=== PATIENT | female | born 1950 | race Caucasian/White ===

== ENCOUNTER → 2017-08-30 12:35 | Outpatient (CLI) | payer BC, SELFPAY ==
[2017-08-30 13:46] LABS: Absolute Lymphocyte Count 1.68 X10^3/ul (0.83-4.51); Absolute Neutrophil Count 5.3 X10^3/uL (2.0-7.7); Basophil# 0.03 X10^3/uL; Basophil% 0.4 % (0-1); Eosinophil# 0.29 X10^3/uL; Eosinophils% 3.8 % (0-5); Hematocrit 39.9 % (37-47); Hemoglobin 12.6 g/dl (12.0-15.0); Lymphocyte # 1.68 X10^3/ul (4.0); Mean Corp Hgb Conc 31.6 g/gl (32-36); Mean Corpuscular Hgb 29.9 pg (27.0-32.0); Mean Corpuscular Volume 94.5 fL (81-99); Mean Platelet Vol. 10.8 fl (6.2-12.0); Monocyte# 0.33 X10^3/uL; Monocyte% 4.3 % (0-10); Neutrophil % 69.5 % (47-70); Platelet Count 250 K/mm3 (150-450); RBC Distribution Width CV 13.7 % (11.6-14.6); RBC Distribution Width SD 46.9 fl (35.1-43.9); Red Blood Count 4.22 M/mm3 (4.2-5.4); White Blood Count 7.6 K/mm3 (4.4-11.0)
[2017-08-30 13:49] LABS: POSITIVE COUNT NO; POSITIVE DIFFERENTIAL NO; POSITIVE MORPHOLOGY NO
[2017-08-30 14:13] LABS: AST(SGOT) 16 U/L (15-37); Alanine Aminotransfer ALT/SGPT 27 U/L (13-56); Albumin, Serum 3.7 g/dL (3.2-5.0); Alkaline Phosphatase 70 U/L (45-117); Anion Gap 6 (5-15); BUN 19 mg/dL (7-18); BUN/Creat Ratio 18.4 RATIO (10-20); Calcium,Total 8.7 mg/dL (8.5-10.1); Chloride 105 mmol/L (98-107); Creatinine, Serum 1.03 mg/dL (0.55-1.02); EST Glomerular Filtration Rate 57 mL/min (>60); Est Glom Filt Rate - Afr Amer 69 mL/min (>60); Globulin 3.8 g/dL (2.2-4.2); Glucose 96 mg/dL (74-106); Potassium 4.1 mmol/L (3.5-5.1); Protein, Total 7.5 g/dL (6.4-8.2); Sodium Level 140 mmol/L (136-145)
== END ==
PROVIDERS: Family Provider Internal Medicine; PCP Internal Medicine; Visit Provider Internal Medicine Rheumatology
DX: L40.59 Other psoriatic arthropathy (principal); N39.46 Mixed incontinence; K21.9 Gastro-esophageal reflux disease without esophagitis; Z79.899 Other long term (current) drug therapy
CPT/HCPCS: 36415; 80053; 85025

== ENCOUNTER → 2017-11-15 07:17 | Outpatient (CLI) | payer BC, SELFPAY ==
[2017-11-15 10:04] LABS: Absolute Lymphocyte Count 1.84 X10^3/ul (0.83-4.51); Absolute Neutrophil Count 4.6 X10^3/uL (2.0-7.7); Basophil# 0.04 X10^3/uL; Basophil% 0.6 % (0-1); Eosinophil# 0.33 X10^3/uL; Eosinophils% 4.6 % (0-5); Hematocrit 35.9 % (37-47); Hemoglobin 11.8 g/dl (12.0-15.0); Lymphocyte # 1.84 X10^3/ul (4.0); Lymphocyte % 25.5 % (19-41); Mean Corp Hgb Conc 32.9 g/gl (32-36); Mean Corpuscular Hgb 30.7 pg (27.0-32.0); Mean Corpuscular Volume 93.5 fL (81-99); Monocyte# 0.35 X10^3/uL; Monocyte% 4.9 % (0-10); Neutrophil # 4.64 X10^3/uL (2.7-7.7); Neutrophil % 64.3 % (47-70); Platelet Count 238 K/mm3 (150-450); RBC Distribution Width CV 13.3 % (11.6-14.6); RBC Distribution Width SD 44.2 fl (35.1-43.9); Red Blood Count 3.84 M/mm3 (4.2-5.4); White Blood Count 7.2 K/mm3 (4.4-11.0)
[2017-11-15 10:06] LABS: POSITIVE COUNT NO; POSITIVE DIFFERENTIAL NO; POSITIVE MORPHOLOGY NO
[2017-11-15 10:19] LABS: AST(SGOT) 19 U/L (15-37); Alanine Aminotransfer ALT/SGPT 27 U/L (13-56); Albumin, Serum 3.8 g/dL (3.2-5.0); Alkaline Phosphatase 69 U/L (45-117); Anion Gap 7 (5-15); BUN 12 mg/dL (7-18); BUN/Creat Ratio 13.4 RATIO (10-20); Calcium,Total 8.8 mg/dL (8.5-10.1); Chloride 104 mmol/L (98-107); EST Glomerular Filtration Rate 67 mL/min (>60); Est Glom Filt Rate - Afr Amer 81 mL/min (>60); Globulin 3.9 g/dL (2.2-4.2); Glucose 116 mg/dL (74-106); Potassium 3.6 mmol/L (3.5-5.1); Protein, Total 7.7 g/dL (6.4-8.2); Sodium Level 138 mmol/L (136-145)
== END ==
PROVIDERS: Family Provider Internal Medicine; PCP Internal Medicine; Visit Provider Internal Medicine
DX: L40.59 Other psoriatic arthropathy (principal); K21.9 Gastro-esophageal reflux disease without esophagitis; N39.46 Mixed incontinence; Z79.899 Other long term (current) drug therapy
CPT/HCPCS: 36415; 80053; 85025

== ENCOUNTER → 2018-02-15 11:02 | Outpatient (CLI) | payer BC, SELFPAY ==
[2018-02-15 12:39] LABS: Absolute Lymphocyte Count 1.93 X10^3/ul (0.83-4.51); Absolute Neutrophil Count 6.2 X10^3/uL (2.0-7.7); Basophil# 0.06 X10^3/uL; Basophil% 0.7 % (0-1); Eosinophil# 0.21 X10^3/uL; Eosinophils% 2.3 % (0-5); Hemoglobin 12.1 g/dl (12.0-15.0); Lymphocyte # 1.93 X10^3/ul (4.0); Lymphocyte % 21.3 % (19-41); Mean Corp Hgb Conc 32.7 g/gl (32-36); Mean Corpuscular Hgb 30.7 pg (27.0-32.0); Mean Corpuscular Volume 93.9 fL (81-99); Mean Platelet Vol. 10.8 fl (6.2-12.0); Monocyte# 0.67 X10^3/uL; Monocyte% 7.4 % (0-10); Neutrophil # 6.16 X10^3/uL (2.7-7.7); Neutrophil % 68.2 % (47-70); Platelet Count 229 K/mm3 (150-450); RBC Distribution Width CV 13.4 % (11.6-14.6); RBC Distribution Width SD 44.4 fl (35.1-43.9); Red Blood Count 3.94 M/mm3 (4.2-5.4)
[2018-02-15 12:46] LABS: POSITIVE COUNT NO; POSITIVE DIFFERENTIAL NO; POSITIVE MORPHOLOGY NO
[2018-02-15 12:52] LABS: AST(SGOT) 18 U/L (15-37); Alanine Aminotransfer ALT/SGPT 27 U/L (13-56); Albumin, Serum 3.8 g/dL (3.2-5.0); Alkaline Phosphatase 65 U/L (45-117); Anion Gap 5 (5-15); BUN 13 mg/dL (7-18); BUN/Creat Ratio 13.4 RATIO (10-20); Chloride 105 mmol/L (98-107); Creatinine, Serum 0.97 mg/dL (0.55-1.02); EST Glomerular Filtration Rate 61 mL/min (>60); Est Glom Filt Rate - Afr Amer 74 mL/min (>60); Globulin 3.9 g/dL (2.2-4.2); Glucose 91 mg/dL (74-106); Potassium 3.7 mmol/L (3.5-5.1); Protein, Total 7.7 g/dL (6.4-8.2); Sodium Level 139 mmol/L (136-145)
== END ==
PROVIDERS: Family Provider Internal Medicine; PCP Internal Medicine; Visit Provider Internal Medicine Rheumatology
DX: L40.59 Other psoriatic arthropathy (principal); N39.46 Mixed incontinence; K21.9 Gastro-esophageal reflux disease without esophagitis; Z79.899 Other long term (current) drug therapy
CPT/HCPCS: 36415; 80053; 85025

== ENCOUNTER → 2018-05-16 11:52 | Outpatient (CLI) | payer BC, SELFPAY ==
[2018-05-16 13:49] LABS: Absolute Lymphocyte Count 1.76 X10^3/ul (0.83-4.51); Absolute Neutrophil Count 6.1 X10^3/uL (2.0-7.7); Basophil# 0.07 X10^3/uL; Basophil% 0.8 % (0-1); Eosinophil# 0.32 X10^3/uL; Eosinophils% 3.6 % (0-5); Hematocrit 38.4 % (37-47); Hemoglobin 12.6 g/dl (12.0-15.0); Lymphocyte # 1.76 X10^3/ul (4.0); Lymphocyte % 20.1 % (19-41); Mean Corp Hgb Conc 32.8 g/gl (32-36); Mean Corpuscular Hgb 31.3 pg (27.0-32.0); Mean Corpuscular Volume 95.3 fL (81-99); Mean Platelet Vol. 10.3 fl (6.2-12.0); Monocyte# 0.53 X10^3/uL; Neutrophil # 6.07 X10^3/uL (2.7-7.7); Neutrophil % 69.3 % (47-70); Platelet Count 208 K/mm3 (150-450); RBC Distribution Width CV 13.1 % (11.6-14.6); RBC Distribution Width SD 43.6 fl (35.1-43.9); Red Blood Count 4.03 M/mm3 (4.2-5.4); White Blood Count 8.8 K/mm3 (4.4-11.0)
[2018-05-16 13:54] LABS: POSITIVE COUNT NO; POSITIVE DIFFERENTIAL NO; POSITIVE MORPHOLOGY NO
[2018-05-16 14:11] LABS: ALB/GLOB Ratio 0.9 RATIO (0.9-2.4); AST(SGOT) 17 U/L (15-37); Alanine Aminotransfer ALT/SGPT 29 U/L (13-56); Albumin, Serum 3.7 g/dL (3.2-5.0); Alkaline Phosphatase 68 U/L (45-117); Anion Gap 10 (5-15); BUN 16 mg/dL (7-18); Chloride 104 mmol/L (98-107); Creatinine, Serum 0.94 mg/dL (0.55-1.02); EST Glomerular Filtration Rate 63 mL/min (>60); Est Glom Filt Rate - Afr Amer 76 mL/min (>60); Glucose 83 mg/dL (74-106); Potassium 4.2 mmol/L (3.5-5.1); Protein, Total 7.7 g/dL (6.4-8.2); Sodium Level 140 mmol/L (136-145)
== END ==
PROVIDERS: Family Provider Internal Medicine; PCP Internal Medicine; Referring Provider Internal Medicine Rheumatology; Visit Provider Internal Medicine Rheumatology
DX: L40.59 Other psoriatic arthropathy (principal); K21.9 Gastro-esophageal reflux disease without esophagitis; N39.46 Mixed incontinence; Z79.899 Other long term (current) drug therapy
CPT/HCPCS: 36415; 80053; 85025

== ENCOUNTER → 2018-08-29 10:39 | Outpatient (CLI) | payer MEDICARE, SELFPAY ==
[2018-08-29 12:37] LABS: Absolute Neutrophil Count 6.3 X10^3/uL (2.0-7.7); Basophil# 0.04 X10^3/uL; Basophil% 0.4 % (0-1); Eosinophil# 0.32 X10^3/uL; Eosinophils% 3.3 % (0-5); Lymphocyte % 27.6 % (19-41); Mean Corp Hgb Conc 31.7 g/gl (32-36); Mean Corpuscular Hgb 30.4 pg (27.0-32.0); Mean Platelet Vol. 10.7 fl (6.2-12.0); Monocyte% 4.1 % (0-10); Neutrophil # 6.26 X10^3/uL (2.7-7.7); Neutrophil % 64.1 % (47-70); Platelet Count 269 K/mm3 (150-450); RBC Distribution Width SD 48.1 fl (35.1-43.9); Red Blood Count 4.27 M/mm3 (4.2-5.4); White Blood Count 9.8 K/mm3 (4.4-11.0)
[2018-08-29 12:42] LABS: POSITIVE COUNT NO; POSITIVE DIFFERENTIAL NO; POSITIVE MORPHOLOGY NO
[2018-08-29 13:00] LABS: AST(SGOT) 17 U/L (15-37); Alanine Aminotransfer ALT/SGPT 42 U/L (13-56); Albumin, Serum 3.8 g/dL (3.2-5.0); Alkaline Phosphatase 69 U/L (45-117); Anion Gap 12 (5-15); BUN 26 mg/dL (7-18); BUN/Creat Ratio 23.9 RATIO (10-20); Calcium,Total 9.3 mg/dL (8.5-10.1); Chloride 103 mmol/L (98-107); Creatinine, Serum 1.09 mg/dL (0.55-1.02); EST Glomerular Filtration Rate 53 mL/min (>60); Est Glom Filt Rate - Afr Amer 64 mL/min (>60); Globulin 3.8 g/dL (2.2-4.2); Glucose 91 mg/dL (74-106); Potassium 4.3 mmol/L (3.5-5.1); Protein, Total 7.6 g/dL (6.4-8.2); Sodium Level 142 mmol/L (136-145)
== END ==
PROVIDERS: Family Provider Internal Medicine; PCP Internal Medicine; Referring Provider Internal Medicine Rheumatology; Visit Provider Internal Medicine Rheumatology
DX: L40.59 Other psoriatic arthropathy (principal); N39.46 Mixed incontinence; K21.9 Gastro-esophageal reflux disease without esophagitis; Z79.899 Other long term (current) drug therapy
CPT/HCPCS: 36415; 80053; 85025

== ENCOUNTER → 2018-12-19 12:24 | Outpatient (CLI) | payer MEDICARE, SELFPAY ==
[2018-12-19 13:51] LABS: Absolute Lymphocyte Count 0.85 X10^3/ul (0.83-4.51); Absolute Neutrophil Count 9.9 X10^3/uL (2.0-7.7); Basophil# 0.02 X10^3/uL; Basophil% 0.2 % (0-1); Eosinophil# 0.04 X10^3/uL; Eosinophils% 0.4 % (0-5); Hemoglobin 13.2 g/dl (12.0-15.0); Lymphocyte # 0.85 X10^3/ul (4.0); Lymphocyte % 7.7 % (19-41); Mean Corpuscular Hgb 30.6 pg (27.0-32.0); Mean Corpuscular Volume 92.6 fL (81-99); Mean Platelet Vol. 10.6 fl (6.2-12.0); Monocyte# 0.19 X10^3/uL; Monocyte% 1.7 % (0-10); Neutrophil # 9.92 X10^3/uL (2.7-7.7); Neutrophil % 89.8 % (47-70); Platelet Count 275 K/mm3 (150-450); RBC Distribution Width CV 13.5 % (11.6-14.6); RBC Distribution Width SD 45.7 fl (35.1-43.9); Red Blood Count 4.32 M/mm3 (4.2-5.4)
[2018-12-19 13:57] LABS: POSITIVE COUNT NO; POSITIVE DIFFERENTIAL NO; POSITIVE MORPHOLOGY NO
[2018-12-19 14:06] LABS: AST(SGOT) 15 U/L (15-37); Alanine Aminotransfer ALT/SGPT 26 U/L (13-56); Albumin, Serum 4.1 g/dL (3.2-5.0); Alkaline Phosphatase 84 U/L (45-117); Anion Gap 9 (5-15); BUN 10 mg/dL (7-18); Calcium,Total 9.5 mg/dL (8.5-10.1); Chloride 100 mmol/L (98-107); Creatinine, Serum 0.91 mg/dL (0.55-1.02); EST Glomerular Filtration Rate 66 mL/min (>60); Est Glom Filt Rate - Afr Amer 80 mL/min (>60); Globulin 4.3 g/dL (2.2-4.2); Glucose 142 mg/dL (74-106); Protein, Total 8.4 g/dL (6.4-8.2); Sodium Level 138 mmol/L (136-145)
== END ==
PROVIDERS: Family Provider Internal Medicine; PCP Internal Medicine; Referring Provider Internal Medicine Rheumatology; Visit Provider Internal Medicine Rheumatology
DX: L40.59 Other psoriatic arthropathy (principal); K21.9 Gastro-esophageal reflux disease without esophagitis; N39.46 Mixed incontinence; Z79.899 Other long term (current) drug therapy
CPT/HCPCS: 36415; 80053; 85025

== ENCOUNTER → 2019-06-01 10:56 | Outpatient (CLI) | payer MEDICARE, SELFPAY ==
[2019-06-01 12:33] LABS: Absolute Lymphocyte Count 2.16 X10^3/uL (0.83-4.51); Absolute Neutrophil Count 6.2 X10^3/uL (2.0-7.7); Basophil# 0.07 X10^3/uL; Basophil% 0.7 % (0-1); Eosinophil# 0.27 X10^3/uL; Eosinophils% 2.9 % (0-5); Hematocrit 38.9 % (37-47); Hemoglobin 12.5 g/dL (12.0-15.0); Lymphocyte # 2.16 X10^3/ul (4.0); Lymphocyte % 23.1 % (19-41); Mean Corp Hgb Conc 32.1 g/dL (32-36); Mean Corpuscular Hgb 30.6 pg (27.0-32.0); Mean Corpuscular Volume 95.1 fL (81-99); Mean Platelet Vol. 10.9 fl (6.2-12.0); Monocyte# 0.57 X10^3/uL; Monocyte% 6.1 % (0-10); NRBC Flagged by Analyzer 0 % (0-5); Neutrophil # 6.24 X10^3/uL (2.7-7.7); Neutrophil % 66.8 % (47-70); Platelet Count 250 K/mm3 (150-450); RBC Distribution Width CV 12.9 % (11.6-14.6); RBC Distribution Width SD 44.2 fl (35.1-43.9); Red Blood Count 4.09 M/mm3 (4.2-5.4); White Blood Count 9.4 K/mm3 (4.4-11.0)
[2019-06-01 12:36] LABS: ALB/GLOB Ratio 0.9 RATIO (0.9-2.4); AST(SGOT) 13 U/L (15-37); Alanine Aminotransfer ALT/SGPT 23 U/L (13-56); Albumin, Serum 3.6 g/dL (3.2-5.0); Alkaline Phosphatase 57 U/L (45-117); Anion Gap 9 (5-15); BUN 14 mg/dL (7-18); BUN/Creat Ratio 15.5 RATIO (10-20); Calcium,Total 9.2 mg/dL (8.5-10.1); Chloride 103 mmol/L (98-107); EST Glomerular Filtration Rate 66 mL/min (>60); Est Glom Filt Rate - Afr Amer 80 mL/min (>60); Globulin 3.9 g/dL (2.2-4.2); Glucose 102 mg/dL (74-106); Potassium 3.8 mmol/L (3.5-5.1); Protein, Total 7.5 g/dL (6.4-8.2); Sodium Level 139 mmol/L (136-145)
== END ==
PROVIDERS: Family Provider Internal Medicine; PCP Internal Medicine; Referring Provider Internal Medicine Rheumatology; Visit Provider Internal Medicine Rheumatology
DX: L40.59 Other psoriatic arthropathy (principal); K21.9 Gastro-esophageal reflux disease without esophagitis; N39.46 Mixed incontinence; Z79.899 Other long term (current) drug therapy
CPT/HCPCS: 36415; 80053; 85025

== ENCOUNTER → 2019-08-28 09:20 | Outpatient (CLI) | payer MEDICARE, SELFPAY ==
[2019-08-28 10:19] LABS: Absolute Neutrophil Count 4.8 X10^3/uL (2.0-7.7); Basophil# 0.05 X10^3/uL; Basophil% 0.7 % (0-1); Eosinophil# 0.38 X10^3/uL; Eosinophils% 5.3 % (0-5); Hematocrit 38.4 % (37-47); Hemoglobin 12.6 g/dL (12.0-15.0); Lymphocyte % 22.3 % (19-41); Mean Corp Hgb Conc 32.8 g/dL (32-36); Mean Corpuscular Hgb 30.6 pg (27.0-32.0); Mean Corpuscular Volume 93.2 fL (81-99); Mean Platelet Vol. 10.8 fl (6.2-12.0); Monocyte# 0.35 X10^3/uL; Monocyte% 4.9 % (0-10); NRBC Flagged by Analyzer 0 % (0-5); Neutrophil # 4.79 X10^3/uL (2.7-7.7); Neutrophil % 66.5 % (47-70); Platelet Count 241 K/mm3 (150-450); RBC Distribution Width SD 44.3 fl (35.1-43.9); Red Blood Count 4.12 M/mm3 (4.2-5.4); White Blood Count 7.2 K/mm3 (4.4-11.0)
[2019-08-28 10:50] LABS: ALB/GLOB Ratio 0.9 RATIO (0.9-2.4); AST(SGOT) 17 U/L (15-37); Alanine Aminotransfer ALT/SGPT 24 U/L (13-56); Albumin, Serum 3.8 g/dL (3.2-5.0); Alkaline Phosphatase 61 U/L (45-117); Anion Gap 2 (5-15); BUN 16 mg/dL (7-18); BUN/Creat Ratio 17.4 RATIO (10-20); Calcium,Total 9.7 mg/dL (8.5-10.1); Chloride 105 mmol/L (98-107); Creatinine, Serum 0.92 mg/dL (0.55-1.02); EST Glomerular Filtration Rate 65 mL/min (>60); Est Glom Filt Rate - Afr Amer 78 mL/min (>60); Globulin 4.2 g/dL (2.2-4.2); Glucose 99 mg/dL (74-106); Potassium 4.3 mmol/L (3.5-5.1); Sodium Level 137 mmol/L (136-145)
== END ==
PROVIDERS: PCP Internal Medicine; Referring Provider Internal Medicine Rheumatology; Visit Provider Internal Medicine Rheumatology
DX: L40.59 Other psoriatic arthropathy (principal); K21.9 Gastro-esophageal reflux disease without esophagitis; N39.46 Mixed incontinence; Z79.899 Other long term (current) drug therapy
CPT/HCPCS: 36415; 80053; 85025

== ENCOUNTER → 2019-11-17 11:13 | Outpatient (CLI) | payer MEDICARE, SELFPAY ==
[2019-11-17 12:55] LABS: Absolute Lymphocyte Count 0.73 X10^3/uL (0.83-4.51); Absolute Neutrophil Count 10.4 X10^3/uL (2.0-7.7); Basophil# 0.03 X10^3/uL; Basophil% 0.3 % (0-1); Hematocrit 37.3 % (37-47); Hemoglobin 11.9 g/dL (12.0-15.0); Lymphocyte # 0.73 X10^3/ul (4.0); Lymphocyte % 6.4 % (19-41); Mean Corp Hgb Conc 31.9 g/dL (32-36); Mean Corpuscular Hgb 29.5 pg (27.0-32.0); Mean Corpuscular Volume 92.3 fL (81-99); Monocyte# 0.28 X10^3/uL; Monocyte% 2.4 % (0-10); NRBC Flagged by Analyzer 0 % (0-5); Neutrophil % 90.6 % (47-70); Platelet Count 233 K/mm3 (150-450); RBC Distribution Width CV 13.2 % (11.6-14.6); RBC Distribution Width SD 44.4 fl (35.1-43.9); Red Blood Count 4.04 M/mm3 (4.2-5.4); White Blood Count 11.5 K/mm3 (4.4-11.0)
[2019-11-17 13:36] LABS: ALB/GLOB Ratio 0.9 RATIO (0.9-2.4); AST(SGOT) 10 U/L (15-37); Alanine Aminotransfer ALT/SGPT 21 U/L (13-56); Albumin, Serum 3.8 g/dL (3.2-5.0); Alkaline Phosphatase 52 U/L (45-117); Anion Gap 6 (5-15); BUN 15 mg/dL (7-18); BUN/Creat Ratio 16.3 RATIO (10-20); Calcium,Total 9.1 mg/dL (8.5-10.1); Chloride 103 mmol/L (98-107); Creatinine, Serum 0.92 mg/dL (0.55-1.02); EST Glomerular Filtration Rate 65 mL/min (>60); Est Glom Filt Rate - Afr Amer 78 mL/min (>60); Globulin 4.1 g/dL (2.2-4.2); Glucose 137 mg/dL (74-106); Protein, Total 7.9 g/dL (6.4-8.2); Sodium Level 135 mmol/L (136-145)
== END ==
PROVIDERS: PCP Internal Medicine; Referring Provider Internal Medicine Rheumatology; Visit Provider Internal Medicine Rheumatology
DX: L40.59 Other psoriatic arthropathy (principal); N39.46 Mixed incontinence; K21.9 Gastro-esophageal reflux disease without esophagitis; Z79.899 Other long term (current) drug therapy
CPT/HCPCS: 36415; 80053; 85025

== ENCOUNTER → 2020-02-13 11:02 | Outpatient (CLI) | payer BC, SELFPAY ==
[2020-02-13 15:45] LABS: Absolute Lymphocyte Count 2.12 X10^3/uL (0.83-4.51); Absolute Neutrophil Count 7.3 X10^3/uL (2.0-7.7); Basophil# 0.05 X10^3/uL; Basophil% 0.5 % (0-1); Eosinophil# 0.26 X10^3/uL; Eosinophils% 2.5 % (0-5); Hematocrit 37.7 % (37-47); Lymphocyte # 2.12 X10^3/ul (4.0); Lymphocyte % 20.1 % (19-41); Mean Corp Hgb Conc 31.8 g/dL (32-36); Mean Corpuscular Hgb 30.5 pg (27.0-32.0); Mean Corpuscular Volume 95.9 fL (81-99); Mean Platelet Vol. 12.1 fl (6.2-12.0); Monocyte# 0.82 X10^3/uL; Monocyte% 7.8 % (0-10); NRBC Flagged by Analyzer 0 % (0-5); Neutrophil # 7.28 X10^3/uL (2.7-7.7); Neutrophil % 68.8 % (47-70); Platelet Count 222 K/mm3 (150-450); RBC Distribution Width CV 13.3 % (11.6-14.6); RBC Distribution Width SD 46.7 fl (35.1-43.9); Red Blood Count 3.93 M/mm3 (4.2-5.4); White Blood Count 10.6 K/mm3 (4.4-11.0)
[2020-02-13 16:24] LABS: AST(SGOT) 12 U/L (15-37); Alanine Aminotransfer ALT/SGPT 18 U/L (13-56); Albumin, Serum 3.8 g/dL (3.2-5.0); Alkaline Phosphatase 52 U/L (45-117); Anion Gap 2 (5-15); BUN 12 mg/dL (7-18); BUN/Creat Ratio 12.7 RATIO (10-20); Chloride 104 mmol/L (98-107); Creatinine, Serum 0.94 mg/dL (0.55-1.02); EST Glomerular Filtration Rate 63 mL/min (>60); Est Glom Filt Rate - Afr Amer 76 mL/min (>60); Globulin 3.9 g/dL (2.2-4.2); Glucose 75 mg/dL (74-106); Potassium 3.9 mmol/L (3.5-5.1); Protein, Total 7.7 g/dL (6.4-8.2); Sodium Level 136 mmol/L (136-145)
== END ==
PROVIDERS: PCP Internal Medicine; Referring Provider Internal Medicine Rheumatology; Visit Provider Internal Medicine Rheumatology
DX: L40.59 Other psoriatic arthropathy (principal); M77.11 Lateral epicondylitis, right elbow; K21.9 Gastro-esophageal reflux disease without esophagitis; N39.46 Mixed incontinence; Z79.899 Other long term (current) drug therapy
CPT/HCPCS: 36415; 80053; 85025

== ENCOUNTER → 2020-05-16 09:35 | Outpatient (CLI) | payer MEDICARE, SELFPAY ==
[2020-05-16 12:37] LABS: Absolute Lymphocyte Count 1.67 X10^3/uL (0.83-4.51); Absolute Neutrophil Count 8.1 X10^3/uL (2.0-7.7); Basophil# 0.08 X10^3/uL; Basophil% 0.7 % (0-1); Eosinophil# 0.25 X10^3/uL; Eosinophils% 2.3 % (0-5); Hematocrit 38.5 % (37-47); Hemoglobin 12.1 g/dL (12.0-15.0); Lymphocyte # 1.67 X10^3/ul (4.0); Lymphocyte % 15.4 % (19-41); Mean Corp Hgb Conc 31.4 g/dL (32-36); Mean Corpuscular Hgb 29.8 pg (27.0-32.0); Mean Corpuscular Volume 94.8 fL (81-99); Mean Platelet Vol. 12.5 fl (6.2-12.0); Monocyte% 6.4 % (0-10); NRBC Flagged by Analyzer 0 % (0-5); Neutrophil # 8.11 X10^3/uL (2.7-7.7); Neutrophil % 74.7 % (47-70); Platelet Count 210 K/mm3 (150-450); RBC Distribution Width CV 13.1 % (11.6-14.6); RBC Distribution Width SD 45.5 fl (35.1-43.9); Red Blood Count 4.06 M/mm3 (4.2-5.4); White Blood Count 10.9 K/mm3 (4.4-11.0)
[2020-05-16 13:04] LABS: ALB/GLOB Ratio 0.9 RATIO (0.9-2.4); AST(SGOT) 18 U/L (15-37); Alanine Aminotransfer ALT/SGPT 20 U/L (13-56); Albumin, Serum 3.7 g/dL (3.2-5.0); Alkaline Phosphatase 49 U/L (45-117); Anion Gap 6 (5-15); BUN 12 mg/dL (7-18); BUN/Creat Ratio 12.8 RATIO (10-20); Chloride 106 mmol/L (98-107); Creatinine, Serum 0.94 mg/dL (0.55-1.02); EST Glomerular Filtration Rate 63 mL/min (>60); Est Glom Filt Rate - Afr Amer 77 mL/min (>60); Globulin 4.2 g/dL (2.2-4.2); Glucose 95 mg/dL (74-106); Potassium 3.7 mmol/L (3.5-5.1); Protein, Total 7.9 g/dL (6.4-8.2); Sodium Level 141 mmol/L (136-145)
== END ==
PROVIDERS: PCP Internal Medicine; Referring Provider Internal Medicine Rheumatology; Visit Provider Internal Medicine Rheumatology
DX: L40.59 Other psoriatic arthropathy (principal); M77.11 Lateral epicondylitis, right elbow; N39.46 Mixed incontinence; K21.9 Gastro-esophageal reflux disease without esophagitis; Z79.899 Other long term (current) drug therapy
CPT/HCPCS: 36415; 80053; 85025

== ENCOUNTER → 2020-08-06 11:34 | Outpatient (CLI) | payer MEDICARE, SELFPAY ==
[2020-08-06 15:35] LABS: ALB/GLOB Ratio 0.9 RATIO (0.9-2.4); AST(SGOT) 25 U/L (15-37); Alanine Aminotransfer ALT/SGPT 33 U/L (13-56); Albumin, Serum 3.8 g/dL (3.2-5.0); Alkaline Phosphatase 46 U/L (45-117); Anion Gap 5 (5-15); BUN 16 mg/dL (7-18); BUN/Creat Ratio 14.3 RATIO (10-20); Calcium,Total 10.1 mg/dL (8.5-10.1); Chloride 103 mmol/L (98-107); Creatinine, Serum 1.12 mg/dL (0.55-1.02); EST Glomerular Filtration Rate 51 mL/min (>60); Est Glom Filt Rate - Afr Amer 62 mL/min (>60); Globulin 4.1 g/dL (2.2-4.2); Glucose 105 mg/dL (74-106); Potassium 3.9 mmol/L (3.5-5.1); Protein, Total 7.9 g/dL (6.4-8.2); Sodium Level 136 mmol/L (136-145)
[2020-08-06 15:44] LABS: Absolute Lymphocyte Count 1.64 X10^3/uL (0.83-4.51); Absolute Neutrophil Count 6.4 X10^3/uL (2.0-7.7); Basophil# 0.06 X10^3/uL; Basophil% 0.7 % (0-1); Eosinophil# 0.31 X10^3/uL; Eosinophils% 3.5 % (0-5); Hematocrit 39.5 % (37-47); Hemoglobin 12.7 g/dL (12.0-15.0); Lymphocyte # 1.64 X10^3/ul (4.0); Lymphocyte % 18.5 % (19-41); Mean Corp Hgb Conc 32.2 g/dL (32-36); Mean Corpuscular Hgb 30.1 pg (27.0-32.0); Mean Corpuscular Volume 93.6 fL (81-99); Mean Platelet Vol. 11.4 fl (6.2-12.0); Monocyte# 0.46 X10^3/uL; Monocyte% 5.2 % (0-10); NRBC Flagged by Analyzer 0 % (0-5); Neutrophil # 6.37 X10^3/uL (2.7-7.7); Neutrophil % 71.9 % (47-70); Platelet Count 246 K/mm3 (150-450); RBC Distribution Width CV 13.3 % (11.6-14.6); RBC Distribution Width SD 45.4 fl (35.1-43.9); Red Blood Count 4.22 M/mm3 (4.2-5.4); White Blood Count 8.9 K/mm3 (4.4-11.0)
== END ==
PROVIDERS: PCP Internal Medicine; Referring Provider Internal Medicine Rheumatology; Visit Provider Internal Medicine Rheumatology
DX: L40.59 Other psoriatic arthropathy (principal); M77.11 Lateral epicondylitis, right elbow; K21.9 Gastro-esophageal reflux disease without esophagitis; N39.46 Mixed incontinence; Z79.899 Other long term (current) drug therapy
CPT/HCPCS: 36415; 80053; 85025

== ENCOUNTER → 2020-10-22 09:44 | Outpatient (CLI) | payer MEDICARE, SELFPAY ==
[2020-10-22 12:12] LABS: Absolute Lymphocyte Count 1.93 X10^3/uL (0.83-4.51); Absolute Neutrophil Count 5.1 X10^3/uL (2.0-7.7); Basophil# 0.08 X10^3/uL; Eosinophil# 0.22 X10^3/uL; Eosinophils% 2.8 % (0-5); Hematocrit 35.4 % (37-47); Hemoglobin 11.4 g/dL (12.0-15.0); Lymphocyte # 1.93 X10^3/ul (4.0); Lymphocyte % 24.6 % (19-41); Mean Corp Hgb Conc 32.2 g/dL (32-36); Mean Corpuscular Hgb 30.7 pg (27.0-32.0); Mean Corpuscular Volume 95.4 fL (81-99); Mean Platelet Vol. 11.5 fl (6.2-12.0); Monocyte# 0.48 X10^3/uL; Monocyte% 6.1 % (0-10); NRBC Flagged by Analyzer 0 % (0-5); Neutrophil % 65.1 % (47-70); Platelet Count 254 K/mm3 (150-450); RBC Distribution Width SD 45.1 fl (35.1-43.9); Red Blood Count 3.71 M/mm3 (4.2-5.4); White Blood Count 7.8 K/mm3 (4.4-11.0)
[2020-10-22 12:43] LABS: ALB/GLOB Ratio 0.9 RATIO (0.9-2.4); AST(SGOT) 12 U/L (15-37); Alanine Aminotransfer ALT/SGPT 23 U/L (13-56); Albumin, Serum 3.7 g/dL (3.2-5.0); Alkaline Phosphatase 44 U/L (45-117); Anion Gap 2 (5-15); BUN 20 mg/dL (7-18); BUN/Creat Ratio 20.9 RATIO (10-20); Calcium,Total 9.2 mg/dL (8.5-10.1); Chloride 103 mmol/L (98-107); Creatinine, Serum 0.96 mg/dL (0.55-1.02); EST Glomerular Filtration Rate 62 mL/min (>60); Est Glom Filt Rate - Afr Amer 74 mL/min (>60); Globulin 3.9 g/dL (2.2-4.2); Glucose 79 mg/dL (74-106); Potassium 3.7 mmol/L (3.5-5.1); Protein, Total 7.6 g/dL (6.4-8.2); Sodium Level 136 mmol/L (136-145)
== END ==
PROVIDERS: PCP Internal Medicine; Referring Provider Internal Medicine Rheumatology; Visit Provider Internal Medicine Rheumatology
DX: L40.59 Other psoriatic arthropathy (principal); M77.11 Lateral epicondylitis, right elbow; N39.46 Mixed incontinence; K21.9 Gastro-esophageal reflux disease without esophagitis; Z79.899 Other long term (current) drug therapy
CPT/HCPCS: 36415; 80053; 85025

== ENCOUNTER → 2021-01-21 10:30 | Outpatient (CLI) | payer MEDICARE, SELFPAY ==
[2021-01-21 12:05] LABS: Absolute Lymphocyte Count 2.12 X10^3/uL (0.83-4.51); Basophil# 0.06 X10^3/uL; Basophil% 0.6 % (0-1); Eosinophil# 0.06 X10^3/uL; Eosinophils% 0.6 % (0-5); Hematocrit 34.1 % (37-47); Lymphocyte # 2.12 X10^3/ul (0.83-4.51); Lymphocyte % 21.7 % (19-41); Mean Corp Hgb Conc 32.3 g/dL (32-36); Mean Corpuscular Hgb 30.1 pg (27.0-32.0); Mean Corpuscular Volume 93.2 fL (81-99); Mean Platelet Vol. 11.2 fl (6.2-12.0); Monocyte# 0.55 X10^3/uL; Monocyte% 5.6 % (0-10); NRBC Flagged by Analyzer 0 % (0-5); Neutrophil # 6.96 X10^3/uL (2.7-7.7); Neutrophil % 71.2 % (47-70); Platelet Count 253 K/mm3 (150-450); RBC Distribution Width CV 13.2 % (11.6-14.6); RBC Distribution Width SD 45.5 fl (35.1-43.9); Red Blood Count 3.66 M/mm3 (4.2-5.4); White Blood Count 9.8 K/mm3 (4.4-11.0)
[2021-01-21 12:18] LABS: AST(SGOT) 23 U/L (15-37); Alanine Aminotransfer ALT/SGPT 28 U/L (13-56); Albumin, Serum 3.7 g/dL (3.2-5.0); Alkaline Phosphatase 46 U/L (45-117); Anion Gap 7 (5-15); BUN 15 mg/dL (7-18); BUN/Creat Ratio 16.5 RATIO (10-20); Chloride 106 mmol/L (98-107); Creatinine, Serum 0.91 mg/dL (0.55-1.02); EST Glomerular Filtration Rate 65 mL/min (>60); Est Glom Filt Rate - Afr Amer 79 mL/min (>60); Globulin 3.7 g/dL (2.2-4.2); Glucose 108 mg/dL (74-106); Potassium 3.3 mmol/L (3.5-5.1); Protein, Total 7.4 g/dL (6.4-8.2); Sodium Level 139 mmol/L (136-145)
== END ==
PROVIDERS: PCP Internal Medicine; Referring Provider Internal Medicine Rheumatology; Visit Provider Internal Medicine Rheumatology
DX: L40.59 Other psoriatic arthropathy (principal); M77.11 Lateral epicondylitis, right elbow; K21.9 Gastro-esophageal reflux disease without esophagitis; N39.46 Mixed incontinence; Z79.899 Other long term (current) drug therapy
CPT/HCPCS: 36415; 80053; 85025

== ENCOUNTER → 2021-04-03 11:36 | Outpatient (CLI) | payer MEDICARE, SELFPAY ==
[2021-04-03 15:11] LABS: Absolute Lymphocyte Count 1.75 X10^3/uL (0.83-4.51); Absolute Neutrophil Count 4.9 X10^3/uL (2.0-7.7); Basophil# 0.07 X10^3/uL; Basophil% 0.9 % (0-1); Eosinophil# 0.44 X10^3/uL; Eosinophils% 5.8 % (0-5); Hematocrit 33.9 % (37-47); Lymphocyte # 1.75 X10^3/ul (0.83-4.51); Lymphocyte % 23.2 % (19-41); Mean Corp Hgb Conc 32.4 g/dL (32-36); Mean Corpuscular Volume 95.5 fL (81-99); Mean Platelet Vol. 12.4 fl (6.2-12.0); Monocyte# 0.35 X10^3/uL; Monocyte% 4.6 % (0-10); NRBC Flagged by Analyzer 0 % (0-5); Neutrophil # 4.92 X10^3/uL (2.7-7.7); Neutrophil % 65.2 % (47-70); Platelet Count 211 K/mm3 (150-450); RBC Distribution Width CV 12.9 % (11.6-14.6); RBC Distribution Width SD 44.8 fl (35.1-43.9); Red Blood Count 3.55 M/mm3 (4.2-5.4); White Blood Count 7.6 K/mm3 (4.4-11.0)
[2021-04-03 15:37] LABS: ALB/GLOB Ratio 0.9 RATIO (0.9-2.4); AST(SGOT) 15 U/L (15-37); Alanine Aminotransfer ALT/SGPT 22 U/L (13-56); Albumin, Serum 3.4 g/dL (3.2-5.0); Alkaline Phosphatase 47 U/L (45-117); Anion Gap 4 (5-15); BUN 12 mg/dL (7-18); BUN/Creat Ratio 14.1 RATIO (10-20); Calcium,Total 8.9 mg/dL (8.5-10.1); Chloride 105 mmol/L (98-107); Creatinine, Serum 0.85 mg/dL (0.55-1.02); EST Glomerular Filtration Rate 70 mL/min (>60); Est Glom Filt Rate - Afr Amer 85 mL/min (>60); Globulin 3.9 g/dL (2.2-4.2); Glucose 113 mg/dL (74-106); Potassium 3.6 mmol/L (3.5-5.1); Protein, Total 7.3 g/dL (6.4-8.2); Sodium Level 137 mmol/L (136-145)
== END ==
PROVIDERS: PCP Nurse Practitioner; Referring Provider Internal Medicine Rheumatology; Visit Provider Internal Medicine Rheumatology
DX: L40.59 Other psoriatic arthropathy (principal); L40.8 Other psoriasis; M77.11 Lateral epicondylitis, right elbow; K21.9 Gastro-esophageal reflux disease without esophagitis; N39.46 Mixed incontinence; Z79.899 Other long term (current) drug therapy
CPT/HCPCS: 36415; 80053; 85025

== ENCOUNTER → 2021-06-26 09:48 | Outpatient (CLI) | payer MEDICARE, SELFPAY ==
[2021-06-26 12:29] LABS: Absolute Lymphocyte Count 0.97 X10^3/uL (0.83-4.51); Absolute Neutrophil Count 9.5 X10^3/uL (2.0-7.7); Basophil# 0.07 X10^3/uL; Basophil% 0.6 % (0-1); Eosinophil# 0.27 X10^3/uL; Eosinophils% 2.4 % (0-5); Hematocrit 36.4 % (37-47); Lymphocyte # 0.97 X10^3/ul (0.83-4.51); Lymphocyte % 8.7 % (19-41); Mean Corpuscular Hgb 30.6 pg (27.0-32.0); Mean Corpuscular Volume 92.9 fL (81-99); Mean Platelet Vol. 11.2 fl (6.2-12.0); Monocyte% 2.7 % (0-10); NRBC Flagged by Analyzer 0 % (0-5); Neutrophil # 9.47 X10^3/uL (2.7-7.7); Neutrophil % 85.2 % (47-70); Platelet Count 253 K/mm3 (150-450); RBC Distribution Width CV 13.6 % (11.6-14.6); RBC Distribution Width SD 45.6 fl (35.1-43.9); Red Blood Count 3.92 M/mm3 (4.2-5.4); White Blood Count 11.1 K/mm3 (4.4-11.0)
[2021-06-26 12:40] LABS: ALB/GLOB Ratio 0.9 RATIO (0.9-2.4); AST(SGOT) 13 U/L (15-37); Alanine Aminotransfer ALT/SGPT 21 U/L (13-56); Albumin, Serum 3.7 g/dL (3.2-5.0); Alkaline Phosphatase 48 U/L (45-117); Anion Gap 7 (5-15); BUN 13 mg/dL (7-18); BUN/Creat Ratio 13.4 RATIO (10-20); Calcium,Total 9.4 mg/dL (8.5-10.1); Chloride 101 mmol/L (98-107); Creatinine, Serum 0.97 mg/dL (0.55-1.02); EST Glomerular Filtration Rate 60 mL/min (>60); Est Glom Filt Rate - Afr Amer 73 mL/min (>60); Globulin 4.2 g/dL (2.2-4.2); Glucose 109 mg/dL (74-106); Potassium 4.4 mmol/L (3.5-5.1); Protein, Total 7.9 g/dL (6.4-8.2); Sodium Level 135 mmol/L (136-145)
== END ==
PROVIDERS: PCP Nurse Practitioner; Referring Provider Internal Medicine Rheumatology; Visit Provider Internal Medicine Rheumatology
DX: L40.59 Other psoriatic arthropathy (principal); M77.11 Lateral epicondylitis, right elbow; N39.46 Mixed incontinence; K21.9 Gastro-esophageal reflux disease without esophagitis; Z79.899 Other long term (current) drug therapy
CPT/HCPCS: 36415; 80053; 85025

== ENCOUNTER → 2022-01-08 | Outpatient (CLI) | payer MEDICARE, SELFPAY ==
[2022-01-08 10:13] LABS: Absolute Neutrophil Count 4.6 X10^3/uL (2.0-7.7); Basophil# 0.05 X10^3/uL; Basophil% 0.6 % (0-1); Eosinophil# 0.22 X10^3/uL; Eosinophils% 2.8 % (0-5); Hemoglobin 10.6 g/dL (12.0-15.0); Lymphocyte % 29.8 % (19-41); Mean Corp Hgb Conc 32.1 g/dL (32-36); Mean Corpuscular Volume 93.5 fL (81-99); Mean Platelet Vol. 11.2 fl (6.2-12.0); Monocyte% 6.5 % (0-10); NRBC Flagged by Analyzer 0 % (0-5); Neutrophil # 4.62 X10^3/uL (2.7-7.7); Neutrophil % 59.9 % (47-70); Platelet Count 219 K/mm3 (150-450); RBC Distribution Width CV 12.7 % (11.6-14.6); RBC Distribution Width SD 43.2 fl (35.1-43.9); Red Blood Count 3.53 M/mm3 (4.2-5.4); White Blood Count 7.7 K/mm3 (4.4-11.0)
[2022-01-08 10:29] LABS: ALB/GLOB Ratio 0.9 RATIO (0.9-2.4); AST(SGOT) 12 U/L (15-37); Alanine Aminotransfer ALT/SGPT 15 U/L (13-56); Albumin, Serum 3.5 g/dL (3.2-5.0); Alkaline Phosphatase 48 U/L (45-117); Anion Gap 5 (5-15); BUN 19 mg/dL (7-18); BUN/Creat Ratio 20.5 RATIO (10-20); Calcium,Total 9.3 mg/dL (8.5-10.1); Chloride 108 mmol/L (98-107); Creatinine, Serum 0.93 mg/dL (0.55-1.02); EST Glomerular Filtration Rate 64 mL/min (>60); Est Glom Filt Rate - Afr Amer 77 mL/min (>60); Globulin 3.9 g/dL (2.2-4.2); Glucose 87 mg/dL (74-106); Potassium 3.6 mmol/L (3.5-5.1); Protein, Total 7.4 g/dL (6.4-8.2); Sodium Level 139 mmol/L (136-145)
== END | disposition home or self-care (01) ==
PROVIDERS: PCP Nurse Practitioner; Referring Provider Internal Medicine Rheumatology; Visit Provider Internal Medicine Rheumatology
DX: L40.59 Other psoriatic arthropathy (principal); L40.8 Other psoriasis; M77.11 Lateral epicondylitis, right elbow; K21.9 Gastro-esophageal reflux disease without esophagitis; N39.46 Mixed incontinence; Z79.899 Other long term (current) drug therapy
CPT/HCPCS: 36415; 80053; 85025

== ENCOUNTER 2022-03-28 17:07 | Emergency (ER) | payer MEDICARE, SELFPAY ==
[2022-03-28 17:09] VITALS: BP 147/93; PULSE 80; RESP 18; TEMP 36.2; O2SAT 95; BMI 24.5
--- NOTE | 2022-03-28 17:19 | RAD_ITS ---
STUDY: X-RAY CHEST REASON FOR EXAM: Female, 71 years old. chest pain TECHNIQUE: Single AP portable view of the chest. COMPARISON: 11/01/2016 FINDINGS: The lungs are clear and expanded. There is no demonstrated pleural abnormality. Normal size heart. Normal mediastinum and cassie. Normal visualized pulmonary arteries. Normal visualized aortic arch and descending thoracic aorta. Normal visualized thoracic spine. Normal visualized ribs, clavicles, and shoulders. There is no demonstrated abnormality of the visualized soft tissue structures of the upper abdomen. RAD/Chest 1 View (Portable) IMPRESSION: Normal x-ray examination of the chest. Electronically Signed: Robert Jara MD at 17:41 EDT ,
--- NOTE | 2022-03-28 17:19 | EKG12_ITS ---
Test Reason : CP Blood Pressure : / mmHG Vent. Rate : 077 BPM Atrial Rate : 077 BPM P-R Int : 170 ms QRS Dur : 080 ms QT Int : 374 ms P-R-T Axes : 067 050 070 degrees QTc Int : 423 ms Normal sinus rhythm Nonspecific ST abnormality Abnormal ECG Confirmed by YEHUDA ARREDONDO, BK ([id number]), order editor ALLAN COCHRAN ([id number]) on 03/30/2022 11:29:14 AM Referred By: BERNARDA Confirmed By:BK BLACKMAN MD
[2022-03-28] MEDS: Aspirin 81 MG TAB.CHEW 324 MG PO (17:26)
[2022-03-28 17:35] LABS: Absolute Lymphocyte Count 0.65 X10^3/uL (0.83-4.51); Absolute Neutrophil Count 2.1 X10^3/uL (2.0-7.7); Basophil# 0.04 X10^3/uL; Basophil% 1.1 % (0-1); Eosinophil# 0.11 X10^3/uL; Eosinophils% 3.1 % (0-5); Hematocrit 33.4 % (37-47); Hemoglobin 11.1 g/dL (12.0-15.0); Lymphocyte # 0.65 X10^3/ul (0.83-4.51); Lymphocyte % 18.2 % (19-41); Mean Corp Hgb Conc 33.2 g/dL (32-36); Mean Corpuscular Hgb 30.8 pg (27.0-32.0); Mean Corpuscular Volume 92.8 fL (81-99); Monocyte# 0.71 X10^3/uL; Monocyte% 19.9 % (0-10); NRBC Flagged by Analyzer 0 % (0-5); Neutrophil # 2.05 X10^3/uL (2.7-7.7); Neutrophil % 57.4 % (47-70); Platelet Count 165 K/mm3 (150-450); RBC Distribution Width CV 14.1 % (11.6-14.6); RBC Distribution Width SD 47.1 fl (35.1-43.9); White Blood Count 3.6 K/mm3 (4.4-11.0)
--- NOTE | 2022-03-28 17:35 | EDS_ITS ---
HPI History of Present Illness Chief Complaint: Chest Pain Informant: patient Narrative Narrative: Presents with transient substernal chest pain rating to her back an hour prior to arrival. EMS was contacted. No medicines given symptoms resolved upon arrival. Yesterday mild cough that is productive. Headache today. Nonvaccinated for COVID. Denies sick contacts. Tobacco history. History of rheumatoid arthritis on medications. No cardiac history. EMS EKG reviewed shows sinus rhythm no acute changes. Prior Similar Symptoms: No CVD Risk Factors: Positive for Smoking; Negative for Hypertension, Diabetes, Hypercholesterolemia or Family History 1' </=55 PE Risk Factors: Negative for Recent Travel/Surgery, Recent Immobilization, Prior DVT or PE, Cancer or OCP + Smoking + >/=35 PFSH PFSH Home Medications oxybutynin chloride 5 mg tablet 5 mg PO DAILY 10/02/14 [History Last Taken Unknown] methotrexate sodium 2.5 mg tablet 12.5 mg PO Q7D 11/01/16 [History Last Taken Unknown] prednisone 5 mg tablet 5 mg PO DAILY 11/01/16 [History Last Taken Unknown] folic acid 1 mg tablet 1 mg PO BIDCM 11/02/16 [History Last Taken 11/01/16] nirmatrelvir 300 mg (150 mg x2)-ritonavir 100 mg tablet,dose pack(EUA) (Paxlovid) See Rx Instructions PO .COMPLEX #30 tabs 03/28/22 [Rx Last Taken Unknown] Allergy/AdvReac Type Severity Reaction Status Date / Time No Known Allergies Allergy Verified 03/28/22 17:15 Social History Smoking Status: Current some day smoker tobacco type: cigarettes ROS ROS ED Constitutional Constitutional ED: Denies chills, fever(s) or sweats Eyes Eyes: Denies change in vision ENT ENT ED: Denies dysphagia or sore throat Cardiovascular Cardiovascular: Reports chest pain; Denies leg edema, palpitations or racing heartbeat Respiratory/Chest Respiratory/Chest: Reports cough; Denies dyspnea or dyspnea on exertion Gastrointestinal Gastrointestinal: Denies abdominal pain, diarrhea, nausea or vomiting Genitourinary Genitourinary ED: Denies dysuria, hematuria or urinary frequency Musculoskeletal Musculoskeletal: Denies back pain, extremity pain or neck pain Integumentary Denies rash or wounds Neurologic Neurologic: Reports headache(s); Denies paresthesias or weakness EXAM Physical Exam Const Vital Signs: 03/28/22 17:09 03/28/22 17:15 03/28/22 17:27 Temperature 97.2 F L Temperature Source Temporal Pulse Rate 80 Respiratory Rate 18 Respiratory Effort Normal Non-Labored Blood Pressure 147/93 H Blood Pressure Mean 111 Pulse Ox 95 Oxygen Delivery Method Room Air Room Air 03/28/22 19:03 03/28/22 19:44 03/28/22 20:14 Temperature Temperature Source Pulse Rate 81 88 79 Respiratory Rate 16 18 Respiratory Effort Blood Pressure 137/71 H 144/86 H 154/82 H Blood Pressure Mean 93 105 Pulse Ox 92 96 97 Oxygen Delivery Method Room Air Room Air Positive well nourished and well developed General Appearance ED: well developed and NAD HEENT Reports moist mucous membranes normocephalic and atraumatic Eyes PERRL, EOMs intact bilaterally and conjunctivae normal General Eye ED: Yes normal appearance of both eyes Neck no lymphadenopathy and supple General: Negative for tenderness Chest Wall Chest: Negative for tenderness Resp normal respiratory effort and normal air movement Effort and Inspection: symmetric chest movement; Negative for respiratory distress Cardio regular rate, regular rhythm and no murmurs Peripheral Pulses: pulses 2+ throughout GI normal to inspection, nondistended, normoactive bowel sounds and non-tender Palpation: Negative for guarding or rebound tenderness present Back/Spine no CVA tenderness and no thoracic nor lumbar tenderness Extremity normal to inspection General Extremety ED: Negative for edema or tenderness General Extremity: Negative for edema Neuro oriented x3 and no sensory deficits noted Sensorium / Orientation: awake and alert Skin no rashes or lesions noted and no wounds Heart Score History: Slightly/Non-Suspicious ECG: Normal Age: >/= 65 years Risk Factors: 1 or 2 Risk Factors Troponin: </= Normal Limit Score: 3 MDM MDM MDM Narrative Medical decision making narrative: Patient presented with chest pains 1 hour prior to arrival EKG nonspecific findings. Cardiac work-up troponin x2 negative. Chest x-ray reviewed by myself and read by radiology shows no acute process. She reported cough yesterday headache today. COVID testing obtained returned positive. She does have arthritis. Discussed treatment with Paxlovid for which she did like treatment. Pulse ox 97% room air. Return precaution discussed. All questions were answered. Lab Data Attestation: I reviewed the patient's lab results. Labs: Laboratory Results - last 24 hr 03/28/22 03/28/22 03/28/22 17:15 17:15 19:40 WBC 3.6 L RBC 3.60 L Hgb 11.1 L Hct 33.4 L MCV 92.8 MCH 30.8 MCHC 33.2 RDW Std Deviation 47.1 H RDW Coeff of Nikki 14.1 Plt Count 165 MPV 10.0 Immature Gran % (Auto) 0.300 Neut % (Auto) 57.4 Lymph % (Auto) 18.2 L [place] % (Auto) 19.9 H Eos % (Auto) 3.1 Baso % (Auto) 1.1 H Absolute Neuts (auto) 2.1 Absolute Lymphs (auto) 0.65 L Nucleated RBC % 0 Sodium 135 L Potassium 3.8 Chloride 101 Carbon Dioxide 27.0 Anion Gap 7 BUN 15 Creatinine 1.07 H Estim Creat Clear Calc 40.47 Est GFR (MDRD) Af Amer 65 Est GFR (MDRD) Non-Af 54 L BUN/Creatinine Ratio 14.0 Glucose 111 H Calcium 9.1 Troponin I High Sens 10 11 Radiography Diagnostic Testing: Clinical Impression(s) from Imaging Studies Chest X-Ray 03/28/22 17:19 IMPRESSION: Normal x-ray examination of the chest. Electronically Signed: Robert Jara MD at 17:41 EDT , EKG Initial EKG: Attestation: I personally reviewed and interpreted this EKG as follows: Comments: EKG #1 at 1710: Sinus rate of [address] changes a T wave version in aVL. EKG #2 at 1808: Unchanged. Discharge Plan Triage Chief Complaint: Chest Pain ED Provider: Stanford Guzman Dx/Rx/DC Orders Clinical Impression: COVID-19 virus infection, Chest pain, History of rheumatoid arthritis Instructions: Coronavirus Disease 2019 (COVID-19): Caring for Yourself or Others, ED Chest Pain, Uncertain Cause Prescriptions: New Paxlovid (EUA) 300 mg (150 mg x 2)-100 mg tablets,dose pack See Rx Instructions .ROUTE .COMPLEX Qty: 30 0RF Rx Instructions: take TWO 150 mg tablets of nirmatrelvir with ONE 100 mg tablet of ritonavir twice daily for 5 days No Action oxybutynin chloride 5 MG tablet 5 mg PO DAILY prednisone 5 MG tablet 5 mg PO DAILY methotrexate sodium 2.5 MG tablet 12.5 mg PO Q7D folic acid 1 MG tablet 1 mg PO BIDCM Primary Care Provider: Libra Purdy Referrals: Tabitha Weiner OFFICE MOVER, OFFICE MOVER-C [Non-Staff] - 3-5 Days Activity Restrictions/Additional Instructions: Cardiac work-up negative. COVID-positive. Take medications as prescribed. Follow-up with your doctor for further testing. Monitor for any worsening respiratory symptoms. May want to knot picker cloth a pulse oximeter. If drops below 88% with worsening dyspnea, return to the ED. Disposition Disposition: Home, Self Care Discharge Date/Time: 03/28/22 20:56
[2022-03-28 17:58] LABS: Anion Gap 7 (5-15); BUN 15 mg/dL (7-18); Calcium,Total 9.1 mg/dL (8.5-10.1); Chloride 101 mmol/L (98-107); Creatinine, Serum 1.07 mg/dL (0.55-1.02); EST Glomerular Filtration Rate 54 mL/min (>60); Est Glom Filt Rate - Afr Amer 65 mL/min (>60); Estimated Creatinine Clearance 40.47 ml/min; Glucose 111 mg/dL (74-106); Potassium 3.8 mmol/L (3.5-5.1); Sodium Level 135 mmol/L (136-145); Troponin-I HS (w/2H Reflex) 10 pg/mL (3.0-54.0)
--- NOTE | 2022-03-28 18:08 | EKG12_ITS ---
Test Reason : CP Blood Pressure : / mmHG Vent. Rate : 083 BPM Atrial Rate : 083 BPM P-R Int : 172 ms QRS Dur : 084 ms QT Int : 358 ms P-R-T Axes : 067 046 075 degrees QTc Int : 420 ms Normal sinus rhythm Nonspecific ST and T wave abnormality Abnormal ECG Confirmed by YEHUDA ARREDONDO, BK ([id number]), electronic news gathering editor ALLAN OCCHRAN ([id number]) on 03/30/2022 11:30:51 AM Referred By: JEY Confirmed By:BK BLACKMAN MD
[2022-03-28 19:03] VITALS: BP 137/71; PULSE 81; RESP 16; O2SAT 92
[2022-03-28 19:30] LABS: Reflex Troponin-HS? (from REC) Y
[2022-03-28 19:44] VITALS: BP 144/86; PULSE 88; RESP 18; O2SAT 96
[2022-03-28 20:07] LABS: Troponin-I HS 11 pg/mL (3.0-54.0)
[2022-03-28 20:14] VITALS: BP 154/82; PULSE 79; O2SAT 97
== END 2022-03-28 20:56 | disposition home or self-care (01) ==
PROVIDERS: Emergency Provider Emergency Medicine; PCP Internal Medicine; Visit Provider Emergency Medicine
DX: U07.1 COVID-19 (principal); M06.9 Rheumatoid arthritis, unspecified; F17.210 Nicotine dependence, cigarettes, uncomplicated; Z28.310 Unvaccinated for COVID-19; Z79.899 Other long term (current) drug therapy
CPT/HCPCS: 71045; 80048; 84484; 85025; 87811; 93005; 99285

== ENCOUNTER → 2022-06-02 | Outpatient (CLI) | payer MEDICARE, SELFPAY ==
[2022-06-02 12:16] LABS: Absolute Lymphocyte Count 2.59 X10^3/uL (0.83-4.51); Absolute Neutrophil Count 4.9 X10^3/uL (2.0-7.7); Basophil# 0.07 X10^3/uL; Basophil% 0.8 % (0-1); Eosinophil# 0.29 X10^3/uL; Eosinophils% 3.5 % (0-5); Hematocrit 36.1 % (37-47); Hemoglobin 11.5 g/dL (12.0-15.0); Lymphocyte # 2.59 X10^3/ul (0.83-4.51); Lymphocyte % 30.9 % (19-41); Mean Corp Hgb Conc 31.9 g/dL (32-36); Mean Corpuscular Hgb 30.6 pg (27.0-32.0); Mean Platelet Vol. 11.6 fl (6.2-12.0); Monocyte# 0.46 X10^3/uL; Monocyte% 5.5 % (0-10); NRBC Flagged by Analyzer 0 % (0-5); Neutrophil # 4.93 X10^3/uL (2.7-7.7); Neutrophil % 58.9 % (47-70); Platelet Count 261 K/mm3 (150-450); RBC Distribution Width CV 14.2 % (11.6-14.6); RBC Distribution Width SD 49.1 fl (35.1-43.9); Red Blood Count 3.76 M/mm3 (4.2-5.4); White Blood Count 8.4 K/mm3 (4.4-11.0)
[2022-06-02 12:27] LABS: ALB/GLOB Ratio 0.9 RATIO (0.9-2.4); AST(SGOT) 16 U/L (15-37); Alanine Aminotransfer ALT/SGPT 24 U/L (13-56); Albumin, Serum 3.8 g/dL (3.2-5.0); Alkaline Phosphatase 50 U/L (45-117); Anion Gap 5 (5-15); BUN 26 mg/dL (7-18); BUN/Creat Ratio 24.8 RATIO (10-20); Calcium,Total 9.9 mg/dL (8.5-10.1); Chloride 103 mmol/L (98-107); Creatinine, Serum 1.05 mg/dL (0.55-1.02); EST Glomerular Filtration Rate 55 mL/min (>60); Est Glom Filt Rate - Afr Amer 67 mL/min (>60); Globulin 4.2 g/dL (2.2-4.2); Glucose 89 mg/dL (74-106); Potassium 4.2 mmol/L (3.5-5.1); Sodium Level 138 mmol/L (136-145)
== END | disposition home or self-care (01) ==
LOC: MTLAB 10:08
PROVIDERS: PCP Internal Medicine; Referring Provider Internal Medicine Rheumatology; Visit Provider Internal Medicine Rheumatology
DX: L40.59 Other psoriatic arthropathy (principal); L40.8 Other psoriasis; M77.11 Lateral epicondylitis, right elbow; K21.9 Gastro-esophageal reflux disease without esophagitis; N39.46 Mixed incontinence; Z79.899 Other long term (current) drug therapy
CPT/HCPCS: 36415; 80053; 85025

== ENCOUNTER → 2022-08-26 | Outpatient (CLI) | payer MEDICARE, SELFPAY ==
[2022-08-26 12:18] LABS: Absolute Lymphocyte Count 1.07 X10^3/uL (0.83-4.51); Absolute Neutrophil Count 12.5 X10^3/uL (2.0-7.7); Basophil# 0.06 X10^3/uL; Basophil% 0.4 % (0-1); Eosinophil# 0.16 X10^3/uL; Eosinophils% 1.1 % (0-5); Hemoglobin 12.1 g/dL (12.0-15.0); Lymphocyte # 1.07 X10^3/ul (0.83-4.51); Lymphocyte % 7.5 % (19-41); Mean Corp Hgb Conc 31.8 g/dL (32-36); Mean Corpuscular Hgb 30.4 pg (27.0-32.0); Mean Corpuscular Volume 95.5 fL (81-99); Monocyte# 0.43 X10^3/uL; NRBC Flagged by Analyzer 0 % (0-5); Neutrophil % 87.4 % (47-70); Platelet Count 229 K/mm3 (150-450); RBC Distribution Width CV 12.9 % (11.6-14.6); RBC Distribution Width SD 44.6 fl (35.1-43.9); Red Blood Count 3.98 M/mm3 (4.2-5.4); White Blood Count 14.3 K/mm3 (4.4-11.0)
[2022-08-26 12:49] LABS: ALB/GLOB Ratio 0.9 RATIO (0.9-2.4); AST(SGOT) 17 U/L (15-37); Alanine Aminotransfer ALT/SGPT 24 U/L (13-56); Albumin, Serum 3.8 g/dL (3.2-5.0); Alkaline Phosphatase 54 U/L (45-117); Anion Gap 7 (5-15); BUN 27 mg/dL (7-18); Calcium,Total 9.7 mg/dL (8.5-10.1); Chloride 104 mmol/L (98-107); Creatinine, Serum 1.08 mg/dL (0.55-1.02); EST Glomerular Filtration Rate 53 mL/min (>60); Est Glom Filt Rate - Afr Amer 64 mL/min (>60); Globulin 4.4 g/dL (2.2-4.2); Glucose 106 mg/dL (74-106); Potassium 3.8 mmol/L (3.5-5.1); Protein, Total 8.2 g/dL (6.4-8.2); Sodium Level 138 mmol/L (136-145)
== END | disposition home or self-care (01) ==
PROVIDERS: PCP Family Medicine; Referring Provider Internal Medicine Rheumatology; Visit Provider Internal Medicine Rheumatology
DX: L40.59 Other psoriatic arthropathy (principal); L40.8 Other psoriasis; Z79.899 Other long term (current) drug therapy
CPT/HCPCS: 36415; 80053; 85025

== ENCOUNTER → 2022-10-14 | Outpatient (CLI) | payer MEDICARE, SELFPAY ==
--- NOTE | 2022-10-14 10:09 | RAD_ITS ---
STUDY: X-RAY - LEFT FOOT CLINICAL: Female, 71 years old. Evaluate for stress fracture of fifth metatarsal. TECHNIQUE: 3 view(s) of the foot. COMPARISON: None. FINDINGS: Generalized osteopenia. Mild diffuse osteoarthritic changes, most marked at the MTP and IP joints. Hammertoe deformities. Normal soft tissues. RAD/Foot min 3 Views IMPRESSION: Osteopenia with osteoarthritic changes. No radiographic evidence of stress injury. Electronically Signed: Bladimir Brewster, at 11:58 EDT ,
== END | disposition home or self-care (01) ==
LOC: MTRAD 10:08
PROVIDERS: PCP Family Medicine; Referring Provider Family Medicine; Visit Provider Family Medicine
DX: M79.672 Pain in left foot (principal)
CPT/HCPCS: 73630

== ENCOUNTER → 2022-11-17 | Outpatient (CLI) | payer MEDICARE, SELFPAY ==
[2022-11-17 12:19] LABS: Absolute Lymphocyte Count 1.67 X10^3/uL (0.83-4.51); Absolute Neutrophil Count 5.1 X10^3/uL (2.0-7.7); Basophil# 0.05 X10^3/uL; Basophil% 0.6 % (0-1); Eosinophil# 0.38 X10^3/uL; Eosinophils% 4.8 % (0-5); Lymphocyte # 1.67 X10^3/ul (0.83-4.51); Lymphocyte % 21.3 % (19-41); Mean Corp Hgb Conc 33.3 g/dL (32-36); Mean Corpuscular Hgb 31.4 pg (27.0-32.0); Mean Corpuscular Volume 94.2 fL (81-99); Mean Platelet Vol. 11.1 fl (6.2-12.0); Monocyte# 0.64 X10^3/uL; Monocyte% 8.2 % (0-10); NRBC Flagged by Analyzer 0 % (0-5); Neutrophil # 5.07 X10^3/uL (2.7-7.7); Neutrophil % 64.7 % (47-70); Platelet Count 237 K/mm3 (150-450); RBC Distribution Width SD 44.3 fl (35.1-43.9); Red Blood Count 3.82 M/mm3 (4.2-5.4); White Blood Count 7.8 K/mm3 (4.4-11.0)
[2022-11-17 12:40] LABS: ALB/GLOB Ratio 0.7 RATIO (0.9-2.4); AST(SGOT) 19 U/L (15-37); Alanine Aminotransfer ALT/SGPT 23 U/L (13-56); Albumin, Serum 3.6 g/dL (3.2-5.0); Alkaline Phosphatase 50 U/L (45-117); Anion Gap 3 (5-15); BUN 18 mg/dL (7-18); BUN/Creat Ratio 20.6 RATIO (10-20); Calcium,Total 9.8 mg/dL (8.5-10.1); Chloride 104 mmol/L (98-107); Creatinine, Serum 0.87 mg/dL (0.55-1.02); EST Glomerular Filtration Rate 68 mL/min (>60); Est Glom Filt Rate - Afr Amer 82 mL/min (>60); Globulin 4.9 g/dL (2.2-4.2); Glucose 92 mg/dL (74-106); Potassium 4.4 mmol/L (3.5-5.1); Protein, Total 8.5 g/dL (6.4-8.2); Sodium Level 135 mmol/L (136-145)
== END | disposition home or self-care (01) ==
LOC: MTLAB 09:50
PROVIDERS: PCP Family Medicine; Referring Provider Internal Medicine Rheumatology; Visit Provider Internal Medicine Rheumatology
DX: L40.59 Other psoriatic arthropathy (principal); Z79.899 Other long term (current) drug therapy
CPT/HCPCS: 36415; 80053; 85025

== ENCOUNTER 2023-03-29 13:31 | Emergency (ER) | payer MEDICARE, SELFPAY ==
[2023-03-29 13:32] VITALS: BP 125/61; PULSE 83; RESP 16; TEMP 36.3; O2SAT 100
--- NOTE | 2023-03-29 14:16 | CT_ITS ---
STUDY: CT BRAIN WITHOUT CONTRAST REASON FOR EXAM: Female, 72 years old. Syncope, shaking RADIATION DOSAGE (If Supplied By Facility): CTDIvol = ( 44.99 ) mGy, DLP = ( 745.49 ) mGycm TECHNIQUE: Transaxial CT imaging of the brain was performed without administration of intravenous contrast material. Individualized dose optimization techniques were used for this CT. COMPARISON: No relevant priors. FINDINGS: Normal soft tissue structures. Normal calvarium. There is mild cerebral atrophy with widening of the extra-axial spaces and ventricular dilatation. There are areas of decreased attenuation within the white matter tracts of the supratentorial brain, consistent with microvascular disease changes. Tiny lacuna in the left basal ganglion. Normal brainstem. Normal cerebellum. There is no intracranial hemorrhage. There are no findings of an acute ischemic infarction. Normal visualized paranasal sinuses. CT/Brain/Head without Contrast IMPRESSION: Chronic involutional changes of the brain. Tiny lacuna in the left basal ganglion. The age of which cannot be determined due to no prior studies. Electronically Signed: Milad Da Silva MD at 15:12 EDT ,
--- NOTE | 2023-03-29 14:17 | EKG12_ITS ---
Test Reason : GENERAL Blood Pressure : / mmHG Vent. Rate : 078 BPM Atrial Rate : 078 BPM P-R Int : 168 ms QRS Dur : 082 ms QT Int : 378 ms P-R-T Axes : 065 036 071 degrees QTc Int : 430 ms Normal sinus rhythm Possible Left atrial enlargement Nonspecific ST abnormality Abnormal ECG Confirmed by YEHUDA ARREDONDO, BK ([id number]), editor & co founder JENNIFER GREWAL ([id number]) on 04/01/2023 1:57:52 PM Referred By: Confirmed By:BK BLACKMAN MD
--- NOTE | 2023-03-29 14:21 | EDS_ITS ---
HPI History of Present Illness Chief Complaint: Syncope Informant: patient and family Onset/Context/Timing Onset: Today Narrative Narrative: Patient presents after syncopal episode at home. She reportedly was carrying some things up and down the basement steps. She started to not feel well. Daughter states when she came back in the home she was sitting at the kitchen table. She states she did felt dizzy and as if she might pass out. Family states she became unresponsive and her arms started shaking for maybe a minute or so. She then started answering questions, but then had another brief syncopal episode. Patient denies having chest pain or palpitations. She denies headache. At this time she feels back to her baseline. Patient has had now a total of 4 of these episodes. Her first episode was in June 2021 in [place]. She was evaluated with what sounds like EEG and multiple tests and no significant cause was found. She then went a year before having another episode but this is now her third episode since June 2022. [facility] Medical History (Updated 03/29/23 @ 16:[address] Danay Contreras MD) COPD (chronic obstructive pulmonary disease) Osteoarthritis Home Medications oxybutynin chloride 5 mg tablet 5 mg PO DAILY 10/02/14 [History Last Taken Unkn own] methotrexate sodium 2.5 mg tablet 12.5 mg PO Q7D 11/01/16 [History Last Taken Unknown] prednisone 5 mg tablet 5 mg PO DAILY 11/01/16 [History Last Taken Unknown] folic acid 1 mg tablet 1 mg PO BIDCM 11/02/16 [History Last Taken 11/01/16] nirmatrelvir 300 mg (150 mg x2)-ritonavir 100 mg tablet,dose pack (Paxlovid) See Rx Instructions PO .COMPLEX #30 tabs 03/28/22 [Rx Last Taken Unknown] Allergy/AdvReac Type Severity Reaction Status Date / Time No Known Allergies Allergy Verified 03/29/23 13:34 Social History Smoking Status: Current some day smoker tobacco type: cigarettes ROS ROS ED Constitutional Constitutional ED: Denies chills or fever(s) Eyes Eyes: Denies discharge from eye(s) ENT ENT ED: Denies discharge from eye(s), rhinorrhea or sore throat Cardiovascular Cardiovascular: Denies chest pain or palpitations Respiratory/Chest Respiratory/Chest: Denies cough or dyspnea Gastrointestinal Gastrointestinal: Denies abdominal pain, nausea or vomiting Genitourinary Genitourinary ED: Denies dysuria Musculoskeletal Musculoskeletal: Denies back pain or extremity pain Integumentary Denies Abrasions or rash Neurologic Neurologic: Denies headache(s) or weakness Allergic/Immunologic Allergic/Immunologic ED: Denies lip swelling or urticaria EXAM Physical Exam Const Vital Signs: 03/29/23 13:32 03/29/23 14:30 Temperature 97.4 F L Temperature Source Temporal Pulse Rate 83 Respiratory Rate 16 Respiratory Effort Normal Non-Labored Blood Pressure 125/61 H Blood Pressure Mean 82 Pulse Ox 100 Oxygen Delivery Method Room Air Positive well nourished and well developed General Appearance ED: well developed HEENT Reports normocephalic and head/scalp atraumatic Eyes PERRL and EOMs intact bilaterally Neck supple Chest Wall inspection of chest normal and palpation of chest normal Resp normal respiratory effort and clear to auscultation bilaterally Cardio regular rate and regular rhythm GI non-tender Palpation: soft Extremity normal to inspection Neuro oriented x3 and no sensory deficits noted Sensorium / Orientation: alert Motor Exam: strength 5/5 throughout Psych mental status grossly normal Skin no rashes or lesions noted MDM MDM MDM Narrative Medical decision making narrative: Patient placed on quality assurance monitor final. EKG obtained to evaluate for cardiac arrhythmia/ischemia. Chest x-ray obtained to evaluate for acute lung pathology, cardiac size, or mediastinal abnormality. Labwork obtained to evaluate for leukocytosis, anemia, and electrolyte derangement. CT scan of the head obtained given the shaking episode to evaluate for any significant cause for possible seizure, although I suspect from description of that this was syncope and not true seizure activity. Patient given IV fluids. History & Record Review Discussion w/independent historian: EMS personnel, Patient and Family Additional record(s) reviewed:: Prior outpatient record and Prior labs Lab Data Attestation: I reviewed the patient's lab results. Labs: Laboratory Results - last 24 hr 03/29/23 03/29/23 14:00 15:26 WBC 12.4 H RBC 3.79 L Hgb 11.5 L Hct 35.6 L MCV 93.9 MCH 30.3 MCHC 32.3 RDW Std Deviation 48.7 H RDW Coeff of Nikki 14.3 Plt Count 393 MPV 11.2 Immature Gran % (Auto) 0.500 Neut % (Auto) 63.5 Lymph % (Auto) 24.7 [place] % (Auto) 6.2 Eos % (Auto) 4.4 Baso % (Auto) 0.7 Absolute Neuts (auto) 7.9 H Absolute Lymphs (auto) 3.07 Nucleated RBC % 0 Sodium 137 Potassium 3.8 Chloride 104 Carbon Dioxide 27.0 Anion Gap 6 BUN 30 H Creatinine 1.37 H Estim Creat Clear Calc 31.16 Est GFR (MDRD) Af Amer 49 L Est GFR (MDRD) Non-Af 40 L BUN/Creatinine Ratio 21.9 H Glucose 106 Calcium 9.4 Troponin I High Sens 8 Urine Color Yellow Urine Clarity Clear Urine pH 7.0 Ur Specific [place] 1.010 Urine Protein Negative Urine Glucose (UA) Normal Urine Ketones Negative Urine Occult Blood 10 H Urine Nitrite Negative Urine Bilirubin Negative Urine Urobilinogen Normal Ur Leukocyte Esterase Negative Urine RBC 0 SEEN Urine WBC 0 SEEN Ur Squamous Epith Cells 0 SEEN Urine Bacteria 0 SEEN Urine Mucus 0 SEEN Radiography Chest X-Ray - ED: 1 View, Read by ED Physician, Normal, Heart, Lungs and Mediastinum Diagnostic Testing: Clinical Impression(s) from Imaging Studies Brain CT 03/29/23 14:16 IMPRESSION: Chronic involutional changes of the brain. Tiny lacuna in the left basal ganglion. The age of which cannot be determined due to no prior studies. Electronically Signed: Milad Da Silva MD at 15:12 EDT , Chest X-Ray 03/29/23 14:40 IMPRESSION: No acute abnormality is seen. Electronically Signed: Milad Da Silva MD at 15:13 EDT , EKG Initial EKG: Attestation: I personally reviewed and interpreted this EKG as follows: Interpretation: Sinus Rhythm (Sinus at 78 with no acute ischemia.) Treatment and Re-Evaluation :: CBC was white count 12.4 with normal differential. Hemoglobin slightly low at 11.5. Chemistry studies reveal a BUN of 30 and creatinine of 1.37. This is slightly increased over her labs in November. Troponin is normal at 8. Urinalysis is unremarkable. Portable chest x-ray per my interpretation reveals chronic changes with no acute findings. Radiology interpretation reviewed and agrees. Head CT reveals evidence of a tiny lacunar in the basal ganglia. Age- indeterminate as no prior studies were available. Patient states she does remember the doctors in [place] mentioning this when she was admitted there previously. Patient is been up ambulating to the restroom without difficulty. She feels back to baseline. I did speak with her primary care physician who she is scheduled to see later this month. She asked the patient to call the office tomorrow to see if we can bump her up into a post ER visit to be seen sooner. They will discuss possibly a Holter monitor and echocardiogram. Return instructions were given. Discharge Plan Triage Chief Complaint: Syncope ED Provider: Danay Contreras Dx/Rx/DC Orders Clinical Impression: Syncope Instructions: ED Fainting, Uncertain Cause Prescriptions: No Action oxybutynin chloride 5 MG tablet 5 mg PO DAILY prednisone 5 MG tablet 5 mg PO DAILY methotrexate sodium 2.5 MG tablet 12.5 mg PO Q7D folic acid 1 MG tablet 1 mg PO BIDCM Paxlovid 300 mg (150 mg x 2)-100 mg tablets,dose pack See Rx Instructions .ROUTE .COMPLEX Qty: 30 0RF Rx Instructions: take TWO 150 mg tablets of nirmatrelvir with ONE 100 mg tablet of ritonavir twice daily for 5 days Primary Care Provider: Aminata Hanson Referrals: Aminata Hanson, DO [Primary Care Provider] - As soon as possible Disposition Disposition: Home, Self Care
[2023-03-29] MEDS: 0.9% Normal Saline (1000mL) 1,000 ML 1000 ML IV (14:25)
[2023-03-29 14:29] VITALS: BMI 23.6
--- NOTE | 2023-03-29 14:40 | RAD_ITS ---
STUDY: X-RAY CHEST REASON FOR EXAM: Female, 72 years old. sob TECHNIQUE: Single AP portable view of the chest. COMPARISON: Comparison is made with prior study dated March 28, 2022. FINDINGS: EKG electrodes are seen. The lungs are clear and expanded. There is no demonstrated pleural abnormality. Normal size heart. Normal mediastinum and cassie. Normal visualized pulmonary arteries. There is atherosclerotic calcification of the aortic arch with tortuosity. Normal visualized thoracic spine. Normal visualized ribs, clavicles, and shoulders. There is no demonstrated abnormality of the visualized soft tissue structures of the upper abdomen. RAD/Chest 1 View (Portable) IMPRESSION: No acute abnormality is seen. Electronically Signed: Milad Da Silva MD at 15:13 EDT ,
[2023-03-29 14:59] LABS: Absolute Lymphocyte Count 3.07 X10^3/uL (0.83-4.51); Absolute Neutrophil Count 7.9 X10^3/uL (2.0-7.7); Basophil# 0.09 X10^3/uL; Basophil% 0.7 % (0-1); Eosinophil# 0.55 X10^3/uL; Eosinophils% 4.4 % (0-5); Hematocrit 35.6 % (37-47); Hemoglobin 11.5 g/dL (12.0-15.0); Lymphocyte # 3.07 X10^3/ul (0.83-4.51); Lymphocyte % 24.7 % (19-41); Mean Corp Hgb Conc 32.3 g/dL (32-36); Mean Corpuscular Hgb 30.3 pg (27.0-32.0); Mean Corpuscular Volume 93.9 fL (81-99); Mean Platelet Vol. 11.2 fl (6.2-12.0); Monocyte# 0.77 X10^3/uL; Monocyte% 6.2 % (0-10); NRBC Flagged by Analyzer 0 % (0-5); Neutrophil # 7.87 X10^3/uL (2.7-7.7); Neutrophil % 63.5 % (47-70); Platelet Count 393 K/mm3 (150-450); RBC Distribution Width CV 14.3 % (11.6-14.6); RBC Distribution Width SD 48.7 fl (35.1-43.9); Red Blood Count 3.79 M/mm3 (4.2-5.4); White Blood Count 12.4 K/mm3 (4.4-11.0)
[2023-03-29 15:05] LABS: Anion Gap 6 (5-15); BUN 30 mg/dL (7-18); BUN/Creat Ratio 21.9 RATIO (10-20); Calcium,Total 9.4 mg/dL (8.5-10.1); Chloride 104 mmol/L (98-107); Creatinine, Serum 1.37 mg/dL (0.55-1.02); EST Glomerular Filtration Rate 40 mL/min (>60); Est Glom Filt Rate - Afr Amer 49 mL/min (>60); Estimated Creatinine Clearance 31.16 ml/min; Glucose 106 mg/dL (74-106); Potassium 3.8 mmol/L (3.5-5.1); Sodium Level 137 mmol/L (136-145); Troponin-I HS (w/2H Reflex) 8 pg/mL (3.0-54.0)
[2023-03-29 15:33] LABS: Bacteria 0 SEEN /hpf (None Seen); Mucous, Urine 0 SEEN /hpf (<or=2+); Red Blood Cells-Urine 0 SEEN /hpf (0-5); Squamous Epithelial Cells - UA 0 SEEN /hpf (5-10); White Blood Cells 0 SEEN /hpf (0-5)
[2023-03-29 15:43] LABS: Color, Urine Yellow (Yellow); Glucose, Dipstick Normal (Normal); Ketone-Dipstick Negative (Negative); Leukocyte Esterase-Dipstick Negative /ul (Negative); Nitrite-Dipstick Negative (Negative); Occult Blood-Urine 10 /ul (Negative); Protein-Dipstick Negative (Negative); Urine Bilirubin Dipstick Negative (Negative); Urine Clarity Clear (Clear); Urine Urobilinogen Normal (Normal)
[2023-03-29 16:36] LABS: Reflex Troponin-HS? (from REC) Y
[2023-03-29 16:41] VITALS: BP 127/70; PULSE 75; RESP 16; O2SAT 98
== END 2023-03-29 16:46 | disposition home or self-care (01) ==
PROVIDERS: Emergency Provider Emergency Medicine; PCP Family Medicine; Visit Provider Emergency Medicine
DX: R55 Syncope and collapse (principal); F17.210 Nicotine dependence, cigarettes, uncomplicated
CPT/HCPCS: 70450; 71045; 80048; 81001; 84484; 85025; 93005; 96360; 96361; 99285; J7030

== ENCOUNTER 2023-04-06 11:15 | Outpatient (CLI) | payer MEDICARE, SELFPAY ==
[2023-04-06 12:19] LABS: Absolute Lymphocyte Count 0.64 X10^3/uL (0.83-4.51); Absolute Neutrophil Count 8.3 X10^3/uL (2.0-7.7); Basophil# 0.03 X10^3/uL; Basophil% 0.3 % (0-1); Eosinophil# 0.02 X10^3/uL; Eosinophils% 0.2 % (0-5); Hematocrit 35.1 % (37-47); Hemoglobin 11.4 g/dL (12.0-15.0); Lymphocyte # 0.64 X10^3/ul (0.83-4.51); Lymphocyte % 6.8 % (19-41); Mean Corp Hgb Conc 32.5 g/dL (32-36); Mean Corpuscular Hgb 30.2 pg (27.0-32.0); Mean Corpuscular Volume 93.1 fL (81-99); Mean Platelet Vol. 10.6 fl (6.2-12.0); Monocyte# 0.36 X10^3/uL; Monocyte% 3.8 % (0-10); NRBC Flagged by Analyzer 0 % (0-5); Neutrophil % 88.5 % (47-70); Platelet Count 280 K/mm3 (150-450); RBC Distribution Width CV 14.1 % (11.6-14.6); RBC Distribution Width SD 47.5 fl (35.1-43.9); Red Blood Count 3.77 M/mm3 (4.2-5.4); White Blood Count 9.4 K/mm3 (4.4-11.0)
[2023-04-06 12:40] LABS: Vitamin B12 521 pg/mL (211-911)
[2023-04-06 12:54] LABS: ALB/GLOB Ratio 0.8 RATIO (0.9-2.4); AST(SGOT) 10 U/L (15-37); Alanine Aminotransfer ALT/SGPT 20 U/L (13-56); Albumin, Serum 3.6 g/dL (3.2-5.0); Alkaline Phosphatase 50 U/L (45-117); Anion Gap 5 (5-15); BUN 19 mg/dL (7-18); BUN/Creat Ratio 18.4 RATIO (10-20); Calcium,Total 9.3 mg/dL (8.5-10.1); Chloride 104 mmol/L (98-107); Creatinine, Serum 1.03 mg/dL (0.55-1.02); EST Glomerular Filtration Rate 56 mL/min (>60); Est Glom Filt Rate - Afr Amer 68 mL/min (>60); Globulin 4.4 g/dL (2.2-4.2); Glucose 160 mg/dL (74-106); Magnesium 2.4 mg/dL (1.6-2.6); Potassium 4.3 mmol/L (3.5-5.1); Sodium Level 137 mmol/L (136-145)
[2023-04-06 13:04] LABS: Hemoglobin A1c 5.6 % (3.8-5.6)
[2023-04-07 14:09] LABS: PROEL- Albumin 3.6 g/dL (2.9-4.4); PROEL- Alpha-1 Globulin 0.4 g/dL (0.0-0.4); PROEL- Beta Globulin 1.2 g/dL (0.7-1.3); PROEL- Globulin, Total 3.6 g/dL (2.2-3.9); PROEL- TOTAL PROTEIN 7.2 g/dL (6.0-8.5)
== END 2023-04-06 23:59 | disposition home or self-care (01) ==
LOC: MTLAB 11:16
PROVIDERS: PCP Family Medicine; Referring Provider Family Medicine; Visit Provider Family Medicine
DX: R55 Syncope and collapse (principal)
CPT/HCPCS: 36415; 80053; 82607; 83036; 83735; 84165; 84443; 85025

== ENCOUNTER → 2023-05-03 | Outpatient (CLI) | payer MEDICARE, SELFPAY ==
--- NOTE | 2023-05-03 12:31 | ECHOCS_ITS ---
Reason For Study: Syncope Procedure This was a 2D Doppler, Color Flow transthoracic echocardiogram. The study was technically difficult. Contrast injection was performed. Exam performed in department. Left Ventricle Normal LV size. The estimated ejection fraction is 65 %. No evidence for diastolic dysfunction. No regional wall motion abnormalities noted. Right Ventricle Normal RV size. Normal systolic function. Atria The left atrium is mildly enlarged. Normal right atrium. No doppler evidence for ASD. Bubble contrast study negative for right to left interatrial shunt. Mitral Valve There is mild to moderate mitral annular calcification. There is no mitral valve stenosis. Trivial mitral valve insufficiency. Tricuspid Valve There is no tricuspid stenosis. Trivial tricuspid valve insufficiency. Pulmonary artery systolic pressure is 35 mmHg. Aortic Valve Trisinus/trileaflet aortic valve. There is no aortic stenosis. No aortic valve insufficiency. Pulmonic Valve There is no pulmonic valvular stenosis. No pulmonic valve insufficiency. Great Vessels Normal aortic root. Pericardium/Pleural No pericardial effusion. Medication 22 gauge I.V. with prn adaptor inserted into right arm. Diluted definity 1.5ml given slow IV push to enhance endocardial definition. Performed a rapid injection of agitated mix of 9 cc saline and 1cc air to assess for atrial septal defect. MMode/2D Measurements & Calculations LVIDd: 4.3 cm IVSd: 0.93 cm Ao root diam: 2.6 cm LVIDs: 2.8 cm LVPWd: 0.88 cm LA dimension: 3.4 cm RVDd: 3.2 cm FS: 34.9 % LAV(MOD-bp): 35.2 ml LVAd ap4: 25.8 cm2 SV(MOD-sp4): 45.4 ml LAV(MOD-bp) Indexed: 22.3 ml/m2 LVLd ap4: 6.8 cm LAV(MOD-sp2): 25.0 ml EDV(MOD-sp4): 78.6 ml LAV(MOD-sp4): 45.1 ml EDV(sp4-el): 82.6 ml LVAs ap4: 15.0 cm2 LVLs ap4: 5.6 cm ESV(MOD-sp4): 33.2 ml ESV(sp4-el): 33.9 ml EF(MOD-sp4): 57.8 % EF(sp4-el): 58.9 % SV(sp4-el): 48.7 ml LA A4 area: 17.4 cm2 RA A4 area: 9.5 cm2 TAPSE: 2.4 cm Time Measurements MV dec time: 0.20 sec Doppler Measurements & Calculations MV E max amrik: 71.6 cm/sec Lat Peak E' Amrik: 9.8 cm/sec Med Peak E' Amrik: 8.0 cm/sec MV A max amrik: 95.4 cm/sec E/E' lat: 7.3 E/E' med: 8.9 MV E/A: 0.75 MV V2 max: 112.5 cm/sec MV P1/2t max amrik: 81.9 cm/sec Ao V2 max: 149.7 cm/sec MV max P.1 mmHg MV P1/2t: 74.1 msec Ao max P.0 mmHg MV V2 mean: 62.7 cm/sec Ao V2 mean: 102.6 cm/sec MV mean P.8 mmHg MV dec slope: 323.5 cm/sec2 Ao mean P.7 mmHg MV V2 VTI: 20.5 cm MVA(P1/2t): 3.0 cm2 Ao V2 VTI: 33.7 cm AV (velocity ratio): 0.80 LV V1 max: 114.8 cm/sec MR max amrik: 475.2 cm/sec PA V2 max: 87.9 cm/sec LV V1 max P.3 mmHg MR max P.3 mmHg PA V2 mean: 62.8 cm/sec LV V1 mean P.1 mmHg LV V1 mean: 84.3 cm/sec LV V1 VTI: 27.0 cm TR max amrik: 276.4 cm/sec TR max P.5 mmHg ECHO/Echo Complete W/ Contrast Interpretation Summary The estimated ejection fraction is 65 %. No evidence for diastolic dysfunction. The left atrium is mildly enlarged. Trivial mitral valve insufficiency. Ordering Physician: Aminata Hanson Referring Physician: Aminata Hanson Performed By: Julián Granger RCS
== END | disposition home or self-care (01) ==
PROVIDERS: PCP Family Medicine; Referring Provider Family Medicine; Visit Provider Family Medicine
DX: R55 Syncope and collapse (principal)
CPT/HCPCS: 93306; Q9957; A4216; C8929

== ENCOUNTER → 2023-05-05 | Outpatient (CLI) | payer MEDICARE, SELFPAY ==
[2023-05-05 15:18] LABS: Absolute Lymphocyte Count 1.86 X10^3/uL (0.83-4.51); Absolute Neutrophil Count 8.9 X10^3/uL (2.0-7.7); Basophil# 0.08 X10^3/uL; Basophil% 0.7 % (0-1); Eosinophil# 0.39 X10^3/uL; Eosinophils% 3.2 % (0-5); Hematocrit 32.1 % (37-47); Hemoglobin 10.4 g/dL (12.0-15.0); Lymphocyte # 1.86 X10^3/ul (0.83-4.51); Lymphocyte % 15.4 % (19-41); Mean Corp Hgb Conc 32.4 g/dL (32-36); Mean Corpuscular Hgb 29.4 pg (27.0-32.0); Mean Corpuscular Volume 90.7 fL (81-99); Mean Platelet Vol. 10.8 fl (6.2-12.0); Monocyte# 0.82 X10^3/uL; Monocyte% 6.8 % (0-10); NRBC Flagged by Analyzer 0 % (0-5); Neutrophil # 8.88 X10^3/uL (2.7-7.7); Neutrophil % 73.6 % (47-70); Platelet Count 309 K/mm3 (150-450); RBC Distribution Width CV 13.6 % (11.6-14.6); RBC Distribution Width SD 45.1 fl (35.1-43.9); Red Blood Count 3.54 M/mm3 (4.2-5.4); White Blood Count 12.1 K/mm3 (4.4-11.0)
[2023-05-05 16:06] LABS: ALB/GLOB Ratio 0.7 RATIO (0.9-2.4); AST(SGOT) 14 U/L (15-37); Alanine Aminotransfer ALT/SGPT 23 U/L (13-56); Albumin, Serum 3.1 g/dL (3.2-5.0); Alkaline Phosphatase 51 U/L (45-117); Anion Gap 5 (5-15); BUN 21 mg/dL (7-18); BUN/Creat Ratio 23.3 RATIO (10-20); Calcium,Total 9.2 mg/dL (8.5-10.1); Chloride 100 mmol/L (98-107); EST Glomerular Filtration Rate 66 mL/min (>60); Est Glom Filt Rate - Afr Amer 79 mL/min (>60); Globulin 4.3 g/dL (2.2-4.2); Glucose 106 mg/dL (74-106); Potassium 4.3 mmol/L (3.5-5.1); Protein, Total 7.4 g/dL (6.4-8.2); Sodium Level 131 mmol/L (136-145)
== END | disposition home or self-care (01) ==
LOC: MTLAB 13:17
PROVIDERS: PCP Family Medicine; Referring Provider Internal Medicine Rheumatology; Visit Provider Internal Medicine Rheumatology
DX: L40.59 Other psoriatic arthropathy (principal); Z79.899 Other long term (current) drug therapy
CPT/HCPCS: 36415; 80053; 85025

== ENCOUNTER → 2023-07-30 | Outpatient (CLI) | payer MEDICARE, SELFPAY ==
--- NOTE | 2023-07-30 13:20 | RAD_ITS ---
STUDY: X-RAY - RIGHT KNEE REASON FOR EXAM: Female, 72 years old. One month history of increasing knee pain. No history of trauma. TECHNIQUE: 4 view(s) of the knee. COMPARISON: None. FINDINGS: Normal visualized distal femur. Normal visualized proximal tibia and fibula. Normal proximal tibiofibular articulation. There is mild degenerative arthrosis of the medial femorotibial compartment. Normal lateral femorotibial compartment. Normal patellofemoral articulation. Joint effusion. Possible 5.1 cm x 3.8 cm popliteal cyst. RAD/Knee 4 or More Views IMPRESSION: Degenerative arthrosis. Joint effusion. Questionable 5.1 cm x 3.8 cm popliteal cyst. Electronically Signed: Milad Da Silva MD at 13:36 EST ,
== END | disposition home or self-care (01) ==
LOC: MTRAD 13:18
PROVIDERS: PCP Family Medicine; Referring Provider Physician Assistant Surgical; Visit Provider Physician Assistant Surgical
DX: S86.911A Strain of unspecified muscle(s) and tendon(s) at lower leg level, right leg, initial encounter (principal); X58.XXXA Exposure to other specified factors, initial encounter
CPT/HCPCS: 73564

== ENCOUNTER → 2023-09-02 | Outpatient (CLI) | payer MEDICARE, MEDICAID, SELFPAY ==
--- NOTE | 2023-09-02 12:28 | MRI_ITS ---
STUDY: MRI RIGHT KNEE REASON FOR EXAM: Female, 72 years old. Pain. Rule out Patel''s cyst. Fell over dog 3 months ago, swelling, trouble walking. TECHNIQUE: Standardized fat and water weighted pulse sequences were obtained in all 3 orthogonal planes. COMPARISON: Right knee radiographs dated 07/30/2023. FINDINGS: There is a suspected tiny free edge tear of the posterior horn of the medial meniscus (sagittal PD series 3 image 28; coronal PD series 5 image 14; axial T2 series 2 image 22). Normal hyaline cartilage of the medial femorotibial compartment. Normal medial femoral condyle and tibial plateau. There is a mild sprain of the MCL with interstitial and periligamentous edema (coronal T2 series 6 image 16). Normal distal semimembranosus, gracilis and semitendinosus tendons. Normal lateral meniscus. Normal hyaline cartilage of the lateral femorotibial compartment. Normal lateral femoral condyle and tibial plateau. Normal proximal tibiofibular articulation. Normal lateral collateral ( fibular ) ligament. Normal popliteus tendon. Normal biceps femoris tendon. Normal anterior cruciate ligament (ACL). Normal posterior cruciate ligament (PCL). There is moderate grade chondromalacia along the patellar apex. Congruent patellofemoral articulation. Normal medial and lateral patellar retinaculum. Normal quadriceps tendon. Normal patellar tendon. Normal Hoffa''s fat pad. There is a moderate joint effusion. There is a large multiseptated popliteal cyst with internal synovitis, overall spanning a craniocaudal distance of approximately 10.8 cm. There is mild subcutaneous soft tissue edema along the anterior aspect of the knee. The otherwise visualized osseous structures are unremarkable. MRI/Lower Ext Joint Only (Routine) IMPRESSION: Suspected tiny free edge tear of the posterior horn of the medial meniscus. Mild MCL sprain. 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 Moderate joint effusion. 10.8 cm multiseptated popliteal cyst with internal synovitis. Mild subcutaneous soft tissue edema along the anterior aspect of the knee. Electronically Signed: Kun Coe MD at 13:43 EST ,
--- OUTSIDE RECORDS SUMMARY | 2023-09-02 18:37 | XMS RPT_ITS | CCD ---
Author Name Unknown Address [facility]ly [facility], [facility] [place] [address] Organization [facility] Care Team Providers Care Field Adjuster Name Role Phone Melissa Mckee Primary Care Provider Unavailable Primary Care Provider UnavailMelissa Lester Primary Care Provide r Martha Purdy MD Primary Care Provider DEBBI SOLIS Referring Unavailable MARTHA PURDY Attending Unavailable MARTHA PURDY Primary Care Unavailable Martha Purdy MD Primary Care Provider Medications Current Medications Medication Drug Class(es) Dates Sig (Normalized) Sig (Original) albuterol 108 (90 Base) MCG/ACT Aero Soln inhaler (2 sources) Start: 07-28-2019 take 2 puff(s) by inhalation every six hours as needed albuterol 108 (90 Base) MCG/ACT Aero Soln inhaler Inhale 2 puffs Every 6 hours as needed. 0 07/28/2019 Active Calcium Carb-Cholecalcifero l (CALCIUM CARBONATE-VITAMIN D3 PO) (3 sources) Calcium Carb-Cholecalcifer ol (CALCIUM CARBONATE-VITAMIN D3 PO) Take by mouth. 0 Active Completed/Discontinued Medications Medication Drug Class(es) Dates Sig (Normalized) Sig (Original) [id number] 200 actuat albuterol 0.09 mg/actuat metered dose inhaler (8 sources) beta2-Adrenergic Agonist Start: 08-07-2022 take 2 puff(s) by inhalation every six hours as needed for wheezing albuterol HFA (PROVENTIL HFA, VENTOLIN HFA) 90 mcg/actuation inhaler Indications: Moderate persistent asthma without complication Inhale 2 Puffs as instructed every 6 hours as needed for wheezing/shortness of breath. 3 Each 3 08/07/2022 Active Problems Active Problems Problem Classification Problem Date Documented Date Episodic/Chronic Asthma (2 sources) Uncomplicated moderate persistent asthma; Translations: [Moderate persistent asthma, uncomplicated] Onset: 09-06-2022 Chronic Chronic obstructive pulmonary disease and bronchiectasis (1 source) Chronic bronchitis; Translations: [Unspecified chronic bronchitis] Onset: 09-06-2022 09-06-2022 Chronic Chronic obstructive pulmonary disease and bronchiectasis (2 sources) Bronchitis; Translations: [Bronchitis, not specified as acute or chronic] 12-26-2019 Episodic Disorders of lipid metabolism (2 sources) Mixed hyperlipidemia; Translations: [Raised low density lipoprotein cholesterol] Onset: 09-06-2022 09-06-2022 Chronic Esophageal disorders (8 sources) Gastroesophageal reflux disease without esophagitis; Translations: [Gastro-esophageal reflux disease without esophagitis] Onset: 08-01-2015 12-26-2019 Chronic Essential hypertension (3 sources) Benign hypertension; Translations: [Essential (primary) hypertension] 12-26-2019 Chronic Immunizations and screening for infectious disease (7 sources) Patient encounter status; Translations: [Encounter for immunization] Episodic Osteoarthritis (13 sources) Arthritis; Translations: [Unspecified osteoarthritis, unspecified site] Onset: 08-07-2015 12-26-2019 Chronic Osteoporosis (4 sources) Senile osteoporosis; Translations: [Age-related osteoporosis without current pathological fracture] Onset: 09-06-2022 Chronic Other non-traumatic joint disorders (1 source) Arthritis of left hip; Translations: [Arthritis of left hip] Onset: 08-07-2015 12-26-2019 Other upper respiratory disease (1 source) Chronic rhinitis; Translations: [Chronic rhinitis] Onset: 09-06-2022 09-06-2022 Chronic Residual codes; unclassified (2 sources) Postmenopausal state; Translations: [Asymptomatic menopausal state] Episodic Substance-related disorders (4 sources) Smoker; Translations: [Nicotine dependence, unspecified, uncomplicated] Onset: 09-13-2014 12-26-2019 Chronic Unclassified (1 source) Patient encounter status; Translations: [Encounter to establish care] Unclassified (6 sources) Elevated blood pressure; Translations: [Elevated BP] Onset: 11-20-2014 12-26-2019 Past or Other Problems Problem Classification Problem Date Documented Da te Episodic/Chronic Biliary tract disease (7 sources) Disorder of gallbladder; Translations: [Other specified diseases of gallbladder] Onset: 11-20-2014 12-26-2019 Episodic Cancer of cervix (7 sources) Carcinoma in situ of uterine cervix; Translations: [Carcinoma in situ of cervix, unspecified] Onset: 03-18-2012 12-26-2019 Episodic Deficiency and other anemia (7 sources) Anemia; Translations: [Anemia, unspecified] Onset: 12-13-2014 12-26-2019 Episodic Genitourinary symptoms and ill-defined conditions (20 sources) Urgent desire to urinate; Translations: [Blood in urine] Onset: 08-07-2015 12-26-2019 Episodic Other bone disease and musculoskeletal deformities (8 sources) Osteopenia; Translations: [Other specified disorders of bone density and structure, unspecified site] Onset: 01-21-2012 12-26-2019 Episodic Other circulatory disease (1 source) Elevated blood pressure; Translations: [Elevated BP] Onset: 11-20-2014 12-26-2019 Episodic Other connective tissue disease (6 sources) Soft tissue lesion of shoulder region; Translations: [Bursopathy, unspecified] Onset: 10-08-2014 12-26-2019 Episodic Other non-traumatic joint disorders (1 source) Disorder of shoulder; Translations: [Disorder of bursae and tendons in shoulder region] Onset: 10-08-2014 12-26-2019 Episodic Other non-traumatic joint disorders (7 sources) Shoulder joint pain; Translations: [Pain in unspecified shoulder] Onset: 10-08-2014 12-26-2019 Episodic Residual codes; unclassified (5 sources) Tobacco user; Translations: [Tobacco use] Onset: 09-13-2014 12-23-2021 Episodic Results Test Name Value Interpretation Reference Range Facil ity Vital Signs Date Time Vital Sign Value Performing Clinician Facility 12-23-2021 14:16-0400 Body weight 58.06 kg Debbi Solis APRN.GOVERNMENT OPERATIONS CONSULTANT Work Phone: [facility] 12-23-2021 14:16-0400 Diastolic blood pressure 62 mm[Hg] Debbi Solis APRN.GOVERNMENT OPERATIONS CONSULTANT Work Phone: [facility] 12-23-2021 14:16-0400 Heart rate 84 /min Debbi Solis SAUSAGE TIER.GOVERNMENT OPERATIONS CONSULTANT Work Phone: [facility] 12-23-2021 14:16-0400 Respiratory rate 16 /min Debbi Solis APRN.GOVERNMENT OPERATIONS CONSULTANT Work Phone: [facility] 12-23-2021 14:16-0400 Systolic blood pressure 122 mm[Hg] Debbi Solis APRN.GOVERNMENT OPERATIONS CONSULTANT Work Phone: [facility] 12-18-2020 10:12-0400 Body mass index (BMI) [Ratio] 23.69 kg/m2 Melissa Mckee SAUSAGE TIER-FACTORY HELPER Work Phone: [facility] 12-18-2020 10:120400 Body temperature 97.81 [degF] Melissa Mckee SAUSAGE TIER-FACTORY HELPER Work Phone: [facility] 12-18-2020 10:12-0400 Body weight 62.6 kg Melissa Mckee APRN-FACTORY HELPER Work Phone: [facility] 12-18-2020 10:12-0400 Diastolic blood pressure 87 mm[Hg] Melissa Mckee APRN-FACTORY HELPER Work Phone: [facility] 12-18-2020 10:12-0400 Heart rate 93 /min Melissa Mckee APRN-FACTORY HELPER Work Phone: [facility] 12-18-2020 10:12-0400 SaO2% (BldA) [Mass fraction] 96 % Mleissa Mckee APRN-FACTORY HELPER Work Phone: [facility] 12-18-2020 10:12-0400 Systolic blood pressure 156 mm[Hg] Melissapetra Mckee SAUSAGE TIER-FACTORY HELPER Work Phone: [facility] 12-22-2019 10:29-0400 BMI (Body Mass Index) 23.34 kg/m2 [facility] 12-22-2019 10:290400 Body Temperature 98.1 [degF] [facility] 12-22-2019 10:290400 Body weight 61.69 kg [facility] 12-22-2019 10:29-0400 BP Diastolic 82 mm[Hg] [facility] 12-22-2019 10:29-0400 BP Systolic 152 mm[Hg] [facility] 12-22-2019 10:29-0400 Height 162.6 cm [facility] 12-22-2019 10:29-0400 Pulse (Heart Rate) 82 /min Melissa [facility] 12-22-2019 10:29-0400 Pulse Oximetry 97 % Melissa [facility] 12-22-2019 10:29-0400 Respiratory Rate 16 /min [facility] Encounters Encounter Date Encounter Type Care Provider Facility Start: 02-10-2023 ambulatory Martha zavaleta MD Work Phone: [facility] [place] Start: 08-07-2022 End: 08-07-2022 ambulatory [facility] Facility:[facility] Start: 12-29-2021 Documentation procedure Mammog marina Coordinator [facility] Start: 12-29-2021 Letter encounter Mammography Coordinator [facility] Department Start: 12-29-2021 End: 12-29-2021 Subsequent hospital visit by physician Screen Mammo [facility] Mammogram Procedures Date Procedure Procedure Detail Performing Clinician Start: 12-29-2021 Dxa bone density tree dy 1/> sites axial skel Debbi Solis SAUSAGE TIER.GOVERNMENT OPERATIONS CONSULTANT Work Phone: Start: 12-29-2021 End: 12-29-2021 Screening mammography bi 2-view breast inc cad Debbi Will SAUSAGE TIER.GOVERNMENT OPERATIONS CONSULTANT Work Phone: Start: 12-23-2021 Adult depression scr eening assessment Debbifang Solis SAUSAGE TIER.GOVERNMENT OPERATIONS CONSULTANT Work Phone: Start: 01-15-2020 Colonoscopy Debbi V I Omickey gilbert SAUSAGE TIER.GOVERNMENT OPERATIONS CONSULTANT Work Phone: Start: 12-25-2019 Lipid 1996 panel - S tere or Plasma Melissa [place] Start: 08-07-2019 Mammography Debbi V I Oo ks SAUSAGE TIER.GOVERNMENT OPERATIONS CONSULTANT Work Phone: Plan of Treatment Date Care Activity Detail Author Start: 12-25-2026 LIPID SCREEN LIPID SCREEN [facility] Start: 01-14-2025 Colonoscopy COLONOSCOPY [facility] Start: 01-14-2025 COLORECTAL CANCER SCREENING COLORECTAL CANCER SCREENING [facility] Start: 12-25-2024 DIABETES SCREEN DIABETES SCREEN [facility] Start: 12-24-2024 Fasting lipid profile LIPID SCREENIN [facility] Start: 08-07-2023 ANNUAL PCP TEAM JAMMER OPERATOR VILLA DISEASE VISIT ANNUAL PCP TEAM CHRONIC DISEASE VISIT [facility] Start: 03-19-2023 Influenza vaccination INFLUENZA (#1) [facility] Start: 12-29-2022 Mammography MAMMOGRAM [facility] Start: 12-24-2022 DIABETES SCREEN DIABETES SCREEN [facility] Start: 12-23-2022 Adult depression scr eening assessment DEPRESSION SCREENING [facility] Start: 08-02-2022 Tetanus vaccination [facility] Start: 08-02-2022 Urine microalbumin profile DTA P,TDAP,TD (2 - Td or Tdap) [facility] Start: 07-20-2022 SHINGRIX VACCINE (1 of 2) BRAVO GRIX VACCINE (1 of 2) [facility] Immunizations Immunization Date Immunization Notes Care Provider Giselle beyer 04-17-2020 Influenza, High-dose Seasonal, Quadrivalent, Preservative Free [facility] SAUSAGE TIER-FACTORY HELPER Work Phone: [facility] 07-28-2019 influenza, high dose seasonal, preservative-free Matthew Pedrito [facility] 12-14-2017 pneumococcal polysaccharide vaccine, 23 valent Matthew Pedrito [facility] 11-25-2016 pneumococcal conjuga te vaccine, 13 valent Matthew Pedrito [facility] 08-02-2012 influenza virus vacc ine, unspecified formulation [facility] SAUSAGE TIER-FACTORY HELPER Work Phone: [facility] 08-02-2012 tetanus toxoid, redu tha diphtheria toxoid, and acellular pertussis vaccine, adsorbed Matthew Pedrito [facility] 08-02-2012 zoster vaccine, live Matthew Pedrito [facility] 08-02-2012 zoster vaccine, unspecified formulation Matthew Pedrito [facility] 12-31-2011 pneumococcal polysaccharide vaccine, 23 valent Matthew Pedrito [facility] Work Phone: Payers Date Payer Category Payer Unknown [id number] 2019 Unknown ANTHEM BLUE CROS S AND BLUE SHIELD ANTHEM MEDIBLUE HMO [id number] 2019-Present [phone] [address] [place] [address] HMO [id number] 2019 Medicare [id number] Social History Date Type Detail Facility Start: 12-22-2019 End: 12-23-2021 Tobacco smoking status NHIS Current every day smoker [facility] Work Phone: Start: 12-22-2019 End: 12-23-2021 Tobacco use and exposure Never used [employer] Start: 12-22-2019 End: 12-26-2019 Alcohol intake Ex-drinker (finding) [employer] Start: 1950 Sex Assigned At Not on file [facility] Start: 12-13-2021 End: 12-29-2021 Exposure to SARS-CoV-2 (event) Not sure [employer] Start: 07-24-2014 End: 08-07-2022 Cigarettes smoked current (pack per day) - Reported 1 [facility] Work Phone: Start: 12-23-2021 End: 09-06-2022 Alcohol intake Current non-drinker of alcohol (finding) [facility] Start: 09-28-2019 Tobacco Comment Planning to tr y patches again [facility] History of tobacco use Cigarette Smoker [facility] Work Phone: Start: 08-07-2022 End: 09-06-2022 Tobacco use panel [facility] Work Phone: Adult Depression Screening Assessment 0 [facility] Work Phone: Clinical Notes 08-01-2015 to 02-10-2023 Letter - Mammography Coordinator - 12/29/2021 2:20 PM Sonya Jo, RT(R) - 12/29/2021 1:30 PM Selina Jaing, RT(R) - 12/29/2021 12:50 PM EDTPatient Instructions Note Date & Type Note Facility 02-10-2023 Note Patient Outreach (IN [facility]) SUELLEN GUSTAFSON ([id number]) 1950 F Date Time Provider Department 02/10/23 MARTHA PURDY During your visit today, we recorded the following information about you: Allergies As of Date: 02/10/2023 (No Known Allergies) Date Reviewed: 08/07/2022 Reviewed by: Alcira Andrade LPN - Fully Assessed Visit Diagnosis:Encounter for screening mammogram for breast cancer [Z12.31] Order(s):[facility] SCREENING [[id number]] Order #: [id number] FUTURE Prescriptions as of 02/15/2023 - albuterol HFA (PROVENTIL HFA, VENTOLIN HFA) 90 mcg/actuation inhaler Inhale 2 Puffs as instructed every 6 hours as needed for wheezing/shortness of breath. - budesonide (RHINOCORT AQ) 32 mcg/actuation nasal spray Use 2 Sprays in each nostril once daily. Rinse mouth after use. - guaiFENesin (MUCINEX) 600 mg 12 hr tablet Take 2 tablets by mouth twice daily as needed for cold/allergy symptoms (thick mucus). - fluticasone-salmeterol (ADVAIR, WIXELA) 250-50 mcg/dose inhaler Inhale 1 Puff as instructed twice daily. - Ibandronate (BONIVA) 150 mg tablet Take 1 tablet by mouth once every month. Take in the am with full glass of water on an empty stomach; do NOT eat or lie down for next 30 minutes. - oxybutynin ER (DITROPAN XL) 15 mg 24 hr Extended Rel Tab Take 1 tablet by mouth once daily. - omeprazole (PRILOSEC) 20 mg capsule Take 1 capsule by mouth once daily. - predniSONE (DELTASONE) 5 mg tablet Takes as needed as directed by Dr. Gresham - FOLIC ACID ORAL Take by mouth. - methotrexate 2.5 mg tablet Take 6 tablets by mouth every Wednesday. (Dr. Gresham) - CALCIUM CARBONATE/VITAMIN D3 (CALCIUM 600 + D ORAL) Take by mouth. Problem List As Of Date 02/10/2023 Noted Resolved Osteopenia [M85.80] 01/21/2012 Active smoker [F17.200] 01/21/2012 05/28/2014 YANI I (cervical intraepithelial neoplasia I) [N*02/22/2012 03/18/2012 YANI 3 - cervical intraepithelial neoplasia grad*03/18/2012 Tobacco use disorder [F17.200] 05/28/2014 05/28/2014 Tobacco abuse [Z72.0] 09/13/2014 Pain in joint, shoulder region [M25.519] 10/08/2014 Disorder of bursae and tendons in shoulder beth*10/08/2014 Elevated BP [ACS3631] 11/20/2014 Adenomyosis of gallbladder [K82.8] 11/20/2014 Anemia [D64.9] 12/13/2014 Gastroesophageal reflux disease without esophag*08/01/2015 Screening for diabetes mellitus (DM) [Z13.1] 08/01/2015 11/25/2016 Need for lipid screening [Z13.220] 08/01/2015 11/25/2016 Arthritis of left hip [M16.12] 08/07/2015 Hematuria [R31.9] 08/07/2015 Arthritis [M19.90] 07/01/2016 Frequency of micturition [R35.0] 09/22/2016 Urgency of urination [R39.15] 09/22/2016 Chronic bronchitis (HCC) [J42] 09/06/2022 Moderate persistent asthma without complication*09/06/2022 Age-related osteoporosis without current pathol*09/06/2022 Chronic rhinitis [J31.0] 09/06/2022 Elevated LDL cholesterol level [E78.00] 09/06/2022 Encounter Status:Closed by EPIC, PRODUSER on 02/15/23 [facility] 08-07-2022 Note HNO ID: [id number] Author: Martha Purdy MD Service: ? Author Type: Physician Type: Progress Notes Filed: 09/06/2022 5:18 PM Note Text: This note was created using Doctolibriter. Subjective Suellen Gustafson is a 71 year old female. Patient presents with: F/U 6 months SUBJECTIVE: Suellen Gustafson is a 71 year old year old lady here today for 6 month follow up appointment for review of medical conditions. Coughing up a lot of stuff when first gets up in AM. Thick mucus. Mucinex did not help much. Cuts back smoking in the winter. PAST MEDICAL HISTORY Diagnosis Date Adenomyosis, gallbladder 12/18/14 Anemia YANI 3 - cervical intraepithelial neoplasia grade 3 2011 Elevated BP 11/20/2014 GERD (gastroesophageal reflux disease) Mental disorder Osteopenia Psoriasis Psoriatic arthritis (HCC) Rheumatoid arthritis(714.0) RUQ pain 12/18/14 Tobacco abuse Current Outpatient Medications Medication Sig Ibandronate (BONIVA) 150 mg tablet Take 1 tablet by mouth once every month. Take in the am with full glass of water on an empty stomach; do NOT eat or lie down for next 30 minutes. oxybutynin ER (DITROPAN XL) 15 mg 24 hr Extended Rel Tab Take 1 tablet by mouth once daily. albuterol HFA (PROVENTIL HFA, VENTOLIN HFA) 90 mcg/actuation inhaler Inhale 2 Puffs as instructed every 6 hours as needed for wheezing/shortness of breath. predniSONE (DELTASONE) 5 mg tablet Takes as needed as directed by Dr. Gresham FOLIC ACID ORAL Take by mouth. methotrexate 2.5 mg tablet Take 6 tablets by mouth every Wednesday. (Dr. Gresham) CALCIUM CARBONATE/VITAMIN D3 (CALCIUM 600 + D ORAL) Take by mouth. budesonide (RHINOCORT AQ) 32 mcg/actuation nasal spray Use 2 Sprays in each nostril once daily. Rinse mouth after use. (Patient not taking: Reported on 08/07/2022) omeprazole (PRILOSEC) 20 mg capsule Take 1 capsule by mouth once daily. (Patient not taking: Reported on 12/23/2021 ) No current facility-administered medications for this visit. Review of Systems Objective BP 128/82 Pulse (!) 48 Temp 36.8 ?C (98.3 ?F) Resp 18 Wt 59.4 kg (131 lb) SpO2 100% BMI 22.84 kg/m? Last 5 Encounter Wt Readings: Date: Wt: 08/07/2022 59.4 kg (131 lb) 12/23/2021 58.1 kg (128 lb) 09/28/2019 60.8 kg (134 lb) 07/28/2019 60.8 kg (134 lb) 12/29/2018 64.4 kg (142 lb) No waist measurement recorded Estimated body mass index is 22.84 kg/m? as calculated from the following: Height as of 09/22/16: 161.3 cm (5' 3.5 ). Weight as of this encounter: 59.4 kg (131 lb). Last 5 Encounter BP Readings: Date: BP: 08/07/2022 128/82 12/23/2021 122/62 11/14/2019 147/69 09/28/2019 128/72 07/28/2019 132/78 Physical Exam Constitutional: Appearance: Normal appearance. HENT: Head: Normocephalic. Eyes: Conjunctiva/sclera: Conjunctivae normal. Cardiovascular: Rate and Rhythm: Normal rate and regular rhythm. Heart sounds: Normal heart sounds. Pulmonary: Effort: Pulmonary effort is normal. Breath sounds: Normal breath sounds. Skin: General: Skin is warm and dry. Neurological: General: No focal deficit present. Mental Status: She is alert and oriented to person, place, and time. Psychiatric: Mood and Affect: Mood normal. Behavior: Behavior normal. Thought Content: Thought content normal. Judgment: Judgment normal. The 10-year ASCVD risk score (Karen DK, et al., 2019) is: 14.5% Values used to calculate the score: Age: 71 years Sex: Female Is Non- : No Diabetic: No Tobacco smoker: Yes Systolic Blood Pressure: 128 mmHg Is BP treated: No HDL Cholesterol: 72 mg/dL Total Cholesterol: 203 mg/dL Assessment and Plan Encounter Diagnosis ICD-10-CM 1. Chronic bronchitis, unspecified chronic bronchitis type (HCC) J42 Productive cough every day 2. Moderate persistent asthma without complication J45.40 albuterol HFA (PROVENTIL HFA, VENTOLIN HFA) 90 mcg/actuation inhaler presumed given persistent wheezing and cough every day; using albuterol morning and night 3. Chronic rhinitis J31.0 budesonide (RHINOCORT AQ) 32 mcg/actuation nasal spray 4. Age-related osteoporosis without current pathological fracture M81.0 COMP METABOLIC PANEL CBC VITAMIN D 25 HYDROXY PTH INTACT BLD 5. Elevated LDL cholesterol level E78.00 LIPID PANEL BASIC Above issues addressed with patient. Patient involved in shared decision making for management of medical issues. History and medications reviewed. Epic updated as needed Refills and/or prescriptions taken care of and meds adjusted as indicated after reviewed history, exam and labs. Health Maintenance reviewed. Updated record and/or ordered tests as recorded. Encouraged on efforts at healthy diet and regular exercise and adequate sleep. Martha Purdy MD [facility] 12-29-2021 Miscellaneous Notes December 29, 2021 PID: [id number] Suellen Gustafson [address] [place] [address] Dear Ms. Gustafson, We are pleased to inform you that the results of your recent breast imaging exam on 12/29/2021 are normal. Your mammogram demonstrates that you have dense breast tissue, which could hide abnormalities. Dense breast tissue, in and of itself, is a relatively common condition. Therefore, this information is not provided to cause undue concern; rather, it is to raise your awareness and promote discussion with your health care provider regarding the presence of dense breast tissue in addition to other risk factors. Early detection of cancer is very important. We also understand recommendations regarding breast cancer screening are controversial. Please discuss with your primary care provider which strategy is best for you and whether a mammogram is right for you. Your imaging studies and report will be kept on file at [facility] as part of your permanent medical record and are available for your continuing care. Thank you for allowing us to help in meeting your health care needs. Sincerely, Dr. Flores Interpreting Radiologist [facility] (Normal over 40) documented in this encounter [facility] 12-29-2021 History of Presen t illness Narrative Radiology Service Progress Note PATIENT NAME: Suellen Gustafson DATE OF SERVICE: December 29, 2021 TIME: 1:32 PM PATIENT IDENTITY VERIFICATION COMPLETED USING TWO (2) IDENTIFIERS: Name and Date of confirmed by patient verbally. FALL SCREENING: Has the patient had 2 falls in the last year or 1 fall with injury or currently using an Ambulatory Assistive Device (Walker, Cane, Wheelchair, Crutches, etc.)? No PATIENT GENDER DATA: Female. status: : No status: NO. PATIENT RELEVANT IMPLANT DATA REVIEWED: Not Applicable RADIOLOGY DEPARTMENT: Bone Density PERIPHERAL IV DATA: Not applicable SIGNED BY: RT To(R) December 29, 2021 1:32 PM documented in this encounter [facility] 12-29-2021 History of Presen t illness Narrative Radiology Service Progress Note PATIENT NAME: Suellen Gustafson DATE OF SERVICE: December 29, 2021 TIME: 12:44 PM PATIENT IDENTITY VERIFICATION COMPLETED USING TWO (2) IDENTIFIERS: Name and Date of confirmed by patient verbally. FALL SCREENING: Has the patient had 2 falls in the last year or 1 fall with injury or currently using an Ambulatory Assistive Device (Walker, Cane, Wheelchair, Crutches, etc.)? No PATIENT GENDER DATA: Female. status: : No status: NO. PATIENT RELEVANT IMPLANT DATA REVIEWED: Not Applicable RADIOLOGY DEPARTMENT: Mammography PERIPHERAL IV DATA: Not applicable SIGNED BY: RT Bhumi(R) December 29, 2021 12:44 PM documented in this encounter [facility] 12-23-2021 Betty Solis APRN.CNS - 12/23/2021 2:38 PM EDT Check to see if your insurance covers shingles vaccine and what location to get the vaccine -usually best covered at your local pharmacy where you get prescriptions filled BONE MINERAL DENSITY PATIENT INSTRUCTIONS Bone mineral density testing measures the amount of calcium in certain parts of your bones. This information determines how strong your bones are. The test is used to detect osteoporosis, a disease in which the bone's mineral content and density are low, increasing a person's risk of fractures. The lumbar spine (lower back) and the hip are the skeletal sites usually examined. For the test, remember that: 1. You cannot take this test if you are . 2. Eat a normal diet on the day of the test. 3. Take your medications as you normally would. 4. DO NOT take calcium supplements (such as Tums) for 24 hours before the test. 5. On the day of the test, leave valuables (jewelry or credit cards) at home. 6. The test should be performed prior to oral, rectal or IV contrast studies, or at least 7 days after any of these studies. For the test, you may be asked to wear a hospital gown. You will lie on your back, on a padded table, in a comfortable position. Generally, you can resume your usual activities immediately. documented in this encounter [facility] 12-23-2021 History of Presen t illness Narrative SUBJECTIVE: COVID-19 VACCINE(1) Never done LUNG CANCER SCREENING Never done LIPID SCREEN due on 08/06/2020 MAMMOGRAM due on 08/07/2020 HPI Suellen Gustafson is a 71 year old female. PMH significant for ACTIVE PROBLEM LIST Osteopenia Yani 3 - Cervical Intraepithelial Neoplasia Grade 3 Tobacco Abuse Pain in Joint, Shoulder Region Disorder of Bursae and Tendons in Shoulder Region Elevated Bp Adenomyosis of Gallbladder Anemia Gastroesophageal Reflux Disease Without Esophagitis Arthritis of Left Hip Hematuria Arthritis Frequency of Micturition Urgency of Urination Presents today to establish care with Dr Purdy. Previous PCP: Jayy Grossman MD, MD [address] [address] Last seen:12/2019 Labwork: no recent ER/Hospitalization: Outside records: care everywhere Colonoscopy [facility] 2019 Dr Gonzalez. Couldn't get in to see a doctor in [place], did not take insurance. Previously on methotrexate, folic acid for rheumatoid arthritis, has continued on with Dr Gresham: GERD: Without current complaints. HTN: Without report of headache, chest pain, palpitations, dyspnea, peripheral edema, orthopnea, fatigue and PND. Last 14 Encounter BP Readings: Date: BP: 12/23/2021 122/62 11/14/2019 147/69 09/28/2019 128/72 07/28/2019 132/78 12/29/2018 136/70 07/22/2018 160/110 07/16/2018 146/68 06/21/2018 138/82[multiple checks[ 12/14/2017 126/70 06/11/2017 138/84 11/25/2016 150/80 10/12/2016 152/86 09/22/2016 164/84 09/07/2016 156/88 Notes OAB helped with current medications. Review of Systems Constitutional: Negative. Objective BP 122/62 Pulse 84 Resp 16 Wt 58.1 kg (128 lb) BMI 22.32 kg/m Physical Exam Vitals and nursing note reviewed. Constitutional: Appearance: Normal appearance. HENT: Head: Normocephalic and atraumatic. Eyes: Conjunctiva/sclera: Conjunctivae normal. Cardiovascular: Rate and Rhythm: Normal rate and regular rhythm. Heart sounds: Normal heart sounds. Pulmonary: Effort: Pulmonary effort is normal. Breath sounds: Normal breath sounds. Abdominal: General: Bowel sounds are normal. Palpations: Abdomen is soft. Musculoskeletal: Right lower leg: No edema. Left lower leg: No edema. Skin: General: Skin is warm and dry. Neurological: General: No focal deficit present. Mental Status: She is alert and oriented to person, place, and time. ALLERGIES No Known Allergies MEDICATIONS Ibandronate (BONIVA) 150 mg tablet, Take 1 tablet by mouth once every month. Take in the am with full glass of water on an empty stomach; do NOT eat or lie down for next 30 minutes. oxybutynin ER (DITROPAN XL) 15 mg 24 hr Extended Rel Tab, Take 1 tablet by mouth once daily. albuterol HFA (PROVENTIL HFA, VENTOLIN HFA) 90 mcg/actuation inhaler, Inhale 2 Puffs as instructed every 6 hours as needed for wheezing/shortness of breath. budesonide (RHINOCORT AQ) 32 mcg/actuation nasal spray, Use 2 Sprays in each nostril once daily. Rinse mouth after use. predniSONE (DELTASONE) 5 mg tablet, Takes as needed as directed by Dr. Gresham FOLIC ACID ORAL, Take by mouth. methotrexate 2.5 mg tablet, Take 6 tablets by mouth every Wednesday. (Dr. Gresham) CALCIUM CARBONATE/VITAMIN D3 (CALCIUM 600 + D ORAL), Take by mouth. omeprazole (PRILOSEC) 20 mg capsule, Take 1 capsule by mouth once daily. PAST MEDICAL HISTORY Diagnosis Date Adenomyosis, gallbladder 12/18/14 Anemia YANI 3 - cervical intraepithelial neoplasia grade 3 2011 Elevated BP 11/20/2014 GERD (gastroesophageal reflux disease) Mental disorder Osteopenia Psoriasis Psoriatic arthritis (HCC) Rheumatoid arthritis(714.0) RUQ pain 12/18/14 Tobacco abuse Social History Tobacco Use Smoking status: Current Every Day Smoker Packs/day: 1.00 Years: 50.00 Pack years: 50.00 Smokeless tobacco: Never Used Tobacco comment: Planning to try patches again Substance Use Topics Alcohol use: No Drug use: No ASSESSMENT/PLAN: 1. Smoker - ICD9: 305.1, ICD10: F17.200 (primary diagnosis) - CONSULT LUNG CANCER SCREENING CLINIC 2. Encounter for immunization - ICD9: V03.89, ICD10: Z23 - [employer] COVID-19 VACCINE, AGE 12+ YR (SURESH TOP) 3. Need for shingles vaccine - ICD9: V04.89, ICD10: Z23 4. Screening for lipid disorders - ICD9: V77.91, ICD10: Z13.220 - LIPID PANEL BASIC 5. Encounter for screening mammogram for breast cancer - ICD9: V76.12, ICD10: Z12.31 routine self exam - DAVID SCREENING 6. Age-related osteoporosis without current pathological fracture - ICD9: 733.01, ICD10: M81.0 - IBANDRONATE 150 MG TABLET 7. Urgency of urination - ICD9: 788.63, ICD10: R39.15 - OXYBUTYNIN CHLORIDE ER 15 MG TABLET,EXTENDED RELEASE 24 HR 8. Frequency of micturition - ICD9: 788.41, ICD10: R35.0 - OXYBUTYNIN CHLORIDE ER 15 MG TABLET,EXTENDED RELEASE 24 HR 9. Moderate persistent asthma without complication - ICD9: 493.90, ICD10: J45.40 - COMP METABOLIC PANEL - CBC + DIFF - ALBUTEROL SULFATE HFA 90 MCG/ACTUATION AEROSOL INHALER 10. Screening for hyperlipidemia - ICD9: V77.91, ICD10: Z13.220 11. Asymptomatic postmenopausal status - ICD9: V49.81, ICD10: Z78.0 12. Localized osteoporosis without current pathological fracture - ICD9: 733.09, ICD10: M81.6 - DXA-AXIAL SKELETON 6-[address] Purdy to re-establish care Labs today or at her earliest convenience. Debbi Solis APRN.CNS Medical Decision Making: Problems: Moderate: 2+ stable chronic illnesses Data: Unique test(s) ordered: 3+ Risk: Moderate: Drug management Medical Decision Making Level: 4 - Moderate documented in this encounter [facility] 12-18-2020 History of Presen t illness Narrative Patient: Suellen Gustafson Patient : 1950 Patient Age: 70 y.o. Today's Date: 12/18/2020 Provider: Melissa Mckee APRN-[facility] History of Present Illness: Patient here today for evaluation of Chief Complaint Patient presents with Medication Refill Patient is here for for medication refills. She is other huertas doing OK - She states that she has routine labwork done in [place]. She has had a colonscopy done. Last bone density was two years ago. He is a smoker. No interest in quitting. She has no acute compalints today. History: No Known Allergies Past Medical History: Diagnosis Date Acid reflux Arthritis Bronchitis Past Surgical History: Procedure Laterality Date CHOLECYSTECTOMY 2017 Social History Tobacco Use Smoking status: Current Every Day Smoker Smokeless tobacco: Never Used Vaping Use Vaping Use: Never used Substance Use Topics Alcohol use: Not Currently Drug use: Not Currently Family History Problem Relation Age of Onset Arthritis - Rheumatoid Mother Heart Failure Father Review of Systems: Review of Systems Constitutional: Negative for chills, diaphoresis, fatigue and fever. Respiratory: Negative for cough, shortness of breath, wheezing and stridor. Musculoskeletal: Negative for arthralgias, back pain, gait problem, joint swelling, myalgias, neck pain and neck stiffness. Skin: Negative for color change, pallor, rash and wound. Physical Exam: Vitals: 12/18/20 1012 BP: 156/87 Pulse: 93 Temp: 97.8 degrees F (36.6 degrees C) SpO2: 96% Weight: 62.6 kg (138 lb) Physical Exam Vitals and nursing note reviewed. HENT: Head: Normocephalic. Pulmonary: Effort: Pulmonary effort is normal. Skin: General: Skin is warm and dry. Capillary Refill: Capillary refill takes less than 2 seconds. Neurological: General: No focal deficit present. Mental Status: She is alert. Mental status is at baseline. Psychiatric: Thought Content: Thought content normal. Current Medications: Current Outpatient Medications: Calcium Carb-Cholecalciferol (CALCIUM CARBONATE-VITAMIN D3 PO), Take by mouth., Disp: , Rfl: folic acid 1 MG tablet, Take 1 mg by mouth., Disp: , Rfl: albuterol 108 (90 Base) MCG/ACT Aero Soln inhaler, Inhale 2 puffs every 6 hours as needed for Wheezing., Disp: 1 g, Rfl: 1 ibandronate 150 MG tablet, Take 1 tablet by mouth every 30 days., Disp: 3 tablet, Rfl: 1 oxybutynin 15 MG Tab SR 24 HR, Take 1 tablet by mouth daily., Disp: 90 tablet, Rfl: 1 Health Maintenance List: Health Maintenance Topic Date Due DEXA SCAN DISCUSSION Never done CERVICAL CANCER SCREENING DISCUSSION Never done ZOSTER (SHINGLES) VACCINE (2 of 3) 09/27/2012 COLORECTAL CANCER SCREENING DISCUSSION 07/19/2020 MAMMOGRAM SCREENING DISCUSSION 07/19/2021 TETANUS 08/02/2022 LIPID SCREENING 12/24/2024 INFLUENZA VACCINE Completed PNEUMOCOCCAL VACCINE SERIES Completed TDAP (ADULT) Completed COVID-19 VACCINE Addressed HEPATITIS C VIRUS SCREENING Addressed Assessment & Plan: ICD-10-CM 1. Osteopenia, unspecified location M85.80 2. Smoker F17.200 Refills given on exam. She is to follow up in 6 months. No acute complaints. Smoking cessation. No follow-ups on file. Patient was advised to call with any questions or concerns. If symptoms worsen patient was advised to follow up in our office or the Emergency Dept. Benefits, risks, contraindications, and complications of recommended treatments were explained the patient understands and agrees to proceed with plan. Patient here for refill of medications. documented in this encounter [facility] documented as of this encounter (statuses as of 12/23/2021) [facility] History of Past illness Narrative* Problem Noted Date Resolved Date Screening for diabetes mellitus (DM) 08/01/2015 11/25/2016 Need for lipid screening 08/01/2015 017 Tobacco use disorder 05/28/2014 05/28/2014 YANI I (cervical intraepithelial neoplasia I) 12/201103/18/2012 Active smoker 01/21/2012 05/28/2014 documented as of this encounter (statuses as of 12/30/2021) [facility] History of Past illness Narrative* Problem Noted Date Resolved Date Screening for diabetes mellitus (DM) 08/01/2015 11/25/2016 Need for lipid screening 08/01/2015 017 Tobacco use disorder 05/28/2014 05/28/2014 YANI I (cervical intraepithelial neoplasia I) 12/201103/18/2012 Active smoker 01/21/2012 05/28/2014 documented as of this encounter (statuses as of 12/30/2021) [facility] History of Past illness Narrative* Problem Noted Date Resolved Date Screening for diabetes mellitus (DM) 08/01/2015 11/25/2016 Need for lipid screening 08/01/2015 017 Tobacco use disorder 05/28/2014 05/28/2014 YANI I (cervical intraepithelial neoplasia I) 12/201103/18/2012 Active smoker 01/21/2012 05/28/2014 documented as of this encounter (statuses as of 12/31/2021) [facility] History of Past illness Narrative* Problem Noted Date Diagnosed Date Resolved Date Screening for diabetes mellitus (DM) 08/01/2015 11/25/2016 Need for lipid screening 08/01/201504/2017 Tobacco use disorder 05/28/2014 014 YANI I (cervical intraepithelial neoplasia I) 2 03/18/2012 Active smoker 01/21/2012 05/28/2014 documented as of this encounter (statuses as of 02/15/2023) [facility] note* Diagnosis Osteopenia, unspecified location- Primary Smoker Tobacco use disorder [facility] Diagnosis Smoker- Primary Tobacco use disorder Encounter for immunization Need for other specified prophylactic vaccination against single bacterial disease Need for shingles vaccine Need for prophylactic vaccination and inoculation against other viral diseases Screening for lipid disorders Encounter for screening mammogram for breast cancer Age-related osteoporosis without current pathological fracture Senile osteoporosis Urgency of urination Frequency of micturition Urinary frequency Moderate persistent asthma without complication Unspecified asthma Screening for hyperlipidemia Screening for lipoid disorders Asymptomatic postmenopausal status Localized osteoporosis without current pathological fracture documented in this encounter [facility]* Diagnosis Encounter for screening mammogram for breast cancer documented in this encounter [facility]* Diagnosis Asymptomatic postmenopausal status Localized osteoporosis without current pathological fracture documented in this encounter [facility]* Diagnosis Encounter for screening mammogram for breast cancer documented in this encounter [facility] for referral (narrative)* Diagnostic Procedure Only (Routine) - Authorized Specialty Diagnoses / Procedures Referred By Joshua rowland Referred To Contact [facility] Diagnoses Encounter for screening mammogram for breast cancer Procedures DAVID SCREENING SCREENING MAMMOGRAPHY BI 2-VIEW BREAST INC Debbi Louis APRN.[employer] [address] [place] [address] [facility] [address] [address] Referral ID Status Reason Start Date Expiration Date Visits Requested Visits Authorized [id number] Authorized Auto-Generat ed Referral 12/23/2021 01/22/2023 1 1 [facility] for referral (narrative)* Diagnostic Procedure Only (Routine) - Closed Specialty Diagnoses / Procedures Referred By Joshua rowland Referred To Contact [facility] Diagnoses Encounter for screening mammogram for breast cancer Procedures DAVID SCREENING SCREENING MAMMOGRAPHY BI 2-VIEW BREAST INC Debbi Louis APRN.CNS [address] [place] [address] [facility] [address] [place] [address] Referral ID Status Reason Start Date Expiration Date V isits Requested Visits Authorized [id number] Closed Auto-Generate d Referral 12/23/2021 01/22/2023 1 1 [facility] for referral (narrative)* Diagnostic Procedure Only (Routine) - Pending Review Specialty Diagnoses / Procedures Referred By Joshua rowland Referred To Contact [facility] Diagnoses Encounter for screening mammogram for breast cancer Procedures DAVID SCREENING SCREENING MAMMOGRAPHY BI 2-VIEW BREAST INC Martha Worley MD [address] [place] [address] [facility] [address] [place] [address] Referral ID Status Reason Start Date Expiration Date Visits Requested Visits Authorized [id number] Pending Review Auto-Generat ed Referral 02/10/2023 03/11/2024 1 1 [facility] for visit Narrative* Diagnostic Procedure Only (Routine) - Closed Specialty Diagnoses / Procedures Referred By Joshua rowland Referred To Contact [facility] Diagnoses Encounter for screening mammogram for breast cancer Procedures DAVID SCREENING SCREENING MAMMOGRAPHY BI 2-VIEW BREAST INC Debbi Louis APRN.CNS [address] [place] [address] [facility] [address] [place] [address] Referral ID Status Reason Start Date Expiration Date V isits Requested Visits Authorized [id number] Closed Auto-Generate d Referral 12/23/2021 01/22/2023 1 1 [facility] History of Present Illness * Dinorah Saleem - 12/25/2019 8:15 AM EDT Pt had blood drawn today documented in this encounter* Melissa Mckee APRN-CNP - 12/22/2019 10:30 AM EDT Patient: Suellen Gustafson Patient : 1950 Patient Age: 69 y.o. Today's Date: 12/26/2019 Provider: SAMANTHA Chappell History of Present Illness: Patient here today for evaluation of Chief Complaint Patient presents with Establish Care Patient is here to establish care. She was going to [place]. Martha Reyes with [facility]. Mammogram is UTD and Bone Density was showing signs of osteoporosis. She does go to Dr. Cervantes and is prescribed methotrexate and prednisone - takes methotrexate once a week with folic acid everyday. Prednisone is as needed . Has not had her thyroid checked. Patient is a smoker about a pack day since younger age. Has tried to quit. Has not had to see pulmonology. Has no CP or SOB. No cardiac disease. States that she has white coat syndrome. History: No Known Allergies Past Medical History: Diagnosis Date Acid reflux Arthritis Bronchitis Past Surgical History: Procedure Laterality Date CHOLECYSTECTOMY 2017 Social History Tobacco Use Smoking status: Current Every Day Smoker Smokeless tobacco: Never Used Substance Use Topics Alcohol use: Not Currently Drug use: Not Currently Family History Problem Relation Age of Onset Arthritis - Rheumatoid Mother Heart Failure Father Review of Systems: Review of Systems Constitutional: Negative for chills, diaphoresis, fatigue and fever. Respiratory: Negative for cough, choking, shortness of breath, wheezing and stridor. Cardiovascular: Negative for chest pain, palpitations and leg swelling. Musculoskeletal: Positive for arthralgias and myalgias. Skin: Negative for color change, pallor, rash and wound. Hematological: Negative for adenopathy. Does not bruise/bleed easily. Physical Exam: Vitals: 12/22/19 1029 BP: 152/82 Pulse: 82 Resp: 16 Temp: 98.1 degrees F (36.7 degrees C) SpO2: 97% Weight: 61.7 kg (136 lb) Height: 1.626 m (5' 4 ) Physical Exam Vitals signs and nursing note reviewed. HENT: Head: Normocephalic. Nose: Nose normal. Mouth/Throat: Mouth: Mucous membranes are moist. Neck: Musculoskeletal: Full passive range of motion without pain and normal range of motion. Thyroid: No thyroid mass or thyroid tenderness. Vascular: No carotid bruit or hepatojugular reflux. Cardiovascular: Rate and Rhythm: Normal rate and regular rhythm. Pulses: Carotid pulses are 3+ on the right side and 3+ on the left side. Radial pulses are 3+ on the right side and 3+ on the left side. Heart sounds: Normal heart sounds, S1 normal and S2 normal. Pulmonary: Effort: Pulmonary effort is normal. Breath sounds: Normal breath sounds. Abdominal: General: Bowel sounds are normal. Musculoskeletal: Normal range of motion. Right lower leg: No edema. Left lower leg: No edema. Lymphadenopathy: Cervical: No cervical adenopathy. Skin: General: Skin is warm and dry. Capillary Refill: Capillary refill takes less than 2 seconds. Neurological: General: No focal deficit present. Mental Status: She is alert. Mental status is at baseline. Psychiatric: Mood and Affect: Mood normal. Thought Content: Thought content normal. Current Medications: Current Outpatient Medications: albuterol 108 (90 Base) MCG/ACT Aero Soln inhaler, Inhale 2 puffs Every 6 hours as needed., Disp: ,Rfl: Calcium Carb-Cholecalciferol (CALCIUM CARBONATE-VITAMIN D3 PO), Take by mouth., Disp: , Rfl: folic acid 1 MG tablet, Take 1 mg by mouth., Disp: , Rfl: ibandronate 150 MG tablet, Take 150 mg by mouth every 30 days., Disp: , Rfl: omeprazole [address] capsule, Take 20 mg by mouth daily., Disp: , Rfl: oxybutynin 15 MG Tab SR 24 HR, Take 15 mg by mouth daily., Disp: , Rfl: Health Maintenance List: Health Maintenance Topic Date Due DEXA SCAN DISCUSSION 1950 HEPATITIS C VIRUS SCREENING 1950 CERVICAL CANCER SCREENING DISCUSSION 11/23/1972 MAMMOGRAM SCREENING DISCUSSION 1991 COLORECTAL CANCER SCREENING DISCUSSION 11/23/2001 ZOSTER (SHINGLES) VACCINE (2 of 3) 09/27/2012 TETANUS 08/02/2022 LIPID SCREENING 12/24/2024 INFLUENZA VACCINE Completed PNEUMOCOCCAL VACCINE SERIES Completed TDAP (ADULT) Completed Assessment & Plan: ICD-10-CM 1. Encounter to establish care Z76.89 2. Urgency of urination R39.15 3. Gastroesophageal reflux disease without esophagitis K21.9 4. Benign hypertension I10 Reviewed her lab orders with her. Smoking cessation was discussed. She did not need refills on any meds today. She has a hx of anemia. Will follow up in 3-6 months. No follow-ups on file. Patient was advised to call with any questions or concerns. If symptoms worsen patient was advised to follow up in our office or the Emergency Dept. Benefits, risks, contraindications, and complications of recommended treatments were explained the patient understands and agrees to proceed with plan. * Reinaldo Rose LPN - 12/22/2019 10:30 AM EDT Pt is here to establish with provider documented in this encounter Assessments Diagnosis Mixed hyperlipidemia Diagnosis Encounter to establish care Reserved for inherently not codable concepts WITHOUT codable children Urgency of urination Gastroesophageal reflux disease without esophagitis Esophageal reflux Benign hypertension Essential hypertension, benign Summary Purpose Family History No Family History Records FoundNo Family History Records Found Advance Directives Documents on File Type Date Recorded Patient Temporary Administrative Assistant Expl anation Advance Directive(s) 01/15/2020 10:12 AM Advance Directive(s) 01/02/2020 3:52 PM Advance Directive(s) 09/19/2019 8:50 AM Documents on File Type Date Recorded Patient Temporary Administrative Assistant Expl anation Advance Directive(s) 01/15/2020 10:12 AM Advance Directive(s) 01/02/2020 3:52 PM Advance Directive(s) 09/19/2019 8:50 AM Additional Source Comments Reason for Visit (unrecogniz ed section and content) Reason Comments Establish Care Reason Comments Medication Refill Reason Comments Establish Care INFORMATION SOURCE (unrecogn ized section and content) DATE CREATED AUTHOR AUTHOR'S ORGANIZ ATION 02/15/2023 [facility] Source Comments (unrecognize d section and content) In the event this informatio n is protected by the Federal Confidentiality of Alcohol and Drug Abuse Patient Records regulations: The Federal rules restrict any use of the information to criminally investigate or prosecute any alcohol or drug abuse patient.[facility] the event this information is protected by the Federal Confidentiality of Alcohol and Drug Abuse Patient Records regulations: The Federal rules restrict any use of the information to criminally investigate or prosecute any alcohol or drug abuse patient.[facility] the event this information is protected by the Federal Confidentiality of Alcohol and Drug Abuse Patient Records regulations: The Federal rules restrict any use of the information to criminally investigate or prosecute any alcohol or drug abuse patient.[facility] the event this information is protected by the Federal Confidentiality of Alcohol and Drug Abuse Patient Records regulations: The Federal rules restrict any use of the information to criminally investigate or prosecute any alcohol or drug abuse patient.[facility] the event this information is protected by the Federal Confidentiality of Alcohol and Drug Abuse Patient Records regulations: The Federal rules restrict any use of the information to criminally investigate or prosecute any alcohol or drug abuse patient.[facility] Care Teams (unrecognized sec tion and content) Field Adjuster Relationship Specialty Start Date End Date Martha Purdy MD [address] [place], [place] [id number] PCP - General Internal Medicine 12/23/21 Field Adjuster Relationship Specialty Start Date End Date Martha Purdy MD [address] [place], [place] [address] PCP - General Internal Medicine 12/23/21 Field Adjuster Relationship Specialty Start Date End Date Martha Purdy MD [address] [place], [place] [id number] PCP - General Internal Medicine 12/23/21 Field Adjuster Relationship Specialty Start Date End Date Martha Purdy MD [address] [place], [place] [id number] PCP - General Internal Medicine 12/23/21 FOR RECORDS PERTAINING TO PATIENTS WHO ARE OR HAVE BEEN ENROLLED IN A CHEMICAL DEPENDENCY/SUBSTANCEABUSE PROGRAM, SOME INFORMATION MAY BE OMITTED. This clinical summary was aggregated from multiple sources. Caution should be exercised in using it in the provision of clinical care. This summary normalizes information from multiple sources, and as a consequence, information in this document may materially change the coding, format and clinical context of patient data. In addition, data may be omitted in some cases. CLINICAL DECISIONS SHOULD BE BASED ON THE PRIMARY CLINICAL RECORDS. [facility]. provides no warranty or guarantee of the accuracy or completeness of information in this document.
== END | disposition home or self-care (01) ==
LOC: MRI 12:26
PROVIDERS: PCP Family Medicine; Referring Provider Orthopaedic Surgery; Visit Provider Orthopaedic Surgery
DX: M71.21 Synovial cyst of popliteal space [Baker], right knee (principal)
CPT/HCPCS: 73721

== ENCOUNTER → 2023-09-07 | Outpatient (CLI) | payer MEDICARE, MEDICAID, SELFPAY ==
[2023-09-07 17:36] LABS: Absolute Lymphocyte Count 2.79 X10^3/uL (0.83-4.51); Absolute Neutrophil Count 11.9 X10^3/uL (2.0-7.7); Basophil# 0.05 X10^3/uL; Basophil% 0.3 % (0-1); Eosinophil# 0.05 X10^3/uL; Eosinophils% 0.3 % (0-5); Hematocrit 35.5 % (37-47); Hemoglobin 11.2 g/dL (12.0-15.0); Lymphocyte # 2.79 X10^3/ul (0.83-4.51); Lymphocyte % 17.5 % (19-41); Mean Corp Hgb Conc 31.5 g/dL (32-36); Mean Corpuscular Hgb 26.9 pg (27.0-32.0); Mean Corpuscular Volume 85.1 fL (81-99); Mean Platelet Vol. 10.5 fl (6.2-12.0); Monocyte# 0.91 X10^3/uL; Monocyte% 5.7 % (0-10); NRBC Flagged by Analyzer 0 % (0-5); Neutrophil # 11.91 X10^3/uL (2.7-7.7); Platelet Count 378 K/mm3 (150-450); RBC Distribution Width CV 13.9 % (11.6-14.6); RBC Distribution Width SD 43.3 fl (35.1-43.9); Red Blood Count 4.17 M/mm3 (4.2-5.4); White Blood Count 15.9 K/mm3 (4.4-11.0)
[2023-09-07 17:51] LABS: ALB/GLOB Ratio 0.6 RATIO (0.9-2.4); AST(SGOT) 20 U/L (15-37); Alanine Aminotransfer ALT/SGPT 34 U/L (13-56); Albumin, Serum 3.3 g/dL (3.2-5.0); Alkaline Phosphatase 57 U/L (45-117); Anion Gap 6 (5-15); BUN 25 mg/dL (7-18); BUN/Creat Ratio 22.5 RATIO (10-20); Calcium,Total 10.6 mg/dL (8.5-10.1); Chloride 98 mmol/L (98-107); Creatinine, Serum 1.11 mg/dL (0.55-1.02); EST Glomerular Filtration Rate 51 mL/min (>60); Est Glom Filt Rate - Afr Amer 62 mL/min (>60); Globulin 5.2 g/dL (2.2-4.2); Glucose 118 mg/dL (74-106); Potassium 4.1 mmol/L (3.5-5.1); Protein, Total 8.5 g/dL (6.4-8.2); Sodium Level 133 mmol/L (136-145)
--- OUTSIDE RECORDS SUMMARY | 2023-09-07 19:31 | XMS RPT_ITS | CCD ---
Author Name Unknown Address Formerly [facility] [place] [address] Organization [facility] Care Team Providers Care Sales Effectiveness Manager Name Role Phone Melissa Mckee Primary Care [...] Drug Class(es) Dates Sig (Normalized) Sig (Original) [id number] 200 actuat albuterol 0.09 mg/actuat metered dose [...] 14:16-0400 Body weight 58.06 kg Debbi Solis APRN.HYDROMETER TESTER Work Phone: [facility] 12-23-2021 14:16-0400 Diastolic blood pressure 62 mm[Hg] Debbi Solis APRN.HYDROMETER TESTER Work Phone: [facility] 12-23-2021 14:16-0400 Heart rate 84 /min Debbi Solis MAGNETIC TAPE TYPEWRITER OPERATOR.HYDROMETER TESTER Work Phone: [facility] 12-23-2021 14:16-0400 Respiratory rate 16 /min Debbi Solis APRN.HYDROMETER TESTER Work Phone: [facility] 12-23-2021 14:16-0400 Systolic blood pressure 122 mm[Hg] Debbi Solis APRN.HYDROMETER TESTER Work Phone: [facility] 12-18-2020 10:12-0400 Body mass index (BMI) [Ratio] 23.69 kg/m2 Melissa Mckee MAGNETIC TAPE TYPEWRITER OPERATOR-HEATING AND VENTILATION ENGINEER Work Phone: [facility] 12-18-2020 10:120400 Body temperature 97.81 [degF] Melissa Mckee MAGNETIC TAPE TYPEWRITER OPERATOR-HEATING AND VENTILATION ENGINEER Work Phone: [facility] 12-18-2020 10:12-0400 Body weight 62.6 kg Melissa Mckee APRN-HEATING AND VENTILATION ENGINEER Work Phone: [facility] 12-18-2020 10:12-0400 Diastolic blood pressure 87 mm[Hg] Melissa Mckee APRN-HEATING AND VENTILATION ENGINEER Work Phone: [facility] 12-18-2020 10:12-0400 Heart rate 93 /min Melissa Mckee APRN-HEATING AND VENTILATION ENGINEER Work Phone: [facility] 12-18-2020 10:12-0400 SaO2% (BldA) [Mass fraction] 96 % Melissa Mckee APRN-HEATING AND VENTILATION ENGINEER Work Phone: [facility] 12-18-2020 10:12-0400 Systolic blood pressure 156 mm[Hg] Melissapetra Mckee MAGNETIC TAPE TYPEWRITER OPERATOR-HEATING AND VENTILATION ENGINEER Work Phone: [facility] 12-22-2019 10:29-0400 BMI (Body Mass Index) 23.34 kg/m2 [facility] 12-22-2019 10:290400 Body Temperature 98.1 [degF] [facility] 12-22-2019 10:290400 Body weight 61.69 kg [facility] 12-22-2019 10:29-0400 BP Diastolic 82 mm[Hg] [facility] 12-22-2019 10:29-0400 BP Systolic 152 mm[Hg] [facility] 12-22-2019 10:29-0400 Height 162.6 cm [facility] 12-22-2019 10:29-0400 Pulse (Heart Rate) 82 /min Melissa [facility] 12-22-2019 10:29-0400 Pulse Oximetry 97 % Melissa [facility] 12-22-2019 10:29-0400 Respiratory Rate 16 /min [facility] Encounters Encounter Date Encounter Type Care Provider Facility Start: 02-10-2023 ambulatory Martha zavaleta MD Work Phone: [facility] [place] Start: 08-07-2022 End: 08-07-2022 ambulatory [facility] Facility:[facility] Start: 12-29-2021 Documentation procedure Mammog marina Coordinator [facility] Start: 12-29-2021 Letter encounter Mammography Coordinator [facility] Department Start: 12-29-2021 End: 12-29-2021 Subsequent hospital visit by physician Screen Mammo [facility] Mammogram Procedures Date Procedure Procedure Detail Performing Clinician Start: 12-29-2021 Dxa bone density tree dy 1/> sites axial skel Debbi Solis MAGNETIC TAPE TYPEWRITER OPERATOR.HYDROMETER TESTER Work Phone: Start: 12-29-2021 End: 12-29-2021 Screening mammography bi 2-view breast inc cad Debbi Will MAGNETIC TAPE TYPEWRITER OPERATOR.HYDROMETER TESTER Work Phone: Start: 12-23-2021 Adult depression scr eening assessment Debbifang Solis MAGNETIC TAPE TYPEWRITER OPERATOR.HYDROMETER TESTER Work Phone: Start: 01-15-2020 Colonoscopy [facility] MAGNETIC TAPE TYPEWRITER OPERATOR.HYDROMETER TESTER Work Phone: Start: 12-25-2019 Lipid 1996 panel - S tere or Plasma Melissa Cibolo Start: 08-07-2019 Mammography [facility] k[facility] MAGNETIC TAPE TYPEWRITER OPERATOR.HYDROMETER TESTER Work Phone: Plan of Treatment Date Care Activity Detail Author Start: 12-25-2026 LIPID SCREEN LIPID SCREEN [facility] Start: 01-14-2025 Colonoscopy COLONOSCOPY [facility] Start: 01-14-2025 COLORECTAL CANCER SCREENING COLORECTAL CANCER SCREENING [facility] Start: 12-25-2024 DIABETES SCREEN DIABETES SCREEN [facility] Start: 12-24-2024 Fasting lipid profile LIPID SCREENIN [facility] Start: 08-07-2023 ANNUAL PCP TEAM BIOCHEMISTRY SPECIALIST VILLA DISEASE VISIT ANNUAL PCP TEAM CHRONIC DISEASE VISIT [facility] Start: 03-19-2023 Influenza vaccination INFLUENZA (#1) [facility] Start: 12-29-2022 Mammography MAMMOGRAM [facility] Start: 12-24-2022 DIABETES SCREEN DIABETES SCREEN [facility] Start: 12-23-2022 Adult depression scr eening assessment DEPRESSION SCREENING [facility] Start: 08-02-2022 Tetanus vaccination [facility] Start: 08-02-2022 Urine microalbumin profile DTA P,TDAP,TD (2 - Td or Tdap) [facility] Start: 07-20-2022 SHINGRIX VACCINE (1 of 2) BRAVO GRIX VACCINE (1 of 2) [facility] Immunizations Immunization Date Immunization Notes Care Provider Giselle beyer 04-17-2020 Influenza, High-dose Seasonal, Quadrivalent, Preservative Free [facility] MAGNETIC TAPE TYPEWRITER OPERATOR-HEATING AND VENTILATION ENGINEER Work Phone: [facility] 07-28-2019 influenza, high dose seasonal, preservative-free Matthew Pedrito [facility] 12-14-2017 pneumococcal polysaccharide vaccine, 23 valent Matthew Pedrito [facility] 11-25-2016 pneumococcal conjuga te vaccine, 13 valent Matthew Pedrito [facility] 08-02-2012 influenza virus vacc ine, unspecified formulation [facility] MAGNETIC TAPE TYPEWRITER OPERATOR-HEATING AND VENTILATION ENGINEER Work Phone: [facility] 08-02-2012 tetanus toxoid, redu tha diphtheria toxoid, and acellular pertussis vaccine, adsorbed Matthew Pedrito [facility] 08-02-2012 zoster vaccine, live Matthew Pedrito [facility] 08-02-2012 zoster vaccine, unspecified formulation Matthew Pedrito [facility] 12-31-2011 pneumococcal polysaccharide vaccine, 23 valent Matthew Pedrito [facility] Work Phone: Payers Date Payer Category Payer Unknown [id number] 2019 Unknown ANTHEM BLUE CROS S AND BLUE SHIELD ANTHEM MEDIBLUE HMO [id number] 2019-Present [phone] [address] [place] [address] HMO [id number] 2019 Medicare [id number] Social History Date Type Detail Facility Start: 12-22-2019 End: 12-23-2021 Tobacco smoking status NHIS Current every day smoker [facility] Work Phone: Start: 12-22-2019 End: 12-23-2021 Tobacco use and exposure Never used [employer] Start: 12-22-2019 End: 12-26-2019 Alcohol intake Ex-drinker (finding) [employer] Start: 1950 Sex Assigned At Not on file [facility] Start: 12-13-2021 End: 12-29-2021 Exposure to SARS-CoV-2 (event) Not sure [employer] Start: 07-24-2014 End: 08-07-2022 Cigarettes smoked current (pack per day) - Reported 1 [facility] Work Phone: Start: 12-23-2021 End: 09-06-2022 Alcohol intake Current non-drinker of alcohol (finding) [facility] Start: 09-28-2019 Tobacco Comment Planning to tr y patches again [facility] History of tobacco use Cigarette Smoker C [facility] Work Phone: Start: 08-07-2022 End: 09-06-2022 Tobacco use panel [facility] Work Phone: Adult Depression Screening Assessment 0 [facility] Work Phone: Clinical Notes 08-01-2015 to 02-10-2023 Letter - Mammography Coordinator - 12/29/2021 2:20 PM Sonya Jo, RT(R) - 12/29/2021 1:30 PM Selina Jiang, RT(R) - 12/29/2021 12:50 PM EDTPatient Instructions Note Date & Type Note Facility 02-10-2023 Note Patient Outreach (IN [facility]) SUELLEN GUSTAFSON ([id number]) 1950 F Date Time Provider Department 02/10/23 MARTHA PURDY During your visit today, we recorded the following information about you: Allergies As of Date: 02/10/2023 (No Known Allergies) Date Reviewed: 08/07/2022 Reviewed by: Alcira Andrade LPN - Fully Assessed Visit Diagnosis:Encounter for screening mammogram for breast cancer [Z12.31] Order(s):[facility] SCREENING [[id number]] Order #: [id number] FUTURE Prescriptions as of 02/15/2023 - albuterol [...] and tendons in shoulder beth*10/08/2014 Elevated BP [DHO3868] 11/20/2014 Adenomyosis of gallbladder [K82.8] 11/20/2014 Anemia [...] Encounter Status:Closed by EPIC, PRODUSER on 02/15/[address] [facility] 08-07-2022 Note HNO ID: [id number] Author: Martha Purdy MD Service: ? Author Type: Physician Type: Progress Notes Filed: 09/06/2022 5:18 PM Note Text: This note was created using MedCPU[employer]. Subjective Suellen Gustafson is a 71 year [...] exercise and adequate sleep. Martha Purdy MD [facility] 12-29-2021 Miscellaneous Notes December 29, 2021 PID: [id number] Suellen Gustafson [address] [place] [address] Dear Ms. Gustafson, We are pleased to [...] report will be kept on file at [facility] as part of your permanent medical record and are available for your continuing care. Thank you for allowing us to help in meeting your health care needs. Sincerely, Dr. Flores Interpreting Radiologist [facility] (Normal over 40) documented in this encounter [facility] 12-29-2021 History of Presen t illness Narrative [...] 2021 1:32 PM documented in this encounter [facility] 12-29-2021 History of Presen t illness Narrative [...] 2021 12:44 PM documented in this encounter [facility] 12-23-2021 Betty Solis APRN.CNS - 12/23/2021 2:38 [...] usual activities immediately. documented in this encounter [facility] 12-23-2021 History of Presen t illness Narrative [...] Previous PCP: Jayy Grossman MD, MD [address] [address] Last seen:12/2019 Labwork: no recent ER/Hospitalization: Outside records: care everywhere Colonoscopy [facility] 2019 Dr Gonzalez. Couldn't get in to see a doctor in [place], did not take insurance. Previously on methotrexate, [...] immunization - ICD9: V03.89, ICD10: Z23 - [employer] COVID-19 VACCINE, AGE 12+ YR (SURESH TOP) [...] 4 - Moderate documented in this encounter [facility] 12-18-2020 History of Presen t illness Narrative Patient: Suellen Gustafson Patient : 1950 Patient Age: 70 y.o. Today's Date: 12/18/2020 Provider: Melissa Mckee APRN-[facility] History of Present Illness: Patient here today for evaluation of Chief Complaint Patient presents with Medication Refill Patient is here for for medication refills. She is other huertas doing OK - She states that she has routine labwork done in [place]. She has had a colonscopy done. Last [...] refill of medications. documented in this encounter [facility] documented as of this encounter (statuses as of 12/23/2021) [facility]01-14-2016 History of Past illness Narrative* Problem Noted Date Resolved Date Screening for diabetes mellitus (DM) 08/01/2015 11/25/2016 Need for lipid screening 08/01/2015 017 Tobacco use disorder 05/28/2014 05/28/2014 YANI I (cervical intraepithelial neoplasia I) 12/201103/18/2012 Active smoker 01/21/2012 05/28/2014 documented as of this encounter (statuses as of 12/30/2021) [facility] History of Past illness Narrative* Problem Noted Date Resolved Date Screening for diabetes mellitus (DM) 08/01/2015 11/25/2016 Need for lipid screening 08/01/2015 017 Tobacco use disorder 05/28/2014 05/28/2014 YANI I (cervical intraepithelial neoplasia I) 12/201103/18/2012 Active smoker 01/21/2012 05/28/2014 documented as of this encounter (statuses as of 12/30/2021) [facility] History of Past illness Narrative* Problem Noted Date Resolved Date Screening for diabetes mellitus (DM) 08/01/2015 11/25/2016 Need for lipid screening 08/01/2015 017 Tobacco use disorder 05/28/2014 05/28/2014 YANI I (cervical intraepithelial neoplasia I) 12/201103/18/2012 Active smoker 01/21/2012 05/28/2014 documented as of this encounter (statuses as of 12/31/2021) [facility] History of Past illness Narrative* Problem Noted Date Diagnosed Date Resolved Date Screening for diabetes mellitus (DM) 08/01/2015 11/25/2016 Need for lipid screening 08/01/201504/2017 Tobacco use disorder 05/28/2014 014 YANI I (cervical intraepithelial neoplasia I) 2 03/18/2012 Active smoker 01/21/2012 05/28/2014 documented as of this encounter (statuses as of 02/15/2023) [facility] Diagnosis Osteopenia, unspecified location- Primary Smoker Tobacco use disorder [facility] Smoker- Primary Tobacco use [...] current pathological fracture [facility] Diagnosis Encounter for screening mammogram for breast cancer [facility]* Diagnosis Asymptomatic postmenopausal status Localized osteoporosis without current pathological fracture [facility]* Diagnosis Encounter for screening mammogram for breast cancer documented in this encounter [facility] for referral (narrative)* Diagnostic Procedure Only (Routine) - Authorized Specialty Diagnoses / Procedures Referred By Joshua rowland Referred To Contact [facility] Diagnoses Encounter for screening mammogram for breast cancer Procedures DAVID SCREENING SCREENING MAMMOGRAPHY BI 2-VIEW BREAST INC Debbi Louis APRN.HYDROMETER TESTER [address] [place] [address] [facility] [address] [address] Referral ID Status Reason Start Date Expiration Date Visits Requested Visits Authorized [id number] Authorized Auto-Generat ed Referral 12/23/2021 01/22/[address] [facility] for referral (narrative)* Diagnostic Procedure Only (Routine) - Closed Specialty Diagnoses / Procedures Referred By Joshua rowland Referred To Contact [facility] Diagnoses Encounter for screening mammogram for breast cancer Procedures DAVID SCREENING SCREENING MAMMOGRAPHY BI 2-VIEW BREAST INC Debbi Louis APRN.CNS [address] [place] [address] [facility] [address] [place] [address] Referral ID Status Reason Start Date Expiration Date V isits Requested Visits Authorized [id number] Closed Auto-Generate d Referral 12/23/2021 01/22/[address] [facility] for referral (narrative)* Diagnostic Procedure Only (Routine) - Pending Review Specialty Diagnoses / Procedures Referred By Joshua rowland Referred To Contact [facility] Diagnoses Encounter for screening mammogram for breast cancer Procedures DAVID SCREENING SCREENING MAMMOGRAPHY BI 2-VIEW BREAST INC Martha Worley MD [address] [place] [address] [facility] [address] [place] [address] Referral ID Status Reason Start Date Expiration Date Visits Requested Visits Authorized [id number] Pending Review Auto-Generat ed Referral 02/10/2023 03/11/[address] [facility] for visit Narrative* Diagnostic Procedure Only (Routine) - Closed Specialty Diagnoses / Procedures Referred By Joshua rowland Referred To Contact [facility] Diagnoses Encounter for screening mammogram for breast cancer Procedures DAVID SCREENING SCREENING MAMMOGRAPHY BI 2-VIEW BREAST INC Debbi Louis APRN.CNS [address] [place] [address] [facility] [address] [place] [address] Referral ID Status Reason Start Date Expiration Date V isits Requested Visits Authorized [id number] Closed Auto-Generate d Referral 12/23/2021 01/22/2023 1 1 [facility] History of Present Illness * Dinorah Saleem [...] to establish care. She was going to [place]. Martha Reyes with [facility]. Mammogram is UTD and Bone Density was [...] Documents on File Type Date Recorded Patient Customer Support Assistant Expl anation Advance Directive(s) 01/15/2020 10:12 AM Advance Directive(s) 01/02/2020 3:52 PM Advance Directive(s) 09/19/2019 8:50 AM Documents on File Type Date Recorded Patient Customer Support Assistant Expl anation Advance Directive(s) 01/15/2020 10:12 AM Advance Directive(s) 01/02/2020 3:52 PM Advance Directive(s) 09/19/2019 8:50 AM Additional Source Comments Reason for Visit (unrecogniz ed section and content) Reason Comments Establish Care Reason Comments Medication Refill Reason Comments Establish Care INFORMATION SOURCE (unrecogn ized section and content) DATE CREATED AUTHOR AUTHOR'S ORGANIZ ATION 02/15/[address] [facility] Source Comments (unrecognize d section and content) In the event this informatio n is protected by the Federal Confidentiality of Alcohol and Drug Abuse Patient Records regulations: The Federal rules restrict any use of the information to criminally investigate or prosecute any alcohol or drug abuse patient.[facility] the event this information is protected by the Federal Confidentiality of Alcohol and Drug Abuse Patient Records regulations: The Federal rules restrict any use of the information to criminally investigate or prosecute any alcohol or drug abuse patient.[facility] the event this information is protected by the Federal Confidentiality of Alcohol and Drug Abuse Patient Records regulations: The Federal rules restrict any use of the information to criminally investigate or prosecute any alcohol or drug abuse patient.[facility] the event this information is protected by the Federal Confidentiality of Alcohol and Drug Abuse Patient Records regulations: The Federal rules restrict any use of the information to criminally investigate or prosecute any alcohol or drug abuse patient.[facility] the event this information is protected by the Federal Confidentiality of Alcohol and Drug Abuse Patient Records regulations: The Federal rules restrict any use of the information to criminally investigate or prosecute any alcohol or drug abuse patient.[facility] Care Teams (unrecognized sec tion and content) Sales Effectiveness Manager Relationship Specialty Start Date End Date Martha Purdy MD [address] [place], [place] [address] PCP - General Internal Medicine 12/23/21 Sales Effectiveness Manager Relationship Specialty Start Date End Date Martha Purdy MD [address] [place], [place] [id number] PCP - General Internal Medicine 12/23/21 Sales Effectiveness Manager Relationship Specialty Start Date End Date Martha Purdy MD [address] [place], [place] [id number] PCP - General Internal Medicine 12/23/21 Sales Effectiveness Manager Relationship Specialty Start Date End Date Martha Purdy MD [address] [place], [place] [id number] PCP - General Internal Medicine 12/23/21 FOR [...] BE BASED ON THE PRIMARY CLINICAL RECORDS. [facility] [employer] [facility]. provides no warranty or guarantee of the accuracy or completeness of information in this document.
== END | disposition home or self-care (01) ==
LOC: MTLAB 14:21
PROVIDERS: PCP Family Medicine; Referring Provider Internal Medicine Rheumatology; Visit Provider Internal Medicine Rheumatology
DX: L40.59 Other psoriatic arthropathy (principal); Z79.899 Other long term (current) drug therapy
CPT/HCPCS: 36415; 80053; 85025

== ENCOUNTER 2023-09-20 14:02 | Emergency (ER) | payer MEDICARE, MEDICAID, SELFPAY ==
[2023-09-20 14:03] VITALS: BP 136/63; PULSE 105; RESP 20; TEMP 36.2; O2SAT 98; BMI 21.1
--- NOTE | 2023-09-20 15:04 | VDLE_ITS ---
Reason For Study: Left leg pain Procedure LEFT This is a venous duplex using B-mode, color GSV is normal. flow and spectral Doppler. CFV is compressible, spontaneous, phasic, Exam performed portable in ED. competent, and demonstrates normal A preliminary report was called and/or faxed augmentation. to ED triage. FV is compressible, spontaneous, phasic, competent and demonstrates normal augmentation. POP V is compressible, spontaneous, phasic, competent and demonstrates normal augmentation. T/P Trunk is compressible. PTV is compressible. LT PerV is compressible. Nonvascularized structure is noted in the left popliteal fossa to mid calf. VL/Venous Duplex US, Unilateral Interpretation Summary There is no evidence of left lower extremity deep vein thrombosis. Left great s aphenous vein appears patent and compressible segmentally. Large nonvascular structure left popliteal fossa extending to the mid calf. This measures at least 9.6 cm in length. Clinical correlation wou ld be appropriate. It is significantly larger than a typical Patel's cyst. Ordering Physician: Stanford Guzman Referring Physician: Aminata Hanson Performed By: Shasta Solis RVT
--- NOTE | 2023-09-20 15:49 | EDS_ITS ---
HPI History of Present Illness Chief Complaint: Lower Extremity Injury Informant: patient Narrative Narrative: Patient seen in the waiting room due to busy department. 4-day history nontraumatic pain behind left calf. Yesterday worse with ambulation. Denies any new activities. No history of PE or DVT, no recent travel or surgeries. Has right knee arthritis followed by Dr. Garland, is currently on prednisone. Stage III kidney disease. No chest pain or shortness of breath. Prior similar symptoms: No PFSH PFSH Medical History COPD (chronic obstructive pulmonary disease) Osteoarthritis Home Medications prednisone 5 mg tablet 5 mg PO DAILY 11/01/16 [History Last Taken Unknown] apremilast 30 mg tablet (Otezla) 30 mg PO QAM AND QPM 08/13/23 [History Last Taken Unknown] oxybutynin chloride 15 mg tablet,extended release 24 hr 15 mg PO DAILY 08/13/23 [History Last Taken Unknown] Allergy/AdvReac Type Severity Reaction Status Date / Time No Known Allergies Allergy Verified 09/06/23 13:02 Social History Smoking Status: Current some day smoker tobacco type: cigarettes ROS ROS ED Constitutional Constitutional ED: Denies chills, fever(s) or sweats Eyes Eyes: Denies change in vision ENT ENT ED: Denies dysphagia or sore throat Cardiovascular Cardiovascular: Denies chest pain, leg edema, palpitations or racing heartbeat Respiratory/Chest Respiratory/Chest: Denies cough, dyspnea or dyspnea on exertion Gastrointestinal Gastrointestinal: Denies abdominal pain, diarrhea, nausea or vomiting Genitourinary Genitourinary ED: Denies dysuria, hematuria or urinary frequency Musculoskeletal Musculoskeletal: Reports extremity pain; Denies back pain or neck pain Integumentary Denies rash or wounds Neurologic Neurologic: Denies headache(s), paresthesias or weakness EXAM Physical Exam Const Vital Signs: 09/20/23 14:03 09/20/23 15:58 Temperature 97.2 F L 98.2 F Temperature Source Temporal Pulse Rate 105 H 99 Respiratory Rate 20 H 16 Blood Pressure 136/63 H 130/81 H Blood Pressure Mean 87 97 Pulse Ox 98 98 Oxygen Delivery Method Room Air Positive well nourished and well developed General Appearance ED: well developed and NAD HEENT Reports moist mucous membranes normocephalic and atraumatic Eyes PERRL, EOMs intact bilaterally and conjunctivae normal General Eye ED: Yes normal appearance of both eyes Neck no lymphadenopathy and supple General: Negative for tenderness Chest Wall Chest: Negative for tenderness Resp normal respiratory effort and normal air movement Effort and Inspection: symmetric chest movement; Negative for respiratory distress Cardio regular rate, regular rhythm and no murmurs Peripheral Pulses: pulses 2+ throughout GI normal to inspection, nondistended, normoactive bowel sounds and non-tender Palpation: Negative for guarding or rebound tenderness present Back/Spine no CVA tenderness and no thoracic nor lumbar tenderness Extremity Extremity Narrative: Left lower extremity: No posterior knee tenderness or swelling. Tender mid calf there is no erythema no fluctuance. No swelling. Soft compartments. Neuro vas intact distally. General Extremety ED: Yes tenderness Neuro oriented x3 and no sensory deficits noted Sensorium / Orientation: awake and alert Skin no rashes or lesions noted and no wounds MDM MDM MDM Narrative Medical decision making narrative: Interventions / MDM: Differential diagnosis: Strain Diagnosis considered but do not suspect: DVT however ultrasound negative. No clinical arterial thrombus. Soft compartments therefore no signs of compartment syndrome. No clinical cellulitis or abscess. My EKG interpretation: N/A Imaging independently reviewed and interpreted by myself: Left lower extremity ultrasound: Per radiology no DVT no Patel's cyst however notes report of nonvascular structure in the left popliteal fossa to the mid calf. External documents reviewed: N/A Test considered but not ordered:N/A ED course: Patient ultrasound performed through triage negative for DVT no clinical arterial thrombus. Per radiology there is a nonvascular structure popliteal fossa mid calf. Clinically no signs of infection for cellulitis or abscess. There is no clinical varices. Discussed findings with patient, she is followed by orthopedics. Discussed Tylenol added to her regimen Armand wrap will be placed. She will follow-up with orthopedics for further imagings as an outpatient. All questions were answered. Re-evaluation: stable Disposition discussed with patient/family/significant other: Patient and family Case discussed with consulting clinician: N/A This note was generated with [employer] dictation software. It may contain incorrect words, spelling, and punctuation that were not noted in checking the note before signing. Radiography Diagnostic Testing: Clinical Impression(s) from Imaging Studies Venous Doppler Study 09/20/23 15:04 Interpretation Summary There is no evidence of left lower extremity deep vein thrombosis. Left great saphenous vein appears patent and compressible segmentally. Large nonvascular structure left popliteal fossa extending to the mid calf. This measures at least 9.6 cm in length. Clinical correlation would be appropriate. It is significantly larger than a typical Patel's cyst. Ordering Physician: Stanford Guzman Referring Physician: Aminata Hanson Performed By: Shasta Solis Chinyere Discharge Plan Triage Chief Complaint: Lower Extremity Injury ED Provider: Stanford Guzman Dx/Rx/DC Orders Clinical Impression: Pain of left calf Instructions: RICE Prescriptions: No Action oxybutynin chloride 15 mg tablet extended release 24hr 15 mg PO DAILY Otezla 30 mg tablet 30 mg PO QAM AND QPM prednisone 5 MG tablet 5 mg PO DAILY Primary Care Provider: Aminata Hanson Referrals: Ruben Garland DO [Med Staff - Active Staff] - 1 Week Aminata Hanson DO [Primary Care Provider] - Activity Restrictions/Additional Instructions: Ultrasound your left leg negative for blood clots. Does report nonvascular structure in the left popliteal fossa to mid calf. Clinically there is no abscess. Armand wrap for comfort, add Tylenol 1 g every 6 hours. Follow-up with Dr. Garland as you are established with him outpatient evaluation further testing. Disposition Disposition: Home, Self Care Discharge Date/Time: 09/20/23 16:01
[2023-09-20 15:58] VITALS: BP 130/81; PULSE 99; RESP 16; TEMP 36.8; O2SAT 98
--- OUTSIDE RECORDS SUMMARY | 2023-09-20 19:43 | XMS RPT_ITS | CCD ---
Author Name Unknown Address [facility] [place] [address] Organization [facility] Care Team Providers Care Halal Butcher Name Role Phone Melissa Mckee Primary Care [...] Drug Class(es) Dates Sig (Normalized) Sig (Original) [id number] 200 actuat albuterol 0.09 mg/actuat metered dose [...] 14:16-0400 Body weight 58.06 kg Debbi Solis APRN.BALANCE BRIDGE INSPECTOR Work Phone: [facility] 12-23-2021 14:16-0400 Diastolic blood pressure 62 mm[Hg] Debbi Solis APRN.BALANCE BRIDGE INSPECTOR Work Phone: [facility] 12-23-2021 14:16-0400 Heart rate 84 /min Debbi Solis CUSHION MAKER HAND.BALANCE BRIDGE INSPECTOR Work Phone: [facility] 12-23-2021 14:16-0400 Respiratory rate 16 /min Debbi Solis APRN.BALANCE BRIDGE INSPECTOR Work Phone: [facility] 12-23-2021 14:16-0400 Systolic blood pressure 122 mm[Hg] Debbi Solis APRN.BALANCE BRIDGE INSPECTOR Work Phone: [facility] 12-18-2020 10:12-0400 Body mass index (BMI) [Ratio] 23.69 kg/m2 Melissa Mckee CUSHION MAKER HAND-BEAM HOUSE INSPECTOR Work Phone: [facility] 12-18-2020 10:120400 Body temperature 97.81 [degF] Melissa Mckee CUSHION MAKER HAND-BEAM HOUSE INSPECTOR Work Phone: [facility] 12-18-2020 10:12-0400 Body weight 62.6 kg Melissa Mckee APRN-BEAM HOUSE INSPECTOR Work Phone: [facility] 12-18-2020 10:12-0400 Diastolic blood pressure 87 mm[Hg] Melissa Mckee APRN-BEAM HOUSE INSPECTOR Work Phone: [facility] 12-18-2020 10:12-0400 Heart rate 93 /min Melissa Mckee APRN-BEAM HOUSE INSPECTOR Work Phone: [facility] 12-18-2020 10:12-0400 SaO2% (BldA) [Mass fraction] 96 % Melissa Mckee APRN-BEAM HOUSE INSPECTOR Work Phone: [facility] 12-18-2020 10:12-0400 Systolic blood pressure 156 mm[Hg] Melissapetra Mckee CUSHION MAKER HAND-BEAM HOUSE INSPECTOR Work Phone: [facility] 12-22-2019 10:29-0400 BMI (Body Mass Index) 23.34 kg/m2 [facility] 12-22-2019 10:290400 Body Temperature 98.1 [degF] [facility] 12-22-2019 10:290400 Body weight 61.69 kg [facility] 12-22-2019 10:29-0400 BP Diastolic 82 mm[Hg] [facility] 12-22-2019 10:29-0400 BP Systolic 152 mm[Hg] [facility] 12-22-2019 10:29-0400 Height 162.6 cm [facility] 12-22-2019 10:29-0400 Pulse (Heart Rate) 82 /min Melissa [facility] 12-22-2019 10:29-0400 Pulse Oximetry 97 % Melissa [facility] 12-22-2019 10:29-0400 Respiratory Rate 16 /min [facility] Encounters Encounter Date Encounter Type Care Provider Facility Start: 02-10-2023 ambulatory Martha zavaleta MD Work Phone: [facility] [place] Start: 08-07-2022 End: 08-07-2022 ambulatory [facility] Facility:[facility] Start: 12-29-2021 Documentation procedure Mammog marina Coordinator [facility] Start: 12-29-2021 Letter encounter Mammography Coordinator [facility] Department Start: 12-29-2021 End: 12-29-2021 Subsequent hospital visit by physician Screen Mammo [facility] Mammogram Procedures Date Procedure Procedure Detail Performing Clinician Start: 12-29-2021 Dxa bone density tree dy 1/> sites axial skel Debib Solis CUSHION MAKER HAND.BALANCE BRIDGE INSPECTOR Work Phone: Start: 12-29-2021 End: 12-29-2021 Screening mammography bi 2-view breast inc cad Debbi Will CUSHION MAKER HAND.BALANCE BRIDGE INSPECTOR Work Phone: Start: 12-23-2021 Adult depression scr eening assessment Debbifang Solis CUSHION MAKER HAND.BALANCE BRIDGE INSPECTOR Work Phone: Start: 01-15-2020 Colonoscopy Debbi Safendmickey gilbert CUSHION MAKER HAND.BALANCE BRIDGE INSPECTOR Work Phone: Start: 12-25-2019 Lipid 1996 panel - S tere or Plasma Melissa [place] Start: 08-07-2019 Mammography Debbi Safendo ks CUSHION MAKER HAND.BALANCE BRIDGE INSPECTOR Work Phone: Plan of Treatment Date Care Activity Detail Author Start: 12-25-2026 LIPID SCREEN LIPID SCREEN [facility] Start: 01-14-2025 Colonoscopy COLONOSCOPY [facility] Start: 01-14-2025 COLORECTAL CANCER SCREENING COLORECTAL CANCER SCREENING [facility] Start: 12-25-2024 DIABETES SCREEN DIABETES SCREEN [facility] Start: 12-24-2024 Fasting lipid profile LIPID SCREENIN [facility] Start: 08-07-2023 ANNUAL PCP TEAM 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 VILLA DISEASE VISIT ANNUAL PCP TEAM CHRONIC DISEASE VISIT [facility] Start: 03-19-2023 Influenza vaccination INFLUENZA (#1) [facility] Start: 12-29-2022 Mammography MAMMOGRAM [facility] Start: 12-24-2022 DIABETES SCREEN DIABETES SCREEN [facility] Start: 12-23-2022 Adult depression scr eening assessment DEPRESSION SCREENING [facility] Start: 08-02-2022 Tetanus vaccination [facility] Start: 08-02-2022 Urine microalbumin profile DTA P,TDAP,TD (2 - Td or Tdap) [facility] Start: 07-20-2022 SHINGRIX VACCINE (1 of 2) BRAVO GRIX VACCINE (1 of 2) [facility] Immunizations Immunization Date Immunization Notes Care Provider Giselle beyer 04-17-2020 Influenza, High-dose Seasonal, Quadrivalent, Preservative Free [facility] CUSHION MAKER HAND-BEAM HOUSE INSPECTOR Work Phone: [facility] 07-28-2019 influenza, high dose seasonal, preservative-free Matthew Pedrito [facility] 12-14-2017 pneumococcal polysaccharide vaccine, 23 valent Matthew Pedrito [facility] 11-25-2016 pneumococcal conjuga te vaccine, 13 valent Matthew Pedrito [facility] 08-02-2012 influenza virus vacc ine, unspecified formulation [facility] CUSHION MAKER HAND-BEAM HOUSE INSPECTOR Work Phone: [facility] 08-02-2012 tetanus toxoid, redu tha diphtheria toxoid, and acellular pertussis vaccine, adsorbed Matthew Pedrito [facility] 08-02-2012 zoster vaccine, live Matthew Pedrito [facility] 08-02-2012 zoster vaccine, unspecified formulation Matthew Pedrito [facility] 12-31-2011 pneumococcal polysaccharide vaccine, 23 valent Matthew Pedrito [facility] Work Phone: Payers Date Payer Category Payer Unknown [id number] 2019 Unknown ANTHEM BLUE CROS S AND BLUE SHIELD ANTHEM MEDIBLUE HMO [id number] 2019-Present [phone] [address] [place] [address] HMO [id number] 2019 Medicare [id number] Social History Date Type Detail Facility Start: 12-22-2019 End: 12-23-2021 Tobacco smoking status NHIS Current every day smoker [facility] Work Phone: Start: 12-22-2019 End: 12-23-2021 Tobacco use and exposure Never used [employer] Start: 12-22-2019 End: 12-26-2019 Alcohol intake Ex-drinker (finding) [employer] Start: 1950 Sex Assigned At Not on file A MD [employer] Start: 12-13-2021 End: 12-29-2021 Exposure to SARS-CoV-2 (event) Not sure [employer] Start: 07-24-2014 End: 08-07-2022 Cigarettes smoked current (pack per day) - Reported 1 [facility] Work Phone: Start: 12-23-2021 End: 09-06-2022 Alcohol intake Current non-drinker of alcohol (finding) [facility] Start: 09-28-2019 Tobacco Comment Planning to tr y patches again [facility] History of tobacco use Cigarette Smoker [facility] Work Phone: Start: 08-07-2022 End: 09-06-2022 Tobacco use panel [facility] Work Phone: Adult Depression Screening Assessment 0 [facility] Work Phone: Clinical Notes 08-01-2015 to 02-10-2023 Letter - Mammography Coordinator - 12/29/2021 2:20 PM Sonya Jo, RT(R) - 12/29/2021 1:30 PM Selina Jiang, RT(R) - 12/29/2021 12:50 PM EDTPatient Instructions Note Date & Type Note Facility 02-10-2023 Note Patient Outreach (IN [facility]) SUELLEN GUSTAFSON ([id number]) 1950 F Date Time Provider Department 02/10/23 MARTHA PURDY During your visit today, we recorded the following information about you: Allergies As of Date: 02/10/2023 (No Known Allergies) Date Reviewed: 08/07/2022 Reviewed by: Alcira Andrade LPN - Fully Assessed Visit Diagnosis:Encounter for screening mammogram for breast cancer [Z12.31] Order(s):[facility] SCREENING [[id number]] Order #: [id number] FUTURE Prescriptions as of 02/15/2023 - albuterol [...] and tendons in shoulder beth*10/08/2014 Elevated BP [PSZ3176] 11/20/2014 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 Author Type: Physician Type: Progress Notes Filed: 09/06/2022 5:18 PM Note Text: This note was created using [employer]. Subjective Suellen Gustafson is a 71 year [...] exercise and adequate sleep. Martha Purdy MD [facility] 12-29-2021 Miscellaneous Notes December 29, 2021 PID: [id number] Suellen Gustafson [address] [place] [address] Dear Ms. Gustafson, We are pleased to [...] report will be kept on file at [facility] as part of your permanent medical record and are available for your continuing care. Thank you for allowing us to help in meeting your health care needs. Sincerely, Dr. Flores Interpreting Radiologist [facility] (Normal over 40) documented in this encounter [facility] 12-29-2021 History of Presen t illness [...] 2021 1:32 PM documented in this encounter [facility] 12-29-2021 History of Presen t illness [...] 2021 12:44 PM documented in this encounter [facility] 12-23-2021 Betty Solis APRN.CNS - 12/23/2021 [...] usual activities immediately. documented in this encounter [facility] 12-23-2021 History of Presen t illness [...] Previous PCP: Jayy Grossman MD, MD [address] [address] Last seen:12/2019 Labwork: no recent ER/Hospitalization: Outside records: care everywhere Colonoscopy [facility] 2019 Dr Gonzalez. Couldn't get in to see a doctor in [place], did not take insurance. Previously on methotrexate, [...] immunization - ICD9: V03.89, ICD10: Z23 - [employer] COVID-19 VACCINE, AGE 12+ YR (SURESH [...] 4 - Moderate documented in this encounter [facility] 12-18-2020 History of Presen t illness Narrative Patient: Suellen Gustafson Patient : 1950 Patient Age: 70 y.o. Today's Date: 12/18/2020 Provider: Melissa Mckee APRN-[facility] History of Present Illness: Patient here today for evaluation of Chief Complaint Patient presents with Medication Refill Patient is here for for medication refills. She is other huertas doing OK - She states that she has routine labwork done in [place]. She has had a colonscopy done. Last [...] refill of medications. documented in this encounter [facility] documented as of this encounter (statuses as of 12/23/2021) [facility] History of Past illness Narrative* Problem Noted Date Resolved Date Screening for diabetes mellitus (DM) 08/01/2015 11/25/2016 Need for lipid screening 08/01/2015 017 Tobacco use disorder 05/28/2014 05/28/2014 YANI I (cervical intraepithelial neoplasia I) 12/201103/18/2012 Active smoker 01/21/2012 05/28/2014 documented as of this encounter (statuses as of 12/30/2021) [facility] History of Past illness Narrative* Problem Noted Date Resolved Date Screening for diabetes mellitus (DM) 08/01/2015 11/25/2016 Need for lipid screening 08/01/2015 017 Tobacco use disorder 05/28/2014 05/28/2014 YANI I (cervical intraepithelial neoplasia I) 12/201103/18/2012 Active smoker 01/21/2012 05/28/2014 documented as of this encounter (statuses as of 12/30/2021) [facility] History of Past illness Narrative* Problem Noted Date Resolved Date Screening for diabetes mellitus (DM) 08/01/2015 11/25/2016 Need for lipid screening 08/01/2015 017 Tobacco use disorder 05/28/2014 05/28/2014 YANI I (cervical intraepithelial neoplasia I) 12/201103/18/2012 Active smoker 01/21/2012 05/28/2014 documented as of this encounter (statuses as of 12/31/2021) [facility] History of Past illness Narrative* Problem Noted Date Diagnosed Date Resolved Date Screening for diabetes mellitus (DM) 08/01/2015 11/25/2016 Need for lipid screening 08/01/201504/2017 Tobacco use disorder 05/28/2014 014 YANI I (cervical intraepithelial neoplasia I) 2 03/18/2012 Active smoker 01/21/2012 05/28/2014 documented as of this encounter (statuses as of 02/15/2023) [facility]* Diagnosis Osteopenia, unspecified location- Primary Smoker Tobacco use disorder [facility] Smoker- Primary Tobacco use disorder [...] current pathological fracture [facility]* Diagnosis Encounter for screening mammogram for breast cancer documented in this [facility]* Diagnosis Asymptomatic postmenopausal status Localized osteoporosis without current pathological fracture documented in this [facility]* Diagnosis Encounter for screening mammogram for breast cancer documented in this encounter [facility] for referral (narrative)* Diagnostic Procedure Only (Routine) - Authorized Specialty Diagnoses / Procedures Referred By Joshua rowland Referred To Contact [facility] Diagnoses Encounter for screening mammogram for breast cancer Procedures DAVID SCREENING SCREENING MAMMOGRAPHY BI 2-VIEW BREAST INC Debbi Louis APRN.BALANCE BRIDGE INSPECTOR [address] [place] [address] [facility] [address] [place] [address] Referral ID Status Reason Start Date Expiration Date Visits Requested Visits Authorized [id number] Authorized Auto-Generat ed Referral 12/23/2021 01/22/2023 1 1 [facility] for referral (narrative)* Diagnostic Procedure Only (Routine) - Closed Specialty Diagnoses / Procedures Referred By Joshua rowland Referred To Contact [facility] Diagnoses Encounter for screening mammogram for breast cancer Procedures DAVID SCREENING SCREENING MAMMOGRAPHY BI 2-VIEW BREAST INC Debbi Louis APRN.CNS [address] [place] [address] [facility] [address] [place] [address] Referral ID Status Reason Start Date Expiration Date V isits Requested Visits Authorized [id number] Closed Auto-Generate d Referral 12/23/2021 01/22/2023 1 1 [facility] for referral (narrative)* Diagnostic Procedure Only (Routine) - Pending Review Specialty Diagnoses / Procedures Referred By Joshua rowland Referred To Contact [facility] Diagnoses Encounter for screening mammogram for breast cancer Procedures DAVID SCREENING SCREENING MAMMOGRAPHY BI 2-VIEW BREAST INC Martha Worley MD [address] [place] [address] [facility] [address] [place] [address] Referral ID Status Reason Start Date Expiration Date Visits Requested Visits Authorized [id number] Pending Review Auto-Generat ed Referral 02/10/2023 03/11/2024 1 1 [facility] for visit Narrative* Diagnostic Procedure Only (Routine) - Closed Specialty Diagnoses / Procedures Referred By Joshua rowland Referred To Contact [facility] Diagnoses Encounter for screening mammogram for breast cancer Procedures DAVID SCREENING SCREENING MAMMOGRAPHY BI 2-VIEW BREAST INC Debbi Louis APRN.CNS [address] [place] [address] [facility] [address] [place] [address] Referral ID Status Reason Start Date Expiration Date V isits Requested Visits Authorized [id number] Closed Auto-Generate d Referral 12/23/2021 01/22/2023 1 1 [facility] History of Present Illness * Dinorah [...] to establish care. She was going to [place]. Martha Reyes with [facility]. 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 Advance Directive(s) 01/15/2020 10:12 AM Advance Directive(s) 01/02/2020 3:52 PM Advance Directive(s) 09/19/2019 8:50 AM Additional Source Comments Reason for Visit (unrecogniz ed section and content) Reason Comments Establish Care Reason Comments Medication Refill Reason Comments Establish Care INFORMATION SOURCE (unrecogn ized section and content) DATE CREATED AUTHOR AUTHOR'S ORGANIZ ATION 02/15/2023 [facility] Source Comments (unrecognize d section and content) In the event this informatio n is protected by the Federal Confidentiality of Alcohol and Drug Abuse Patient Records regulations: The Federal rules restrict any use of the information to criminally investigate or prosecute any alcohol or drug abuse patient.[facility] the event this information is protected by the Federal Confidentiality of Alcohol and Drug Abuse Patient Records regulations: The Federal rules restrict any use of the information to criminally investigate or prosecute any alcohol or drug abuse patient.[facility] the event this information is protected by the Federal Confidentiality of Alcohol and Drug Abuse Patient Records regulations: The Federal rules restrict any use of the information to criminally investigate or prosecute any alcohol or drug abuse patient.[facility] the event this information is protected by the Federal Confidentiality of Alcohol and Drug Abuse Patient Records regulations: The Federal rules restrict any use of the information to criminally investigate or prosecute any alcohol or drug abuse patient.[facility] the event this information is protected by the Federal Confidentiality of Alcohol and Drug Abuse Patient Records regulations: The Federal rules restrict any use of the information to criminally investigate or prosecute any alcohol or drug abuse patient.[facility] Care Teams (unrecognized sec tion and content) Halal Butcher Relationship Specialty Start Date End Date Martha Purdy MD [address], [place] [address] PCP - General Internal Medicine 12/23/21 Halal Butcher Relationship Specialty Start Date End Date Martha Purdy MD [address], [place] [id number] PCP - General Internal Medicine 12/23/21 Halal Butcher Relationship Specialty Start Date End Date Martha Purdy MD [address], [place] [id number] PCP - General Internal Medicine 12/23/21 Halal Butcher Relationship Specialty Start Date End Date Martha Puryd MD [address], [place] [id number] PCP - General Internal Medicine 12/23/21 FOR [...] BE BASED ON THE PRIMARY CLINICAL RECORDS. [facility] [facility]. provides no warranty or guarantee of the accuracy or completeness of information in this document.
== END 2023-09-20 16:01 | disposition home or self-care (01) ==
LOC: ED 15:56
PROVIDERS: Emergency Provider Emergency Medicine; PCP Family Medicine; Visit Provider Emergency Medicine
DX: M79.662 Pain in left lower leg (principal); J44.9 Chronic obstructive pulmonary disease, unspecified; M17.11 Unilateral primary osteoarthritis, right knee; N28.89 Other specified disorders of kidney and ureter; F17.210 Nicotine dependence, cigarettes, uncomplicated; Z79.52 Long term (current) use of systemic steroids
CPT/HCPCS: 93971; 99282

== ENCOUNTER 2023-10-06 10:14 | Emergency (ER) | payer MEDICARE, MEDICAID, SELFPAY ==
[2023-10-06 10:15] VITALS: BP 141/64; PULSE 93; RESP 13; TEMP 36.2; O2SAT 98; BMI 21.3
--- NOTE | 2023-10-06 10:32 | EKG12_ITS ---
Test Reason : WEAKNESS Blood Pressure : / mmHG Vent. Rate : 091 BPM Atrial Rate : 091 BPM P-R Int : 156 ms QRS Dur : 084 ms QT Int : 348 ms P-R-T Axes : 058 040 071 degrees QTc Int : 428 ms Normal sinus rhythm Nonspecific ST abnormality Borderline Confirmed by Kodak Parson ([id number]), commissioning editor ALLAN COCHRAN ([id number]) on 10/07/2023 10:45:25 AM Referred By: Confirmed By:Kodak Parson
--- NOTE | 2023-10-06 10:35 | EX.ED.DYSGE1 ---
HPI History of Present Illness Chief Complaint: Weakness Informant: patient, family and EMS Narrative Narrative: 72-year-old female presenting to the emergency room with syncope weakness and bilateral right greater than left knee pain. Patient has been having pain in her knees for greater than 3 months. She notes most of the pain is in the right knee. She has a history of rheumatoid arthritis and sees rheumatology. Reportedly she is on methotrexate. She saw orthopedics in August. Family states that they have been to 3 different doctors and have been told 3 different things. She had an MRI that she does not know the results. I am able to see an orthopedic note in August. The patient has had prior steroid injection into the knee. She has a large apparent Patel's cyst. She notes anterior and medial knee pain with clicking/popping. There is a very minimal tear of the meniscus. It was reported from what I see she was offered to have the cyst drained but declined at that time. She states she is wearing an Armand wrap on her left leg because she came to emergency room and had calf pain. There is a duplex ultrasound that shows a probable cystic structure from the knee into the calf. This sounds similar to the findings on the right. No DVT was found. Family states that she is supposed to go next week to a orthopedic surgeon for a second opinion. Family states that she was put on Ultram which does not seem to be helping. She has stated that she has not been sleeping due to the pain. She is not able to get around the house very well is using a walker. Family states that she has also been having recurrent syncopal episodes where she apparently gets very sweaty and looks unresponsive. Patient states that she did not think that she was losing consciousness but after speaking with family believes now that she is. She denies any prior or after chest pain or palpitations. No dyspnea. No fevers or cough. Family states that their mom, the patient's daughter, would have more information but she is out of the country. Patient states that despite not being able to move around the house very well, not sleeping, having recurrent episodes of unresponsiveness, she feels good enough that she can be at home still. Her granddaughters who are with her states that they can stay with her if need be until her mom gets back. [facility] Medical History COPD (chronic obstructive pulmonary disease) Osteoarthritis Home Medications prednisone 5 mg tablet 5 mg PO DAILY 11/01/16 [History Last Taken Unknown] apremilast 30 mg tablet (Otezla) 30 mg PO QAM AND QPM 08/13/23 [History Last Taken Unknown] oxybutynin chloride 15 mg tablet,extended release 24 hr 15 mg PO DAILY 08/13/23 [History Last Taken Unknown] Allergy/AdvReac Type Severity Reaction Status Date / Time No Known Allergies Allergy Verified 10/06/23 10:15 Social History Smoking Status: Current some day smoker tobacco type: cigarettes ROS ROS ED Constitutional Constitutional ED: Denies chills, fever(s) or weight loss Eyes Eyes: Denies change in vision or diplopia ENT ENT ED: Denies ear pain, rhinorrhea or sore throat Cardiovascular Cardiovascular: Reports other Details: Recurrent syncope ; Denies chest pain, orthopnea, palpitations or racing heartbeat Respiratory/Chest Respiratory/Chest: Denies cough, dyspnea or orthopnea Gastrointestinal Gastrointestinal: Denies abdominal pain, diarrhea, nausea or vomiting Genitourinary Genitourinary ED: Denies dysuria, hematuria or urinary frequency Musculoskeletal Musculoskeletal: Reports other Details: Bilateral knee pain ; Denies arthralgias, back pain, myalgias or neck pain Integumentary Denies abscess or rash Neurologic Neurologic: Denies headache(s) or weakness Psychiatric Psychiatric: Denies anxiety, depression, suicidal ideation or suicidal thoughts Endocrine Endocrinology: Denies polydipsia, polyphagia or polyuria Allergic/Immunologic Allergic/Immunologic ED: Denies mouth swelling, tongue swelling or urticaria EXAM Physical Exam Const Vital Signs: 10/06/23 10:15 10/06/23 10:22 10/06/23 12:00 Temperature 97.2 F L Temperature Source Temporal Pulse Rate 93 96 Respiratory Rate 13 14 Respiratory Effort Normal Non-Labored Respiratory Pattern Normal Blood Pressure 141/64 H 142/92 H Blood Pressure Mean 89 108 Pulse Ox 98 91 Oxygen Delivery Method Room Air Room Air 10/06/23 14:00 10/06/23 14:50 Temperature 97.5 F L Temperature Source Pulse Rate 95 94 Respiratory Rate 14 19 H Respiratory Effort Respiratory Pattern Blood Pressure 137/70 H 129/70 H Blood Pressure Mean 92 89 Pulse Ox 92 98 Oxygen Delivery Method Room Air Positive well nourished and well developed General Appearance ED: well developed HEENT Reports normocephalic, head/scalp atraumatic and moist mucous membranes Eyes PERRL and EOMs intact bilaterally Neck no lymphadenopathy, supple and no JVD Resp normal respiratory effort and clear to auscultation bilaterally Cardio regular rate, regular rhythm and no murmurs GI normal to inspection, nondistended, normoactive bowel sounds and non-tender Palpation: soft Back/Spine no CVA tenderness and normal ROM Extremity Extremity Narrative: I am not palpating a large joint effusion. She reports tenderness in the popliteal fossa the proximal calf. There is no significant swelling of the lower extremities. General Extremety ED: Yes tenderness; Negative for edema General Extremity: Negative for edema Neuro oriented x3 and CN's II-XII intact bilaterally Sensorium / Orientation: alert Motor Exam: strength 5/5 throughout Psych mental status grossly normal Mood & Affect: Negative for depressed or tearful Skin no rashes or lesions noted and no wounds MDM MDM MDM Narrative Medical decision making narrative: Basic workup showed a hemoglobin 10.3 platelet count 324 white count 10.9. BMP showed glucose of 115 normal liver enzymes. Urinalysis with no overt infection. Microscopic hematuria seen. My independent trepidation of the chest x-ray is no acute process normal mediastinal silhouette. Patient is EKG is a normal sinus rhythm with a ventricular rate of 91 bpm. She has had no events on the monitor. I reviewed her prior MRI. She most likely has bilateral popliteal cyst. The patient states that she has had syncope intermittently for years. Family states it is worried them that she had 2 this week. She does not seem to have a prodrome. She has worn Holter monitor in the past and sounds like she has had a investigation into these events with no firm diagnosis. My biggest concern for her is her safety at home. Her daughter is out of the country on vacation. Her granddaughters are with her. The patient states she does not feel that she needs to be admitted. She states her pain in her knees waxes and wanes and there are some days that are better than others. Family states they can stay with her if need be but they also do not feel she needs to stay. The patient at this point will be discharged home. She has follow-up with orthopedics for a second opinion in the upcoming weeks. I expressed my opinion that the granddaughters are least one of them should probably stay with her until she is able to feel confident in her ability to ambulate. History & Record Review Discussion w/independent historian: EMS personnel, Patient and Family Additional record(s) reviewed:: Prior outpatient record Lab Data Attestation: I reviewed the patient's lab results. Labs: Laboratory Results - last 24 hr 10/06/23 10/06/23 10:05 11:50 WBC 10.9 RBC 3.83 L Hgb 10.3 L Hct 32.2 L MCV 84.1 MCH 26.9 L MCHC 32.0 RDW Std Deviation 45.5 H RDW Coeff of Nikki 15.0 H Plt Count 324 MPV 10.3 Immature Gran % (Auto) 0.700 Neut % (Auto) 75.6 H Lymph % (Auto) 17.1 L Crowley % (Auto) 5.0 Eos % (Auto) 1.3 Baso % (Auto) 0.3 Absolute Neuts (auto) 8.3 H Absolute Lymphs (auto) 1.87 Nucleated RBC % 0 Sodium 131 L Potassium 4.2 Chloride 99 Carbon Dioxide 26.0 Anion Gap 6 BUN 18 Creatinine 0.98 Estim Creat Clear Calc 43.56 Est GFR (MDRD) Af Amer 72 Est GFR (MDRD) Non-Af 59 L BUN/Creatinine Ratio 18.3 Glucose 115 H Calcium 9.4 Total Bilirubin 0.60 AST 19 ALT 29 Alkaline Phosphatase 53 Troponin I High Sens 11 Total Protein 7.6 Albumin 2.8 L Globulin 4.8 H Albumin/Globulin Ratio 0.6 L Urine Color Yellow Urine Clarity Clear Urine pH 7.0 Ur Specific [place] 1.010 Urine Protein Negative Urine Glucose (UA) Normal Urine Ketones Negative Urine Occult Blood 25 H Urine Nitrite Negative Urine Bilirubin Negative Urine Urobilinogen Normal Ur Leukocyte Esterase Negative Urine RBC 10-25 SEEN Urine WBC 0-5 SEEN Ur Squamous Epith Cells 0 SEEN Urine Bacteria 0 SEEN Urine Mucus 0 SEEN Radiography Diagnostic Testing: Clinical Impression(s) from Imaging Studies Chest X-Ray 10/06/23 10:59 IMPRESSION: No acute abnormality is seen. Electronically Signed: Milad Da Silva MD at 12:01 EDT , EKG Initial EKG: Attestation: I personally reviewed and interpreted this EKG as follows: Comments: Normal sinus rhythm with a ventricular rate of 91 bpm Discharge Plan Triage Chief Complaint: Weakness ED Provider: Ignacio Hooks Dx/Rx/DC Orders Clinical Impression: Syncope, Acute bilateral knee pain Instructions: Causes of Syncope, Popliteal Cyst, ED Knee Pain of Uncertain Cause Prescriptions: No Action oxybutynin chloride 15 mg tablet extended release 24hr 15 mg PO DAILY Otezla 30 mg tablet 30 mg PO QAM AND QPM prednisone 5 MG tablet 5 mg PO DAILY Primary Care Provider: Cathy Garnica Referrals: Aminata Hanson DO [Med Staff - Supply Chain Development Manager] - As soon as possible Disposition Disposition: Home, Self Care Discharge Date/Time: 10/06/23 14:50
[2023-10-06] MEDS: 0.9% Normal Saline (1000mL) 1,000 ML 1000 ML IV (10:42)
[2023-10-06 10:47] LABS: Absolute Lymphocyte Count 1.87 X10^3/uL (0.83-4.51); Absolute Neutrophil Count 8.3 X10^3/uL (2.0-7.7); Basophil# 0.03 X10^3/uL; Basophil% 0.3 % (0-1); Eosinophil# 0.14 X10^3/uL; Eosinophils% 1.3 % (0-5); Hematocrit 32.2 % (37-47); Hemoglobin 10.3 g/dL (12.0-15.0); Lymphocyte # 1.87 X10^3/ul (0.83-4.51); Lymphocyte % 17.1 % (19-41); Mean Corpuscular Hgb 26.9 pg (27.0-32.0); Mean Corpuscular Volume 84.1 fL (81-99); Mean Platelet Vol. 10.3 fl (6.2-12.0); Monocyte# 0.55 X10^3/uL; NRBC Flagged by Analyzer 0 % (0-5); Neutrophil # 8.27 X10^3/uL (2.7-7.7); Neutrophil % 75.6 % (47-70); Platelet Count 324 K/mm3 (150-450); RBC Distribution Width SD 45.5 fl (35.1-43.9); Red Blood Count 3.83 M/mm3 (4.2-5.4); White Blood Count 10.9 K/mm3 (4.4-11.0)
--- NOTE | 2023-10-06 10:59 | RAD_ITS ---
STUDY: X-RAY CHEST REASON FOR EXAM: Female, 72 years old. Syncope TECHNIQUE: Single AP portable view of the chest. COMPARISON: Comparison is made with prior study dated March 29, 2023. FINDINGS: EKG electrodes are seen. The lungs are clear and expanded. There is no demonstrated pleural abnormality. Normal size heart. Normal mediastinum and cassie. Normal visualized pulmonary arteries. There is atherosclerotic calcification of the aortic arch with tortuosity. Normal visualized thoracic spine. Normal visualized ribs, clavicles, and shoulders. There is no demonstrated abnormality of the visualized soft tissue structures of the upper abdomen. RAD/Chest 1 View (Portable) IMPRESSION: No acute abnormality is seen. Electronically Signed: Milad Da Silva MD at 12:01 EDT ,
[2023-10-06 11:07] LABS: ALB/GLOB Ratio 0.6 RATIO (0.9-2.4); AST(SGOT) 19 U/L (15-37); Alanine Aminotransfer ALT/SGPT 29 U/L (13-56); Albumin, Serum 2.8 g/dL (3.2-5.0); Alkaline Phosphatase 53 U/L (45-117); Anion Gap 6 (5-15); BUN 18 mg/dL (7-18); BUN/Creat Ratio 18.3 RATIO (10-20); Calcium,Total 9.4 mg/dL (8.5-10.1); Chloride 99 mmol/L (98-107); Creatinine, Serum 0.98 mg/dL (0.55-1.02); EST Glomerular Filtration Rate 59 mL/min (>60); Est Glom Filt Rate - Afr Amer 72 mL/min (>60); Estimated Creatinine Clearance 43.56 ml/min; Globulin 4.8 g/dL (2.2-4.2); Glucose 115 mg/dL (74-106); Potassium 4.2 mmol/L (3.5-5.1); Protein, Total 7.6 g/dL (6.4-8.2); Sodium Level 131 mmol/L (136-145); Troponin-I HS 11 pg/mL (3.0-54.0)
[2023-10-06 11:57] LABS: Bacteria 0 SEEN /hpf (None Seen); Mucous, Urine 0 SEEN /hpf (<or=2+); Squamous Epithelial Cells - UA 0 SEEN /hpf (5-10)
[2023-10-06 12:00] VITALS: BP 142/92; PULSE 96; RESP 14; O2SAT 91
[2023-10-06 12:03] LABS: Color, Urine Yellow (Yellow); Glucose, Dipstick Normal (Normal); Ketone-Dipstick Negative (Negative); Leukocyte Esterase-Dipstick Negative /ul (Negative); Nitrite-Dipstick Negative (Negative); Occult Blood-Urine 25 /ul (Negative); Protein-Dipstick Negative (Negative); Urine Bilirubin Dipstick Negative (Negative); Urine Clarity Clear (Clear); Urine Urobilinogen Normal (Normal)
[2023-10-06 12:11] LABS: Red Blood Cells-Urine 10-25 SEEN /hpf (0-5); White Blood Cells 0-5 SEEN /hpf (0-5)
[2023-10-06 14:00] VITALS: BP 137/70; PULSE 95; RESP 14; O2SAT 92
[2023-10-06 14:50] VITALS: BP 129/70; PULSE 94; RESP 19; TEMP 36.4; O2SAT 98
== END 2023-10-06 14:50 | disposition home or self-care (01) ==
PROVIDERS: Emergency Provider Emergency Medicine; PCP Family Medicine; Visit Provider Emergency Medicine
DX: R55 Syncope and collapse (principal); M06.9 Rheumatoid arthritis, unspecified; J44.9 Chronic obstructive pulmonary disease, unspecified; R31.29 Other microscopic hematuria; M25.561 Pain in right knee; M25.562 Pain in left knee; F17.210 Nicotine dependence, cigarettes, uncomplicated; Z79.899 Other long term (current) drug therapy
CPT/HCPCS: 71045; 80053; 81001; 84484; 85025; 93005; 96360; 96361; 99284; J7030; A4216

== ENCOUNTER → 2023-10-25 | Outpatient (CLI) | payer MEDICARE, MEDICAID, SELFPAY ==
--- NOTE | 2023-10-25 11:29 | US_ITS ---
STUDY: SUPERFICIAL ULTRASOUND - HISTORY OF RIGHT PRADO''S CYST. REASON FOR EXAM: Female, 72 years old. Right knee US guided bakers cyst aspiration TECHNIQUE: A superficial ultrasound was performed with real-time and static le-scale imaging. COMPARISON: None. FINDINGS: There is evidence of a 7.3 cm x 3 cm x 2 cm complex solid and cystic density in the popliteal fossa. This may represent hematoma within the popliteal fossa.. This is not amenable to percutaneous drainage. US/Ext Non Vasc Limited/Soft Tiss IMPRESSION: 7.3 cm x 3 cm x 2 cm complex solid and cystic density in the popliteal fossa. This is not amenable to percutaneous drainage. Electronically Signed: Milad Da Silva MD at 12:45 EDT ,
== END | disposition home or self-care (01) ==
PROVIDERS: PCP Family Medicine; Referring Provider Orthopaedic Surgery Sports Medicine; Visit Provider Orthopaedic Surgery Sports Medicine
DX: M25.561 Pain in right knee (principal)
CPT/HCPCS: 76882

== ENCOUNTER → 2024-02-01 | Outpatient (CLI) | payer MEDICARE, MEDICAID, SELFPAY ==
[2024-02-01 11:34] LABS: Platelet Count 345 K/mm3 (150-450)
[2024-02-01 11:47] LABS: International Normalized Ratio 1.1; Partial Thromboplast Time 29.3 Seconds (24.1-36.2); Prothrombin Time (Protime)PT. 14.3 SECONDS (11.7-14.9)
== END | disposition home or self-care (01) ==
LOC: PAVLAB 11:10
PROVIDERS: PCP Family Medicine; Referring Provider Internal Medicine Critical Care Medicine; Visit Provider Internal Medicine Critical Care Medicine
DX: R91.1 Solitary pulmonary nodule (principal)
CPT/HCPCS: 36415; 85049; 85610; 85730

== ENCOUNTER 2024-02-15 14:25 | Observation (INO) | payer MEDICARE, SELFPAY ==
[2024-02-15] VITALS (8 sets, daily range): BP systolic 135–170; BP diastolic 68–99; PULSE 82–95; RESP 12–22; TEMP 36.2–37.4; O2SAT 94–99; BMI 22.1; BMI 20.9
--- NOTE | 2024-02-15 14:50 | RAD_ITS ---
STUDY: X-RAY CHEST REASON FOR EXAM: Female, 73 years old. Decreased breath sounds right side of lung biopsy, -- Need to review inspiration and expiration TECHNIQUE: AP inspiration and expiration views. COMPARISON: Comparison is made with prior chest radiograph earlier today at 11:55 PM. FINDINGS: There now is evidence of a 5% right apical pneumothorax. RAD/Chest Insp/Exp 2 View IMPRESSION: New 5% right apical pneumothorax. Electronically Signed: Milad Da Silva MD at 15:02 EDT ,
--- NOTE | 2024-02-15 14:56 | ED.VIS.DYS ---
HPI History of Present Illness Chief Complaint: Shortness of Breath Detail of Chief Complaint: Shortness of breath and pain near the right scapula Informant: patient Onset/Context/Timing Onset: Today and Hours Timing: Continuous Quality: Positive for Dyspnea on exertion; Negative for Orthopnea, PND or Wheezing Current Severity: Mild Maximum Severity: Moderate Worsened by: Exertion Relieved by: Nothing Associated Symptoms other Chest Pain: Positive for None Narrative Narrative: Patient is a 73-year-old woman with rheumatoid arthritis, COPD, lung nodule who underwent biopsy today. She presents now because of pain in the right scapular area in the proximity of the biopsy site with shortness of breath and Edison exertion. She denies chest discomfort. She denies orthopnea or PND. She denies fever chills night sweats. She has no other complaints. PE Risk Factors: Positive for - (Concern for pneumothorax) Prior similar symptoms: No Recent Illness/Hospitalization: Yes [facility] Medical History Synovial cyst of popliteal space [Patel], right knee Effusion, right knee Osteoarthritis COPD (chronic obstructive pulmonary disease) Home Medications ?Medication ?Instructions ?Recorded ?Last Taken ?Type oxybutynin chloride 15 mg 15 mg PO DAILY 08/13/23 Unknown History tablet,extended release 24 hr albuterol sulfate 90 mcg/actuation 2 puff inhalation 02/01/24 Unknown History aerosol inhaler prednisone 5 mg tablet 10 mg PO DAILY 02/01/24 Unknown History Allergy/AdvReac Type Severity Reaction Status Date / Time No Known Allergies Allergy Verified 02/15/24 08:15 Social History Smoking Status: Current every day smoker tobacco type: cigarettes ROS ROS ED Constitutional Constitutional ED: Denies chills, fever(s), sweats or weight loss Eyes Eyes: Denies blurry vision or change in vision ENT ENT ED: Denies rhinorrhea or sore throat Cardiovascular Cardiovascular: Denies chest pain, palpitations or racing heartbeat Respiratory/Chest Respiratory/Chest: Reports dyspnea and dyspnea on exertion; Denies cough Psychiatric Psychiatric: Reports anxiety Hematologic/Lymphatic Hematologic/Lymphatic: Denies easy bleeding or easy bruising EXAM Physical Exam Const Vital Signs: 02/15/24 14:25 02/15/24 14:27 Temperature 97.2 F L 98 F Temperature Source Temporal Oral Pulse Rate 95 92 Respiratory Rate 22 H 18 Blood Pressure 145/68 H 140/68 H Blood Pressure Mean 93 92 Pulse Ox 99 96 Oxygen Delivery Method Room Air Room Air Positive well nourished and well developed Constitutional Narrative: Patient is tachypneic. There is no use of accessory muscles. General Appearance ED: well developed; Negative for pallor HEENT Reports moist mucous membranes atraumatic; Negative for tenderness Eyes PERRL and EOMs intact bilaterally General Eye ED: Negative for pale conjunctiva or scleral icterus Neck no lymphadenopathy, supple, no meningeal signs and no JVD Resp No normal respiratory effort and clear to auscultation bilaterally Resp Narrative: Breath sounds are diminished on the right side. There is hyperresonance to percussion at the apex. There is no egophony or increased vocal fremitus. Cardio regular rate, regular rhythm, S1 normal heart sound, S2 normal heart sound and no murmurs Extremity normal to inspection General Extremety ED: Negative for edema or tenderness General Extremity: Negative for edema Neuro oriented x3 and CN's II-XII intact bilaterally Sensorium / Orientation: alert Psych mental status grossly normal Skin no wounds and skin turgor normal General Skin Exam: Negative for jaundice or pallor MDM MDM MDM Narrative Medical decision making narrative: Differential diagnosis is pneumothorax, hemopneumothorax, exacerbation of COPD. Chest x-ray with inspiratory films were obtained. Patient is noted to have a pneumothorax on the right, which is the site of the biopsy. Patient will be consented for Heimlich valve. Radiography Chest X-Ray - ED: 1 View (The thoracostomy tube was noted to be extrapleural. Patient was made aware of this. There is still a 5 to 10% pneumothorax noted. This will need to be removed and second attempt.), 2 View, Read by ED Physician (Inspiratory expiratory films were obtained and patient is noted to have a apical pneumothorax on the right approximately 5 to 10%. This is admittedly reviewed interpreted by me at 1450.) and - (Post thoracostomy tube was obtained at 1646. Tube is in proper position. The pneumothorax may be slightly smaller.) Diagnostic Testing: Clinical Impression(s) from Imaging Studies Chest X-Ray 02/15/24 14:50 IMPRESSION: New 5% right apical pneumothorax. Electronically Signed: Milad Da Silva MD at 15:02 EDT , Procedures Other Procedures Procedure(s): Consent was obtained for thoracostomy/Heimlich tube placement. First attempt was unsuccessful. Second attempt was successful. Patient be admitted Dr. Huma Lake with consult to Gino Liu. Dr. Liu informed that she would have to be admitted since he has no office hours. Discharge Plan Triage Chief Complaint: Shortness of Breath ED Provider: Vidal Torre Dx/Rx/DC Orders Clinical Impression: Pneumothorax, post biopsy, right, History of COPD, Acute dyspnea Prescriptions: No Action oxybutynin chloride 15 mg tablet extended release 24hr 15 mg PO DAILY albuterol sulfate 90 mcg/actuation HFA aerosol inhaler 2 puff inhalation prednisone 5 mg tablet 10 mg PO DAILY Primary Care Provider: Cathy Garnica Referrals: Cathy Garnica MD [Primary Care Provider] - Print Language: Algerian Disposition Disposition: Acute Care Hospital [facility]
[2024-02-15] MEDS: Ondansetron 4 MG/2 ML Vial IV (15:02)
[2024-02-15] MEDS: Morphine 4 MG/ML Syringe 2 MG IV (15:02)
--- NOTE | 2024-02-15 15:29 | RAD_ITS ---
STUDY: X-RAY CHEST REASON FOR EXAM: Female, 73 years old. Post thoracostomy/Heimlich valve TECHNIQUE: Single AP portable view of the chest. COMPARISON: Comparison is made with prior study done earlier today. FINDINGS: A right-sided small caliber chest tube has been placed. The tip is within the subcutaneous tissues overlying the right hemithorax. Stable 5% right apical pneumothorax. RAD/Chest 1 View (Portable) IMPRESSION: The tip of the small caliber right-sided chest tube is within the soft tissues overlying the right lateral chest wall. Stable 5% right apical pneumothorax. Electronically Signed: Milad Da Silva MD at 15:43 EDT ,
[2024-02-15] MEDS: Morphine 4 MG/ML Syringe 3 MG IV ×2 (16:16→17:38)
--- NOTE | 2024-02-15 16:50 | RAD_ITS ---
STUDY: X-RAY CHEST REASON FOR EXAM: Female, 73 years old. adjustment of chest tube placement TECHNIQUE: Single AP portable view of the chest. COMPARISON: 02/15/2024, 3:31 PM. FINDINGS: Since prior study a small bore right-sided chest tube has been advanced and now terminates in the mid to lower right hemithorax. No other changes since earlier today-stable small right apical pneumothorax. Electronically Signed: Rigoberto Lombardi MD at 17:14 EDT , RAD/Chest 1 View (Portable) IMPRESSION: undefined
--- NOTE | 2024-02-15 17:18 | PCM.HP.STD ---
HPI - General General Date of Admission: 02/15/24 Date of Service: 02/15/24 Chief Complaint: Shortness of breath, right sided pneumothorax HPI Narrative SUELLEN PINON, is a 73-year-old female history of COPD, RA, lung nodule who underwent biopsy today. Presented to the ED 02/15/2024 for right scapular pain and area of biopsy site and shortness of breath. Chest x-ray in ED with right apical pneumo of approximately 5 to 10%. Chest tube placed Pulm contacted and requested patient admitted for chest x-ray in a.m. and valve hooked to wall suction and she will be evaluated tomorrow. Did have to have repeat chest tube placed d/t original in soft tissue. Hospitalist contacted for admission. Patient seen at bedside, reports shortness of breath is slightly better and pain is only from chest tube placement and biopsy, no cough, no chest pain otherwise and denies any other focal complaints. [facility] Medical History Synovial cyst of popliteal space [Patel], right knee Effusion, right knee Osteoarthritis COPD (chronic obstructive pulmonary disease) Home Medications ?Medication ?Instructions ?Recorded ?Last Taken ?Type oxybutynin chloride 15 mg 15 mg PO DAILY 08/13/23 Unknown History tablet,extended release 24 hr albuterol sulfate 90 mcg/actuation 2 puff inhalation Q8H PRN sob and 02/01/24 Unknown History aerosol inhaler wheezing prednisone 5 mg tablet 10 mg PO DAILY 02/01/24 Unknown History Allergy/AdvReac Type Severity Reaction Status Date / Time No Known Allergies Allergy Verified 02/15/24 08:15 Social History Smoking Status: Current every day smoker tobacco type: cigarettes ROS ROS Narrative General: Denies fever/chills HENT: Denies headache, denies stuffy nose, denies sore throat EYES: Denies changes in vision Resp: Denies cough, shortness of breath improving Cardiac: Denies chest pain GI: Denies abdominal pain, denies changes in bowel, denies nausea/vomiting : Denies changes in urination Extremity: Denies swelling MSK: Denies weakness Neuro: Denies any numbness/tingling Heme: Denies any bleeding or bruising Skin: Denies rashes Psychiatric: No complaints voiced Vital Signs Vital Signs Vital Signs: 02/15/24 14:25 02/15/24 14:27 02/15/24 15:30 Temperature 97.2 F L 98 F Temperature Source Temporal Oral Pulse Rate 95 92 88 Respiratory Rate 22 H 18 12 Respiratory Effort Respiratory Depth Respiratory Pattern Blood Pressure 145/68 H 140/68 H 136/97 H Blood Pressure Mean 93 92 110 Pulse Ox 99 96 99 Oxygen Delivery Method Room Air Room Air Nasal Cannula Oxygen Flow Rate (L/min) 2 02/15/24 15:37 Temperature Temperature Source Pulse Rate Respiratory Rate Respiratory Effort Normal Non-Labored Respiratory Depth Normal Respiratory Pattern Normal Blood Pressure Blood Pressure Mean Pulse Ox Oxygen Delivery Method Room Air Oxygen Flow Rate (L/min) Weight Weight: 58.4 kg Body Mass Index (BMI) 22.1 Physical Exam Narrative General: Alert, oriented, no apparent distress HEENT: Atraumatic, normocephalic Eyes: Anicteric, normal conjunctiva, extraocular movements grossly intact Neck: Supple Respiratory: Diminished right apical area otherwise normal, normal respiratory effort Cardiovascular: Regular rate and rhythm GI: Soft, nontender, nondistended Extremities: No edema Musculoskeletal: Moving all extremities Neuro: No overt focal neurological deficits Skin: No rashes appreciated Psych: Cooperative Results Imaging Radiology Impression Chest X-Ray 02/15/24 14:50 IMPRESSION: New 5% right apical pneumothorax. Electronically Signed: Milad Da Silva MD at 15:02 EDT , Chest X-Ray 02/15/24 15:29 IMPRESSION: The tip of the small caliber right-sided chest tube is within the soft tissues overlying the right lateral chest wall. Stable 5% right apical pneumothorax. Electronically Signed: Milad Da Silva MD at 15:43 EDT , Chest X-Ray 02/15/24 16:50 IMPRESSION: undefined Assessment & Plan Assessment/Plan (1) Pneumothorax, post biopsy, right: (2) Nicotine dependence, cigarettes, uncomplicated: (3) Rheumatoid arthritis: QUALIFIERS: Rheumatoid arthritis location: knee Rheumatoid factor presence: unspecified presence Laterality: right Qualified Code(s): M06.9 - Rheumatoid arthritis, unspecified (4) History of COPD: PLAN: Plan #R apical pneumothorax after nodule bx -5-10% seen on xray in ED -Chest tube placed in ED -Pulm consult -Hook to Pleur-evac with wall suction at -20 -Chest x-ray in a.m. -Vitally stable -Pain control #Overactive bladder -continue oxybutynin # COPD -As needed nebs #Tobacco use -Advise cessation -Nicotine replacement available if desired #RA -Pt takes 10mg pred daily -Continue at this time #DVT ppx: -SCDs Charges/Coding Visit Charges Inpatient E&M: 55287 Init Hosp L1
--- NOTE | 2024-02-15 17:36 | NURSING ---
RIGHT SIDED PNEUMOTHORAX POST BIOPSY
[2024-02-15 17:47] LABS: Hematocrit 34.7 % (37-47); Hemoglobin 10.9 g/dL (12.0-15.0); Mean Corp Hgb Conc 31.4 g/dL (32-36); Mean Corpuscular Volume 85.9 fL (81-99); Mean Platelet Vol. 10.7 fl (6.2-12.0); Platelet Count 373 K/mm3 (150-450); RBC Distribution Width CV 15.4 % (11.6-14.6); RBC Distribution Width SD 48.2 fl (35.1-43.9); Red Blood Count 4.04 M/mm3 (4.2-5.4); White Blood Count 14.1 K/mm3 (4.4-11.0)
[2024-02-15 18:15] LABS: Anion Gap 6 (5-15); BUN 21 mg/dL (7-18); BUN/Creat Ratio 18.6 RATIO (10-20); Calcium,Total 9.3 mg/dL (8.5-10.1); Chloride 100 mmol/L (98-107); Creatinine, Serum 1.13 mg/dL (0.55-1.02); EST Glomerular Filtration Rate 50 mL/min (>60); Est Glom Filt Rate - Afr Amer 61 mL/min (>60); Estimated Creatinine Clearance 38.86 ml/min; Glucose 164 mg/dL (74-106); Potassium 4.7 mmol/L (3.5-5.1); Sodium Level 134 mmol/L (136-145)
[2024-02-15] MEDS: oxyCODONE 5 MG Tablet PO (19:36)
[2024-02-15] MEDS: Acetaminophen 500 MG Tablet 1000 MG PO (21:30)
[2024-02-16 03:00] VITALS: BP 120/61; PULSE 95; RESP 18; TEMP 36.6; O2SAT 93
[2024-02-16] MEDS: oxyCODONE 5 MG Tablet PO (05:19)
--- NOTE | 2024-02-16 05:55 | RAD_ITS ---
INDICATION: right sided pneumo EXAMINATION/TECHNIQUE: X-RAY - XR Chest 1 View COMPARISON: CR Chest Kvng 2023 [id number] FINDINGS: LINES/DEVICES: Chest tube on the right in good position. LUNGS: No consolidation, edema or effusion. No definite pneumothorax. MEDIASTINUM AND CARDIOVASCULAR STRUCTURES: Cardiac silhouette not enlarged. Central airways and mediastinal contour are unremarkable. BONES AND SOFT TISSUES: Unremarkable. RAD/Chest 1 View (Portable) IMPRESSION: Right chest tube in place. No recurrent pneumothorax. Electronically Signed: Debbie Groves MD at 7:04 EDT ,
[2024-02-16] MEDS: Acetaminophen 500 MG Tablet 1000 MG PO (05:57)
[2024-02-16 06:00] VITALS: BP 121/64; PULSE 98; RESP 18; TEMP 36.6; O2SAT 94
--- NOTE | 2024-02-16 07:04 | CON.PCM.CC_ITS ---
Assessment & Plan Assessment/Plan (1) Iatrogenic pneumothorax: PLAN: Plan RECOMMENDATIONS: 1. Chest tube to waterseal this morning. Will obtain follow-up chest imaging around 9 AM. 2. If follow-up chest imaging shows no recurrent pneumothorax, chest tube will be removed. 3. I would recommend that we obtain one additional x-ray following chest tube removal prior to discharge home. 4. CT-guided lung biopsy results will be discussed with the patient through the office, once available. IMPRESSIONS: 1. Iatrogenic pneumothorax The patient sustained a small iatrogenic pneumothorax following CT-guided lung biopsy yesterday, which ultimately required small bore chest tube placement. The patient was maintained on wall suction overnight with resolution of the apical pneumothorax noted. The patient will be placed on waterseal, with tentative plans to remove the chest tube, and a follow-up chest imaging demonstrates no recurrence of the pneumothorax. Once the chest tube has been removed, one additional chest x-ray will be obtained, after which time, the patient can be discharged home. This note was generated with Tier 3 dictation software. It may contain incorrect words, spelling, and punctuation that were not noted in checking the note before signing. HPI Consult Data Date of Consult: 02/16/24 HPI Narrative Reason for Consultation: Iatrogenic pneumothorax HPI Narrative: The patient is a 73-year-old female, with a history as outlined below, who presented to the emergency department following the development of an iatrogenic pneumothorax. I personally evaluated the patient on January 31 in the pulmonary medicine clinic after she was referred to me for evaluation of a lung nodule measuring 1.6 cm in size in the right upper lobe. The patient has a [id number] smoking history and continues to smoke cigarettes daily. In light of the aforementioned radiographic findings, the patient was referred to undergo a CT-guided lung biopsy, which was ultimately completed on February 14. Unfortunately, the patient developed a small right apical pneumothorax. Small bore chest tube was placed by the ED provider and the patient was admitted to the hospital for further management. Overnight, the patient was maintained on wall suction. Her repeat chest imaging this morning demonstrated resolution of the pneumothorax. The patient reported that the right sided chest discomfort and shortness of breath that she was experiencing yesterday has resolved. In light of the aforementioned radiographic findings, I placed the patient to waterseal this morning. [facility] Medical History (Updated 02/16/24 @ 07:[address] Gino Liu, DO) Kidney disease Smoker Synovial cyst of popliteal space [Patel], right knee Effusion, right knee Osteoarthritis COPD (chronic obstructive pulmonary disease) Home Medications ?Medication ?Instructions ?Recorded ?Last Taken ?Type oxybutynin chloride 15 mg 15 mg PO DAILY 08/13/23 Unknown History tablet,extended release 24 hr albuterol sulfate 90 mcg/actuation 2 puff inhalation Q8H PRN sob and 02/01/24 Unknown History aerosol inhaler wheezing prednisone 5 mg tablet 10 mg PO DAILY 02/01/24 Unknown History Allergy/AdvReac Type Severity Reaction Status Date / Time No Known Allergies Allergy Verified 02/15/24 08:15 Surgical History (Updated 02/15/24 @ 18:37 by Alize Domingo) History of cholecystectomy Social History Smoking Status: Current every day smoker tobacco type: cigarettes ROS ROS Narrative 10 systems were reviewed with pertinent positives as noted in the HPI above. Physical Exam Const alert and no apparent distress General Appearance: cooperative HEENT normocephalic, head/scalp atraumatic and moist oral mucous membranes Eyes PERRL, EOMs intact bilaterally and conjunctivae normal Neck supple General: trachea midline Chest inspection of chest normal Chest Narrative: No airleak noted in the Pleur-evac. Chest: chest tube Resp normal respiratory effort Auscultation: diminished lung sounds Cardio regular rate and regular rhythm GI normal to inspection, nondistended, normoactive bowel sounds Extremity no clubbing, cyanosis or edema Skin no rashes or lesions noted Neuro oriented x3, CN's II-XII intact bilaterally and moves all extremities Psych cooperative and affect normal Lab / Micro Data 02/15/24 05:55 02/15/24 14:47 Labs: Laboratory Results - last 24 hr 02/15/24 05:55: WBC 14.1 H, RBC 4.04 L, Hgb 10.9 L, Hct 34.7 L, MCV 85.9, MCH 27.0, MCHC 31.4 L, RDW Std Deviation 48.2 H, RDW Coeff of Nikki 15.4 H, Plt Count 373, MPV 10.7 02/15/24 14:47: Sodium 134 L, Potassium 4.7, Chloride 100, Carbon Dioxide 28.0, Anion Gap 6, BUN 21 H, Creatinine 1.13 H, Estim Creat Clear Calc 38.86, Est GFR (MDRD) Af Amer 61, Est GFR (MDRD) Non-Af 50 L, BUN/Creatinine Ratio 18.6, G lucose 164 H, Calcium 9.3 Imaging Radiology Impression Chest X-Ray 02/15/24 14:50 IMPRESSION: New 5% right apical pneumothorax. Electronically Signed: Milad Da Silva MD at 15:02 EDT , Chest X-Ray 02/15/24 15:29 IMPRESSION: The tip of the small caliber right-sided chest tube is within the soft tissues overlying the right lateral chest wall. Stable 5% right apical pneumothorax. Electronically Signed: Milad Da Silva MD at 15:43 EDT , Chest X-Ray 02/15/24 16:50 IMPRESSION: undefined Charges/Coding Visit Charges Inpatient E&M: 08561 Init Hosp L3
[2024-02-16] MEDS: 0.9% Saline Lock 10 ML Syringe IV (07:31)
[2024-02-16] MEDS: Morphine 2 MG/ML Syringe IV (07:31)
[2024-02-16] MEDS: predniSONE 10 MG Tablet PO (07:35)
[2024-02-16] MEDS: Tolterodine Tartrate 4 MG CAP.SA PO (07:35)
--- NOTE | 2024-02-16 09:18 | RAD_ITS ---
STUDY: X-RAY CHEST REASON FOR EXAM: Female, 73 years old. Water seal chest tube follow up TECHNIQUE: Single AP portable view of the chest. COMPARISON: 02/16/2024 FINDINGS: Right-sided small bore thoracostomy tube with no pneumothorax. The lungs are clear and expanded. There is no demonstrated pleural abnormality. Normal size heart. Normal mediastinum and cassie. Normal visualized pulmonary arteries. Normal visualized aortic arch and descending thoracic aorta. Normal visualized thoracic spine. Normal visualized ribs, clavicles, and shoulders. There is no demonstrated abnormality of the visualized soft tissue structures of the upper abdomen. RAD/Chest 1 View (Portable) IMPRESSION: No pneumothorax. Electronically Signed: Robert Jara MD at 9:30 EDT ,
[2024-02-16 09:25] VITALS: BP 145/76; PULSE 89; RESP 18; TEMP 36.5; O2SAT 94
--- NOTE | 2024-02-16 11:08 | PN_ITS ---
Subjective Subjective Patient seen and examined. She says she is feeling better today. She came in for a lung biopsy and this was complicated by an iatrogenic pneumothorax. She had a chest tube inserted. She says she feels her breathing is getting better. She denies any cough, chest pain, palpitations, dizziness, nausea, vomiting or any other symptoms. Review of systems is otherwise negative. Objective Data Objective Data Vital Signs: Vital Signs Temp Pulse Resp BP Pulse Ox O2 Del Method O2 Flow Rate 97.7 F L 89 18 145/76 H 94 Nasal Cannula 2 02/16/24 09:25 02/16/24 09:25 02/16/24 09:25 02/16/24 09:25 02/16/24 09:25 02/16/24 09:25 02/16/24 09:25 Oxygen Flow Rate (L/min) 2 Oxygen Delivery Method Nasal Cannula Weight: 122 lb 2.177 oz Body Mass Index (BMI) 20.9 Intake & Output: Intake and Output for Last 24 Hours 02/14/24 02/15/24 02/16/24 23:59 23:59 23:59 Intake Total 960 / 960 Output Total 0 / 0 Balance 960 / 960 Lab / Micro Data 02/15/24 05:55 02/15/24 14:47 Labs: Laboratory Results - last 24 hr 02/15/24 05:55: WBC 14.1 H, RBC 4.04 L, Hgb 10.9 L, Hct 34.7 L, MCV 85.9, MCH 27.0, MCHC 31.4 L, RDW Std Deviation 48.2 H, RDW Coeff of Nikki 15.4 H, Plt Count 373, MPV 10.7 02/15/24 14:47: Sodium 134 L, Potassium 4.7, Chloride 100, Carbon Dioxide 28.0, Anion Gap 6, BUN 21 H, Creatinine 1.13 H, Estim Creat Clear Calc 38.86, Est GFR (MDRD) Af Amer 61, Est GFR (MDRD) Non-Af 50 L, BUN/Creatinine Ratio 18.6, G lucose 164 H, Calcium 9.3 Radiography Diagnostic Testing: Radiology Impression Chest X-Ray 02/15/24 14:50 IMPRESSION: New 5% right apical pneumothorax. Electronically Signed: Milad Da Silva MD at 15:02 EDT , Chest X-Ray 02/15/24 15:29 IMPRESSION: The tip of the small caliber right-sided chest tube is within the soft tissues overlying the right lateral chest wall. Stable 5% right apical pneumothorax. Electronically Signed: Milad Da Silva MD at 15:43 EDT , Chest X-Ray 02/15/24 16:50 IMPRESSION: undefined Chest X-Ray 02/16/24 05:55 IMPRESSION: Right chest tube in place. No recurrent pneumothorax. Electronically Signed: Debbie Groves MD at 7:04 EDT , Chest X-Ray 02/16/24 09:18 IMPRESSION: No pneumothorax. Electronically Signed: Robert Jara MD at 9:30 EDT , Physical Exam Const alert, oriented x3 and no apparent distress General Appearance: cooperative and well developed HEENT normocephalic, head/scalp atraumatic, moist oral mucous membranes and oropharynx normal Eyes PERRL and EOMs intact bilaterally Neck no lymphadenopathy, supple and no JVD Lymph Lymphatic: no lymphadenopathy noted and no lymphedema noted Resp Resp Narrative: mildly diminished breath sounds bibasally, no wheezes or crackles. On 2L of oxygen by nasal canula. Left sided chest tube in situ. Cardio regular rate, regular rhythm, S1 normal heart sound, S2 normal heart sound and no murmurs GI normal to inspection, nondistended, normoactive bowel sounds, soft to palpation, non-tender and non-distended Extremity General Extremity: no tenderness to palpation of joints or extremities Skin General Skin Exam: no breakdown Neuro CN's II-XII intact bilaterally and no focal motor deficits Motor Exam: strength 5/5 throughout and general weakness Psych thought process normal, cooperative and affect normal Appearance: appropriate Assessment & Plan Assessment/Plan (1) Iatrogenic pneumothorax: (2) Acute dyspnea: PLAN: Plan #Right iatrogenic pneumothorax * resulted after she had a lung nodule biopsy on 02/15/2024. * she is currently on 2L of oxygen * chest tube in situ * for repeat CXR today * pulmonology on board * pulm to determine when to pull chest tube * #Overactive bladder: on oxybutynin. #History of lung nodule * Was noted to have 1.6 cm nodule in the right upper lobe * had biopsy yesterday. * to follow up with pulmonology on outpatient basis for biopsy results * #COPD: not in exacerbation. Breathing treatment with bronchodilators #Rheumatoid arthritis: on prednisone 10mg daily #Nicotine dependence: counseled to quit. DVT prophylaxis; SCDs Charges/Coding Visit Charges Inpatient E&M: 49191 Subs Hosp L2
--- NOTE | 2024-02-16 11:35 | RAD_ITS ---
STUDY: X-RAY CHEST REASON FOR EXAM: Female, 73 years old. s/p chest tube removal TECHNIQUE: Single AP portable view of the chest. COMPARISON: 02/16/2020 10/25/2012 FINDINGS: Interval removal of the right-sided small bore thoracostomy tube. No pneumothorax. The lungs are clear and expanded. There is no demonstrated pleural abnormality. Normal size heart. Normal mediastinum and cassie. Normal visualized pulmonary arteries. Normal visualized aortic arch and descending thoracic aorta. Normal visualized thoracic spine. Normal visualized ribs, clavicles, and shoulders. There is no demonstrated abnormality of the visualized soft tissue structures of the upper abdomen. RAD/Chest 1 View (Portable) IMPRESSION: Interval removal of the right-sided small bore thoracostomy tube with no pneumothorax. Electronically Signed: Robert Jara MD at 12:45 EDT ,
--- NOTE | 2024-02-16 13:06 | DS.PCM_ITS ---
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 * she is currently on 2L of oxygen * chest tube in situ * for repeat CXR today * pulmonology on board * pulm to determine when to pull chest tube * #Overactive bladder: on oxybutynin. #History of lung nodule * Was noted to have 1.6 cm nodule in the right upper lobe * had biopsy yesterday. * to follow up with pulmonology on outpatient basis for biopsy results * #COPD: not in exacerbation. Breathing treatment with bronchodilators #Rheumatoid arthritis: on prednisone 10mg daily #Nicotine dependence: counseled to quit. DVT prophylaxis; SCDs Medications at Discharge Home Medications oxybutynin chloride 15 mg tablet,extended release 24 hr 15 mg PO DAILY urine 08/13/23 albuterol sulfate 90 mcg/actuation aerosol inhaler 2 puff inhalation Q8H PRN sob and wheezing 02/01/24 prednisone 5 mg tablet 10 mg PO DAILY inflammation 02/01/24 Hospital Course Operations None Procedures None Summary of Care Provided Minutes Spent on Discharge: 55 Hospital Course: Patient is a 73-year-old female with past medical history as outlined which includes a right lung nodule for which she underwent biopsy on 02/15/2024. She subsequently started having right scapular pain at the area of the biopsy and also has shortness of breath. Chest x-ray done showed a right apical pneumothorax of approximately 5% to 10%. This was thought to be iatrogenic as a result of the biopsy. Chest tube was inserted in the ED and pulmonology was consulted. Patient was admitted and managed for iatrogenic pneumothorax. Repeat CXR showed that the pneumothorax had resolved. Chest tube was therefore pulled on 02/16/2024. She remained stable and was weaned off oxygen. She was discharged home on 02/16/2024. She is to follow up with her PCP and pulmonology to review the biopsy results when it was available. Patient seen and examined prior to discharge. She had no active complaints and had an uneventful night. Review of systems is otherwise negative. Labs and vitals reviewed. Home meds reviewed and reconciled. Physical Exam Const alert, oriented x3 and no apparent distress General Appearance: cooperative, comfortable, well kempt and well developed Orientation / Consciousness: awake HEENT normocephalic, head/scalp atraumatic, hearing grossly normal bilaterally, moist oral mucous membranes and oropharynx normal Mouth: oral and palatal mucosa normal Eyes PERRL, EOMs intact bilaterally and conjunctivae normal Neck no lymphadenopathy, supple and no JVD Lymph Lymphatic: no lymphadenopathy noted and no lymphedema noted Resp Resp Narrative: mildly diminished breath sounds bibasally, no wheezes or crackles. On 2L of oxygen by nasal canula. Left sided chest tube in situ. Cardio regular rate, regular rhythm, S1 normal heart sound, S2 normal heart sound and no murmurs GI normal to inspection, nondistended, normoactive bowel sounds, soft to palpation, non-tender and non-distended Extremity General Extremity: no tenderness to palpation of joints or extremities Skin no rashes or lesions noted General Skin Exam: no breakdown Neuro oriented x3, CN's II-XII intact bilaterally, moves all extremities and no focal motor deficits Sensorium / Orientation: awake and alert Motor Exam: strength 5/5 throughout and general weakness Psych thought process normal, cooperative and affect normal Appearance: appropriate Weight / BMI Weight Weight: 122 lb 2.177 oz Body Mass Index (BMI) 20.9 ABG / Lab / Microbiology Data 02/15/24 05:55 02/15/24 14:47 Laboratory: Laboratory Results - last 24 hr 02/15/24 05:55: WBC 14.1 H, RBC 4.04 L, Hgb 10.9 L, Hct 34.7 L, MCV 85.9, MCH 27.0, MCHC 31.4 L, RDW Std Deviation 48.2 H, RDW Coeff of Nikki 15.4 H, Plt Count 373, MPV 10.7 02/15/24 14:47: Sodium 134 L, Potassium 4.7, Chloride 100, Carbon Dioxide 28.0, Anion Gap 6, BUN 21 H, Creatinine 1.13 H, Estim Creat Clear Calc 38.86, Est GFR (MDRD) Af Amer 61, Est GFR (MDRD) Non-Af 50 L, BUN/Creatinine Ratio 18.6, G lucose 164 H, Calcium 9.3 Radiography Diagnostic Testing: Radiology Impression Chest X-Ray 02/15/24 14:50 IMPRESSION: New 5% right apical pneumothorax. Electronically Signed: Milad Da Silva MD at 15:02 EDT , Chest X-Ray 02/15/24 15:29 IMPRESSION: The tip of the small caliber right-sided chest tube is within the soft tissues overlying the right lateral chest wall. Stable 5% right apical pneumothorax. Electronically Signed: Mliad Da Silva MD at 15:43 EDT , Chest X-Ray 02/15/24 16:50 IMPRESSION: undefined Chest X-Ray 02/16/24 05:55 IMPRESSION: Right chest tube in place. No recurrent pneumothorax. Electronically Signed: Debbie Groves MD at 7:04 EDT , Chest X-Ray 02/16/24 09:18 IMPRESSION: No pneumothorax. Electronically Signed: Robert Jara MD at 9:30 EDT , Chest X-Ray 02/16/24 11:35 IMPRESSION: Interval removal of the right-sided small bore thoracostomy tube with no pneumothorax. Electronically Signed: Robert Jara MD at 12:45 EDT , D/C Instructions Discharge Diet: Low fat / Low cholesterol Discharge Activity: Return to Normal Activity Weight Bearing Status: Weight bearing as tolerated Call your doctor if you observe: Fever of 101 or Higher, Shortness of breath, Dizziness, Swelling in the ankles and Chest pain Meaningful Use Info Meaningful Use Meaningful Use Diagnoses (Choose all that apply): None applicable Ischemic Stroke Statin Dosing Therapy Reference: STATIN DOSE THERAPY REFERENCE: * Patients > 75 years receive moderate or high dose statin therapy. * Patients 75 years or YOUNGER should receive HIGH intensity statin dose unless contraindicated. You will be required to document reason for non-treatment if statin daily dose does not meet guidelines. HIGH DOSE STATIN THERAPY DAILY Atorvastatin > than or = to 40 mg Rosuvastatin > than or = to 20 mg Amlodipine + Atorvastatin > than or = to 2.5/40 mg Ezetimibe + Simvastatin 10/80 mg Simvastatin 80mg Discharge Plan Admission Admit Date/Time: 02/15/24 17:18 Primary Reason for Your Visit: iatrogenic pneumothorax Attending Provider: Twila Rodrigez Primary Care Provider: Cathy Garnica Consulting Providers: Malcolm Inman; Keo Hinojosa; Gino Liu; Alexander Valdez; Prem Mueller; Sonia Marin; Lul Parker; Carlos Eduardo Dickinson; Iwona Herrera; Jessy Salamanca; Enrique Grimm; Walt Currie; Kenroy Duran; Lencho Collins; [place]; [place] Instructions Patient Instructions: Pneumothorax (Collapsed Lung) Discharge Orders/Prescriptions Prescriptions: Continued oxybutynin chloride 15 mg tablet extended release 24hr 15 mg PO DAILY albuterol sulfate 90 mcg/actuation HFA aerosol inhaler 2 puff inhalation Q8H PRN (Reason: sob and wheezing) prednisone 5 mg tablet 10 mg PO DAILY Referrals / Follow Up: Cathy Garnica MD [Primary Care Provider] - Within 1 Week Gino Liu DO [Med Staff - Active Staff] - Within 2 Weeks Disposition Disposition (needs filled in before D/C Order can be placed): Home, Self Care Charges/Coding Visit Charges Inpatient E&M: 46606 Disch Hosp >30min
--- NOTE | 2024-02-16 13:06 | DCINST_ITS ---
Discharge Instructions Diet Discharge Diet: Low fat / Low cholesterol Activity Discharge Activity: Return to Normal Activity Weight Bearing Status: Weight bearing as tolerated Dressing / Incision Call your doctor if you observe: Fever of 101 or Higher, Shortness of breath, Dizziness, Swelling in the ankles and Chest pain Follow Up Care Test Results: Test results from this visit will be discussed in further detail at your follow- up appointment, if applicable. Discharge Plan Admission Admit Date/Time: 02/15/24 17:18 Primary Reason for Your Visit: iatrogenic pneumothorax Attending Provider: Twila Rodrigez Primary Care Provider: Cathy Garnica Consulting Providers: Malcolm Inman; Keo Hinojosa; Gino Liu; Alexander Valdez; Prem Mueller; Sonia Marin; Lul Parker; Carlos Eduardo Dickinson; Iwona Herrera; Jessy Salamanca; Enrique Grimm; Walt Currie; Kenroy Duran; Lencho Collins; [place]; [place] Instructions Patient Instructions: Pneumothorax (Collapsed Lung) Discharge Orders/Prescriptions Prescriptions: Continued oxybutynin chloride 15 mg tablet extended release 24hr 15 mg PO DAILY albuterol sulfate 90 mcg/actuation HFA aerosol inhaler 2 puff inhalation Q8H PRN (Reason: sob and wheezing) prednisone 5 mg tablet 10 mg PO DAILY Referrals / Follow Up: Cathy Garnica MD [Primary Care Provider] - Within 1 Week Gino Liu DO [Med Staff - Active Staff] - Within 2 Weeks Disposition Disposition (needs filled in before D/C Order can be placed): Home, Self Care
[2024-02-16 14:00] VITALS: O2SAT 90; O2SAT 96
--- NOTE | 2024-02-16 14:06 | PHA.DC.MR.R ---
Pharmacy PR Med Reconciliation Pharmacy Service has performed discharge medication reconciliation for this patient. The patient's discharge medication list was reviewed for discrepancies and discrepancies were resolved. Medications at Discharge Home Medications oxybutynin chloride 15 mg tablet,extended release 24 hr 15 mg PO DAILY urine 08/13/23 albuterol sulfate 90 mcg/actuation aerosol inhaler 2 puff inhalation Q8H PRN sob and wheezing 02/01/24 prednisone 5 mg tablet 10 mg PO DAILY inflammation 02/01/24
[2024-02-16 14:15] VITALS: BP 136/66; PULSE 88; RESP 16; TEMP 36.7; O2SAT 93
--- NOTE | 2024-02-16 14:17 | CASEMGMT ---
Patient has order for discharge. Patient does not qualify for home oxygen. RN CM in to discuss needs at discharge, family at bedside. Patient denies needs or help at discharge. Patient had no further questions or concerns.
--- NOTE | 2024-02-16 15:10 | CHAPLAIN ---
Type of Pastoral Visit _x__ Initial Visit ___ Follow-up Visit ___ On-call Visit ___ General Patient Visit ___ Spiritual Assessment ___ Family Conference ___ Bereavement ___ Rapid Response ___ Code Blue ___ Other (describe below) Pastoral Care Referral From _x__ Patient ___ Family ___ Nurse ___ Physician ___ Gardening Manager ___ Volleyball Referee ___ Other (describe below) Sacrament/Intervention _x__ Active listening ___ Anointing ___ Roman Catholic ___ Bereavement ___ Communion _x__ Sujata exploration ___ ___ Life review _x__ Prayer ___ Reconciliation ___ Sacrament of Sick _x__ Supportive presence ___ Wedding ___ Other (describe below) Pastoral Comments patient and granddaughter are in the room; patient states that she is feeling improvement and has seen progress since her admission; pt states encouragement from her granddaughter; pt would welcome a prayer although not connected to a sujata community; patient talks about her name and some of her background; offer of support given; goal is to get home soon
== END 2024-02-16 13:05 | disposition home or self-care (01) ==
LOC: ED 17:37 → PCU 17:52
PROVIDERS: Admitting Provider Internal Medicine; Emergency Provider Emergency Medicine; PCP Family Medicine; Visit Provider Student in an Organized Health Care Education/Training Program
DX: J95.811 Postprocedural pneumothorax (principal); C34.11 Malignant neoplasm of upper lobe, right bronchus or lung; M06.9 Rheumatoid arthritis, unspecified; J44.9 Chronic obstructive pulmonary disease, unspecified; Z79.52 Long term (current) use of systemic steroids; F17.210 Nicotine dependence, cigarettes, uncomplicated; N32.81 Overactive bladder; Z79.899 Other long term (current) drug therapy; Y84.8 Other medical procedures as the cause of abnormal reaction of the patient, or of later complication, without mention of misadventure at the time of the procedure
CPT/HCPCS: 32408; 32551; 71045; 71046; 77012; 80048; 85027; 88172; 88305; 88313; 88341; 88342; 96374; 96375; 96376; 99156; 99157; 99221; 99284; J7030; J7050; A4216; C2613; G0378; J2405

== ENCOUNTER → 2024-02-15 | Outpatient (CLI) | payer MEDICARE, SELFPAY ==
--- NOTE | 2024-02-14 | IMM_PTH ---
PATIENT: SUELLEN PINON LOC: CT U#:[id number] AGE/SX: 73/F ROOM: RE02/15/[address]: Dr. Gino Liu DO : 1950 BED: DIS: 02/15/2024 SPEC #: [id number] RECD: 02/16/24 09:48 STATUS: CED REQ #: [id number] RICARDO: 02/14/24 00:[address]: Gino Liu DEPT: IMMUNOHISTOCHEMISTRY RECD BY: Artur Gardiner Tissues: Lung, NOS Procedures: RCC (add) NAPSIN A (add) CK20 (add) CK5-6 (add) CK7 (add) CK8 (add) HEP PAR (add) IN (add) TTF1 (add) Pankeratin (add) P40 (add) ER (initial) PHYSICIAN & INSTITUTION [facility] [phone] SPECIMEN INFORMATION: Tissue Source: Right lung biopsy Clinical Info: Lung mass Specimen Number: [id number] CPT code: [id number] METHODOLOGY: Deparaffinized sections of prefer/formalin-fixed tissue or PAP/DQ stained slides are incubated with monoclonal/polyclonal antibodies/oligonucleotide probes. Localization is made via biotin free immunoperoxidase method. Appropriate controls are performed and reacted as expected. Results on target cell population are indicated in the following table: RESULTS: ANTIBODY / CLONE RESULT ER (6F11) negative IN (1E2) negative AE1-3 (AE1/AE3/PCK26) positive CK7 (OV-TL12/30) positive CK8 (69adrxH04) positive CK20 (KS20.8) negative TTF-1 (8G7G3/1) positive Napsin A (Rabbit Polyclonal) positive HepPar (OCh1E5) negative RCC (PN-15) negative CK5-6 (D5 & 1684) negative P40 (BC28) negative These tests were developed and their performance characteristics determined by [facility]. They may not have been cleared or approved by the U.S. Food and Drug Administration. The FDA has determined that such clearance or approval is not necessary. The above immunohistochemical/dualISH markers are ordered and reviewed by the Pathologist. INTERPRETATION: Right lung, CT guided core biopsy: Non-small cell carcinoma, favor adenocarcinoma, bronchioloalveolar type. UDAY/ 02/17/2024
--- NOTE | 2024-02-14 09:30 | ASPIGT_PTH ---
PATIENT: SUELLEN PINON LOC: CT U#:[id number] AGE/SX: 73/F ROOM: RE02/15/[address]: Dr. Gino Liu DO : 1950 BED: DIS: 02/15/2024 SPEC #: [id number] RECD: 02/15/24 10:00 STATUS: CED MICHELLE #: [id number] RICARDO: 02/14/24 09:[address]: Gino Liu DEPT: SURGICAL PATHOLOGY RECD BY: Viviana Berry ENTERED: 02/15/24 10:22 SP TYPE: ASP RAD OTHR DR: Cathy Garnica MD Tissues: Lung, NOS Procedures: FNA Specimen Adequacy Special Stain Group II Surgery Specimen Level IV Imprint (control) HEADER OPERATION: CT guided right lung biopsy PRE-OP DIAGNOSIS: Lung mas TISSUE SUBMITTED: 20 gauge x 5 cores MICROSCOPIC DIAGNOSIS Right lung mass, CT guided core biopsy: Non-small cell carcinoma, favored adenocarcinoma, bronchioloalveolar type. See comment. UDAY/ 02/16/2024 COMMENT The specimen is evaluated at the time of biopsy by Dr. Bee. Immediate Evaluation = Mildly atypical cells noted. Immunohistochemistry ([id number]) supports the above diagnosis. Molecular studies of the tumor can be performed, if clinically indicated. Please notify the laboratory if it is needed. Case has been reviewed in consultation with Dr. Cavazos who concurs with the above diagnosis. IDC:AM MICROSCOPIC DESCRIPTION Slides are reviewed. GROSS DESCRIPTION Received in fixative is one container labeled with the patient's name and designated CT guided right lung biopsy. The specimen consists of multiple irregular fragments of light padilla soft tissue that in aggregate measure 0.8 x 0.1 x 0.1 cm. The specimen is totally submitted in one cassette. Two touch imprints are prepared at the time of core biopsy. UDAY/ 02/15/2024 TC:0 CPT:06190,45878
[2024-02-15] VITALS (19 sets, daily range): BP systolic 113–169; BP diastolic 50–93; PULSE 91–98; RESP 13–17; TEMP 36.6; O2SAT 93–100; BMI 21.1
[2024-02-15] MEDS: Midazolam 2 MG/2 ML Syringe IV (09:05)
[2024-02-15] MEDS: 0.9% Normal Saline (250mL Bag) 250 ML 15 ML IV (09:05)
[2024-02-15] MEDS: fentaNYL 100 MCG/2 ML Ampul IV ×2 (09:09→09:44)
[2024-02-15] MEDS: Lidocaine 2% (20 ml mdv) 20 ML Vial INFILT (09:44)
--- NOTE | 2024-02-15 10:00 | RAD_ITS ---
STUDY: X-RAY CHEST REASON FOR EXAM: Female, 73 years old. Post lung biopsy -- Immediately post lung biopsy TECHNIQUE: Single AP portable view of the chest. COMPARISON: None. FINDINGS: EKG electrodes are seen. No evidence of pneumothorax on the immediate post right lung biopsy radiographs. RAD/Chest Insp/Exp 2 View IMPRESSION: No evidence of pneumothorax on the immediate post right lung biopsy radiographs. Electronically Signed: Milad Da Silva MD at 10:35 EDT ,
--- NOTE | 2024-02-15 10:14 | PCM.OP.PRO ---
Procedure Report Date of Procedure: 02/15/24 Assessment & Plan Assessment/Plan (1) Lung nodule: PLAN: PROCEDURE: CT GUIDED CORE NEEDLE LUNG BIOPSY ORDERING PROVIDER: Dr. Gino Liu INDICATION: Female, 73 years old. Right upper lobe lung nodule. PROVIDER: SAMANTHA Gee CONSENT: Written informed consent was obtained having explained the risks, benefits and alternatives in detail with the [ ] who accepted the risks and agreed to proceed. Laboratory review and clinical assessment was performed. PRE-PROCEDURE SEDATION ASSESSMENT: Current history and physical dictated by referring physician and reviewed. No clinical changes since date of exam. Patient has a Mallampati Score of Class 1 and ASA Class of 2. PROCEDURAL SEDATION PROTOCOL: The Drugs used were: 2 mg Versed, IV, and 50 mcg Fentanyl, IV. The sedation time was: 44 minutes, starting at 9:08 AM and terminated at 9:52 AM. The procedural sedation protocol was independently monitored by the department nurse. RADIATION DOSAGE (If Supplied By Facility): CTDIvol = 13.44 mGy, DLP = 758.52 mGycm Individualized dose optimization techniques were used for this CT. TECHNIQUE: The patient was placed in a prone position. A noncontrast CT was performed to localize the lesion in the right upper lobe. The skin surface was prepped and draped in a sterile fashion. 2% lidocaine was used for local anesthesia. Using CT guidance, a 20-gauge coaxial biopsy device was advanced to the periphery of the lesion. A total of 5 core specimens were obtained. Specimens were microscopically reviewed by pathology in the CT suite and placed in formalin solution. BioSentry tract sealant system was deployed at the biopsy site, and the biopsy needle was removed. A sterile occlusive dressing was applied to the biopsy site. The patient tolerated the procedure well. An immediate chest xray was ordered, per protocol. A negative biopsy does not exclude malignancy. Further imaging or clinical followup based on patient condition and degree of clinical suspicion for malignancy. Suggest rebiopsy, if biopsy results do not match with clinical scenario. IMPRESSION: 1. CT directed core needle biopsy of right upper lobe nodule using CT image guidance with image documentation as described. Pathology results are pending. 2. Procedural Sedation protocol utilized with independent monitoring by the department nurse. Procedures Radiology Radiology CT Procedures: 05889 Biopsy Lung
--- NOTE | 2024-02-15 11:15 | RAD_ITS ---
STUDY: X-RAY CHEST REASON FOR EXAM: Female, 73 years old. Post lung biopsy -- 2 hours post lung biopsy TECHNIQUE: AP inspiration and expiration views. COMPARISON: Comparison is made with prior study done earlier in the day. FINDINGS: No evidence of pneumothorax on the two-hour post right lung biopsy radiographs. RAD/Chest Insp/Exp 2 View IMPRESSION: No evidence of pneumothorax on the 2 hour post right lung biopsy radiographs. Electronically Signed: Milad Da Silva MD at 13:40 EDT ,
== END | disposition home or self-care (01) ==
LOC: CT 07:52
PROVIDERS: PCP Family Medicine; Referring Provider Internal Medicine Critical Care Medicine; Visit Provider Internal Medicine Critical Care Medicine
DX: C34.11 Malignant neoplasm of upper lobe, right bronchus or lung (principal)
CPT/HCPCS: 32408; 71046; 77012; 88172; 88305; 88313; 99156; 99157; J7050; A4216; C2613

== ENCOUNTER 2024-02-17 04:44 | Emergency (ER) | payer MEDICARE, SELFPAY ==
[2024-02-17 04:46] VITALS: BP 185/82; PULSE 86; RESP 16; TEMP 36.5; O2SAT 95; BMI 20.9
[2024-02-17 04:51] VITALS: BP 185/82; PULSE 91; RESP 16; TEMP 36.5; O2SAT 94
[2024-02-17 04:54] VITALS: O2SAT 95
--- NOTE | 2024-02-17 04:58 | RAD_ITS ---
INDICATION: dyspnea, hx of pneumothorax EXAMINATION/TECHNIQUE: X-RAY - XR Chest 2 Views: Inspiration and expiration radiograph COMPARISON: 2023, February 15, 2024. FINDINGS: LINES/DEVICES: None. LUNGS: Right upper nodule again seen with decreased surrounding attenuation compared with post biopsy radiograph. Decreased right apical pneumothorax with trace pneumothorax best seen on expiration view. Mild left basilar subsegmental atelectasis. MEDIASTINUM AND CARDIOVASCULAR STRUCTURES: Cardiac silhouette not enlarged. Aortic atherosclerosis. BONES AND SOFT TISSUES: Unremarkable. RAD/Chest Insp/Exp 2 View IMPRESSION: Trace residual right apical pneumothorax, decreased from prior exam. Redemonstration of right apical lung nodule. Electronically Signed: Guy Mohr MD at 5:54 EDT ,
--- NOTE | 2024-02-17 04:58 | EKG12_ITS ---
Test Reason : SOB Blood Pressure : / mmHG Vent. Rate : 088 BPM Atrial Rate : 088 BPM P-R Int : 156 ms QRS Dur : 088 ms QT Int : 352 ms P-R-T Axes : 058 016 071 degrees QTc Int : 425 ms Normal sinus rhythm Possible Left atrial enlargement Minimal voltage criteria for LVH, may be normal variant ( Sokolow-Hurd ) Nonspecific ST abnormality Abnormal ECG Confirmed by YEHUDA ARREDONDO, BK ([id number]), legal editor JENNIFER GREWAL ([id number]) on 02/18/2024 8:54:40 AM Referred By: LISA Confirmed By:BK BLACKMAN MD
--- NOTE | 2024-02-17 04:59 | EDS_ITS ---
HPI History of Present Illness Chief Complaint: Shortness of Breath Detail of Chief Complaint: Shortness of breath and right-sided chest pain Informant: patient Narrative Narrative: Patient presents with shortness of breath and right-sided chest pain that started last evening. Patient gives history of a lung biopsy 2 days ago. After her lung biopsy she developed a small pneumothorax and presented to the emergency department where she had a pigtail catheter placed. Patient had a pigtail catheter removed yesterday and discharged to home. Comes in with some dyspnea and pain with deep breath. She denies recent travel or surgery. No history of PE or DVT. Patient denies fever. She does have a cough. [facility] Medical History (Updated 02/17/24 @ 07:[address] Dwayne Neff, DO) Pneumothorax after biopsy Kidney disease Smoker Synovial cyst of popliteal space [Patel], right knee Effusion, right knee Osteoarthritis COPD (chronic obstructive pulmonary disease) Home Medications ?Medication ?Instructions ?Recorded ?Last Taken ?Type oxybutynin chloride 15 mg 15 mg PO DAILY urine 08/13/23 Unknown History tablet,extended release 24 hr albuterol sulfate 90 mcg/actuation 2 puff inhalation Q8H PRN sob and 02/01/24 Unknown History aerosol inhaler wheezing prednisone 5 mg tablet 10 mg PO DAILY inflammation 02/01/24 Unknown History hydrocodone-acetaminophen 5-325mg 1 tab PO Q4H PRN PRN Pain 2 days 02/17/24 Unknown Rx 5mg-325mg #10 TABLETS Allergy/AdvReac Type Severity Reaction Status Date / Time No Known Allergies Allergy Verified 02/17/24 04:45 Surgical History (Updated 02/15/24 @ 18:37 by Alize Domingo) History of cholecystectomy Social History Smoking Status: Current every day smoker tobacco type: cigarettes ROS ROS ED Review of Systems ROS Unobtainable: other Constitutional Constitutional ED: Reports lethargy; Denies chills, fever(s), sweats or weight loss Eyes Eyes: Denies blurry vision, change in vision or diplopia ENT ENT ED: Denies rhinorrhea or sore throat Cardiovascular Cardiovascular: Reports chest pain; Denies orthopnea or racing heartbeat Respiratory/Chest Respiratory/Chest: Reports cough and dyspnea; Denies dyspnea on exertion, orthopnea or sputum Gastrointestinal Gastrointestinal: Denies abdominal pain, diarrhea, nausea or vomiting Genitourinary Genitourinary ED: Denies dysuria, hematuria or urinary frequency Musculoskeletal Musculoskeletal: Denies arthralgias, back pain, myalgias or neck pain Integumentary Denies abscess, Abrasions or rash Neurologic Neurologic: Denies headache(s) or weakness Psychiatric Psychiatric: Denies anxiety, depression or suicidal thoughts Endocrine Endocrinology: Denies polydipsia, polyphagia or polyuria Hematologic/Lymphatic Hematologic/Lymphatic: Denies easy bleeding, easy bruising or lymphadenopathy Allergic/Immunologic Allergic/Immunologic ED: Denies mouth swelling, tongue swelling or urticaria EXAM Physical Exam Const Vital Signs: 02/17/24 04:46 02/17/24 04:51 02/17/24 04:54 Temperature 97.7 F L 97.7 F L Temperature Source Oral Oral Pulse Rate 86 91 Respiratory Rate 16 16 Respiratory Effort Short of Breath Respiratory Depth Normal Respiratory Pattern Normal Blood Pressure 185/82 H 185/82 H Blood Pressure Mean 116 116 Pulse Ox 95 94 Oxygen Delivery Method Room Air Room Air Room Air Oxygen Flow Rate (L/min) 02/17/24 05:09 Temperature Temperature Source Pulse Rate Respiratory Rate Respiratory Effort Respiratory Depth Respiratory Pattern Blood Pressure Blood Pressure Mean Pulse Ox 94 Oxygen Delivery Method Nasal Cannula Oxygen Flow Rate (L/min) 2 Positive well nourished and well developed General Appearance ED: well developed and NAD HEENT Reports TM's clear and moist mucous membranes normocephalic and atraumatic; Negative for trauma or tenderness Tympanic Membrane ED: Yes TM's clear Eyes PERRL and EOMs intact bilaterally General Eye ED: Negative for pale conjunctiva or scleral icterus Neck no lymphadenopathy, supple and no JVD General: Negative for tenderness Chest Wall inspection of chest normal and palpation of chest normal Chest: Negative for tenderness Resp normal respiratory effort and clear to auscultation bilaterally Effort and Inspection: Negative for respiratory distress or pain with movement Auscultation: Negative for rhonchi, wheezes or diminished lung sounds Cardio regular rate, regular rhythm, S1 normal heart sound, S2 normal heart sound and no murmurs Peripheral Pulses: pulses 2+ throughout GI normal to inspection, nondistended, normoactive bowel sounds, soft to palpation, non-tender, non-distended and no masses Back/Spine no CVA tenderness and no thoracic nor lumbar tenderness Extremity normal to inspection General Extremety ED: Negative for edema General Extremity: Negative for edema Neuro oriented x3, CN's II-XII intact bilaterally, no sensory deficits noted and gait normal Sensorium / Orientation: awake, alert, oriented to person, oriented to place and oriented to time Motor Exam: strength 5/5 throughout and strength abnormal Psych mental status grossly normal Skin no rashes or lesions noted and no wounds MDM MDM MDM Narrative Medical decision making narrative: Patient presents with chest pain shortness of breath right-sided. Patient with recent pneumothorax that had a pleural catheter placed and then removed. Patient has a spiculated mass right lung that was biopsied 2 days ago. IV line established. Initially obtain a chest x-ray inspiratory and expiratory views and my interpretation I did not appreciate a pneumothorax however radiology thought there was a tiny apical remnant pneumothorax but significantly improved from prior studies. Patient had a CBC with differential that showed a white count of 12.1 with hemoglobin 10.6 and platelet count of 333. Chemistries were unremarkable. Did obtain a D-dimer that was elevated at 4.32. Troponin was normal at 9. Initial EKG showed a sinus rhythm with ventricular rate of 88 bpm with no acute ST segment changes. Given the elevated D-dimer obtain a CTA of the chest which did show trace residual right apical pneumothorax decreased from prior exam and spiculated right upper lobe nodule. I discussed case with Dr. Gino Liu who took care of the patient when she was admitted. He did not feel any further intervention was indicated and I am certainly in agreement. Clinically patient looks well and she is not hypoxic. He did recommend an albuterol MDI if she does not already have 1. I will write her a prescription for few [place] for pain and patient will follow-up in Dr. Liu's office within the next week. Patient advised to return if worsening pain, increasing shortness of breath, or condition should worsen in any way. Lab Data Attestation: I reviewed the patient's lab results. Labs: Laboratory Results - last 24 hr 02/17/24 04:59 WBC 12.1 H RBC 3.97 L Hgb 10.6 L Hct 34.1 L MCV 85.9 MCH 26.7 L MCHC 31.1 L RDW Std Deviation 47.2 H RDW Coeff of Nikki 15.1 H Plt Count 333 MPV 9.6 Immature Gran % (Auto) 0.700 Neut % (Auto) 69.9 Lymph % (Auto) 22.2 [place] % (Auto) 5.4 Eos % (Auto) 1.4 Baso % (Auto) 0.4 Absolute Neuts (auto) 8.5 H Absolute Lymphs (auto) 2.69 Nucleated RBC % 0 D-Dimer Quant (PE/DVT) 4.32 H* Sodium 133 L Potassium 3.8 Chloride 100 Carbon Dioxide 26.0 Anion Gap 7 BUN 21 H Creatinine 0.96 Estim Creat Clear Calc 45.74 Est GFR (MDRD) Af Amer 74 Est GFR (MDRD) Non-Af 61 BUN/Creatinine Ratio 22.0 H Glucose 103 Calcium 9.4 Troponin I High Sens 9 Radiography Diagnostic Testing: Clinical Impression(s) from Imaging Studies Chest X-Ray 02/17/24 04:58 IMPRESSION: Trace residual right apical pneumothorax, decreased from prior exam. Redemonstration of right apical lung nodule. Electronically Signed: Guy Mohr MD at 5:54 EDT Reading Location ID and State: [facility] / MD Tel , Service support , Chest CTA 02/17/24 05:46 IMPRESSION: No pulmonary embolism Trace right apical pneumothorax with postbiopsy changes of suspicious right apical nodule. Mild apical emphysematous change. Mild bilateral basilar atelectasis. Electronically Signed: Guy Mohr MD at 7:06 EDT Reading Location ID and State: [facility] / MD Tel , Service support , 2 views inspiratory Views of the chest obtained interpreted by myself as no evidence of infiltrate or pneumothorax or acute disease process. Radiology felt there was a small right apical pneumothorax. EKG Initial EKG: Attestation: I personally reviewed and interpreted this EKG as follows: Comments: Sinus rhythm with ventricular rate of 88 bpm with no acute ST segment changes Discharge Plan Triage Chief Complaint: Shortness of Breath ED Provider: Dwayne Neff Dx/Rx/DC Orders Clinical Impression: Chest pain, Iatrogenic pneumothorax Instructions: Pneumothorax (Collapsed Lung), ED Chest Pain, Uncertain Cause Prescriptions: New hydrocodone-acetaminophen 5-325 mg tablet 1 tab PO Q4H PRN PRN (Reason: Pain) 2 Days Qty: 10 0RF No Action oxybutynin chloride 15 mg tablet extended release 24hr 15 mg PO DAILY albuterol sulfate 90 mcg/actuation HFA aerosol inhaler 2 puff inhalation Q8H PRN (Reason: sob and wheezing) prednisone 5 mg tablet 10 mg PO DAILY Primary Care Provider: Cathy Garnica Referrals: Cathy Garnica MD [Primary Care Provider] - Gino Liu DO [Med Staff - Active Staff] - 3-5 Days Print Language: [place] Disposition Disposition: Home, Self Care
[2024-02-17 05:08] LABS: Absolute Lymphocyte Count 2.69 X10^3/uL (0.83-4.51); Absolute Neutrophil Count 8.5 X10^3/uL (2.0-7.7); Basophil# 0.05 X10^3/uL; Basophil% 0.4 % (0-1); Eosinophil# 0.17 X10^3/uL; Eosinophils% 1.4 % (0-5); Hematocrit 34.1 % (37-47); Hemoglobin 10.6 g/dL (12.0-15.0); Lymphocyte # 2.69 X10^3/ul (0.83-4.51); Lymphocyte % 22.2 % (19-41); Mean Corp Hgb Conc 31.1 g/dL (32-36); Mean Corpuscular Hgb 26.7 pg (27.0-32.0); Mean Corpuscular Volume 85.9 fL (81-99); Mean Platelet Vol. 9.6 fl (6.2-12.0); Monocyte# 0.66 X10^3/uL; Monocyte% 5.4 % (0-10); NRBC Flagged by Analyzer 0 % (0-5); Neutrophil # 8.47 X10^3/uL (2.7-7.7); Neutrophil % 69.9 % (47-70); Platelet Count 333 K/mm3 (150-450); RBC Distribution Width CV 15.1 % (11.6-14.6); RBC Distribution Width SD 47.2 fl (35.1-43.9); Red Blood Count 3.97 M/mm3 (4.2-5.4); White Blood Count 12.1 K/mm3 (4.4-11.0)
[2024-02-17 05:09] VITALS: O2SAT 94
[2024-02-17] MEDS: 0.9% Normal Saline (1000mL) 1,000 ML 150 ML IV (05:16)
[2024-02-17 05:26] LABS: Anion Gap 7 (5-15); BUN 21 mg/dL (7-18); Calcium,Total 9.4 mg/dL (8.5-10.1); Chloride 100 mmol/L (98-107); Creatinine, Serum 0.96 mg/dL (0.55-1.02); EST Glomerular Filtration Rate 61 mL/min (>60); Est Glom Filt Rate - Afr Amer 74 mL/min (>60); Estimated Creatinine Clearance 45.74 ml/min; Glucose 103 mg/dL (74-106); Potassium 3.8 mmol/L (3.5-5.1); Sodium Level 133 mmol/L (136-145); Troponin-I HS 9 pg/mL (3.0-54.0)
--- NOTE | 2024-02-17 05:46 | CT_ITS ---
STUDY: CTA CHEST REASON FOR EXAM: Female, 73 years old. right chest pain, elevated d-dimer RADIATION DOSAGE (If Supplied By Facility): CTDIvol = ( 9.88 ) mGy, DLP = ( 214.08 ) mGycm TECHNIQUE: The examination was performed with the intravenous administration of IV 75mL Isovue-370. Post-processing of the angiographic images was performed, with multiplanar reformation and 3D reconstruction. Individualized dose optimization techniques were used for this CT. COMPARISON: Chest radiograph February 17, 2024. FINDINGS: Unremarkable thyroid. Normal enhancement of the bilateral pulmonary arteries. There is no demonstrated pulmonary embolism. No main pulmonary arterial enlargement. Aortic atherosclerosis without ectasia or dissection. Common confluence right brachycephalic left common carotid artery. No cardiomegaly or pericardial effusion. Mild calcified coronary atherosclerosis. Scattered subcentimeter mediastinal and hilar lymph nodes, nonpathologic by size criteria. Unremarkable esophagus. Trace right apical pneumothorax. Mild upper lung centrilobular and paraseptal emphysematous change. Right apical 1.7 cm spiculated nodule with posterior directed track suggestive of recent biopsy. Mild bilateral peribronchial thickening with mild scattered endobronchial debris the bilateral lung bases. Mild linear atelectasis in the lung bases, left greater than right. No gross consolidation or effusion.. Normal osseous structures. Anterior right chest wall subcutaneous emphysema. CT/CTA Chest W/WO Contrast IMPRESSION: No pulmonary embolism Trace right apical pneumothorax with postbiopsy changes of suspicious right apical nodule. Mild apical emphysematous change. Mild bilateral basilar atelectasis. Electronically Signed: Guy Mohr MD at 7:06 EDT ,
[2024-02-17 05:49] LABS: D-Dimer Quantitative (DVT/PE) 4.32 FEU/ug/m (0.27-0.49)
[2024-02-17 07:33] VITALS: BP 165/79; PULSE 93; RESP 13; TEMP 36.6; O2SAT 96
== END 2024-02-17 07:35 | disposition home or self-care (01) ==
PROVIDERS: Emergency Provider Emergency Medicine; PCP Family Medicine; Visit Provider Emergency Medicine
DX: R07.9 Chest pain, unspecified (principal); J44.9 Chronic obstructive pulmonary disease, unspecified; F17.210 Nicotine dependence, cigarettes, uncomplicated; J95.811 Postprocedural pneumothorax; J98.11 Atelectasis; Z90.49 Acquired absence of other specified parts of digestive tract
CPT/HCPCS: 71046; 71275; 80048; 84484; 85025; 85379; 93005; 96360; 96361; 99284; J7030; Q9967; A4216

== ENCOUNTER → 2024-02-29 | Outpatient (CLI) | payer MEDICARE, SELFPAY ==
--- NOTE | 2024-02-29 08:30 | PET_ITS ---
EXAMINATION: FDG PET-CT INDICATIONS: A 73-year-old female with apparent history of primary lung carcinoma presenting for initial staging examination. COMPARISON EXAMINATION: CT of the chest report dated 02/17/24 INDEX LESION SIZE SUV INTERPRETATION Right upper lung field, right upper lobe 16.8-mm 2.9 Fulfills quantitative criteria for viable neoplasm Left axilla associated with fatty hilus formation 7.6-mm (largest) 3.4 (max) Low likelihood of viable neoplasm secondary to fatty hilus formation, may necessitate histopathologic investigation TECHNIQUE: Following the intravenous administration of 14.901 mCi of F-18 deoxyglucose via the right antecubital fossa, multiplanar image acquisitions of the neck, chest, abdomen and pelvis to level of mid thigh, obtained at one hour post radiopharmaceutical administration contemporaneously interpreted with the current CT of the neck, chest, abdomen and pelvis, to level of mid thigh, dated 02/29/[address] of the chest report dated 02/17/24 reveals: BLOOD GLUCOSE LEVEL:?? 109 mg/dl?HEIGHT:?63 inches?WEIGHT: 122 lbs. FINDINGS: HEAD/NECK: There is no evidence of abnormal increased glucose metabolism in the pharyngeal mucosal space, parapharyngeal space, bilateral-lateral and anterior neck, hypopharynx and distribution of the laryngeal structures. The visualized portion of the cerebral cortical-subcortical structures demonstrate symmetric and preserved glucose metabolism. CHEST: Focal enhanced tracer concentration is defined in the right upper hemithorax pulmonary parenchyma, right upper lobe. The calculated maximal standard uptake value is 2.9. The maximal axial diameter of the corresponding parenchymal density is 16.8-mm. Facilitated FDG concentration is noted in the left axilla generating a calculated maximal standard uptake value of 3.4. The maximal axial diameter of the metabolic, morphologic abnormality is 7.6-mm. There is apparent evidence of fatty hilus formation on review of CT of the chest dated 02/29/24 in the analogous location. Pertinent chest CT findings are as follows. There is atherosclerotic calcification defined in the thoracic aorta without evidence of dilatation-aneurysm formation. Coronary arterial calcification is observed. Mediastinal soft tissue densities are ametabolic. There are no additional parenchymal densities-nodules defined in the right and left hemithorax with quantitatively significant increased FDG uptake. ABDOMEN/PELVIS: Normal physiologic distribution of the radiopharmaceutical is apparent in the hepatic (2.8) and splenic parenchyma, both renal units, bladder and visualized intestinal tract. Pertinent abdomen and pelvis CT findings are as follows. Cyst formation is defined in the right kidney. There is atherosclerotic calcification defined in the abdominal aorta without evidence of dilatation-aneurysm formation. Pelvic arterial calcification is observed. Right and left inguinal soft tissue densities are ametabolic. Calcification manifest in the region of the bilateral adnexa reveals no evidence of increased tracer uptake. SKELETAL: Degenerative changes are noted in the cervical, thoracic and lumbar spine without evidence of increased radiopharmaceutical concentration. Increased uptake noted in the right hip articulation likely represents large articulation synovitis. PET/PET/CT Tumor Base -Thigh Init IMPRESSION: 1. ABNORMAL EXAMINATION INDICATIVE OF MALIGNANT VIABLE NEOPLASM. 2. Increased tracer uptake defined in the right upper lung field, right upper lobe, fulfills quantitative criteria for viable neoplasm. (Rodriguez et al, Annals of Internal Medicine, 138:724, 2003). 3. Enhanced tracer uptake defined in the left axillary region with associated fatty hilus is associated with a lower likelihood of viable neoplasm. Histopathologic investigation may be necessitated secondary to the quantitative degree of uptake. Electronic Signature Robert Montalvo D.O. Accurate Quantification of SUVs for this report are calculated using the exclusive [employer], ([place] Patent No. [id number] [id number] [id number] [phone] [place] patent [phone] ). Standardization and correction of the FDG SUV metric exclusively available with [employer] intellectual property, allow for vendor non-specific objective quantitative sequential FDG PET-CT comparison and otherwise unobtainable optimization of the sensitivity and specificity of the examination. [email or web address] Electronically Signed: Robert Montalvo DO at 13:43 EDT ,
== END | disposition home or self-care (01) ==
LOC: ONC 08:15
PROVIDERS: PCP Family Medicine; Referring Provider Nurse Practitioner Acute Care; Visit Provider Nurse Practitioner Acute Care
DX: C34.11 Malignant neoplasm of upper lobe, right bronchus or lung (principal)
CPT/HCPCS: 78815; A9552

== ENCOUNTER → 2024-03-07 | Outpatient (CLI) | payer MEDICARE, SELFPAY | END | disposition home or self-care (01) | LOC: PSN 07:50 | PROVIDERS: PCP Family Medicine; Referring Provider Internal Medicine Hematology & Oncology; Visit Provider Internal Medicine Hematology & Oncology | DX: C34.11 Malignant neoplasm of upper lobe, right bronchus or lung (principal) | CPT/HCPCS: 94060; 94726; 94729 ==

== ENCOUNTER → 2024-03-10 | Outpatient (CLI) | payer MEDICARE, SELFPAY ==
--- NOTE | 2024-03-10 16:01 | MRI_ITS ---
STUDY: MRI BRAIN WITH AND WITHOUT CONTRAST REASON FOR EXAM: Female, 73 years old. STAGING RIGHT LUNG NSCLC NO CONCERNS, H/O LUNG CA X3-4 MONTHS, 11CC CLARISCAN TECHNIQUE: Standardized multiplanar fat and water weighted pulse sequences were obtained. IV 11cc Clariscan was administered for the contrast portion of the examination. COMPARISON: Head CT dated March 29, 2023. FINDINGS: Normal size of the ventricles and extra-axial spaces for the patient''s age. There are multiple white matter hyperintensities, distributed throughout the deep white matter tracts of the cerebral hemispheres, consistent with moderate chronic white matter ischemic changes. There is no evidence for recent intracranial ischemia or other cause of cytotoxic edema on diffusion weighted imaging (DWI). Normal T2* images of the brain without demonstrated susceptibility artifact. There is no demonstrated hemosiderin stain. There are no enhancing lesions of the brain parenchyma or abnormal thickening or enhancement of the meninges or dura. No skull lesions or abnormal enhancement is demonstrated. Normal bilateral basal ganglia. Normal thalami. There is no extra-axial fluid accumulation. Normal flow voids within the major intracranial circulation suggesting patency by spin echo criteria. Normal venous enhancement. There is no enhancing intra-axial or extra-axial abnormality. Normal sella turcica, pituitary gland, infundibular stalk, optic chiasm and hypothalamus. Normal tectal plate and pineal gland. Normal midbrain, ana and medulla. Normal cerebellum. Normal basal cisterns. Normal bilateral temporal bones. Normal bilateral internal auditory canals. No demonstrated orbital abnormality, within the constraints of a routine brain study. Normal visualized paranasal sinuses. Normal calvarium and skull base. Normal visualized soft tissue structures. Normal visualized upper cervical spine. MRI/Brain W/WO Contrast IMPRESSION: 1. Involutional changes of the brain, as described above. 2. There are no enhancing lesions of the brain parenchyma or abnormal thickening or enhancement of the meninges or dura. No skull lesions or abnormal enhancement is demonstrated. Electronically Signed: Malik Farrell MD at 15:05 EDT ,
== END | disposition home or self-care (01) ==
LOC: MRI 15:58
PROVIDERS: PCP Family Medicine; Referring Provider Internal Medicine Hematology & Oncology; Visit Provider Internal Medicine Hematology & Oncology
DX: C34.11 Malignant neoplasm of upper lobe, right bronchus or lung (principal)
CPT/HCPCS: 70553; A9575

== ENCOUNTER 2024-04-21 12:25 | Inpatient (IN) | payer MEDICARE, SELFPAY ==
[2024-04-21] VITALS (10 sets, daily range): BP systolic 93–164; BP diastolic 61–89; PULSE 80–97; RESP 14–18; TEMP 36.4–36.8; O2SAT 88–97; BMI 22.0
[2024-04-21 12:47] LABS: Bedside Glucose 112 mg/dL (74-106)
--- NOTE | 2024-04-21 12:48 | RAD_ITS ---
STUDY: X-RAY CHEST REASON FOR EXAM: Female, 73 years old. Lung cancer TECHNIQUE: Single AP portable view of the chest. COMPARISON: Comparison is made with prior study February 17, 2024. FINDINGS: EKG electrodes are seen. Stable 7.4 mm nodule in the right lung apex suggestive of possible small granuloma. There is no demonstrated pleural abnormality. Normal size heart. Normal mediastinum and cassie. Normal visualized pulmonary arteries. There is atherosclerotic calcification of the aortic arch with tortuosity. Normal visualized thoracic spine. Normal visualized ribs, clavicles, and shoulders. There is no demonstrated abnormality of the visualized soft tissue structures of the upper abdomen. RAD/Chest 1 View (Portable) IMPRESSION: No acute abnormality is seen. Electronically Signed: Milad Da Silva MD at 13:43 EDT ,
--- NOTE | 2024-04-21 12:48 | RAD_ITS ---
STUDY: X-RAY - PELVIS AND RIGHT HIP REASON FOR EXAM: Female, 73 years old. Right hip pain following a fall TECHNIQUE: 3 views of the pelvis and hip. COMPARISON: None. FINDINGS: There is a non-specific bowel gas pattern. Normal visualized soft tissue structures. Normal bilateral iliac wings, sacroiliac joints and visualized sacrum. Normal bilateral superior and inferior pubic rami. Normal pubic symphysis. Normal bilateral ischial tuberosities. There is a nondisplaced transverse subcapital fracture of the proximal right femur. RAD/HIP, UNI W/ Pelvis 2-3 Views IMPRESSION: Nondisplaced transverse subcapital fracture of the proximal right femur. Electronically Signed: Milad Da Silva MD at 13:41 EDT ,
[2024-04-21] MEDS: Ondansetron 4 MG/2 ML Vial IV ×2 (13:00→19:21)
[2024-04-21] MEDS: Morphine 4 MG/ML Syringe IV ×2 (13:14→14:42)
[2024-04-21 13:29] LABS: Absolute Lymphocyte Count 1.35 X10^3/uL (0.83-4.51); Absolute Neutrophil Count 8.8 X10^3/uL (2.0-7.7); Basophil# 0.03 X10^3/uL; Basophil% 0.3 % (0-1); Eosinophil# 0.03 X10^3/uL; Eosinophils% 0.3 % (0-5); Hematocrit 31.3 % (37-47); Hemoglobin 9.8 g/dL (12.0-15.0); Lymphocyte # 1.35 X10^3/ul (0.83-4.51); Lymphocyte % 12.3 % (19-41); Mean Corp Hgb Conc 31.3 g/dL (32-36); Mean Corpuscular Hgb 26.1 pg (27.0-32.0); Mean Corpuscular Volume 83.5 fL (81-99); Mean Platelet Vol. 9.3 fl (6.2-12.0); Monocyte# 0.65 X10^3/uL; Monocyte% 5.9 % (0-10); NRBC Flagged by Analyzer 0 % (0-5); Neutrophil # 8.78 X10^3/uL (2.7-7.7); Neutrophil % 79.7 % (47-70); Platelet Count 265 K/mm3 (150-450); RBC Distribution Width CV 14.7 % (11.6-14.6); RBC Distribution Width SD 44.6 fl (35.1-43.9); Red Blood Count 3.75 M/mm3 (4.2-5.4)
[2024-04-21 13:49] LABS: Anion Gap 7 (5-15); BUN 22 mg/dL (7-18); BUN/Creat Ratio 24.7 RATIO (10-20); Calcium,Total 9.5 mg/dL (8.5-10.1); Chloride 103 mmol/L (98-107); Creatinine, Serum 0.89 mg/dL (0.55-1.02); EST Glomerular Filtration Rate 66 mL/min (>60); Est Glom Filt Rate - Afr Amer 80 mL/min (>60); Estimated Creatinine Clearance 49.34 ml/min; Glucose 102 mg/dL (74-106); Potassium 4.2 mmol/L (3.5-5.1); Sodium Level 136 mmol/L (136-145)
--- NOTE | 2024-04-21 14:12 | ED.VIS.FALL ---
HPI HPI - Fall History of Present Illness Chief Complaint: Fall Informant: patient, family and EMS Narrative Narrative: 73-year-old female presenting to the emergency room via EMS with a chief complaint of right hip injury. Patient was blowing her leaves today by the sidewalk when she states that she got dizzy and fell down. She injured her right hip. Later in her ED course she also notes pain near the right patella. Patient denies any loss of consciousness. She denies any head or neck pain. She is scheduled for lung cancer surgery on Wednesday at [facility]. She recently quit smoking. She does not wear home oxygen. EMS notes that she had oxygen levels into the 80s occasionally and nursing notes the same here. She does not feel short of breath or complained of any chest pain. [facility] Medical History History of COPD Nicotine dependence, cigarettes, uncomplicated Rheumatoid arthritis Pneumothorax after biopsy Kidney disease Smoker Synovial cyst of popliteal space [Patel], right knee Effusion, right knee Osteoarthritis COPD (chronic obstructive pulmonary disease) Home Medications ?Medication ?Instructions ?Recorded ?Last Taken ?Type oxybutynin chloride 15 mg 15 mg PO DAILY urine 08/13/23 Unknown History tablet,extended release 24 hr albuterol sulfate 90 mcg/actuation 2 puff inhalation Q8H PRN sob and 02/01/24 Unknown History aerosol inhaler wheezing prednisone 5 mg tablet 10 mg PO DAILY inflammation 02/01/24 Unknown History Allergy/AdvReac Type Severity Reaction Status Date / Time No Known Allergies Allergy Verified 04/21/24 12:31 Family History Father Heart disease Hypertension Brother Cancer Mother Arthritis Surgical History History of breast lift History of cholecystectomy Social History Smoking Status: Former smoker Tobacco: How many years used: 50 alcohol intake: never ROS ROS ED Constitutional Constitutional ED: Denies chills, fever(s) or weight loss Eyes Eyes: Denies change in vision or diplopia ENT ENT ED: Denies ear pain, rhinorrhea or sore throat Cardiovascular Cardiovascular: Denies chest pain, orthopnea, palpitations or racing heartbeat Respiratory/Chest Respiratory/Chest: Denies cough, dyspnea or orthopnea Gastrointestinal Gastrointestinal: Denies abdominal pain, diarrhea, nausea or vomiting Genitourinary Genitourinary ED: Denies dysuria, hematuria or urinary frequency Musculoskeletal Musculoskeletal: Reports other Details: See history of present illness ; Denies arthralgias, back pain, myalgias or neck pain Integumentary Denies abscess or rash Neurologic Neurologic: Denies headache(s) or weakness Psychiatric Psychiatric: Denies anxiety, depression, suicidal ideation or suicidal thoughts Endocrine Endocrinology: Denies polydipsia, polyphagia or polyuria Allergic/Immunologic Allergic/Immunologic ED: Denies mouth swelling, tongue swelling or urticaria EXAM Physical Exam Const Vital Signs: 04/21/24 12:25 04/21/24 12:31 04/21/24 12:32 Temperature 98 F Temperature Source Oral Pulse Rate 94 Respiratory Rate 16 Respiratory Effort Normal Non-Labored Respiratory Depth Normal Respiratory Pattern Normal Blood Pressure 119/69 Blood Pressure Mean 85 Pulse Ox 88 94 96 Oxygen Delivery Method Room Air Nasal Cannula Venturi Mask Oxygen Flow Rate (L/min) 2 2 04/21/24 13:04 Temperature Temperature Source Pulse Rate 80 Respiratory Rate 14 Respiratory Effort Respiratory Depth Respiratory Pattern Blood Pressure 93/61 Blood Pressure Mean 71 Pulse Ox 93 Oxygen Delivery Method Room Air Oxygen Flow Rate (L/min) Positive well nourished and well developed General Appearance ED: well developed and NAD HEENT Reports normocephalic, head/scalp atraumatic and moist mucous membranes Eyes PERRL and EOMs intact bilaterally Neck no lymphadenopathy, supple and no JVD Resp normal respiratory effort and clear to auscultation bilaterally Cardio regular rate, regular rhythm and no murmurs GI normal to inspection, nondistended, normoactive bowel sounds and non-tender Palpation: soft Back/Spine no CVA tenderness and normal ROM Extremity Extremity Narrative: Right hip tender to palpation. Positive logroll. There is slight shortening at the malleoli. Patient is tender around the right patella with a small contusion noted inferior medially. General Extremety ED: Negative for edema General Extremity: Negative for edema Neuro oriented x3 and CN's II-XII intact bilaterally Sensorium / Orientation: alert Motor Exam: strength 5/5 throughout Psych mental status grossly normal Mood & Affect: Negative for depressed or tearful Skin no rashes or lesions noted and no wounds MDM MDM MDM Narrative Medical decision making narrative: Differential diagnosis includes but not limited to hip fracture hip contusion pelvic fracture knee contusion knee fracture pneumothorax hemothorax pleural effusion pneumonia postobstructive pneumonia My independent interpretation of the chest x-ray is no acute process. My independent interpretation of the plain films of the right hip and pelvis is a subcapital hip fracture. My independent interpretation of the plain films of the right knee is no acute fracture. Hemoglobin at 9.8 white count of 11 platelet count of 265 blood glucose 102 BUN of 22 creatinine 0.89. Patient had a couple episodes of hypotension which resolved without any treatment. Oxygen levels have been variable from about 87-94 on room air. She received supplemental oxygen as we were giving her pain medication. Patient states that she has seen numerous orthopedist in town. Dr. Morales saw her in October and he is on-call today. I will speak with the hospitalist regarding admission History & Record Review Discussion w/independent historian: Patient and Family Lab Data Attestation: I reviewed the patient's lab results. Labs: Laboratory Results - last 24 hr 04/21/24 04/21/24 12:28 13:25 WBC 11.0 RBC 3.75 L Hgb 9.8 L Hct 31.3 L MCV 83.5 MCH 26.1 L MCHC 31.3 L RDW Std Deviation 44.6 H RDW Coeff of Nikki 14.7 H Plt Count 265 MPV 9.3 Immature Gran % (Auto) 1.500 H Neut % (Auto) 79.7 H Lymph % (Auto) 12.3 L [place] % (Auto) 5.9 Eos % (Auto) 0.3 Baso % (Auto) 0.3 Absolute Neuts (auto) 8.8 H Absolute Lymphs (auto) 1.35 Nucleated RBC % 0 Sodium 136 Potassium 4.2 Chloride 103 Carbon Dioxide 26.0 Anion Gap 7 BUN 22 H Creatinine 0.89 Estim Creat Clear Calc 49.34 Est GFR (MDRD) Af Amer 80 Est GFR (MDRD) Non-Af 66 BUN/Creatinine Ratio 24.7 H Glucose 102 Calcium 9.5 POC Glucose 112 H Radiography Diagnostic Testing: Clinical Impression(s) from Imaging Studies Chest X-Ray 04/21/24 12:48 IMPRESSION: No acute abnormality is seen. Electronically Signed: Milad Da Silva MD at 13:43 EDT , Hip/Pelvis X-Ray 04/21/24 12:48 IMPRESSION: Nondisplaced transverse subcapital fracture of the proximal right femur. Electronically Signed: Milad Da Silva MD at 13:41 EDT , EKG Initial EKG: Attestation: I personally reviewed and interpreted this EKG as follows: Comments: Normal sinus rhythm ventricular rate of 93 bpm Management Discussion w/another healthcare provider: Hospitalist (Dr. Posey) and [employer] (Dr. Morales) Discharge Plan Dx/Rx/DC Orders Clinical Impression: Subcapital fracture of right hip, Adenocarcinoma of right lung, Fall, Hypoxia, Pain in right knee Disposition Disposition: Acute Care Hospital [facility]
--- NOTE | 2024-04-21 14:43 | HP.PCM.HOS_ITS ---
HPI - General General Date of Admission: 04/21/24 Date of Service: 04/21/24 Chief Complaint: She was cleaning the leaves in the yard felt dizzy and fell down HPI Narrative SUELLEN PINON, is a 73 F with history of COPD and adenocarcinoma of lung came to ED after she fell down sideways on the right side. She stated she was cleaning the lips on the yard, felt dizzy and was trying to sit on the grass but before that she fell down on the right side. She injured her right hip and also pain over the right knee/patella. No loss of consciousness. Denies hitting the head or neck. Complain of moderate pain 5-6/10 over right hip area mainly posterior region on moving right hip. EMS found her pulse ox was 80%. She does not wear home oxygen. She further said that she was supposed to have tumor resection of her lung cancer on coming Wednesday at [facility]. In ED, pulse ox 88% on 2 L of oxygen, increased to 3 L. In ED, imaging showed nondisplaced transverse subcapital fracture of the proximal right femur. Orthopedic surgeon was consulted and the patient further admitted. COUNTS INCLUDE 234 BEDS AT THE [facility] Medical History History of COPD Nicotine dependence, cigarettes, uncomplicated Rheumatoid arthritis Pneumothorax after biopsy Kidney disease Smoker Synovial cyst of popliteal space [Patel], right knee Effusion, right knee Osteoarthritis COPD (chronic obstructive pulmonary disease) Home Medications ?Medication ?Instructions ?Recorded ?Last Taken ?Type oxybutynin chloride 15 mg 15 mg PO DAILY urine 08/13/23 Unknown History tablet,extended release 24 hr albuterol sulfate 90 mcg/actuation 2 puff inhalation Q8H PRN sob and 02/01/24 Unknown History aerosol inhaler wheezing prednisone 5 mg tablet 10 mg PO DAILY inflammation 02/01/24 Unknown History Allergy/AdvReac Type Severity Reaction Status Date / Time No Known Allergies Allergy Verified 04/21/24 12:31 Family History Father Heart disease Hypertension Brother Cancer Mother Arthritis Surgical History History of breast lift History of cholecystectomy Social History Smoking Status: Former smoker Tobacco: How many years used: 50 alcohol intake: never ROS ROS Narrative Constitutional: Reports fatigue and weakness. No fever. HEENT: Reports systems reviewed and no addt'l complaints, except as documented Respiratory/Chest: COPD. Lung cancer. No acute shortness of breath or respiratory distress or wheezing or change in cough or sputum.. CVS: Denies chest pain pressure or tightness. Denies history of CAD or other cardiac disease. Gastrointestinal: Denies coffee ground emesis, hematemesis or vomiting Genitourinary: Denies burning urination or new urinary tract symptoms Musculoskeletal: As described in HPI. Neurologic: Denies seizure-like symptoms. skin: No ulcer. No rash Endocrinology: Reports systems reviewed and no addt'l complaints, except as documented Hematologic/Lymphatic: Reports systems reviewed and no addt'l complaints, except as documented Rest 14 ROS are negative except as mentioned in HPI Vital Signs Vital Signs Vital Signs: 04/21/24 12:25 04/21/24 12:31 04/21/24 12:32 Temperature 98 F Temperature Source Oral Pulse Rate 94 Respiratory Rate 16 Respiratory Effort Normal Non-Labored Respiratory Depth Normal Respiratory Pattern Normal Blood Pressure 119/69 Blood Pressure Mean 85 Pulse Ox 88 94 96 Oxygen Delivery Method Room Air Nasal Cannula Venturi Mask Oxygen Flow Rate (L/min) 2 2 04/21/24 13:04 Temperature Temperature Source Pulse Rate 80 Respiratory Rate 14 Respiratory Effort Respiratory Depth Respiratory Pattern Blood Pressure 93/61 Blood Pressure Mean 71 Pulse Ox 93 Oxygen Delivery Method Room Air Oxygen Flow Rate (L/min) Weight Weight: 128 lb 8.472 oz Body Mass Index (BMI) 22.0 Physical Exam Narrative General: Alert, Oriented x3, Cooperative HEENT: Atraumatic, PERRLA, EOMI, Normocephalic Oral: Oral mucosa dry. No Gingival or Mucosal Lesions/ Ulcerations Neck: Supple, No JVD, Negative Carotid Bruits Chest wall/Lungs: Air entry diminished in bilateral lung bases. No crepitation/rhonchi. Mild hypoxia on oxygen. Cardiovascular: Regular rate, Regular Rhythm, Normal S1, Normal S2, No M/G/R Abdomen: Bowel Sounds Present, Soft, Non Tender, Non-Distended : No dysuria. No renal angle tenderness. No suprapubic tenderness. Extremities: No edema, Capillary Refill Less than 3 Seconds Skin: No rashes, No breakdown Musculoskeletal: Right hip tenderness and groin region. ROM limited. Right hip abducted and externally rotated. Neurological: Cranial nerves II-XII grossly intact, DTR 2+/4. No acute focal neurological deficit. Psych/Mental Status: Normal Affect, Appropriate. Results Lab / Micro Data 04/21/24 13:25 04/21/24 13:25 Labs: Laboratory Results - last 24 hr 04/21/24 12:28: POC Glucose 112 H 04/21/24 13:25: WBC 11.0, RBC 3.75 L, Hgb 9.8 L, Hct 31.3 L, MCV 83.5, MCH 26.1 L, MCHC 31.3 L, RDW Std Deviation 44.6 H, RDW Coeff of Nikki 14.7 H, Plt Count 265, MPV 9.3, Immature Gran % (Auto) 1.500 H, Neut % (Auto) 79.7 H, Lymph % (Auto) 12.3 L, Hanson % (Auto) 5.9, Eos % (Auto) 0.3, Baso % (Auto) 0.3, Absolute Neuts (auto) 8.8 H, Absolute Lymphs (auto) 1.35, Nucleated RBC % 0, Sodium 136, Potassium 4.2, Chloride 103, Carbon Dioxide 26.0, Anion Gap 7, BUN 22 H, Creatinine 0.89, Estim Creat Clear Calc 49.34, Est GFR (MDRD) Af Amer 80, Est GFR (MDRD) Non-Af 66, BUN/Creatinine Ratio 24.7 H, Glucose 102, Calcium 9.5 Imaging Radiology Impression Chest X-Ray 04/21/24 12:48 IMPRESSION: No acute abnormality is seen. Electronically Signed: Milad Da Silva MD at 13:43 EDT , Hip/Pelvis X-Ray 04/21/24 12:48 IMPRESSION: Nondisplaced transverse subcapital fracture of the proximal right femur. Electronically Signed: Milad Da Silva MD at 13:41 EDT , Assessment & Plan Assessment/Plan (1) Subcapital fracture of right hip: PLAN: Plan This is a 71-year-old female being admitted after she fell down on right side. 1. Fall and acute debility due to nondisplaced transverse equitable fracture of proximal right femur: [facility] floor. Twelve-lead EKG ordered. Orthopedic surgeon Dr. Morales already saw the patient and plan for surgery tomorrow AM. PT and OT ordered. Pain control. IV fluid ordered. 2. Dizziness possible due to low glucose/hypoglycemia: Patient attributed to her dizziness to missing of her breakfast and low blood glucose. Glucose was found 88 by EMS. Accu-Cheks Q6 hourly. Patient does not have history of diabetes mellitus. A1c ordered for tomorrow AM 3. COPD with adenocarcinoma of right lung with mild hypoxia: Patient is stated she had biopsy-proven adenocarcinoma and was supposed for elective surgery of tumor resection in [facility] on 04/24/2024. I advised to call to the respective physician and probably need to be rescheduled. She quit smoking after diagnosis of lung cancer. 50 pack years of smoking. Chest x-ray was reviewed does not show acute abnormality. DuoNeb as needed.Incentive spirometry. Patient not on home oxygen. 4. Degenerative arthritis/osteoarthritis, rheumatoid arthritis: Past medical history also shows right knee synovial cyst/Patel's cyst. 5. DVT prophylaxis: Heparin 5000 subcutaneous every 8 hourly. Hold morning dose prior to surgery. Living will/advanced directive/end of life care: Patient does have living will or advanced directive. Her daughter present in the ED is power of assistant district attorney for health. After discussion of benefits/risks procedures involved with full code, DNR CC arrest and DNR CC, the patient and the daughter opted for full code. Patient does want artificial life support including intubation, tube feed, ventilator and/chest compression, central venous catheter, vasopressor and DC shock if needed Total time spent in [id number] encounter in discussion of advanced directive 17 minutes. Laboratory Results 04/21/24 12:28: POC Glucose 112 H 04/21/24 13:25: WBC 11.0, RBC 3.75 L, Hgb 9.8 L, Hct 31.3 L, MCV 83.5, MCH 26.1 L, MCHC 31.3 L, RDW Std Deviation 44.6 H, RDW Coeff of Nikki 14.7 H, Plt Count 265, MPV 9.3, Immature Gran % (Auto) 1.500 H, Neut % (Auto) 79.7 H, Lymph % (Auto) 12.3 L, Hanson % (Auto) 5.9, Eos % (Auto) 0.3, Baso % (Auto) 0.3, Absolute Neuts (auto) 8.8 H, Absolute Lymphs (auto) 1.35, Nucleated RBC % 0, Sodium 136, Potassium 4.2, Chloride 103, Carbon Dioxide 26.0, Anion Gap 7, BUN 22 H, Creatinine 0.89, Estim Creat Clear Calc 49.34, Est GFR (MDRD) Af Amer 80, Est GFR (MDRD) Non-Af 66, BUN/Creatinine Ratio 24.7 H, Glucose 102, Calcium 9.5, Magnesium Pending 04/21/24 14:45: PT 14.2, INR 1.1, APTT 25.8 Clinical Impression(s) from Imaging Studies Chest X-Ray 04/21/24 12:48 IMPRESSION: No acute abnormality is seen. Electronically Signed: Milad Da Silva MD at 13:43 EDT , Hip/Pelvis X-Ray 04/21/24 12:48 IMPRESSION: Nondisplaced transverse subcapital fracture of the proximal right femur. Electronically Signed: Milad Da Silva MD at 13:41 EDT , Knee X-Ray 04/21/24 14:50 IMPRESSION: Joint effusion. Electronically Signed: Milad Da Silva MD at 15:06 EDT , Charges/Coding Visit Charges Inpatient E&M: 82009 Init Hosp L3 Procedures Hospitalists Procedures: 84981 Advncd Care Plan 30 Min
--- NOTE | 2024-04-21 14:50 | RAD_ITS ---
STUDY: X-RAY - RIGHT KNEE REASON FOR EXAM: Female, 73 years old. Injury TECHNIQUE: 2 view(s) of the knee. COMPARISON: None. FINDINGS: Normal visualized distal femur. Normal visualized proximal tibia and fibula. Normal proximal tibiofibular articulation. Normal medial femorotibial compartment. Normal lateral femorotibial compartment. Normal patellofemoral articulation. Small joint effusion. RAD/Knee 1 or 2 Views IMPRESSION: Joint effusion. Electronically Signed: Milad Da Silva MD at 15:06 EDT ,
[2024-04-21 15:04] LABS: International Normalized Ratio 1.1; Prothrombin Time (Protime)PT. 14.2 SECONDS (11.7-14.9)
[2024-04-21 15:05] LABS: Partial Thromboplast Time 25.8 Seconds (24.1-36.2)
--- NOTE | 2024-04-21 15:28 | EKG12_ITS ---
Test Reason : PRE-OP Blood Pressure : / mmHG Vent. Rate : 093 BPM Atrial Rate : 093 BPM P-R Int : 164 ms QRS Dur : 082 ms QT Int : 364 ms P-R-T Axes : 065 058 071 degrees QTc Int : 452 ms Normal sinus rhythm Minimal voltage criteria for LVH, may be normal variant ( Sokolow-Hurd ) Borderline ECG Confirmed by YEHUDA ARREDONDO, BK ([id number]), medical transcription editor ALLAN COCHRAN ([id number]) on 04/25/2024 2:08:33 PM Referred By: Confirmed By:BK BLACKMAN MD
--- NOTE | 2024-04-21 15:29 | CONS.ORTHO ---
HPI Consult Data Date of Consult: 04/21/24 HPI Narrative HPI Narrative: SUELLEN PINON, is a 73 F who presents with a right femoral neck fracture. Fell today cleaning up in the yard. Had a syncopal episode. Has been seen recently by [facility]. Had a bone scan and full workup for a lung lesion that was planned to be removed on Wednesday. that was an isolated lesion. no diffuse mets. daughter cancelled thecase already. having right hip and knee pain, unable to ambulate. [facility] Medical History History of COPD Nicotine dependence, cigarettes, uncomplicated Rheumatoid arthritis Pneumothorax after biopsy Kidney disease Smoker Synovial cyst of popliteal space [Patel], right knee Effusion, right knee Osteoarthritis COPD (chronic obstructive pulmonary disease) Home Medications ?Medication ?Instructions ?Recorded ?Last Taken ?Type oxybutynin chloride 15 mg 15 mg PO DAILY urine 08/13/23 Unknown History tablet,extended release 24 hr albuterol sulfate 90 mcg/actuation 2 puff inhalation Q8H PRN sob and 02/01/24 Unknown History aerosol inhaler wheezing prednisone 5 mg tablet 10 mg PO DAILY inflammation 02/01/24 Unknown History Allergy/AdvReac Type Severity Reaction Status Date / Time No Known Allergies Allergy Verified 04/21/24 12:31 Family History Father Heart disease Hypertension Brother Cancer Mother Arthritis Surgical History History of breast lift History of cholecystectomy Social History Smoking Status: Former smoker Tobacco: How many years used: 50 alcohol intake: never Vital Signs Vital Signs Vital Signs: 04/21/24 12:25 04/21/24 12:31 04/21/24 12:32 Temperature 98 F Temperature Source Oral Pulse Rate 94 Respiratory Rate 16 Respiratory Effort Normal Non-Labored Respiratory Depth Normal Respiratory Pattern Normal Blood Pressure 119/69 Blood Pressure Mean 85 Pulse Ox 88 94 96 Oxygen Delivery Method Room Air Nasal Cannula Venturi Mask Oxygen Flow Rate (L/min) 2 2 04/21/24 13:04 04/21/24 15:00 Temperature Temperature Source Pulse Rate 80 93 Respiratory Rate 14 15 Respiratory Effort Respiratory Depth Respiratory Pattern Blood Pressure 93/61 141/77 H Blood Pressure Mean 71 98 Pulse Ox 93 97 Oxygen Delivery Method Room Air Room Air Oxygen Flow Rate (L/min) Weight Weight: 128 lb 8.472 oz Body Mass Index (BMI) 22.0 Physical Exam Const alert, oriented x3, no apparent distress and well nourished General Appearance: cooperative Extremity normal capillary refill, no clubbing, cyanosis or edema and no calf tenderness Extremity Narrative: right knee closed, no abrasions, no effusion, no knee pain. right hip - mild abrasion right hip lateral side. femur soft, short and ER. NVI. normal sensation sd p, t,s,s. pulses strong DP. df and pf the ankle and toes. Lab / Micro Data 04/21/24 13:25 04/21/24 13:25 Labs: Laboratory Results - last 24 hr 04/21/24 12:28: POC Glucose 112 H 04/21/24 13:25: WBC 11.0, RBC 3.75 L, Hgb 9.8 L, Hct 31.3 L, MCV 83.5, MCH 26.1 L, MCHC 31.3 L, RDW Std Deviation 44.6 H, RDW Coeff of Nikki 14.7 H, Plt Count 265, MPV 9.3, Immature Gran % (Auto) 1.500 H, Neut % (Auto) 79.7 H, Lymph % (Auto) 12.3 L, [place] % (Auto) 5.9, Eos % (Auto) 0.3, Baso % (Auto) 0.3, Absolute Neuts (auto) 8.8 H, Absolute Lymphs (auto) 1.35, Nucleated RBC % 0, Sodium 136, Potassium 4.2, Chloride 103, Carbon Dioxide 26.0, Anion Gap 7, BUN 22 H, Creatinine 0.89, Estim Creat Clear Calc 49.34, Est GFR (MDRD) Af Amer 80, Est GFR (MDRD) Non-Af 66, BUN/Creatinine Ratio 24.7 H, Glucose 102, Calcium 9.5 04/21/24 14:45: PT 14.2, INR 1.1, APTT 25.8 Imaging Radiology Impression Chest X-Ray 04/21/24 12:48 IMPRESSION: No acute abnormality is seen. Electronically Signed: Milad Da Silva MD at 13:43 EDT , Hip/Pelvis X-Ray 04/21/24 12:48 IMPRESSION: Nondisplaced transverse subcapital fracture of the proximal right femur. Electronically Signed: Milad Da Silva MD at 13:41 EDT , Knee X-Ray 04/21/24 14:50 IMPRESSION: Joint effusion. Electronically Signed: Milad Da Sivla MD at 15:06 EDT , displaced subcapital femoral neck fracture. no knee fracture Assessment & Plan Assessment/Plan (1) Subcapital fracture of right hip: PLAN: 73-year-old female with a R hip femoral neck fracture displaced. This is typically indicated for surgery. This to be in the form of hemiarthroplasty although the other option be total hip arthroplasty (very less common would be ORIF given displacement). Hemiarthroplasty would be the best option in this patient. Despite lung CA surgery pending, no evidence of mets to the hip on recent xray, hx of recent trauma, and no diffuse disease with recent workup per patient and family so will treat as traumatic fracture rather than pathologic fracture. I explained the pros and cons risk benefits of nonoperative versus operative intervention. Risks of nonsurgical treatment typically higher given prolonged nature of bedrest. That being said surgery has complications such as infection loosening pain stiffness bleeding damage to other structures instability dislocation fractures and other risks. The patient understands wishes to go ahead with R hip hemiarthroplasty - I typically perform this cemented better results especially early on albeit slightly higher surgical time possibly increased blood loss. I marked the R hip consented the patient for right hip hemiarthroplasty as well as possible need for blood products. Patient to be diet as tolerated n.p.o. at midnight trying to do the case tomorrow morning at some point. I let the greenhouse assistant know, Dr Vázquez aware. Pros and cons risks and benefits were discussed with the patient including but not limited to infection, pain, stiffness, bleeding, damage to surrounding structures, neurovascular injury, recurrence or retear, failure or wear of hardware or fixation, instability, fracture, deep vein thrombosis and pulmonary embolism, anesthetic risks, , patient dissatisfaction, need for further surgery and other risks. Patient understood and wished to proceed with surgery, and signed the informed consent documentation.
[2024-04-21] MEDS: 0.9% Normal Saline (1000mL) 1,000 ML 75 ML IV (16:25)
[2024-04-21 16:28] LABS: Magnesium 1.6 mg/dL (1.6-2.6)
[2024-04-21] MEDS: Morphine 2 MG/ML Syringe IV ×2 (16:47→17:38)
[2024-04-21] MEDS: 0.9% Saline Lock 10 ML Syringe IV ×2 (16:48→19:19)
[2024-04-21] MEDS: Acetaminophen 325 MG Tablet 650 MG PO (17:35)
[2024-04-21] MEDS: HYDROmorphone 0.5 MG/0.5 ML SYRINGE IV (19:19)
[2024-04-21] MEDS: Heparin Injection (Vial) 5,000 UNIT/ML VIAL 5000 UNIT SC (20:16)
[2024-04-21] MEDS: Senna/Docusate Sodium 1 Tablet 2 TABLET PO (20:16)
[2024-04-21] MEDS: HYDROmorphone 1 MG/ML Syringe IV (23:08)
[2024-04-22] VITALS (17 sets, daily range): BP systolic 102–165; BP diastolic 58–82; PULSE 90–109; RESP 16–20; TEMP 36.2–37.2; O2SAT 91–98
--- NOTE | 2024-04-22 | HIP_PTH ---
PATIENT: SUELLEN PINON LOC: [facility]3 U#:[id number] AGE/SX: 73/F [place] [facility] [place] [place]21/[address]: Dr. Nikia Coe DO : 1950 BED: 1 DIS: 04/25/2024 SPEC #: [id number] RECD: 04/24/24 11:07 STATUS: CED MARTINEZ #: [id number] RICARDO: 04/22/24 00:[address]: Jimmy Morales DEPT: SURGICAL PATHOLOGY RECD BY: Krys Briseno ENTERED: 04/24/24 11:42 SP TYPE: TOTAL HIP OTHR DR: MD Dr. Nikia Escobar DO Dr. Prakash Chand, MD Tissues: Hip, NOS Procedures: Decalcification bone/plaque Surgery Specimen Level IV HEADER OPERATION: Hemiarthroplasty, right hip PRE-OP DIAGNOSIS: Subcapital fracture of right hip TISSUE SUBMITTED: Right hip bone and soft tissue MICROSCOPIC DIAGNOSIS Right hip bone and soft tissue, total hip replacement/resection: Femoral head and detached pieces of bone with focal area of hemorrhage, clinically subcapital fracture of right hip. UDAY: 04/27/2024 MICROSCOPIC DESCRIPTION Slides are reviewed. GROSS DESCRIPTION Received is one container labeled with the patient's name and designated femoral head and tissue. The specimen consists of a padilla femoral head measuring 4.0 x 5.0 x 3.5 cm. The articular surface is smooth. Resection margin is irregular and hemorrhagic. Also present in the specimen container are multiple detached pieces of bone measuring in aggregate 4.0 x 3.0 x 2.0 cm. No soft tissue is identified. Medical Detail Representative sections are submitted in two cassettes after decalcification. 1- detached pieces of bone, 2- femoral head. 04/24/2024 TC:5 CPT: 73403, 24707
[2024-04-22 01:17] LABS: Bedside Glucose 113 mg/dL (74-106)
[2024-04-22] MEDS: HYDROmorphone 1 MG/ML Syringe IV (04:00)
[2024-04-22 04:18] LABS: Bedside Glucose 97 mg/dL (74-106)
[2024-04-22 06:20] LABS: Absolute Lymphocyte Count 1.24 X10^3/uL (0.83-4.51); Absolute Neutrophil Count 13.8 X10^3/uL (2.0-7.7); Basophil# 0.07 X10^3/uL; Basophil% 0.4 % (0-1); Eosinophil# 0.26 X10^3/uL; Eosinophils% 1.6 % (0-5); Hematocrit 33.7 % (37-47); Hemoglobin 10.4 g/dL (12.0-15.0); Lymphocyte # 1.24 X10^3/ul (0.83-4.51); Lymphocyte % 7.7 % (19-41); Mean Corp Hgb Conc 30.9 g/dL (32-36); Mean Corpuscular Hgb 26.4 pg (27.0-32.0); Mean Corpuscular Volume 85.5 fL (81-99); Mean Platelet Vol. 9.6 fl (6.2-12.0); Monocyte# 0.64 X10^3/uL; NRBC Flagged by Analyzer 0 % (0-5); Neutrophil # 13.75 X10^3/uL (2.7-7.7); Neutrophil % 85.7 % (47-70); Platelet Count 264 K/mm3 (150-450); RBC Distribution Width CV 14.7 % (11.6-14.6); RBC Distribution Width SD 46.4 fl (35.1-43.9); Red Blood Count 3.94 M/mm3 (4.2-5.4); White Blood Count 16.1 K/mm3 (4.4-11.0)
[2024-04-22 06:30] LABS: Bedside Glucose 95 mg/dL (74-106)
[2024-04-22 07:01] LABS: Anion Gap 6 (5-15); BUN 27 mg/dL (7-18); Calcium,Total 9.3 mg/dL (8.5-10.1); Chloride 100 mmol/L (98-107); Creatinine, Serum 1.08 mg/dL (0.55-1.02); EST Glomerular Filtration Rate 53 mL/min (>60); Est Glom Filt Rate - Afr Amer 64 mL/min (>60); Estimated Creatinine Clearance 40.66 ml/min; Glucose 107 mg/dL (74-106); Potassium 4.4 mmol/L (3.5-5.1); Sodium Level 133 mmol/L (136-145)
--- NOTE | 2024-04-22 08:35 | PCM.PRE.AN2 ---
ASA Classification* ASA Classification ASA Classification: 3 and E Assessment & Plan Anesthesia* Anesthesia Assessment Anesthesia Assessment: Discussed sedation and/or anesthesia options, risks, benefits, and alternatives with patient/parents/legal guardian/POA. Questions invited. The patient/parents/legal guardian/POA seems to understand and agrees to proceed with anesthesia plan. Reviewed the physical assessment, medical history, allergy history and patient home medications list prior to surgery/procedure/anesthetic and documented any changes. Performed airway and anesthesia risk assessments. Anesthesia Type Anesthesia Type: General History Source History Obtained from:: Patient and Chart Anesthesia Focused Assessment* Temperature: 98.6 F Pulse Rate: 109 Blood Pressure: 117/72 Respiratory Rate: 18 Pulse Ox: 98 Oxygen Delivery Method: Nasal Cannula Airway Assessment Mouth opens: >3 cm Mallampati Score: II Teeth Condition: Full (Upper) and Partial (Lower) Neck Range of motion (ROM): Full ROM Focused Labs Anesthesia Preop lab: CBC WBC 16.1 K/mm3 (4.4-11.0) H 04/22/24 05:54 RBC 3.94 M/mm3 (4.2-5.4) L 04/22/24 05:54 Hgb 10.4 g/dL (12.0-15.0) L 04/22/24 05:54 Hct 33.7 % (37-47) L 04/22/24 05:54 Plt Count 264 K/mm3 (150-450) 04/22/24 05:54 CHEMISTRY Potassium 4.4 mmol/L (3.5-5.1) 04/22/24 05:54 Sodium 133 mmol/L (136-145) L 04/22/24 05:54 Magnesium 1.6 mg/dL (1.6-2.6) 04/21/24 13:25 BUN 27 mg/dL (7-18) H 04/22/24 05:54 Creatinine 1.08 mg/dL (0.55-1.02) H 04/22/24 05:54 Glucose 107 mg/dL (74-106) H 04/22/24 05:54 POC Glucose 95 mg/dL (74-106) 04/22/24 06:09 TSH 2.930 uIU/mL (0.358-3.740) 04/22/24 05:54 COAG PT 14.2 SECONDS (11.7-14.9) 04/21/24 14:45 Pre-Assessment Diagnosis/Proposed Procedure Planned Operative Procedure(s): Right Hip Gerardo arthroplasty Anesthesia History Anesthesia History - panel wirer: Anesthesia History - panel wirer Hx Hospitalization No 11/01/16 21:27 Any Problems With Anesthesia Cholinesterase deficiency You/Your Family Experience fever (hyperthermia) with Relationship Recent Exposure to Contagious Disease Does patient have nerve stimulator Patient instructed to have device shut off --Does patient have Pacemaker or ICD? When Was Last Pacemaker Check QUESTION #4 FULL TEXT: You/Your Family Experience fever (hyperthermia) with Anesthesia Last Oral Intake Last Oral intake: Last Oral Intake NPO since Meds taken in AM with sips of water? Meds patient instructed to take am of surgery Any additional information?: Yes NPO since: 00:00 PONV PONV - panel wirer: PONV - panel wirer Female HX of Motion Sickness HX of N/V After Surgery Non-Smoker Duration of Surgery greater than 60 minutes Number of Risk Factors PONV Score Height & Weight Height & Weight: Anesthesia: Height & Weight Height 5 ft 4 in 04/21/24 16:06 Weight: 58.3 kg 04/21/24 16:06 Body Mass Index (BMI) 22.0 04/21/24 16:06 Respiratory Assessment Respiratory Assessment - panel wirer: Respiratory Tract Infection Hx - panel wirer Hx Respiratory Tract Infection Any additional information?: Yes Hx Respiratory Tract Infection: No (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 Has anyone observed you stop No 04/21/24 16:06 breathing during sleep? STOP Results Negative 04/21/24 16:06 QUESTION #5 FULL TEXT : Do you snore loudly (louder than talking or can be heard through closed doors)? 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 Specify any problems Hx of Preganancy in last 3 Months Nurse Filling Out Transfusion [email or web address] 04/21/24 16:06 & Questions: Date: 04/21/24 04/21/24 16:06 Time: 16:16 04/21/24 16:06 Patient unable to answer at Yes 04/21/24 16:06 this time (ie. confused, unrespo /Reproduction History /Reproductive History - panel wirer: /Reproductive Hx- panel wirer Hx Now Gestational Age (in weeks): EDC: Hx Hx Para Hx Section SAB Active Medications Active Medications: Current Medications Generic Name Dose Route Start Last Admin Trade Name Freq PRN Reason Stop Dose Admin Acetaminophen 650 mg 04/21/24 16:06 04/21/24 17:35 Acetaminophen 325 Mg Tablet PO 650 mg Q6H PRN PRN Administration Pain 1-10 Or Fever>100.7 Albuterol/Ipratropium 3 ml 04/21/24 16:06 Ipratropium/Albuterol Sulfate 3 Ml Ampul.Neb INHALATION Q4H.RT PRN sob Glucagon 1 mg 04/21/24 16:06 Glucagon 1 Mg/Ml Syringe IM X1 PRN Hypoglycemia Protocol Heparin Sodium (Porcine) 5,000 unit 04/21/24 22:00 04/22/24 06:07 Heparin Injection (Vial) 5,000 Unit/Ml Vial SC Not Given Q8 YOLA Hydromorphone HCl 0.5 - 1 mg 04/21/24 18:44 04/21/24 19:19 Hydromorphone 0.5 Mg/0.5 Ml Syringe IV 1 mg Q4H PRN PRN Administration Pain Score 4-10 or Pre PT/OT Hydromorphone HCl 0.5 - 1 mg 04/21/24 19:03 04/22/24 04:00 Hydromorphone 1 Mg/Ml Syringe IV 1 mg Q4H PRN PRN Administration Pain Score 4-10 or Pre PT/OT Dextrose 250 mls @ 0 mls/hr 04/21/24 16:06 Dextrose 10%-Water IV .Q0M PRN HYPOGLYCEMIA Protocol As Directed Sodium Chloride 250 mls @ 15 mls/hr 04/21/24 16:06 IV .[id number] PRN Additional IVPB Infusion Sodium Chloride 250 mls @ 15 mls/hr 04/21/24 16:06 IV .[id number] PRN Saline Flush Nicotine 21 mg 04/22/24 10:00 Nicotine 21 Mg Patch TD DAILY YOLA Ondansetron HCl 4 mg 04/21/24 19:10 04/21/24 19:21 Ondansetron 4 Mg/2 Ml Vial IV 4 mg Q6H PRN PRN Administration NAUSEA/VOMITING Pantoprazole Sodium 40 mg 04/22/24 10:00 Pantoprazole Sodium 40 Mg Tablet PO DAILY YOLA Senna/Docusate Sodium 2 tablet 04/21/24 22:00 04/21/24 20:16 Senna/Docusate Sodium 1 Tablet PO 2 tablet BID YOLA Administration Sodium Chloride 10 - 40 ml 04/21/24 16:06 04/21/24 19:19 0.9% Saline Lock 10 Ml Syringe IV 10 ml UD PRN Administration SALINE FLUSH Tolterodine Tartrate 4 mg 04/22/24 10:00 Tolterodine Tartrate 4 Mg Cap.Sa PO DAILY YOLA PFSH Medical History History of COPD Nicotine dependence, cigarettes, uncomplicated Rheumatoid arthritis Pneumothorax after biopsy Kidney disease Smoker Synovial cyst of popliteal space [Patel], right knee Effusion, right knee Osteoarthritis COPD (chronic obstructive pulmonary disease) Home Medications ?Medication ?Instructions ?Recorded ?Last Taken ?Type oxybutynin chloride 15 mg 15 mg PO DAILY urine 08/13/23 Unknown History tablet,extended release 24 hr albuterol sulfate 90 mcg/actuation 2 puff inhalation Q8H PRN sob and 02/01/24 Unknown History aerosol inhaler wheezing prednisone 5 mg tablet 10 mg PO DAILY inflammation 02/01/24 Unknown History nicotine 21 mg/24 hr daily 1 patch transdermal DAILY Nicotine 04/21/24 Unknown History transdermal patch Allergy/AdvReac Type Severity Reaction Status Date / Time No Known Allergies Allergy Verified 04/21/24 12:31 Family History Father Heart disease Hypertension Brother Cancer Mother Arthritis Surgical History History of breast lift History of cholecystectomy Social History Smoking Status: Former smoker Tobacco: How many years used: 50 alcohol intake: never Review of Systems (Anesthesia) ROS Narrative System reviewed and no additional complaints, except as documented.
--- NOTE | 2024-04-22 08:44 | PN.ORTHO_ITS ---
Subjective Subjective PAD 1 hip fracture. going for surgery. nothing new overnight. still has some knee pain despite benign physical exam, xrays showing effusion but no fracture. Objective Data Objective Data Vital Signs: Vital Signs Temp Pulse Resp BP Pulse Ox O2 Del Method O2 Flow Rate 98.6 F 109 H 18 117/72 98 High Flow 4 04/22/24 08:05 04/22/24 08:05 04/22/24 08:05 04/22/24 08:05 04/22/24 08:05 04/22/24 08:06 04/22/24 08:06 Oxygen Flow Rate (L/min) 4 Oxygen Delivery Method High Flow Weight: 128 lb 8.472 oz Body Mass Index (BMI) 22.0 Intake & Output: Intake and Output for Last 24 Hours 04/20/24 04/21/24 04/22/24 23:59 23:59 23:59 Intake Total 0 / 800 1800 / 1800 Output Total 700 / 700 Balance 0 / 350 1100 / 1100 Lab / Micro Data 04/22/24 05:54 04/22/24 05:54 Labs: Laboratory Results - last 24 hr 04/21/24 12:28: POC Glucose 112 H 04/21/24 13:25: WBC 11.0, RBC 3.75 L, Hgb 9.8 L, Hct 31.3 L, MCV 83.5, MCH 26.1 L, MCHC 31.3 L, RDW Std Deviation 44.6 H, RDW Coeff of Nikki 14.7 H, Plt Count 265, MPV 9.3, Immature Gran % (Auto) 1.500 H, Neut % (Auto) 79.7 H, Lymph % (Auto) 12.3 L, [place] % (Auto) 5.9, Eos % (Auto) 0.3, Baso % (Auto) 0.3, Absolute Neuts (auto) 8.8 H, Absolute Lymphs (auto) 1.35, Nucleated RBC % 0, Sodium 136, Potassium 4.2, Chloride 103, Carbon Dioxide 26.0, Anion Gap 7, BUN 22 H, Creatinine 0.89, Estim Creat Clear Calc 49.34, Est GFR (MDRD) Af Amer 80, Est GFR (MDRD) Non-Af 66, BUN/Creatinine Ratio 24.7 H, Glucose 102, Calcium 9.5, Magnesium 1.6 04/21/24 14:45: PT 14.2, INR 1.1, APTT 25.8 04/21/24 18:08: POC Glucose 97 04/22/24 00:59: POC Glucose 113 H 04/22/24 05:54: WBC 16.1 H, RBC 3.94 L, Hgb 10.4 L, Hct 33.7 L, MCV 85.5, MCH 26.4 L, MCHC 30.9 L, RDW Std Deviation 46.4 H, RDW Coeff of Nikki 14.7 H, Plt Count 264, MPV 9.6, Immature Gran % (Auto) 0.600, Neut % (Auto) 85.7 H, Lymph % (Auto) 7.7 L, [place] % (Auto) 4.0, Eos % (Auto) 1.6, Baso % (Auto) 0.4, Absolute Neuts (auto) 13.8 H, Absolute Lymphs (auto) 1.24, Nucleated RBC % 0, Sodium 133 L, Potassium 4.4, Chloride 100, Carbon Dioxide 27.0, Anion Gap 6, BUN 27 H, C reatinine 1.08 H, Estim Creat Clear Calc 40.66, Est GFR (MDRD) Af Amer 64, Est GFR (MDRD) Non-Af 53 L, BUN/Creatinine Ratio 25.0 H, Glucose 107 H, Calcium 9.3, TSH 2.930 04/22/24 06:09: POC Glucose 95 Radiography Diagnostic Testing: Radiology Impression Chest X-Ray 04/21/24 12:48 IMPRESSION: No acute abnormality is seen. Electronically Signed: iMlad Da Silva MD at 13:43 EDT , Hip/Pelvis X-Ray 04/21/24 12:48 IMPRESSION: Nondisplaced transverse subcapital fracture of the proximal right femur. Electronically Signed: Milad Da Silva MD at 13:41 EDT , Knee X-Ray 04/21/24 14:50 IMPRESSION: Joint effusion. Electronically Signed: Milad Da Silva MD at 15:06 EDT , Assessment & Plan Assessment/Plan (1) Pain in right knee: PLAN: 73 yr F going for right hip allen for NOF. This takes precedence over knee pain with benign exam and no fractures on xrays, but can get advanced imaging if the pain persists. Likely referred from the hip. Will proceed to surgery. Anesthesia ok to go ahead. (2) Subcapital fracture of right hip:
[2024-04-22] MEDS: Cefazolin 2 GM in 0.9% Normal Saline (100mL Bag) 100 ML IV ×2 (09:17→17:57)
[2024-04-22] MEDS: TRANEXAMIC ACID 1,000 MG in 0.9% Normal Saline (100mL Bag) 100 ML 440 MG IV (09:20)
[2024-04-22 09:40] LABS: Hemoglobin A1c 5.5 % (3.8-5.6)
[2024-04-22] MEDS: Bupivacaine 0.25% 30 ML Vial (10:47)
--- NOTE | 2024-04-22 10:51 | PCM.OPRPT ---
Problems Associated Problem List Diagnoses (1) Subcapital fracture of right hip: Report of Operation Date of Procedure: 04/22/24 Pre-Operative Diagnosis: R hip fracture Post-Operative Diagnosis: same Surgery/Procedure Performed:: R hip cemented allen arthroplast Surgeon: Jimmy Morales Type of Anesthesia: General and Local Anesthesiologist: Dennis Vázquez Estimated Blood Loss (mL): 100 Description of Procedure: [facility] Medical Records Department [address] [place] [address] Operative Report 04/14/24 1456 MR#: [id number] Acct: [id number] Name: INEZ LEWIS Rep #: [id number] : 03/05/1965 59 From: Jimmy Morales MD PCP: ADRIENNE PATRICIA DO Status: ADM IN Location: CT3 LO707-4 Patient brought to the operating room theater. Placed on the operating table. 2 g IV Ancef administered prior to start of procedure. 1 g IV tranexamic acid ministered prior to start of procedure. Patient transferred R lateral decubitus with the [place] hip positioner. All bony prominences including the hip positioner device appropriately padded. SCD on the nonoperative leg axillary roll used. Leg prepped and draped in the usual sterile fashion with chlorhexidine-based prep solution allowing over 3 minutes drying time prior to draping. Preoperative timeout to confirm the site patient and the surgery. Began by making a longitudinal laterally based incision over the proximal femur. Carried dissection down through skin and subcutaneous tissue achieved meticulous hemostasis. Incised the tensor fascia anna in line with the skin incision. Sharply released the anterior one third of the abductors from the greater trochanter of the hip. Made a T-shaped capsulotomy. Tagged each 1 of these limbs with #1 Vicryl suture. Made the neck cut approximately 1 cm above the level lesser trochanter. Remove the head. I sized this to a size 44 mm bipolar [place] accolade bipolar head. I thoroughly irrigated the acetabulum no remaining debris, irrigated with irrisept. Had to make T incision in TFL so mobilize enough for visualization. I then sequentially used box osteotome lateralizing devices and broaches to size up to a size of 5 cemented broach. I trialed with this with a standard neck length it was a little too tightso I undersized this to -3 mm standard offset with a 5 size broach and 44 mm head this was appropriate good range of motion no impingement no instability with leg lengths appropriate length and normal shuck test. Trial components were removed. Irrisept followed by pulse lavage and preparing the canal was then used with the suction device and the distal cement restrictor medium size then placed to appropriate level. I sized the distal centralizer to a 12 mm selected the final components a size 5 Patrice Accolade stem cemented. I mixed cement using third-generation cement mixing techniques pressurized this in the canal. Patient was stable throughout cementing. Cemented in appropriate version size 5 stem allow this to thoroughly set, with the distal centralizer placed. I cleaned the trunnion. Assembled the -3 mm inner aspect of the bipolar and then the 44 mm outer aspect tapped into place with good fit onto the trunnion. Impacted into place. The final components were then reduced and again trialing performed with appropriate leg lengths and range of motion and stability in all directions. Capsule was closed with #1 Vicryl suture. Abductors were repaired with FiberWire suture and the tensor fascia anna closed with strata fix suture. I then closed the subcutaneous tissue with 2-0 Vicryl sutures and skin with 3-0 Monocryl. I used 20 cc of 0.25% bupivacaine around the soft tissues. Wounds cleaned with wet dry dressing followed application of Steri-Strips and silver Mepilex border dressing. Patient woken up from a general anesthetic transferred to the operating table taken postanesthetic care unit in stable condition. All sponge needle instrument counts were correct no complications plan for patient weightbearing as tolerated and x-ray in the postanesthetic care unit. CPT 70129 computed tomography technologist Jason Wilson dressing, retracting, positioning Procedure Start Time: 09:20 Procedure Stop Time: 10:48 Complications none Admit VTE Documentation VTE Present on Admission: No VTE Mechan Device Prophylaxis: SCD's VTE Pharm Prophylaxis ordered?: Yes Procedures Musculoskeletal [id number]: Other Procedure See Report
--- NOTE | 2024-04-22 11:05 | RAD_ITS ---
INDICATION: POST OP EXAMINATION/TECHNIQUE: X-RAY - XR Pelvis 1 or 2 Views COMPARISON: April 21, 2024 FINDINGS: There is a new right total hip arthroplasty in place. The alignment is anatomic. No suspicious bony lesions are seen. No acute fracture nor dislocation is identified. There are postsurgical changes within the soft tissues of the right proximal thigh. There are degenerative changes of the left hip. RAD/Pelvis 1 or 2 Views IMPRESSION: New total hip arthroplasty, grossly anatomic in alignment. Electronically Signed: Sammie Roberts MD at 14:36 EDT ,
--- NOTE | 2024-04-22 11:10 | PCM.POST.ANE ---
Anesthesia: Postop Eval I Current Vital Signs Temperature: 97.1 F Pulse Rate: 103 Blood Pressure: 151/70 Respiratory Rate: 18 Pulse Ox: 92 Oxygen Flow Rate (L/min): 3 Assessment Airway patent: Yes Spontaneous unlabored respirations: Yes Mental status: Awake nausea: No Vomiting: No Anesthesia Complication: No Fluid Hydration Crystalloid volume administer (ml): 1,000 Total IV fluid infused: 1,000 Progress Note Anesthesia document: Postop Eval 1 completed: Yes
--- NOTE | 2024-04-22 12:37 | PCM.POSTANE2 ---
Anesthesia Postop Eval I Sum Postop Eval Completion status Anesthesia document: Postop Eval 1 completed: Yes Anesthesia Postop Eval I Summary Anesthesia Postop Eval I Summary: Anesthesia Postop Eval I: Assessment Summary Airway patent Yes 04/22/24 11:15 Spontaneous unlabored Yes 04/22/24 11:15 respirations Mental status Awake 04/22/24 11:15 nausea No 04/22/24 11:15 Vomiting No 04/22/24 11:15 Anesthesia Postop Eval I: Fluid Summary Crystalloid volume administer 1,000 04/22/24 11:15 (ml) Colloids volume administered ( ml) Blood Product volume administered (ml) Total IV fluid infused 1,000 04/22/24 11:15 Anesthesia Postop Eval I: Summary Notes Anesthesia Complication No 04/22/24 11:15 Anesthesia Complication Comment: Post-operative progress note Anesthesia: Postop Eval II Evaluation Mental status: Awake and Calm Pain Level: 2 nausea: No Vomiting: No Complications Anesthesia Complication: No
--- NOTE | 2024-04-22 14:17 | PCM.PN.HOSP ---
Reason for Visit Reason for Visit: Diagnoses Pain in right knee (04/21/24) Unspecified intracapsular fracture of right femur, initial encounter for closed fracture (04/21/24) Objective Data Objective Data Vital Signs: Vital Signs Temp Pulse Resp BP Pulse Ox O2 Del Method O2 Flow Rate 98.3 F 107 H 18 111/64 98 Nasal Cannula 4 04/22/24 12:16 04/22/24 12:16 04/22/24 12:16 04/22/24 12:16 04/22/24 12:16 04/22/24 12:38 04/22/24 12:16 Oxygen Flow Rate (L/min) 4 Oxygen Delivery Method Nasal Cannula Weight: 128 lb 8.472 oz Body Mass Index (BMI) 22.0 Intake & Output: Intake and Output for Last 24 Hours 04/20/24 04/21/24 04/22/24 23:59 23:59 23:59 Intake Total 0 / 800 2019 / 2020 Output Total 700 / 700 Balance 0 / 350 1320 / 1320 Lab / Micro Data 04/22/24 05:54 04/22/24 05:54 Labs: Laboratory Results - last 24 hr 04/21/24 13:25: Magnesium 1.6 04/21/24 14:45: PT 14.2, INR 1.1, APTT 25.8 04/21/24 18:08: POC Glucose 97 04/22/24 00:59: POC Glucose 113 H 04/22/24 05:54: WBC 16.1 H, RBC 3.94 L, Hgb 10.4 L, Hct 33.7 L, MCV 85.5, MCH 26.4 L, MCHC 30.9 L, RDW Std Deviation 46.4 H, RDW Coeff of Nikki 14.7 H, Plt Count 264, MPV 9.6, Immature Gran % (Auto) 0.600, Neut % (Auto) 85.7 H, Lymph % (Auto) 7.7 L, [place] % (Auto) 4.0, Eos % (Auto) 1.6, Baso % (Auto) 0.4, Absolute Neuts (auto) 13.8 H, Absolute Lymphs (auto) 1.24, Nucleated RBC % 0, Sodium 133 L, Potassium 4.4, Chloride 100, Carbon Dioxide 27.0, Anion Gap 6, BUN 27 H, Creatinine 1.08 H, Estim Creat Clear Calc 40.66, Est GFR (MDRD) Af Amer 64, Est GFR (MDRD) Non-Af 53 L, BUN/Creatinine Ratio 25.0 H, Glucose 107 H, Hemoglobin A1c 5.5, Calcium 9.3, TSH 2.930 04/22/24 06:09: POC Glucose 95 Radiography Diagnostic Testing: Radiology Impression Knee X-Ray 04/21/24 14:50 IMPRESSION: Joint effusion. Electronically Signed: Milad Da Silva MD at 15:06 EDT , Physical Exam Narrative Seen and examined. Patient was examined prior to surgery. Complain of pain over right hip and right knee. Patient returned from surgery. She is drowsy. On 4 L of oxygen Physical exam General: Alert, Oriented x3, Cooperative HEENT: Atraumatic, PERRLA, EOMI, Normocephalic Oral: Oral mucosa dry. No Gingival or Mucosal Lesions/ Ulcerations Neck: Supple, No JVD, Negative Carotid Bruits Chest wall/Lungs: Air entry diminished in bilateral lung bases. No crepitation/rhonchi. Mild hypoxia on oxygen. Cardiovascular: Regular rate, Regular Rhythm, Normal S1, Normal S2, No M/G/R Abdomen: Bowel Sounds Present, Soft, Non Tender, Non-Distended : No dysuria. No renal angle tenderness. No suprapubic tenderness. Extremities: No edema, Capillary Refill Less than 3 Seconds Skin: No rashes, No breakdown Musculoskeletal: Right hip tenderness and groin region. ROM limited. Right hip abducted and externally rotated. Neurological: Cranial nerves II-XII grossly intact, DTR 2+/4. No acute focal neurological deficit. Psych/Mental Status: Normal Affect, Appropriate. Assessment & Plan Assessment/Plan (1) Subcapital fracture of right hip: PLAN: Plan This is a 71-year-old female being admitted after she fell down on right side. 1. Fall and acute debility due to nondisplaced transverse equitable fracture of proximal right femur: Patient is being admitted to [facility] floor. Twelve-lead EKG ordered. Orthopedic surgeon Dr. Morales already saw the patient and plan for surgery tomorrow AM. PT and OT ordered. Pain control. IV fluid ordered. 04/22: Patient had right cemented hemiarthroplasty. Patient is drowsy and lethargic after surgery. Conservative management with head end up. Orientation cues. 2. Dizziness possible due to low glucose/hypoglycemia: Patient attributed to her dizziness to missing of her breakfast and low blood glucose. Glucose was found 88 by EMS. Accu-Cheks Q6 hourly. Patient does not have history of diabetes mellitus. A1c ordered for tomorrow AM 3. 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 I advised to call to the respective physician and probably need to be rescheduled. She quit smoking after diagnosis of lung cancer. 50 pack years of smoking. Chest x-ray was reviewed does not show acute abnormality. DuoNeb as needed.Incentive spirometry. Patient not on home oxygen. 4. Degenerative arthritis/osteoarthritis, rheumatoid arthritis: Past medical history also shows right knee synovial cyst/Patel's cyst. 5. DVT prophylaxis: Heparin 5000 subcutaneous every 8 hourly. Hold morning dose prior to surgery. Living will/advanced directive/end of life care: Patient does have living will or advanced directive. Her daughter present in the ED is power of sex crimes detective for health. After discussion of benefits/risks procedures involved with full code, DNR CC arrest and DNR CC, the patient and the daughter opted for full code. Patient does want artificial life support including intubation, tube feed, ventilator and/chest compression, central venous catheter, vasopressor and DC shock if needed Total time spent in [id number] encounter in discussion of advanced directive 17 minutes. Laboratory Results 04/21/24 13:25: Magnesium 1.6 04/21/24 14:45: PT 14.2, INR 1.1, APTT 25.8 04/21/24 18:08: POC Glucose 97 04/22/24 00:59: POC Glucose 113 H 04/22/24 05:54: WBC 16.1 H, RBC 3.94 L, Hgb 10.4 L, Hct 33.7 L, MCV 85.5, MCH 26.4 L, MCHC 30.9 L, RDW Std Deviation 46.4 H, RDW Coeff of Nikki 14.7 H, Plt Count 264, MPV 9.6, Immature Gran % (Auto) 0.600, Neut % (Auto) 85.7 H, Lymph % (Auto) 7.7 L, [place] % (Auto) 4.0, Eos % (Auto) 1.6, Baso % (Auto) 0.4, Absolute Neuts (auto) 13.8 H, Absolute Lymphs (auto) 1.24, Nucleated RBC % 0, Sodium 133 L, Potassium 4.4, Chloride 100, Carbon Dioxide 27.0, Anion Gap 6, BUN 27 H, Creatinine 1.08 H, Estim Creat Clear Calc 40.66, Est GFR (MDRD) Af Amer 64, Est GFR (MDRD) Non-Af 53 L, BUN/Creatinine Ratio 25.0 H, Glucose 107 H, Hemoglobin A1c 5.5, Calcium 9.3, TSH 2.930 04/22/24 06:09: POC Glucose 95 Clinical Impression(s) from Imaging Studies Chest X-Ray 04/21/24 12:48 IMPRESSION: No acute abnormality is seen. Electronically Signed: Milad Da Silva MD at 13:43 EDT Reading Location ID and State: [id number] / [employer] , Service support , Hip/Pelvis X-Ray 04/21/24 12:48 IMPRESSION: Nondisplaced transverse subcapital fracture of the proximal right femur. Electronically Signed: Milad Da Silva MD at 13:41 EDT , Knee X-Ray 04/21/24 14:50 IMPRESSION: Joint effusion. Electronically Signed: Milad Da Silva MD at 15:06 EDT , Charges/Coding Visit Charges Inpatient E&M: 69627 Subs Hosp L2
--- NOTE | 2024-04-22 14:53 | CASEMGMT ---
Social Work SW spoke w/pt's daughter Joanna in the room regarding pt's prior level of function and anticipated discharge plan. Pt just returned from surgery and is sleeping at this time. PCP: Cathy Garnica Specialists: Dr. Garcia--for arthritis, and [facility] for Oncology. Pt was to have lung surgery at [facility] with Dr. Gibson, however this will likely be delayed. Insurance/prescription coverage: [place]/Medicaid [facility]: [facility] LNOK: Daughter Joanna, son who is not involved LW/POA: Pt has not completed these documents, as per daughter pt may be interested in completing them as time allows Living arrangements/Prior level of function: Pt lives alone in an apartment, no steps to enter. Pt is fully independent, uses no DME at baseline, drives, cooks, cleans DME: Pt does have a walker she will occasionally use if her arthritis is flared up HHC/SNF: Pt has not had HHC, has never been to SNF SW spoke w/daughter about plan from here, she does anticipate pt will need to go to SNF for rehab. SW provided to daughter a list created in [facility] of fpc facilities in network w/pt's insurance, in pt's preferred geographic area and complete w/quality and resource use data. SW asked daughter to review the list and choose 3 facilities, SW will follow up Wednesday to make the referrals. SW educated pt's daughter on referral process. Plan: SNF. SW to follow up Wednesday for choices and make referrals. QUITA Jimenez
[2024-04-22 18:48] LABS: Bedside Glucose 128 mg/dL (74-106)
[2024-04-22] MEDS: Lactated Ringers 1,000 ML 999 ML IV (18:57)
[2024-04-22] MEDS: 0.9% Normal Saline (1000mL) 1,000 ML 100 ML IV (22:40)
[2024-04-23 00:04] VITALS: BP 120/59; PULSE 97; RESP 14; TEMP 37; O2SAT 97
[2024-04-23 00:54] LABS: Bedside Glucose 134 mg/dL (74-106)
[2024-04-23] MEDS: Cefazolin 2 GM in 0.9% Normal Saline (100mL Bag) 100 ML IV ×2 (01:06→09:32)
[2024-04-23 03:32] VITALS: BP 148/71; PULSE 104; RESP 14; TEMP 36.8; O2SAT 96
[2024-04-23] MEDS: Ondansetron 4 MG/2 ML Vial IV (04:08)
[2024-04-23 06:09] LABS: Absolute Lymphocyte Count 0.54 X10^3/uL (0.83-4.51); Absolute Neutrophil Count 10.4 X10^3/uL (2.0-7.7); Basophil# 0.01 X10^3/uL; Basophil% 0.1 % (0-1); Eosinophil# 0.02 X10^3/uL; Eosinophils% 0.2 % (0-5); Hematocrit 25.9 % (37-47); Hemoglobin 8.2 g/dL (12.0-15.0); Lymphocyte # 0.54 X10^3/ul (0.83-4.51); Lymphocyte % 4.6 % (19-41); Mean Corp Hgb Conc 31.7 g/dL (32-36); Mean Corpuscular Hgb 27.1 pg (27.0-32.0); Mean Corpuscular Volume 85.5 fL (81-99); Mean Platelet Vol. 9.7 fl (6.2-12.0); Monocyte# 0.59 X10^3/uL; Monocyte% 5.1 % (0-10); NRBC Flagged by Analyzer 0 % (0-5); Neutrophil # 10.37 X10^3/uL (2.7-7.7); Neutrophil % 89.1 % (47-70); POSITIVE DIFFERENTIAL YES; Platelet Count 154 K/mm3 (150-450); RBC Distribution Width CV 14.7 % (11.6-14.6); RBC Distribution Width SD 46.1 fl (35.1-43.9); Red Blood Count 3.03 M/mm3 (4.2-5.4); White Blood Count 11.6 K/mm3 (4.4-11.0)
[2024-04-23 06:30] LABS: Anion Gap 6 (5-15); BUN 27 mg/dL (7-18); BUN/Creat Ratio 27.8 RATIO (10-20); Calcium,Total 8.7 mg/dL (8.5-10.1); Chloride 106 mmol/L (98-107); Creatinine, Serum 0.97 mg/dL (0.55-1.02); EST Glomerular Filtration Rate 60 mL/min (>60); Est Glom Filt Rate - Afr Amer 72 mL/min (>60); Estimated Creatinine Clearance 45.27 ml/min; Glucose 120 mg/dL (74-106); Potassium 4.3 mmol/L (3.5-5.1); Sodium Level 135 mmol/L (136-145)
[2024-04-23 07:10] LABS: Bedside Glucose 127 mg/dL (74-106)
[2024-04-23 09:39] VITALS: BP 111/50; PULSE 108; RESP 16; TEMP 36.6; O2SAT 98
[2024-04-23] MEDS: Pantoprazole Sodium 40 MG Tablet PO (09:42)
[2024-04-23] MEDS: Senna/Docusate Sodium 1 Tablet 2 TABLET PO ×2 (09:42→21:01)
[2024-04-23] MEDS: Tolterodine Tartrate 4 MG CAP.SA PO (09:42)
--- NOTE | 2024-04-23 10:50 | PN.ORTHO_ITS ---
Subjective Subjective POD 1 right hip allen. had some confusion overnight per daughter. a little more oriented this morning. Objective Data Objective Data Vital Signs: Vital Signs Temp Pulse Resp BP Pulse Ox O2 Del Method O2 Flow Rate 97.9 F 108 H 16 111/50 L 98 High Flow 3 04/23/24 09:39 04/23/24 09:39 04/23/24 09:39 04/23/24 09:39 04/23/24 09:39 04/23/24 09:59 04/23/24 09:59 Oxygen Flow Rate (L/min) 3 Oxygen Delivery Method High Flow Weight: 128 lb 8.472 oz Body Mass Index (BMI) 22.0 Intake & Output: Intake and Output for Last 24 Hours 04/21/24 04/22/24 04/23/24 23:59 23:59 23:59 Intake Total 0 / 800 3130 / 3180 1270 / 1270 Output Total 850 / 850 700 / 700 Balance 0 / 350 2280 / 2330 570 / 570 Lab / Micro Data 04/23/24 05:50 04/23/24 05:50 Labs: Laboratory Results - last 24 hr 04/22/24 18:30: POC Glucose 128 H 04/23/24 00:11: POC Glucose 134 H 04/23/24 05:50: WBC 11.6 H, RBC 3.03 L, Hgb 8.2 L, Hct 25.9 L, MCV 85.5, MCH 27.1, MCHC 31.7 L, RDW Std Deviation 46.1 H, RDW Coeff of Nikki 14.7 H, Plt Count 154, MPV 9.7, Immature Gran % (Auto) 0.900, Neut % (Auto) 89.1 H, Lymph % (Auto) 4.6 L, [place] % (Auto) 5.1, Eos % (Auto) 0.2, Baso % (Auto) 0.1, Absolute Neuts (auto) 10.4 H, Absolute Lymphs (auto) 0.54 L, Nucleated RBC % 0, Sodium 135 L, Potassium 4.3, Chloride 106, Carbon Dioxide 23.0, Anion Gap 6, BUN 27 H, Creatinine 0.97, Estim Creat Clear Calc 45.27, Est GFR (MDRD) Af Amer 72, Est GFR (MDRD) Non-Af 60, BUN/Creatinine Ratio 27.8 H, Glucose 120 H, Calcium 8.7 04/23/24 06:07: POC Glucose 127 H Radiography Diagnostic Testing: Radiology Impression Pelvis X-Ray 04/22/24 11:05 IMPRESSION: New total hip arthroplasty, grossly anatomic in alignment. Electronically Signed: Sammie Roberts MD at 14:36 EDT , Physical Exam Const Constitutional Narrative: a bit drowsy. responds appropriately. nvi. drsg dry. thigh soft. sitting up in bed. Assessment & Plan Assessment/Plan (1) Subcapital fracture of right hip: PLAN: POD 1 right hip allen. doing well. likely some delirium overnight. asked the patients relatives to re-orient frequently. was up to edge of bed with PT. continue to mobilize. Hospitalist on board for medical management. will follow.
[2024-04-23 12:16] VITALS: BP 128/68; PULSE 107; RESP 18; TEMP 36.2; O2SAT 97
[2024-04-23 12:50] LABS: Bedside Glucose 115 mg/dL (74-106)
--- NOTE | 2024-04-23 13:29 | PCM.PN.HOSP ---
Reason for Visit Reason for Visit: Diagnoses Pain in right knee (04/21/24) Unspecified intracapsular fracture of right femur, initial encounter for closed fracture (04/21/24) Objective Data Objective Data Vital Signs: Vital Signs Temp Pulse Resp BP Pulse Ox O2 Del Method O2 Flow Rate 97.2 F L 107 H 18 128/68 H 97 Nasal Cannula 2 04/23/24 12:16 04/23/24 12:16 04/23/24 12:16 04/23/24 12:16 04/23/24 12:16 04/23/24 12:16 04/23/24 12:16 Oxygen Flow Rate (L/min) 2 Oxygen Delivery Method Nasal Cannula Weight: 128 lb 8.472 oz Body Mass Index (BMI) 22.0 Intake & Output: Intake and Output for Last 24 Hours 04/21/24 04/22/24 04/23/24 23:59 23:59 23:59 Intake Total 0 / 800 3130 / 3180 1420 / 1420 Output Total 850 / 850 700 / 700 Balance 0 / 350 2280 / 2330 720 / 720 Lab / Micro Data 04/23/24 05:50 04/23/24 05:50 Labs: Laboratory Results - last 24 hr 04/22/24 18:30: POC Glucose 128 H 04/23/24 00:11: POC Glucose 134 H 04/23/24 05:50: WBC 11.6 H, RBC 3.03 L, Hgb 8.2 L, Hct 25.9 L, MCV 85.5, MCH 27.1, MCHC 31.7 L, RDW Std Deviation 46.1 H, RDW Coeff of Nikki 14.7 H, Plt Count 154, MPV 9.7, Immature Gran % (Auto) 0.900, Neut % (Auto) 89.1 H, Lymph % (Auto) 4.6 L, [place] % (Auto) 5.1, Eos % (Auto) 0.2, Baso % (Auto) 0.1, Absolute Neuts (auto) 10.4 H, Absolute Lymphs (auto) 0.54 L, Nucleated RBC % 0, Sodium 135 L, Potassium 4.3, Chloride 106, Carbon Dioxide 23.0, Anion Gap 6, BUN 27 H, Creatinine 0.97, Estim Creat Clear Calc 45.27, Est GFR (MDRD) Af Amer 72, Est GFR (MDRD) Non-Af 60, BUN/Creatinine Ratio 27.8 H, Glucose 120 H, Calcium 8.7 04/23/24 06:07: POC Glucose 127 H 04/23/24 12:15: POC Glucose 115 H Radiography Diagnostic Testing: Radiology Impression Pelvis X-Ray 04/22/24 11:05 IMPRESSION: New total hip arthroplasty, grossly anatomic in alignment. Electronically Signed: Sammie Roberts MD at 14:36 EDT , Physical Exam Narrative Seen and examined. Overnight events noted. Patient was in severe pain after surgery. She was also confused disoriented and not able to recognize her daughter. She had urinary retention, straight cath was done Output. No Brooks catheter. On 2 L of oxygen. She recognized her daughter today in the morning Physical exam General: Awake, mild confusion, slow to respond, oriented to day/night. Disoriented to place. HEENT: Atraumatic, PERRLA, EOMI, Normocephalic Oral: Oral mucosa dry. No Gingival or Mucosal Lesions/ Ulcerations Neck: Supple, No JVD, Negative Carotid Bruits Chest wall/Lungs: Air entry diminished in bilateral lung bases. No crepitation/rhonchi. Mild hypoxia on oxygen. Cardiovascular: Regular rate, Regular Rhythm, Normal S1, Normal S2, No M/G/R Abdomen: Bowel Sounds Present, Soft, Non Tender, Non-Distended : No dysuria. No renal angle tenderness. No suprapubic tenderness. Extremities: No edema, Capillary Refill Less than 3 Seconds Skin: No rashes, No breakdown Musculoskeletal: Right hip tenderness and groin region. ROM limited. Right hip abducted and externally rotated. Neurological: Cranial nerves II-XII grossly intact, DTR 2+/4. No acute focal neurological deficit. Psych/Mental Status: Flat affect. Assessment & Plan Assessment/Plan (1) Subcapital fracture of right hip: PLAN: Plan This is a 71-year-old female being admitted after she fell down on right side. 1. Fall and acute debility due to nondisplaced transverse equitable fracture of proximal right femur: Patient is being admitted to [facility] floor. Twelve-lead EKG ordered. Orthopedic surgeon Dr. Morales already saw the patient and plan for surgery tomorrow AM. PT and OT ordered. Pain control. IV fluid ordered. 04/22: Patient had right cemented hemiarthroplasty. Patient is drowsy and lethargic after surgery. Conservative management with head end up. Orientation cues. 04/23: Patient was in severe pain, confused and disoriented yesterday. Still mildly confused but better. Continue incentive spirometry and PEP for 1 week emphasized. Urine retention, secondary to mL straight catheter. Bladder scan Q4 hourly and straight cath if more than 250 mL. 2. Acute encephalopathy possible related to anesthetic agent/pain medications: Patient is improving. Orientation clean. Avoid benzodiazepines. 3. Mild acute blood loss anemia on anemia of chronic disease: Her hemoglobin dropped from 10.4 to 8.2 g. Platelet count also decreased, 154 from 264. Monitor CBC daily. IV iron ordered 4. Dizziness possible due to low glucose/hypoglycemia: Patient attributed to her dizziness to missing of her breakfast and low blood glucose. Glucose was found 88 by EMS. Accu-Cheks Q6 hourly. Patient does not have history of diabetes mellitus. A1c ordered for tomorrow AM 03/24: A1c 5.5%. Dizziness resolved 6. 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 I advised to call to the respective physician and probably need to be rescheduled. She quit smoking after diagnosis of lung cancer. 50 pack years of smoking. Chest x-ray was reviewed does not show acute abnormality. DuoNeb as needed.Incentive spirometry. Patient not on home oxygen. 7. Degenerative arthritis/osteoarthritis, rheumatoid arthritis: Past medical history also shows right knee synovial cyst/Patel's cyst. 8. DVT prophylaxis: After surgery, heparin was changed to rivaroxaban 10 mg daily. Living will/advanced directive/end of life care: Patient does have living will or advanced directive. Her daughter present in the ED is power of finance attorney for health. After discussion of benefits/risks procedures involved with full code, DNR CC arrest and DNR CC, the patient and the daughter opted for full code. Patient does want artificial life support including intubation, tube feed, ventilator and/chest compression, central venous catheter, vasopressor and DC shock if needed Total time spent in [id number] encounter in discussion of advanced directive 17 minutes. Laboratory Results 04/22/24 18:30: POC Glucose 128 H 04/23/24 00:11: POC Glucose 134 H 04/23/24 05:50: WBC 11.6 H, RBC 3.03 L, Hgb 8.2 L, Hct 25.9 L, MCV 85.5, MCH 27.1, MCHC 31.7 L, RDW Std Deviation 46.1 H, RDW Coeff of Nikki 14.7 H, Plt Count 154, MPV 9.7, Immature Gran % (Auto) 0.900, Neut % (Auto) 89.1 H, Lymph % (Auto) 4.6 L, [place] % (Auto) 5.1, Eos % (Auto) 0.2, Baso % (Auto) 0.1, Absolute Neuts (auto) 10.4 H, Absolute Lymphs (auto) 0.54 L, Nucleated RBC % 0, Sodium 135 L, Potassium 4.3, Chloride 106, Carbon Dioxide 23.0, Anion Gap 6, BUN 27 H, Creatinine 0.97, Estim Creat Clear Calc 45.27, Est GFR (MDRD) Af Amer 72, Est GFR (MDRD) Non-Af 60, BUN/Creatinine Ratio 27.8 H, Glucose 120 H, Calcium 8.7 04/23/24 06:07: POC Glucose 127 H 04/23/24 12:15: POC Glucose 115 H Clinical Impression(s) from Imaging Studies Chest X-Ray 04/21/24 12:48 IMPRESSION: No acute abnormality is seen. Electronically Signed: Milad Da Silva MD at 13:43 EDT , Hip/Pelvis X-Ray 04/21/24 12:48 IMPRESSION: Nondisplaced transverse subcapital fracture of the proximal right femur. Electronically Signed: Milad Da Silva MD at 13:41 EDT , Knee X-Ray 04/21/24 14:50 IMPRESSION: Joint effusion. Electronically Signed: Milad Da Silva MD at 15:06 EDT Reading Location ID and State: [facility] / [place] , Service support , Charges/Coding Visit Charges Inpatient E&M: 78179 Subs Hosp L2
[2024-04-23] MEDS: Polyethylene Glycol 3350 17 GM PACKET PO (14:30)
[2024-04-23] MEDS: Sodium Ferric Gluconat/Sucrose 250 MG in 0.9% Normal Saline (250mL Bag) 250 ML 135 MG IV (14:30)
[2024-04-23] MEDS: traMADol 50 MG Tablet PO ×2 (15:31→23:23)
[2024-04-23 15:47] VITALS: BP 150/69; PULSE 106; RESP 18; TEMP 36.4; O2SAT 99
[2024-04-23] MEDS: Rivaroxaban 10 MG Tablet PO (17:01)
[2024-04-23 18:00] LABS: Bedside Glucose 133 mg/dL (74-106)
[2024-04-23 20:52] VITALS: BP 154/67; PULSE 103; RESP 18; TEMP 36.4; O2SAT 94
[2024-04-23] MEDS: Acetaminophen 325 MG Tablet 650 MG PO (21:01)
[2024-04-24] VITALS (7 sets, daily range): BP systolic 108–141; BP diastolic 64–87; PULSE 92–109; RESP 18–20; TEMP 36.3–36.9; O2SAT 88–98
[2024-04-24 00:32] LABS: Bedside Glucose 130 mg/dL (74-106)
[2024-04-24] MEDS: Acetaminophen 325 MG Tablet 650 MG PO (06:08)
[2024-04-24] MEDS: traMADol 50 MG Tablet PO ×2 (06:09→16:56)
[2024-04-24 07:08] LABS: Bedside Glucose 108 mg/dL (74-106)
[2024-04-24 07:22] LABS: Absolute Lymphocyte Count 0.85 X10^3/uL (0.83-4.51); Absolute Neutrophil Count 7.4 X10^3/uL (2.0-7.7); Basophil# 0.04 X10^3/uL; Basophil% 0.4 % (0-1); Eosinophil# 0.39 X10^3/uL; Eosinophils% 4.2 % (0-5); Hematocrit 26.6 % (37-47); Hemoglobin 8.3 g/dL (12.0-15.0); Lymphocyte # 0.85 X10^3/ul (0.83-4.51); Lymphocyte % 9.1 % (19-41); Mean Corp Hgb Conc 31.2 g/dL (32-36); Mean Corpuscular Hgb 26.5 pg (27.0-32.0); Mean Platelet Vol. 10.5 fl (6.2-12.0); Monocyte% 6.4 % (0-10); NRBC Flagged by Analyzer 0 % (0-5); Neutrophil # 7.36 X10^3/uL (2.7-7.7); Neutrophil % 79.1 % (47-70); Platelet Count 165 K/mm3 (150-450); RBC Distribution Width CV 14.6 % (11.6-14.6); RBC Distribution Width SD 45.3 fl (35.1-43.9); Red Blood Count 3.13 M/mm3 (4.2-5.4); White Blood Count 9.3 K/mm3 (4.4-11.0)
--- NOTE | 2024-04-24 08:19 | CT_ITS ---
STUDY: CTA CHEST REASON FOR EXAM: Female, 73 years old. Post op hypoxia RADIATION DOSAGE (If Supplied By Facility): CTDIvol = ( 10.85 ) mGy, DLP = ( 239.36 ) mGycm TECHNIQUE: The examination was performed with the intravenous administration of IV 100mL Isovue-370. Post-processing of the angiographic images was performed, with multiplanar reformation and 3D reconstruction. Individualized dose optimization techniques were used for this CT. COMPARISON: Comparison is made with prior study dated February 17, 2024. Comparison is made with prior chest radiograph dated April 21, 2024. FINDINGS: Stable small benign appearing bilateral axillary lymph nodes. Normal enhancement of the main pulmonary artery and right and left pulmonary arteries. Normal enhancement of the bilateral peripheral pulmonary arteries. There is no demonstrated pulmonary embolism. Normal thoracic aorta and visualized great vessels. Common confluence of the right brachiocephalic artery and left common carotid artery. There is no demonstrated aortic dissection. There are calcifications of the coronary arteries. Normal mediastinum. Normal hilar regions. Normal visualized trachea and bronchi. The lungs are well expanded. Slight decrease in size of the right apical spiculated nodule. It presently measures 1.6 cm x 1.1 cm. Stable appearance of the emphysematous changes more prominent in the upper lobes. Stable mild increased markings at the lung bases suggestive of a bibasilar scarring. New small left pleural effusion with right basilar atelectasis. The previously seen pneumothorax has resolved. Normal chest wall structures. There are degenerative changes of thoracic spine. Increased kyphosis. Normal visualized upper abdomen. CT/CTA Chest W/WO Contrast IMPRESSION: No evidence of pulmonary embolism. Small left pleural effusion with left basilar atelectasis superimposed on mild scarring. Slight decrease in size of the previously seen spiculated nodule in the right lung apex. Electronically Signed: Milad Da Silva MD at 10:35 EDT ,
--- NOTE | 2024-04-24 08:20 | PCM.PN.HOSP ---
Reason for Visit Reason for Visit: Right hip pain status post fall Subjective Subjective Patient is a 73-year-old white female who presented to the emergency department at [facility] on 04/21/2020 for via EMS after a fall. The patient was out blowing her leaves in the sidewalk when she had a dizzy spell and fell down. The time of her fall she had pain in her right hip and was unable to ambulate post fall. She also complained of pain near her right patella. She did not hit her head or have any loss of consciousness. She does have a history of lung cancer and was scheduled for surgery at [facility] on 04/24/2024. She recently quit smoking and denies need for the use of home oxygen. EMS did note that she had oxygen levels occasionally in the 80s nursing noted the same however she did not complain of shortness of breath or chest pain. Abdomen oxygen saturation of 88% on room air on presentation her vital signs were unremarkable. She was placed on 2 L nasal cannula which improved her saturations into the mid 90s. CBC showed a chronic stable anemia on presentation but was otherwise unremarkable. Coags were unremarkable. Chemistry panel was unremarkable. Right knee x-ray showed a small joint effusion but no fracture. Hip and pelvic x-ray showed a nondisplaced transverse subcapital fracture of the right proximal femur. Chest x-ray showed no acute abnormalities. She was admitted to the medical floor and orthopedic surgery evaluated the patient. She was taken to the OR on 04/22/2024 at which time a left hip cemented hemiarthroplasty was performed. She is to be weightbearing as tolerated with her precautions on that right hip. She did develop some postoperative delirium and urinary retention. She has persisted to be hypoxic with oxygen requirements at about 3 L currently. Daughter states that from a mental status she is doing much better. Is agreeable to go to rehab after discharge and then feels she will likely have to come home and live with them for a bit. Encouraged out of bed and incentive spirometry to help with oxygenation. Objective Data Objective Data Vital Signs: Vital Signs Temp Pulse Resp BP Pulse Ox O2 Del Method O2 Flow Rate 98.3 F 92 20 H 141/76 H 94 Nasal Cannula 2 04/24/24 06:15 04/24/24 06:15 04/24/24 06:15 04/24/24 06:15 04/24/24 06:15 04/24/24 06:15 04/24/24 06:15 Oxygen Flow Rate (L/min) 2 Oxygen Delivery Method Nasal Cannula Weight: 58.3 kg Body Mass Index (BMI) 22.0 Intake & Output: Intake and Output for Last 24 Hours 04/22/24 04/23/24 04/24/24 23:59 23:59 23:59 Intake Total 3130 / 3180 1810 / 1810 50 / 50 Output Total 850 / 850 700 / 700 Balance 2280 / 2330 1110 / 1110 50 / 50 Lab / Micro Data 04/24/24 06:53 04/24/24 06:53 Labs: Laboratory Results - last 24 hr 04/23/24 12:15: POC Glucose 115 H 04/23/24 17:04: POC Glucose 133 H 04/24/24 00:12: POC Glucose 130 H 04/24/24 06:34: POC Glucose 108 H 04/24/24 06:53: WBC 9.3, RBC 3.13 L, Hgb 8.3 L, Hct 26.6 L, MCV 85.0, MCH 26.5 L, MCHC 31.2 L, RDW Std Deviation 45.3 H, RDW Coeff of Nikki 14.6, Plt Count 165, MPV 10.5, Immature Gran % (Auto) 0.800, Neut % (Auto) 79.1 H, Lymph % (Auto) 9.1 L, Swain % (Auto) 6.4, Eos % (Auto) 4.2, Baso % (Auto) 0.4, Absolute Neuts (auto) 7.4, Absolute Lymphs (auto) 0.85, Nucleated RBC % 0 Physical Exam Const alert, oriented x3, no apparent distress, average body habitus and well nourished Constitutional Narrative: Older, white female, lying in bed, appears somewhat debilitated, daughter at bedside, does not appear toxic HEENT head/scalp atraumatic and moist oral mucous membranes Head and Scalp: normocephalic Resp normal respiratory effort, no retractions, no use of accessory muscles and clear to auscultation bilaterally Resp Narrative: Diminished at bases bilaterally, exam was limited due to patient being supine in bed and difficulty with movement due to pain in her hip Auscultation: Negative for rales, rhonchi or wheezes Cardio regular rate, regular rhythm, S1 normal heart sound, S2 normal heart sound, no murmurs, no rub, no gallops and no clicks GI normal to inspection, nondistended, normoactive bowel sounds, soft to palpation and non-tender Extremity no clubbing, cyanosis or edema Extremity Narrative: Pedal pulses are 2+, ice on right hip Skin Skin Narrative: Postoperative dressing is clean dry and intact on right hip, no significant swelling or ecchymosis noted Neuro oriented x3 and no focal motor deficits Neuro Narrative: Decreased movement right lower extremity due to pain in the hip but no focal deficits Speech: speech normal Psych affect normal Psych Narrative: Very pleasant, interacts appropriately Assessment & Plan Assessment/Plan (1) Hypoxia: (2) Fall: (3) Subcapital fracture of right hip: PLAN: Plan Right hip fracture-subcapital -Postop day 2 right hip hemiarthroplasty -Weightbearing as tolerated- -PT/OT following -Transition acetaminophen to 1000 mg 3 times daily -Continue Ultram 50 every 6 -Discontinue Dilaudid -Continue scheduled bowel regimen with senna and MiraLAX -DVT prophylaxis per orthopedic surgery with rivaroxaban 10 mg daily for 30 days -Appears the patient will likely need placement at the time of discharge per therapy documentation -Case management/social work job titles following -Will need pre-CERT okay to start today Hypoxia -Patient is not oxygen dependent at baseline however it was reported by EMS that she has been intermittently hypoxic with oxygen saturations in the 80s -She has remained hypoxic here and currently on 2 to 3 L -Will check CTA of the chest -Patient does have known pulmonary malignancy -Continue nebulizers -Continue incentive spirometry -Add Acapella -Will give Lasix 20 mg x 1 this patient is 3 and half liters positive for hospitalization Acute on chronic anemia -Acute anemia is likely related to postoperative blood loss and volume status -Baseline hemoglobin appears to run between 10 and 11 -Currently 8.3 but stable when compared to yesterday at 8.2 -No signs of acute blood loss Dizziness -This is what caused her fall -Thought maybe due to hypoglycemia and patient attributed her dizziness due to missing her breakfast and low blood glucose -Glucose on EMS arrival was 88 -A1c is 5.5 -Discontinue blood sugar checks -Resolved Acute toxic/metabolic encephalopathy -Resolved -Likely related to anesthesia and pain medication -Discontinue IV Dilaudid Adenocarcinoma of the right lung -Patient with biopsy-proven adenocarcinoma -Was supposed to have elective resection at [facility] on 04/24/2024 -Patient was to call and reschedule -Continue aerosols as ordered COPD -Continue scheduled and as needed nebulizers Urinary incontinence -Continue home oxybutynin Tobacco abuse -Continue nicotine patch Rheumatoid arthritis/OA -Continue home steroids DVT prophylaxis -Rivaroxaban 10 mg daily CODE STATUS Full code as verified on admission Charges/Coding Visit Charges Inpatient E&M: 25545 Subs Hosp L2
[2024-04-24] MEDS: Pantoprazole Sodium 40 MG Tablet PO (08:23)
[2024-04-24] MEDS: Tolterodine Tartrate 4 MG CAP.SA PO (08:23)
[2024-04-24] MEDS: Polyethylene Glycol 3350 17 GM PACKET PO (08:23)
[2024-04-24] MEDS: Senna/Docusate Sodium 1 Tablet 2 TABLET PO ×2 (08:23→21:35)
[2024-04-24 09:54] LABS: Anion Gap 6 (5-15); BUN 15 mg/dL (7-18); BUN/Creat Ratio 22.3 RATIO (10-20); Calcium,Total 8.9 mg/dL (8.5-10.1); Chloride 104 mmol/L (98-107); Creatinine, Serum 0.67 mg/dL (0.55-1.02); EST Glomerular Filtration Rate 91 mL/min (>60); Est Glom Filt Rate - Afr Amer 110 mL/min (>60); Estimated Creatinine Clearance 54.89 ml/min; Glucose 101 mg/dL (74-106); Potassium 3.9 mmol/L (3.5-5.1); Sodium Level 137 mmol/L (136-145)
[2024-04-24] MEDS: 0.9% Saline Lock 10 ML Syringe IV ×3 (10:26→21:35)
[2024-04-24] MEDS: Furosemide 20 MG/2 ML VIAL IV ×2 (10:26→14:53)
--- NOTE | 2024-04-24 11:37 | CASEMGMT ---
Social Work- SW met with pt and pt dtr Tacey, to f/u on SNF list. [facility]. SW completed referral. SW encouraged pt and family to look for other alternate options if needed. SW will remain available to follow. JAIRON Bird
[2024-04-24 11:47] LABS: Vitamin D,25 Hydroxy 40.7 ng/mL
--- NOTE | 2024-04-24 12:07 | CASEMGMT ---
Addendum entered by Jelly Cantor 04/24/24 14:33: Pt has acceptance at [facility]. Pt dtr updated; reports she will go visit this afternoon to make sure she feels it is a good placement. Pt dtr will let SW know if precert can be started. MARIE advised. JAIRON Bird Original Note: Social Work- SW met with pt and dtr to advise that [facility] was unable to accept referral. Pt and dtr provided [facility] as FOC; [facility] as alternate. DCA advised that referral can be completed. SW remains available to follow. JAIRON Bird
[2024-04-24] MEDS: predniSONE 10 MG Tablet PO (12:08)
--- NOTE | 2024-04-24 12:41 | CASEMGMT ---
Addendum entered by Mary Lou Dwyer 04/25/24 11:11: Precert submission was put on hold d/t daughter wanting to tour [facility]. Daughter confirmed foc today and [facility] asked to submit. Mary Lou Dwyer DC Planning Asst. Addendum entered by Mary Lou Dwyer 04/24/24 14:24: [facility] has accepted and will begin precert. Mary Lou Dwyer DC Planning Asst. Original Note: Discharge Planning Referral sent via careport to [facility]. Mary Lou Dwyer DC Planning Asst.
[2024-04-24] MEDS: Acetaminophen 500 MG Tablet 1000 MG PO ×2 (13:31→21:35)
[2024-04-24] MEDS: Rivaroxaban 10 MG Tablet PO (16:54)
[2024-04-25] VITALS (7 sets, daily range): BP systolic 136–152; BP diastolic 67–80; PULSE 91–105; RESP 16–18; TEMP 36.4–36.6; O2SAT 87–99
[2024-04-25] MEDS: Acetaminophen 500 MG Tablet 1000 MG PO ×2 (05:53→14:42)
[2024-04-25 08:32] LABS: Anion Gap 7 (5-15); BUN 17 mg/dL (7-18); BUN/Creat Ratio 25.4 RATIO (10-20); Calcium,Total 9.3 mg/dL (8.5-10.1); Chloride 99 mmol/L (98-107); Creatinine, Serum 0.67 mg/dL (0.55-1.02); EST Glomerular Filtration Rate 92 mL/min (>60); Est Glom Filt Rate - Afr Amer 112 mL/min (>60); Estimated Creatinine Clearance 54.89 ml/min; Glucose 105 mg/dL (74-106); Magnesium 1.9 mg/dL (1.6-2.6); Phosphorus 3.1 mg/dL (2.5-4.9); Potassium 3.9 mmol/L (3.5-5.1); Sodium Level 136 mmol/L (136-145)
[2024-04-25] MEDS: Senna/Docusate Sodium 1 Tablet 2 TABLET PO (09:47)
[2024-04-25] MEDS: predniSONE 10 MG Tablet PO (09:47)
[2024-04-25] MEDS: Polyethylene Glycol 3350 17 GM PACKET PO (09:48)
[2024-04-25] MEDS: Pantoprazole Sodium 40 MG Tablet PO (09:48)
[2024-04-25] MEDS: Tolterodine Tartrate 4 MG CAP.SA PO (09:48)
[2024-04-25] MEDS: traMADol 50 MG Tablet PO ×2 (12:15→18:23)
--- NOTE | 2024-04-25 14:18 | CASEMGMT ---
[facility]charge Planning [facility] auth. SW updated. Mary Lou Dwyer DC Planning Asst.
--- NOTE | 2024-04-25 15:03 | PCM.TXEXTCAR ---
Diet Diet Order/Speech Therapy: 04/22/24 10:59 Diet: Regular - General Food consistency:: Regular Liquid Consistency:: Regular/Thin Routine Orders/Code Status Suppository Frequency: Daily PRN O2 Frequency: Continuous (1-2 L) Keep PO Greater than or Equal to (%): 89 Routine Lab Work: CBC (1 week) and BMP (1 week) Code Status: Full Code Wound(s) right hip: Wound Type: Surgical Incision Suggestions for Active Care Change Position every (hours): 2 Therapies Weight Bearing: Weight bearing as tolerated Extremity Affected:: Right Lower Physical Therapy: Eval and Treat Occupational Therapy: Eval and Treat Problem/Diagnosis (1) Hypoxia: Status: Acute Code(s): R09.02 - Hypoxemia (2) Fall: Status: Acute Code(s): W19.XXXA - Unspecified fall, initial encounter (3) Subcapital fracture of right hip: Status: Acute Code(s): S72.011A - Unspecified intracapsular fracture of right femur, initial encounter for closed fracture Allergies/Procedures Done in Hospital Allergies No Known Allergies Allergy (Verified 04/21/24 12:31) Procedures: EKG and - (Chest x-ray/CTA chest/hip and pelvic x-rays/knee x-ray) Type of Care/Length of Stay Estimated LOS: Convalescent Care Less Than 30 days Type of Care Needed: Skilled Rehab Potential: Good Prognosis: Good Additional Orders/Day of Discharge Day of Discharge: 04/25/24 Dietary and Speech Recommendations Dietitian Recommendations/Changes: Will continue liberal regular diet as ordered and offer ONS as needed if PO/weight decline. Follow Up Care Please Follow Up With: Jimmy Morales MD When: 1-2 weeks Discharge Plan Admission Admit Date/Time: 04/21/24 14:37 Attending Provider: Nikia Coe Primary Care Provider: Cathy Garnica Consulting Providers: Jimmy Morales; Keith Adler Discharge Orders/Prescriptions Prescriptions: No Action oxybutynin chloride 15 mg tablet extended release 24hr 15 mg PO DAILY albuterol sulfate 90 mcg/actuation HFA aerosol inhaler 2 puff inhalation Q8H PRN (Reason: sob and wheezing) prednisone 5 mg tablet 10 mg PO DAILY nicotine 21 mg/24 hr patch 24 hour 1 patch transdermal DAILY Referrals / Follow Up: Cathy Garnica MD [Primary Care Provider] -
--- NOTE | 2024-04-25 15:07 | DS.PCM_ITS ---
Providers Date of Admission: 04/21/24 Date of Discharge: 04/25/24 Primary Care Physician: Cathy Garnica MD Consultations 04/21/24 16:06 Consult: Orthopedics Routine Consulting Provider: Jimmy Morales Reason for Consult: Left hip fracture EMERGENT Consult: No MD Notified: Yes Date Notified: 04/21/24 Time Notified: 14:42 Method of Notification: ED Physician Initiated Reason For Visit: RIGHT HIP FRACTURE Diagnosis Discharge Diagnosis (1) Hypoxia: Status: Acute Code(s): R09.02 - Hypoxemia (2) Fall: Status: Acute Code(s): W19.XXXA - Unspecified fall, initial encounter (3) Subcapital fracture of right hip: Status: Acute Code(s): S72.011A - Unspecified intracapsular fracture of right femur, initial encounter for closed fracture Plan Right hip fracture-subcapital -Postop day 2 right hip hemiarthroplasty -Weightbearing as tolerated- -PT/OT following -Transition acetaminophen to 1000 mg 3 times daily -Continue Ultram 50 every 6 -Discontinue Dilaudid -Continue scheduled bowel regimen with senna and MiraLAX -DVT prophylaxis per orthopedic surgery with rivaroxaban 10 mg daily for 30 days -Appears the patient will likely need placement at the time of discharge per therapy documentation -Case management/transition social worker following -Will need pre-CERT okay to start today Hypoxia -Patient is not oxygen dependent at baseline however it was reported by EMS that she has been intermittently hypoxic with oxygen saturations in the 80s -She has remained hypoxic here and currently on 2 to 3 L -Will check CTA of the chest -Patient does have known pulmonary malignancy -Continue nebulizers -Continue incentive spirometry -Add Acapella -Will give Lasix 20 mg x 1 this patient is 3 and half liters positive for hospitalization Acute on chronic anemia -Acute anemia is likely related to postoperative blood loss and volume status -Baseline hemoglobin appears to run between 10 and 11 -Currently 8.3 but stable when compared to yesterday at 8.2 -No signs of acute blood loss Dizziness -This is what caused her fall -Thought maybe due to hypoglycemia and patient attributed her dizziness due to missing her breakfast and low blood glucose -Glucose on EMS arrival was 88 -A1c is 5.5 -Discontinue blood sugar checks -Resolved Acute toxic/metabolic encephalopathy -Resolved -Likely related to anesthesia and pain medication -Discontinue IV Dilaudid Adenocarcinoma of the right lung -Patient with biopsy-proven adenocarcinoma -Was supposed to have elective resection at [facility] on 04/24/2024 -Patient was to call and reschedule -Continue aerosols as ordered COPD -Continue scheduled and as needed nebulizers Urinary incontinence -Continue home oxybutynin Tobacco abuse -Continue nicotine patch Rheumatoid arthritis/OA -Continue home steroids DVT prophylaxis -Rivaroxaban 10 mg daily CODE STATUS Full code as verified on admission Medications at Discharge Home Medications oxybutynin chloride 15 mg tablet,extended release 24 hr 15 mg PO DAILY urine 08/13/23 albuterol sulfate 90 mcg/actuation aerosol inhaler 2 puff inhalation Q8H PRN sob and wheezing 02/01/24 prednisone 5 mg tablet 10 mg PO DAILY inflammation 02/01/24 nicotine 21 mg/24 hr daily transdermal patch 1 patch transdermal DAILY Nicotine 04/21/24 acetaminophen 500 mg tablet 1,000 mg (2 x 500 mg) PO Q8 #0 tabs 04/25/24 rivaroxaban 10 mg tablet (Xarelto) 10 mg PO DINNER #1 TAB 04/25/24 sennosides 8.6 mg-docusate sodium 50 mg tablet (Stimulant Laxative Plus) 2 tab PO BID #0 tabs 04/25/24 tramadol 50 mg tablet 50 mg PO Q6H PRN PRN pain 4-10 #4 tabs 04/25/24 Weight / BMI Weight Weight: 58.3 kg Body Mass Index (BMI) 22.0 ABG / Lab / Microbiology Data 04/24/24 06:53 04/25/24 07:45 Laboratory: Laboratory Results - last 24 hr 04/25/24 07:45: Sodium 136, Potassium 3.9, Chloride 99, Carbon Dioxide 30.0, Anion Gap 7, BUN 17, Creatinine 0.67, Estim Creat Clear Calc 54.89, Est GFR (MDRD) Af Amer 112, Est GFR (MDRD) Non-Af 92, BUN/Creatinine Ratio 25.4 H, Glucose 105, Calcium 9.3, Phosphorus 3.1, Magnesium 1.9 D/C Instructions Please Follow Up With: Jimmy Morales MD Meaningful Use Info Meaningful Use Meaningful Use Diagnoses (Choose all that apply): None applicable Ischemic Stroke Statin Dosing Therapy Reference: STATIN DOSE THERAPY REFERENCE: * Patients > 75 years receive moderate or high dose statin therapy. * Patients 75 years or YOUNGER should receive HIGH intensity statin dose unless contraindicated. You will be required to document reason for non-treatment if statin daily dose does not meet guidelines. HIGH DOSE STATIN THERAPY DAILY Atorvastatin > than or = to 40 mg Rosuvastatin > than or = to 20 mg Amlodipine + Atorvastatin > than or = to 2.5/40 mg Ezetimibe + Simvastatin 10/80 mg Simvastatin 80mg Discharge Plan Admission Admit Date/Time: 04/21/24 14:37 Primary Reason for Your Visit: R Hip pain after fall Attending Provider: Nikia Coe Primary Care Provider: Cathy Garnica Consulting Providers: Jimmy Morales; Keith Adler Discharge Orders/Prescriptions Prescriptions: New sennosides-docusate sodium [Stimulant Laxative Plus] 8.6-50 mg Tablet 2 tab PO BID Qty: 0 0RF tramadol 50 mg Tablet 50 mg PO Q6H PRN PRN (Reason: pain 4-10) Qty: 4 0RF acetaminophen 500 mg Tablet 1,000 mg PO Q8 Qty: 0 0RF Xarelto 10 mg Tablet 10 mg PO DINNER Qty: 1 0RF Rx Instructions: take for 27 more days Continued oxybutynin chloride 15 mg tablet extended release 24hr 15 mg PO DAILY albuterol sulfate 90 mcg/actuation HFA aerosol inhaler 2 puff inhalation Q8H PRN (Reason: sob and wheezing) prednisone 5 mg tablet 10 mg PO DAILY nicotine 21 mg/24 hr patch 24 hour 1 patch transdermal DAILY Referrals / Follow Up: Cathy Garnica MD [Primary Care Provider] - Within 1 Week (after d/c from SNF) Jimmy Morales MD [Med Staff - Active Staff] - See Referral Note (1-2 weeks) Disposition Disposition (needs filled in before D/C Order can be placed): Snf Facility Charges/Coding Visit Charges Inpatient E&M: 13689 SNF Disch >30 Min
--- NOTE | 2024-04-25 15:07 | PCM.DC.SUM ---
Providers Date of Admission: 04/21/24 Date of Discharge: 04/25/24 Primary Care Physician: Cathy Garnica MD Consultations 04/21/24 16:06 Consult: Orthopedics Routine Consulting Provider: Jimmy Morales Reason for Consult: Left hip fracture EMERGENT Consult: No MD Notified: Yes Date Notified: 04/21/24 Time Notified: 14:42 Method of Notification: ED Physician Initiated Reason For Visit: RIGHT HIP FRACTURE Diagnosis Discharge Diagnosis (1) Hypoxia: Status: Acute Code(s): R09.02 - Hypoxemia (2) Fall: Status: Acute Code(s): W19.XXXA - Unspecified fall, initial encounter (3) Subcapital fracture of right hip: Status: Acute Code(s): S72.011A - Unspecified intracapsular fracture of right femur, initial encounter for closed fracture Medications at Discharge Home Medications oxybutynin chloride 15 mg tablet,extended release 24 hr 15 mg PO DAILY urine 08/13/23 albuterol sulfate 90 mcg/actuation aerosol inhaler 2 puff inhalation Q8H PRN sob and wheezing 02/01/24 prednisone 5 mg tablet 10 mg PO DAILY inflammation 02/01/24 nicotine 21 mg/24 hr daily transdermal patch 1 patch transdermal DAILY Nicotine 04/21/24 acetaminophen 500 mg tablet 1,000 mg (2 x 500 mg) PO Q8 #0 tabs 04/25/24 rivaroxaban 10 mg tablet (Xarelto) 10 mg PO DINNER #1 TAB 04/25/24 sennosides 8.6 mg-docusate sodium 50 mg tablet (Stimulant Laxative Plus) 2 tab PO BID #0 tabs 04/25/24 tramadol 50 mg tablet 50 mg PO Q6H PRN PRN pain 4-10 #4 tabs 04/25/24 Hospital Course Operations - (Right hip hemiarthroplasty) Procedures EKG and - (Chest x-ray/hip and pelvic x-rays/knee x-ray/CTA chest) Summary of Care Provided Minutes Spent on Discharge: 42 Hospital Course: Patient is a 73-year-old white female who presented to the emergency department at [facility] on 04/21/2020 for via EMS after a fall. The patient was out blowing her leaves in the sidewalk when she had a dizzy spell and fell down. The time of her fall she had pain in her right hip and was unable to ambulate post fall. She also complained of pain near her right patella. She did not hit her head or have any loss of consciousness. She does have a history of lung cancer and was scheduled for surgery at [facility] on 04/24/2024. She recently quit smoking and denies need for the use of home oxygen. EMS did note that she had oxygen levels occasionally in the 80s nursing noted the same however she did not complain of shortness of breath or chest pain. Abdomen oxygen saturation of 88% on room air on presentation her vital signs were unremarkable. She was placed on 2 L nasal cannula which improved her saturations into the mid 90s. CBC showed a chronic stable anemia on presentation but was otherwise unremarkable. Coags were unremarkable. Chemistry panel was unremarkable. Right knee x-ray showed a small joint effusion but no fracture. Hip and pelvic x-ray showed a nondisplaced transverse subcapital fracture of the right proximal femur. Chest x-ray showed no acute abnormalities. She was admitted to the medical floor and orthopedic surgery evaluated the patient. She was taken to the OR on 04/22/2024 at which time a left hip cemented hemiarthroplasty was performed. She is to be weightbearing as tolerated with her precautions on that right hip. She did develop some postoperative delirium and urinary retention. Her delirium is significantly improved however I do speculate she may have some baseline cognitive impairment that is mild as she still was with some mild confusion. We did check a UA to rule out infection and it was completely benign. Narcotics also may be contributing to this. Her urinary retention completely resolved and she was able to urinate without difficulty prior to discharge. We were able to wean her oxygen to needing no oxygen at rest and 2 L with exertion. CTA of the chest was performed to rule out PE and it was negative. There were no really significant findings on her CTA other than her previous right upper lobe mass which was previously known. She was have upcoming surgery as noted above and this is going to be rescheduled after she recovers from her hip fracture. She was evaluated by physical and Occupational Therapy and they did feel that she would benefit from ongoing rehab at the time of discharge. She was accepted at a local halfway facility and pre-CERT was obtained on 04/25/2024. She has to follow-up with Dr. Morales within the next 1 to 2 weeks and is weightbearing as tolerated on the right lower extremity. She is to remain on rivaroxaban for DVT prophylaxis at 10 mg daily for the next 27 days which will be total of 30 days postoperatively. I do recommend that she have a repeat CBC and BMP within the next 5 to 7 days to assess stability of her labs. She did end up with a postoperative anemia which was stable prior to discharge. She was discharged to the nursing facility in stable condition on 04/25/2024. Discharge diagnoses: Right subcapital hip fracture postop day 3 status post right hip hemiarthroplasty Mild hypoxia Acute on chronic anemia Lightheadedness/dizziness-resolved Toxic/metabolic encephalopathy with suspected underlying mild cognitive impairment Adenocarcinoma of the right lung COPD Urinary incontinence Rheumatoid arthritis OA Tobacco abuse Physical Exam Const alert, oriented x3, no apparent distress, average body habitus, no limitations and well nourished Constitutional Narrative: Older, white female, lying in bed, appears somewhat debilitated, daughter at bedside, does not appear toxic, patient is alert and oriented x 3 however does appear to have some difficulty with short-term memory General Appearance: cooperative, comfortable, well kempt and well developed Orientation / Consciousness: awake, oriented to person, oriented to place and oriented to time Exam Limitations: no limitations HEENT normocephalic, head/scalp atraumatic and moist oral mucous membranes HEENT Narrative: Mild hearing loss, Mallampati 2, no thrush Eyes PERRL and EOMs intact bilaterally Eyes Narrative: Mild conjunctival pallor bilaterally, no scleral icterus Neck no lymphadenopathy and supple Neck Narrative: Trachea midline, no thyroid enlargement Resp normal respiratory effort, no retractions, no use of accessory muscles and No clear to auscultation bilaterally Resp Narrative: Few scattered wheezes in right base that clear with repetitive deep breathing Auscultation: wheezes; Negative for rales or rhonchi Cardio regular rate, regular rhythm, S1 normal heart sound, S2 normal heart sound, no murmurs, no rub, no gallops and no clicks GI normal to inspection, nondistended, normoactive bowel sounds, soft to palpation and non-tender Extremity no clubbing, cyanosis or edema Extremity Narrative: Pedal pulses are 2+, ice on right hip Skin Skin Narrative: Postoperative dressing is clean dry and intact on right hip, no significant swelling or ecchymosis noted Neuro oriented x3 and no focal motor deficits Neuro Narrative: Decreased movement right lower extremity due to pain in the hip but no focal deficits Speech: speech normal Psych affect normal Psych Narrative: Very pleasant, interacts appropriately Weight / BMI Weight Weight: 58.3 kg Body Mass Index (BMI) 22.0 ABG / Lab / Microbiology Data 04/24/24 06:53 04/25/24 07:45 Laboratory: Laboratory Results - last 24 hr 04/25/24 07:45: Sodium 136, Potassium 3.9, Chloride 99, Carbon Dioxide 30.0, Anion Gap 7, BUN 17, Creatinine 0.67, Estim Creat Clear Calc 54.89, Est GFR (MDRD) Af Amer 112, Est GFR (MDRD) Non-Af 92, BUN/Creatinine Ratio 25.4 H, Glucose 105, Calcium 9.3, Phosphorus 3.1, Magnesium 1.9 D/C Instructions Please Follow Up With: Jimmy Morales MD Meaningful Use Info Meaningful Use Meaningful Use Diagnoses (Choose all that apply): None applicable Ischemic Stroke Statin Dosing Therapy Reference: STATIN DOSE THERAPY REFERENCE: * Patients > 75 years receive moderate or high dose statin therapy. * Patients 75 years or YOUNGER should receive HIGH intensity statin dose unless contraindicated. You will be required to document reason for non-treatment if statin daily dose does not meet guidelines. HIGH DOSE STATIN THERAPY DAILY Atorvastatin > than or = to 40 mg Rosuvastatin > than or = to 20 mg Amlodipine + Atorvastatin > than or = to 2.5/40 mg Ezetimibe + Simvastatin 10/80 mg Simvastatin 80mg Discharge Plan Admission Admit Date/Time: 04/21/24 14:37 Primary Reason for Your Visit: R Hip pain after fall Attending Provider: Nikia Coe Primary Care Provider: Cathy Garnica Consulting Providers: Jimmy Morales; Keiht Adler Discharge Orders/Prescriptions Prescriptions: New sennosides-docusate sodium [Stimulant Laxative Plus] 8.6-50 mg Tablet 2 tab PO BID Qty: 0 0RF tramadol 50 mg Tablet 50 mg PO Q6H PRN PRN (Reason: pain 4-10) Qty: 4 0RF acetaminophen 500 mg Tablet 1,000 mg PO Q8 Qty: 0 0RF Xarelto 10 mg Tablet 10 mg PO DINNER Qty: 1 0RF Rx Instructions: take for 27 more days Continued oxybutynin chloride 15 mg tablet extended release 24hr 15 mg PO DAILY albuterol sulfate 90 mcg/actuation HFA aerosol inhaler 2 puff inhalation Q8H PRN (Reason: sob and wheezing) prednisone 5 mg tablet 10 mg PO DAILY nicotine 21 mg/24 hr patch 24 hour 1 patch transdermal DAILY Referrals / Follow Up: Cathy Garnica MD [Primary Care Provider] - Within 1 Week (after d/c from SNF) Jimmy Morales MD [Med Staff - Active Staff] - See Referral Note (1-2 weeks) Disposition Disposition (needs filled in before D/C Order can be placed): [facility] Facility Charges/Coding Visit Charges Inpatient E&M: 29642 SNF Disch >30 Min
--- NOTE | 2024-04-25 15:11 | CASEMGMT ---
Social Work- SW met with pt and pt dtr to confirm that [facility] remains FOC following pt dtr visit. Pt dtr states that [facility] is FOC and precert can be started. DCA advised. Pt reports thatshe does not feel ready for d/c d/t pt feeling that she cannot remember things. SW provided education and discussion on concerns and medical necessity. SW followed up with bedside nurse and physician. Pt and pt dtr agreeable to d/c to [facility] if medically ready. JAIRON Bird
[2024-04-25 15:13] LABS: Bacteria 0 SEEN /hpf (None Seen); Mucous, Urine 0 SEEN /hpf (<or=2+); Red Blood Cells-Urine 0 SEEN /hpf (0-5); White Blood Cells 0 SEEN /hpf (0-5)
[2024-04-25 15:22] LABS: Color, Urine Yellow (Yellow); Glucose, Dipstick Normal (Normal); Ketone-Dipstick Negative (Negative); Leukocyte Esterase-Dipstick Negative /ul (Negative); Nitrite-Dipstick Negative (Negative); Occult Blood-Urine 50 /ul (Negative); Protein-Dipstick Negative (Negative); Specific Gravity, Urine 1.005 (1.002-1.030); Urine Bilirubin Dipstick Negative (Negative); Urine Clarity Clear (Clear); Urine Urobilinogen Normal (Normal); Urine pH 6.5 (5.0 - 8.0)
[2024-04-25 15:41] LABS: Squamous Epithelial Cells - UA 0-5 SEEN /hpf (5-10)
--- NOTE | 2024-04-25 15:47 | CASEMGMT ---
Social Work Precert has been obtained.? Physician updated and pt is ready for discharge today.? 7000 convalescent form completed in [facility]. SW met with pt and they are agreeable to discharge plan as stated above.?DCA and bedside nurse notified of discharge. Disposition:[facility], skilled level of care under convalescent stay. JAIRON Bird
--- NOTE | 2024-04-25 16:03 | CASEMGMT ---
Discharge Planning Discharge orders, signed med list, and transport time sent to [facility]. Physicians will transport patient by wheelchair between 6-6:30p. Nursing, SW, patient, and her daughter (Tacey) updated. Mary Lou Dwyer DC Planning Asst.
--- NOTE | 2024-04-25 16:43 | PHA.DC.MR.R ---
Pharmacy [place] Med Reconciliation Pharmacy Service has performed discharge medication reconciliation for this patient. The patient's discharge medication list was reviewed for discrepancies and discrepancies were resolved. Medications at Discharge Home Medications oxybutynin chloride 15 mg tablet,extended release 24 hr 15 mg PO DAILY urine 08/13/23 albuterol sulfate 90 mcg/actuation aerosol inhaler 2 puff inhalation Q8H PRN sob and wheezing 02/01/24 prednisone 5 mg tablet 10 mg PO DAILY inflammation 02/01/24 nicotine 21 mg/24 hr daily transdermal patch 1 patch transdermal DAILY Nicotine 04/21/24 acetaminophen 500 mg tablet 1,000 mg (2 x 500 mg) PO Q8 #0 tabs 04/25/24 rivaroxaban 10 mg tablet (Xarelto) 10 mg PO DINNER #1 TAB 04/25/24 sennosides 8.6 mg-docusate sodium 50 mg tablet (Stimulant Laxative Plus) 2 tab PO BID #0 tabs 04/25/24 tramadol 50 mg tablet 50 mg PO Q6H PRN PRN pain 4-10 #4 tabs 04/25/24
--- NOTE | 2024-04-25 17:14 | NURSING ---
report called and given to Daksha at [facility], pt to be picked up by [facility] between
[2024-04-25] MEDS: Rivaroxaban 10 MG Tablet PO (17:27)
== END 2024-04-25 19:40 | disposition skilled nursing facility (03) | DRG 521 ==
LOC: ED 14:27 → MS3 15:40
PROVIDERS: Orthopaedic Surgery Sports Medicine; Admitting Provider Internal Medicine; Emergency Provider Emergency Medicine; PCP Family Medicine; Visit Provider Internal Medicine
PROC: 0SRR0J9 Replacement of Right Hip Joint, Femoral Surface with Synthetic Substitute, Cemented, Open Approach (ICD-10-PCS; CPT 27125; principal; 2024-04-22 08:30)
DX: S72.011A Unspecified intracapsular fracture of right femur, initial encounter for closed fracture (principal); G92.8 Other toxic encephalopathy; D62 Acute posthemorrhagic anemia; C34.91 Malignant neoplasm of unspecified part of right bronchus or lung; F05 Delirium due to known physiological condition; D63.8 Anemia in other chronic diseases classified elsewhere; I95.9 Hypotension, unspecified; J44.9 Chronic obstructive pulmonary disease, unspecified; M06.9 Rheumatoid arthritis, unspecified; M19.90 Unspecified osteoarthritis, unspecified site; G31.84 Mild cognitive impairment of uncertain or unknown etiology; W18.30XA Fall on same level, unspecified, initial encounter; E16.2 Hypoglycemia, unspecified; M25.461 Effusion, right knee; R33.9 Retention of urine, unspecified; T41.205A Adverse effect of unspecified general anesthetics, initial encounter; Y92.239 Unspecified place in hospital as the place of occurrence of the external cause; R53.81 Other malaise; R09.02 Hypoxemia; Y92.480 Sidewalk as the place of occurrence of the external cause; Y93.H2 Activity, gardening and landscaping; R42 Dizziness and giddiness; R32 Unspecified urinary incontinence; Z79.01 Long term (current) use of anticoagulants; Z79.52 Long term (current) use of systemic steroids; Z96.641 Presence of right artificial hip joint; Z87.891 Personal history of nicotine dependence
CPT/HCPCS: 36415; 71045; 71275; 72170; 73502; 73560; 80048; 81001; 82306; 82962; 83036; 83735; 84100; 84443; 85025; 85610; 85730; 88305; 88311; 93005; 94640; 94668; 97162; 97166; 97530; 97535; 97802; 99285; C1776; J7030; J7050; J7120; Q9967; A4216; J1940; J2405; J2916

== ENCOUNTER 2024-06-23 08:43 | Emergency (ER) | payer MEDICARE, MEDICAID, SELFPAY ==
[2024-06-23] VITALS (9 sets, daily range): BP systolic 120–145; BP diastolic 65–80; PULSE 85–105; RESP 12–18; TEMP 36.2–36.7; O2SAT 86–98; BMI 21.9
--- NOTE | 2024-06-23 09:04 | RAD_ITS ---
STUDY: X-RAY CHEST REASON FOR EXAM: Female, 73 years old. Chest pain and shortness of breath. TECHNIQUE: Single AP portable view of the chest. COMPARISON: Comparison is made with prior study dated April 21, 2024. FINDINGS: EKG electrodes are seen. There is elevation of the right hemidiaphragm. Prominence of the right suprahilar region and right paratracheal region. Adenopathy should be ruled out. Increased markings at the right lung base with blunting of the right costophrenic angle. Right lower lobe atelectasis and/or infiltrate should be ruled out. The left lung is clear. Normal size heart. Normal mediastinum and cassie. Normal visualized pulmonary arteries. There is atherosclerotic calcification of the aortic arch with tortuosity. There are diffuse degenerative changes of the visualized thoracic spine. Normal visualized ribs, clavicles, and shoulders. There is no demonstrated abnormality of the visualized soft tissue structures of the upper abdomen. RAD/Chest 1 View (Portable) IMPRESSION: Elevation of the right hemidiaphragm which is new as compared to prior study. Soft tissue density in the right suprahilar region and right paratracheal region. Findings suggestive of adenopathy. Blunting of the right costophrenic angle with increased markings at the right lung base suggestive of atelectasis and/or early infiltrate. Correlation with CT scan recommended. Electronically Signed: Milad Da Silva MD at 10:11 EST ,
--- NOTE | 2024-06-23 09:04 | EKG12_ITS ---
Test Reason : Blood Pressure : */* mmHG Vent. Rate : 101 BPM Atrial Rate : 101 BPM P-R Int : 154 ms QRS Dur : 80 ms QT Int : 332 ms P-R-T Axes : 56 35 82 degrees QTcB Int : 430 ms Sinus tachycardia Possible Left atrial enlargement Borderline ECG Confirmed by Kodak Parson ([id number]), clinical editor JENNIFER GREWAL ([id number]) on 06/26/2024 6:52:56 AM Referred By: Confirmed By: Kodak Parson
--- NOTE | 2024-06-23 09:05 | EDS_ITS ---
HPI History of Present Illness Chief Complaint: Shortness of Breath Narrative Narrative: Patient is a 73-year-old female who is presenting to the ER today with chief complaint of shortness of breath and dry cough this morning. Patient was just discharged yesterday from [facility]. Patient got home around 12 the 1 PM yesterday. On Wednesday, patient had a portion of the right upper lung removed secondary to lung cancer. Patient has no fever or chills. No chest pain or tightness. No abdominal pain nausea or vomiting. No bowel or bladder changes. Daughter is at bedside. Patient does have 2 different apparatuses to help with inspiratory and expiratory breathing to help prevent atelectasis, she has not been using those much last night or today. Patient was concerned about the shortness of breath, dry cough. Patient was using Mucinex in the hospital, she does not have any Mucinex at home but thought if she did it would help her and did mention that she did not get a prescription for Mucinex. Patient and daughter were reminded that Mucinex is [id number] and that is a good idea that she could use at home. Patient looks well. Patient was slightly hypoxic when she initially arrived at 88% on room air, her hands were also cold at that time. Patient does not wear oxygen at home or at nighttime. No acute complaints at this time. [facility] Medical History Fall Subcapital fracture of right hip Adenocarcinoma of right lung History of COPD Nicotine dependence, cigarettes, uncomplicated Rheumatoid arthritis Pneumothorax after biopsy Kidney disease Smoker Synovial cyst of popliteal space [Patel], right knee Effusion, right knee Osteoarthritis COPD (chronic obstructive pulmonary disease) Home Medications ?Medication ?Instructions ?Recorded ?Last Taken ?Type oxybutynin chloride 15 mg 15 mg PO DAILY urine 08/13/23 Unknown History tablet,extended release 24 hr albuterol sulfate 90 mcg/actuation 2 puff inhalation Q8H PRN sob and 02/01/24 Unknown History aerosol inhaler wheezing prednisone 5 mg tablet 10 mg PO DAILY inflammation 02/01/24 Unknown History nicotine 21 mg/24 hr daily 1 patch transdermal DAILY Nicotine 04/21/24 Unknown History transdermal patch acetaminophen 500 mg tablet 1,000 mg (2 x 500 mg) PO Q8 #0 tabs 04/25/24 Unknown Rx rivaroxaban 10 mg tablet (Xarelto) 10 mg PO DINNER #1 TAB 04/25/24 Unknown Rx sennosides 8.6 mg-docusate sodium 2 tab PO BID #0 tabs 04/25/24 Unknown Rx 50 mg tablet (Stimulant Laxative Plus) hydrocodone-acetaminophen 5-325mg tab PO 05/11/24 Unknown History 5mg-325mg albuterol sulfate 2.5 mg/3 mL 2.5 mg (3 mL) inhalation Q4H PRN 06/23/24 Unknown Rx (0.083 %) solution for nebulization #25 vials Allergy/AdvReac Type Severity Reaction Status Date / Time No Known Allergies Allergy Verified 06/23/24 08:43 Family History Father Heart disease Hypertension Brother Cancer Mother Arthritis Surgical History History of breast lift History of cholecystectomy Social History Smoking Status: Former smoker Tobacco: How many years used: 50 alcohol intake: never ROS ROS ED ROS Narrative REVIEW OF SYSTEMS: Unless otherwise stated in this report the patient's positive and negative responses for review of systems for constitutional, eyes, ENT, cardiovascular, respiratory, gastrointestinal, neurological, , mus culoskeletal, and integument systems and related systems to the presenting problem are either stated in the history of present illness or were not pertinent or were negative for the symptoms and/or complaints related to the presenting medical problem. EXAM Physical Exam Narrative Exam Narrative: Vital signs reviewed and patient is hypoxic, 80% on room air, hands are cold, this will be rechecked. General: The patient appears well and in no apparent distress. Patient is resting comfortably on cart. Not toxic, lethargic, or listless. Skin: Warm, dry, no pallor noted. There is no rash noted. All the patient's surgical wounds to the right lower anterior, lateral, posterior chest wall are clean, dry, intact. Diffuse mild tenderness around the surgical wounds, no active bleeding, drainage, erythema, cellulitis, all surgical wounds look well. Head: Normocephalic, atraumatic Eye: Normal conjunctiva, no drainage, EOMI. PERRL. Ears, Nose, Mouth, and Throat: oral mucosa is moist. Nares patent. Mouth without vesicles. Cardiovascular: Regular Rate and Rhythm, no murmurs, gallops, or rubs Respiratory: Patient is in no distress, no accessory muscle use, lungs are clear to auscultation, no wheezing, no rhonchi, patient does have faint crackles to bilateral bases. Back: non-tender, no CVA tenderness bilaterally to percussion. NO CTLS midline or paraspinal tenderness to palpation. GI: Soft, no tenderness to palpation, no masses appreciated. No rebound, guarding, or rigidity noted. Musculoskeletal: The patient has full range of motion of all extremities and joints with no difficulty. Patient has no motor, no sensory deficits. Neurological: A&O x4, normal speech, no focal neurological deficits. Psychiatric: Cooperative Const Vital Signs: 06/23/24 08:45 06/23/24 08:52 06/23/24 08:58 Temperature 97.6 F L 97.2 F L Temperature Source Temporal Oral Pulse Rate 105 H 102 H Respiratory Rate 18 14 Respiratory Effort Normal Non-Labored Respiratory Depth Shallow Respiratory Pattern Normal Blood Pressure 120/70 145/70 H Blood Pressure Mean 86 95 Pulse Ox 86 88 Oxygen Delivery Method Room Air Room Air Nasal Cannula Oxygen Flow Rate (L/min) 1 06/23/24 09:11 06/23/24 09:37 06/23/24 10:03 Temperature 97.6 F L Temperature Source Temporal Pulse Rate 96 93 Respiratory Rate 18 14 Respiratory Effort Respiratory Depth Respiratory Pattern Normal Blood Pressure 121/80 H Blood Pressure Mean 93 Pulse Ox 97 92 Oxygen Delivery Method Nasal Cannula Nasal Cannula Oxygen Flow Rate (L/min) 1 06/23/24 10:03 06/23/24 11:31 Temperature 97.6 F L 97.8 F Temperature Source Temporal Oral Pulse Rate 93 94 Respiratory Rate 14 14 Respiratory Effort Respiratory Depth Respiratory Pattern Blood Pressure 121/80 H 122/70 H Blood Pressure Mean 93 87 Pulse Ox 92 93 Oxygen Delivery Method Nasal Cannula Room Air Oxygen Flow Rate (L/min) 1 MDM MDM MDM Narrative Medical decision making narrative: 1209 I spoke to physician assistant boiler operator Arlet Pelaez from the Dr. Gibson thoracic surgeon office. We discussed patient's chest x-ray, lab work, atelectasis. Patient has a follow-up appointment on July 03. Patient was strongly encouraged to use all of her apparatuses to help with atelectasis and breathing. Patient was given a box of Nebules as requested by patient and her daughter to help with coughing, shortness of breath and breathing at home, she does have an albuterol Hailer but she felt that the nebulizer treatment helped her in the ER today. Patient will return to back to the ER for any other acute concerns. Patient was giving a pain pill that she is normally taking at home, oxycodone. Patient feels safe to go home, no question at discharge. Patient has been observed for the last several hours with 0 to 1 L, she is maintaining oxygen over 94 to 95%. Patient be discharged at 12 time. Lab Data Labs: Laboratory Results - last 24 hr 06/23/24 06/23/24 08:54 11:40 WBC 9.8 RBC 3.43 L Hgb 9.1 L Hct 29.1 L MCV 84.8 MCH 26.5 L MCHC 31.3 L RDW Std Deviation 46.2 H RDW Coeff of Nikki 15.0 H Plt Count 370 MPV 9.7 Immature Gran % (Auto) 1.500 H Neut % (Auto) 73.7 H Lymph % (Auto) 17.1 L [place] % (Auto) 5.5 Eos % (Auto) 1.8 Baso % (Auto) 0.4 Absolute Neuts (auto) 7.2 Absolute Lymphs (auto) 1.68 Nucleated RBC % 0 Sodium 134 L Potassium 4.3 Chloride 96 L Carbon Dioxide 31.0 Anion Gap 6 BUN 19 H Creatinine 0.92 Estim Creat Clear Calc 47.73 Est GFR (MDRD) Af Amer 77 Est GFR (MDRD) Non-Af 64 BUN/Creatinine Ratio 20.6 H Glucose 117 H Calcium 9.8 Magnesium 2.0 Troponin I High Sens 12 10 B-Natriuretic Peptide 36.1 Radiography Diagnostic Testing: Clinical Impression(s) from Imaging Studies Chest X-Ray 06/23/24 09:04 IMPRESSION: Elevation of the right hemidiaphragm which is new as compared to prior study. Soft tissue density in the right suprahilar region and right paratracheal region. Findings suggestive of adenopathy. Blunting of the right costophrenic angle with increased markings at the right lung base suggestive of atelectasis and/or early infiltrate. Correlation with CT scan recommended. Electronically Signed: Milad Da Silva MD at 10:11 EST , Discharge Plan Triage Chief Complaint: Shortness of Breath ED Provider: Jasper Alan Dx/Rx/DC Orders Clinical Impression: Dyspnea, Atelectasis, Cough Instructions: Atelectasis, Shortness of Breath Maximizing ..., Using an Incentive Spirometer, Shortness of Breath Coping, ED Symptoms Uncertain Cause Prescriptions: New albuterol sulfate 2.5 mg /3 mL (0.083 %) solution for nebulization 2.5 mg inhalation Q4H PRN Qty: 25 0RF Rx Instructions: Use q4 hours and PRN for wheezing No Action oxybutynin chloride 15 mg tablet extended release 24hr 15 mg PO DAILY albuterol sulfate 90 mcg/actuation HFA aerosol inhaler 2 puff inhalation Q8H PRN (Reason: sob and wheezing) hydrocodone-acetaminophen 5-325 mg tablet PO prednisone 5 mg tablet 10 mg PO DAILY nicotine 21 mg/24 hr patch 24 hour 1 patch transdermal DAILY sennosides-docusate sodium [Stimulant Laxative Plus] 8.6-50 mg Tablet 2 tab PO BID Qty: 0 0RF acetaminophen 500 mg Tablet 1,000 mg PO Q8 Qty: 0 0RF Xarelto 10 mg Tablet 10 mg PO DINNER Qty: 1 0RF Rx Instructions: take for 27 more days Primary Care Provider: Cathy Garnica Referrals: Cathy Garnica MD [Primary Care Provider] - Activity Restrictions/Additional Instructions: I have spoke to Arlet Pelaez, physician assistant boiler operator in Dr. Gibson office. She is aware of your visit. They will see you in follow-up appointment on July 03. She strongly recommends to continue using your breathing apparatus at home to help prevent atelectasis and help with your breathing. Use albuterol neb we will breathing treatment if needed every 4 hours as needed for shortness of breath or cough. Print Language: Upper Sorbian Disposition Disposition: Home, Self Care
[2024-06-23 09:23] LABS: Absolute Lymphocyte Count 1.68 X10^3/uL (0.83-4.51); Absolute Neutrophil Count 7.2 X10^3/uL (2.0-7.7); Basophil# 0.04 X10^3/uL; Basophil% 0.4 % (0-1); Eosinophil# 0.18 X10^3/uL; Eosinophils% 1.8 % (0-5); Hematocrit 29.1 % (37-47); Hemoglobin 9.1 g/dL (12.0-15.0); Lymphocyte # 1.68 X10^3/ul (0.83-4.51); Lymphocyte % 17.1 % (19-41); Mean Corp Hgb Conc 31.3 g/dL (32-36); Mean Corpuscular Hgb 26.5 pg (27.0-32.0); Mean Corpuscular Volume 84.8 fL (81-99); Mean Platelet Vol. 9.7 fl (6.2-12.0); Monocyte# 0.54 X10^3/uL; Monocyte% 5.5 % (0-10); NRBC Flagged by Analyzer 0 % (0-5); Neutrophil # 7.22 X10^3/uL (2.7-7.7); Neutrophil % 73.7 % (47-70); Platelet Count 370 K/mm3 (150-450); RBC Distribution Width SD 46.2 fl (35.1-43.9); Red Blood Count 3.43 M/mm3 (4.2-5.4); White Blood Count 9.8 K/mm3 (4.4-11.0)
[2024-06-23] MEDS: Ipratropium/Albuterol Sulfate 3 ML AMPUL.NEB INHALATION (09:36)
[2024-06-23 09:47] LABS: Anion Gap 6 (5-15); BUN 19 mg/dL (7-18); BUN/Creat Ratio 20.6 RATIO (10-20); Calcium,Total 9.8 mg/dL (8.5-10.1); Chloride 96 mmol/L (98-107); Creatinine, Serum 0.92 mg/dL (0.55-1.02); EST Glomerular Filtration Rate 64 mL/min (>60); Est Glom Filt Rate - Afr Amer 77 mL/min (>60); Estimated Creatinine Clearance 47.73 ml/min; Glucose 117 mg/dL (74-106); Potassium 4.3 mmol/L (3.5-5.1); Sodium Level 134 mmol/L (136-145); Troponin-I HS (w/2H Reflex) 12 pg/mL (3.0-54.0)
[2024-06-23 09:49] LABS: BNP,B-Type NATRIURETIC PEPTIDE 36.1 pg/mL (0-100)
[2024-06-23 11:15] LABS: Reflex Troponin-HS? (from REC) Y
[2024-06-23] MEDS: oxyCODONE 5 MG Tablet PO (11:32)
[2024-06-23 12:02] LABS: Troponin-I HS 10 pg/mL (3.0-54.0)
== END 2024-06-23 12:23 | disposition home or self-care (01) ==
PROVIDERS: Emergency Provider Emergency Medicine; PCP Family Medicine; Visit Provider Emergency Medicine
DX: J98.11 Atelectasis (principal); C34.91 Malignant neoplasm of unspecified part of right bronchus or lung; M06.9 Rheumatoid arthritis, unspecified; J44.9 Chronic obstructive pulmonary disease, unspecified; R09.02 Hypoxemia; R00.0 Tachycardia, unspecified; Z90.2 Acquired absence of lung [part of]; Z79.01 Long term (current) use of anticoagulants; Z79.899 Other long term (current) drug therapy; Z87.891 Personal history of nicotine dependence
CPT/HCPCS: 71045; 80048; 83735; 83880; 84484; 85025; 93005; 94640; 99284; A4216

== ENCOUNTER 2024-06-24 11:44 | Emergency (ER) | payer MEDICARE, MEDICAID, SELFPAY ==
[2024-06-24] VITALS (48 sets, daily range): BP systolic 110–175; BP diastolic 57–106; PULSE 94–117; RESP 10–24; TEMP 36.4–36.9; O2SAT 88–98; BMI 22.6
--- NOTE | 2024-06-24 12:06 | CT_ITS ---
STUDY: CTA CHEST REASON FOR EXAM: Female, 73 years old. Shortness of breath RADIATION DOSAGE (If Supplied By Facility): CTDIvol = ( ) mGy, DLP = ( ) mGycm TECHNIQUE: The examination was performed with the intravenous administration of Oral and amp; IV Gastrografin and amp; 100mL Isovue-370. Post-processing of the angiographic images was performed, with multiplanar reformation and 3D reconstruction. The protocol utilizes one or more of the following dose reduction techniques: automated exposure control, adjustment of mA and/or kV according to patient size,and/or use of iterative reconstruction technique. COMPARISON: Prior study dated: 04/24/2024 FINDINGS: Normal enhancement of the main pulmonary artery and right and left pulmonary arteries. Normal enhancement of the bilateral peripheral pulmonary arteries. There is no demonstrated pulmonary embolism. There is atherosclerotic calcification of the aortic arch with tortuosity. There is no demonstrated aortic dissection. Normal heart and pericardium. There are calcifications of the coronary arteries. Large right paratracheal perihilar mass essentially new since previous examination measuring about 6 x 4.5 cm no evidence of left hilar adenopathy. Suspect subcarinal adenopathy. Normal visualized trachea and bronchi. Right apical pneumothorax. Small to moderate right pleural effusion extending to the minor fissure and right lower chest anteriorly. Previously noted spiculated lesion in the right upper lobe is not clearly seen. Atelectatic changes in the right upper lobe extending to the right hilar region. Normal chest wall structures. Mild compression fracture and probable underlying lytic lesion in the vertebral body of T10 new since previous exam. Probable lytic lesion extending to the left pedicle. No demonstrated acute changes in the visualized upper abdomen. Small pocket of air in the right lateral upper abdominal wall is seen described on the CT scan of the abdomen report. CT/CTA Chest W/WO Contrast IMPRESSION: 1. No evidence of pulmonary embolism. 2. Large right mediastinal and right hilar mass could be due to adenopathy associated with atelectatic changes in right upper lobe. 3. Small right apical pneumothorax. Right pleural effusion appears to be somewhat loculated. 4. Compression fracture of T10 vertebra with lytic lesion new since previous exam concerning for metastases. Electronically Signed: Cirilo Jarrell MD at 15:43 EST ,
--- NOTE | 2024-06-24 12:07 | CT_ITS ---
STUDY: CT ABDOMEN AND PELVIS WITH CONTRAST REASON FOR EXAM: Female, 73 years old. Constipation -- IV PO Contrast RADIATION DOSAGE (If Supplied By Facility): CTDIvol = ( 9.39 ) mGy, DLP = ( 434.51 ) mGycm TECHNIQUE: 100 CC ISOVUE 370 was administered. Transaxial images were obtained from the dome of the diaphragm to the symphysis pubis. Multiplanar coronal and sagittal images were reformatted. The protocol utilizes one or more of the following dose reduction techniques: automated exposure control, adjustment of mA and/or kV according to patient size,and/or use of iterative reconstruction technique. COMPARISON: No relevant prior comparison study available FINDINGS: Small right pleural effusion and mild atelectatic changes in the right lower lobe. Right pericardial density likely due to pericardial fat pad. The visualized portions of the heart are within normal limits. Mild hepatic steatosis. There is non-visualization of the gallbladder, which may be secondary to either contraction or a prior cholecystectomy. Normal spleen. Normal pancreas. Normal bilateral adrenal glands. Normal visualized stomach. Normal small intestine. Fecal retention. Diverticulosis of the sigmoid colon. No evidence of acute diverticulitis. The appendix is visualized and appears normal. There is diffuse atherosclerotic calcification of the abdominal aorta, without a demonstrated aneurysm. No retroperitoneal adenopathy. 4 cm simple cyst in the right kidney for which no further follow-up exam is needed. Additional smaller cysts bilaterally. No evidence of hydronephrosis. Normal urinary bladder. Small pockets of air in the right lateral abdominal wall about the level of the liver with probable adjacent fluid. Degenerative changes of the spine. Dextroscoliosis. Right hip arthroplasty. CT/Abdomen/Pelvis WITH Contrast IMPRESSION: 1. Small right pleural effusion and mild atelectatic changes in the right lower lung. 2. Small pockets of air in the right lateral abdominal wall with adjacent mild fluid of undetermined etiology and could be due to recent intervention. Otherwise infectious process cannot be excluded. 3. Fecal retention concerning for constipation. 4. Diverticulosis without evidence of acute diverticulitis. Electronically Signed: Cirilo Jarrell MD at 15:23 EST ,
--- NOTE | 2024-06-24 12:09 | EDS_ITS ---
HPI <SHENA James - Last Filed: 06/24/24 22:06> History of Present Illness Chief Complaint: Constipation Narrative Narrative: Patient is a 73-year-old female with recent history of right upper lung removal secondary to cancer, other history of COPD, currently at the emergency department for 2 complaints. Patient states she continues to feel short of breath postsurgery, she is also stated she is constipated with abdominal pain. Patient was seen here yesterday, this was more for shortness of breath. They did receive a chest x-ray, did speak with the surgeons PA in [place], patient was given nebulizers, was sent home. Patient states today, she still feels short of breath and she is also concerned about her constipation. Minimal feelings of passing gas peer denies any fever chills, denies any vomiting however does have nausea. PFSH <SHENA James - Last Filed: 06/24/24 22:06> [facility] Medical History Fall Subcapital fracture of right hip Adenocarcinoma of right lung History of COPD Nicotine dependence, cigarettes, uncomplicated Rheumatoid arthritis Pneumothorax after biopsy Kidney disease Smoker Synovial cyst of popliteal space [Patel], right knee Effusion, right knee Osteoarthritis COPD (chronic obstructive pulmonary disease) Home Medications ?Medication ?Instructions ?Recorded ?Last Taken ?Type oxybutynin chloride 15 mg 15 mg PO DAILY urine 08/13/23 Unknown History tablet,extended release 24 hr albuterol sulfate 90 mcg/actuation 2 puff inhalation Q8H PRN sob and 02/01/24 Unknown History aerosol inhaler wheezing prednisone 5 mg tablet 10 mg PO DAILY inflammation 02/01/24 Unknown History nicotine 21 mg/24 hr daily 1 patch transdermal DAILY Nicotine 04/21/24 Unknown History transdermal patch acetaminophen 500 mg tablet 1,000 mg (2 x 500 mg) PO Q8 #0 tabs 04/25/24 Unknown Rx rivaroxaban 10 mg tablet (Xarelto) 10 mg PO DINNER #1 TAB 04/25/24 Unknown Rx sennosides 8.6 mg-docusate sodium 2 tab PO BID #0 tabs 04/25/24 Unknown Rx 50 mg tablet (Stimulant Laxative Plus) hydrocodone-acetaminophen 5-325mg tab PO 05/11/24 Unknown History 5mg-325mg albuterol sulfate 2.5 mg/3 mL 2.5 mg (3 mL) inhalation Q4H PRN 06/23/24 Unknown Rx (0.083 %) solution for nebulization #25 vials Allergy/AdvReac Type Severity Reaction Status Date / Time No Known Allergies Allergy Verified 06/24/24 11:44 Family History Father Heart disease Hypertension Brother Cancer Mother Arthritis Surgical History History of breast lift History of cholecystectomy Social History Smoking Status: Former smoker Tobacco: How many years used: 50 alcohol intake: never ROS <SHENA James - Last Filed: 06/24/24 22:06> ROS ED ROS Narrative Constitutional: Negative for fever, chills, weight loss. Positive for weakness Eyes: Negative for vision loss, vision change, double vision ENT: Negative for any sore throat, ear pain, congestion Cardiovascular: Negative for any chest pain, tightness, palpitations Respiratory: Negative for any cough, sputum production, hemoptysis, orthopnea. Positive dyspnea, dyspnea on exertion Gastrointestinal: Negative for any nausea, vomiting, diarrhea, blood in stool, blood in vomit. Positive for abdominal pain, constipation : Negative for any urinary frequency, dysuria, retention, blood in urine Muscle skeletal: Negative for any neck pain, back pain Neurological: Negative for any headache, syncope, dizziness Skin: Negative for any rashes, itching, abrasions, lacerations Psychiatric: Negative for any depression, anxiety, stress, suicidal ideation, homicidal ideation Hematologic: Negative for any excessive bruising, easy bleeding EXAM <SHENA James - Last Filed: 06/24/24 22:06> Physical Exam Narrative Exam Narrative: Vital signs reviewed. Patient's pulse oxygenation is between 94 to 96%. HEET: Head normocephalic atraumatic, TMs clear bilaterally. Posterior pharynx is clear, moist mucous membranes. Nares clear bilaterally. Neck: Supple with no lymphadenopathy or tenderness. No signs of meningismus. Cardiac: Regular rate and rhythm no murmurs gallops or rubs, equal peripheral pulses bilaterally. Respiratory: Lungs clear to auscultation bilaterally. No chest tenderness. Abdomen: Soft, nontender, nondistended. No abdominal bruit or pulsatile masses. No hepatosplenomegaly. Hypoactive bowel sounds Extremities: No peripheral edema, no signs of gross trauma or deformity. Active full range of motion of all extremities. Neuro: Cranial nerves II through XII intact, no focal neurological deficits. Skin: Clean dry and intact with no rash, purpura, petechiae, vesicles or pustules. Backs/flank: No CVA tenderness, no midline spinal tenderness, no deformity. Psych: Normal mood and affect. No SI, HI or acute psychosis. Const Vital Signs: 06/24/24 11:45 06/24/24 12:12 06/24/24 12:15 Temperature 97.5 F L 97.5 F L Temperature Source Temporal Temporal Pulse Rate 105 H 106 H Respiratory Rate 18 20 H Respiratory Effort Normal Non-Labored Blood Pressure 126/67 H 142/64 H Blood Pressure Mean 86 90 Pulse Ox 94 98 Oxygen Delivery Method Room Air Room Air Oxygen Flow Rate (L/min) 06/24/24 13:19 06/24/24 13:24 06/24/24 13:30 Temperature 98.5 F Temperature Source Oral Pulse Rate 103 H 107 H 102 H Respiratory Rate 18 14 17 Respiratory Effort Blood Pressure 158/71 H 154/70 H Blood Pressure Mean 100 92 Pulse Ox 94 Oxygen Delivery Method Room Air Oxygen Flow Rate (L/min) 06/24/24 13:45 06/24/24 13:45 06/24/24 14:00 Temperature Temperature Source Pulse Rate 102 H 112 H Respiratory Rate 22 H 22 H Respiratory Effort Blood Pressure 140/78 H 140/78 H 133/97 H Blood Pressure Mean 95 95 105 Pulse Ox Oxygen Delivery Method Oxygen Flow Rate (L/min) 06/24/24 14:22 06/24/24 14:30 06/24/24 14:32 Temperature 98.5 F Temperature Source Oral Pulse Rate 117 H 109 H 104 H Respiratory Rate 24 H 23 H 18 Respiratory Effort Blood Pressure 150/66 H 150/66 H Blood Pressure Mean 89 94 Pulse Ox 94 Oxygen Delivery Method Room Air Oxygen Flow Rate (L/min) 06/24/24 14:45 06/24/24 15:00 06/24/24 15:15 Temperature Temperature Source Pulse Rate 116 H 108 H 108 H Respiratory Rate 21 H 16 19 H Respiratory Effort Blood Pressure 142/64 H 147/71 H 137/77 H Blood Pressure Mean 85 94 94 Pulse Ox 91 Oxygen Delivery Method Oxygen Flow Rate (L/min) 06/24/24 15:30 06/24/24 15:45 06/24/24 16:00 Temperature 97.9 F Temperature Source Oral Pulse Rate 110 H 104 H 106 H Respiratory Rate 18 14 16 Respiratory Effort Blood Pressure 133/68 H 110/74 164/77 H Blood Pressure Mean 86 82 106 Pulse Ox 97 Oxygen Delivery Method Room Air Oxygen Flow Rate (L/min) 06/24/24 16:13 06/24/24 16:15 06/24/24 16:30 Temperature Temperature Source Pulse Rate 104 H 103 H Respiratory Rate 17 20 H Respiratory Effort Blood Pressure 164/77 H 150/87 H Blood Pressure Mean 101 104 Pulse Ox 95 94 Oxygen Delivery Method Oxygen Flow Rate (L/min) 06/24/24 16:45 06/24/24 17:00 06/24/24 17:00 Temperature 97.8 F Temperature Source Oral Pulse Rate 100 104 H Respiratory Rate 20 H 17 Respiratory Effort Blood Pressure 165/87 H 134/69 H 175/106 H Blood Pressure Mean 108 90 125 Pulse Ox 94 Oxygen Delivery Method Room Air Oxygen Flow Rate (L/min) 06/24/24 17:15 06/24/24 17:30 06/24/24 17:45 Temperature Temperature Source Pulse Rate 101 H 100 Respiratory Rate 15 12 Respiratory Effort Blood Pressure 134/69 H 123/71 H 117/69 Blood Pressure Mean 89 87 84 Pulse Ox 93 Oxygen Delivery Method Oxygen Flow Rate (L/min) 06/24/24 18:00 06/24/24 18:15 06/24/24 18:30 Temperature Temperature Source Pulse Rate 95 95 Respiratory Rate 12 12 Respiratory Effort Blood Pressure 119/58 L 132/57 H 122/76 H Blood Pressure Mean 76 79 91 Pulse Ox Oxygen Delivery Method Oxygen Flow Rate (L/min) 06/24/24 18:45 06/24/24 19:02 06/24/24 19:03 Temperature Temperature Source Pulse Rate 106 H Respiratory Rate 22 H 18 Respiratory Effort Blood Pressure 143/83 H 116/82 H Blood Pressure Mean 98 95 Pulse Ox Oxygen Delivery Method Oxygen Flow Rate (L/min) 06/24/24 19:15 06/24/24 19:30 06/24/24 19:49 Temperature Temperature Source Pulse Rate 98 100 104 H Respiratory Rate 12 15 Respiratory Effort Blood Pressure Blood Pressure Mean Pulse Ox 91 93 Oxygen Delivery Method Oxygen Flow Rate (L/min) 06/24/24 20:00 06/24/24 20:15 06/24/24 20:30 Temperature Temperature Source Pulse Rate 104 H 106 H 104 H Respiratory Rate 16 19 H 16 Respiratory Effort Blood Pressure 110/72 Blood Pressure Mean 82 Pulse Ox 93 90 88 Oxygen Delivery Method Oxygen Flow Rate (L/min) 06/24/24 20:45 06/24/24 20:53 06/24/24 21:00 Temperature Temperature Source Pulse Rate 96 105 H 102 H Respiratory Rate 14 18 13 Respiratory Effort Blood Pressure 131/97 H Blood Pressure Mean 109 Pulse Ox 97 97 Oxygen Delivery Method Nasal Cannula Oxygen Flow Rate (L/min) 2 06/24/24 21:15 06/24/24 21:30 06/24/24 21:45 Temperature Temperature Source Pulse Rate 97 100 101 H Respiratory Rate 12 18 13 Respiratory Effort Blood Pressure Blood Pressure Mean Pulse Ox 96 97 97 Oxygen Delivery Method Nasal Cannula Oxygen Flow Rate (L/min) 2 06/24/24 22:00 06/24/24 22:15 06/24/24 22:30 Temperature Temperature Source Pulse Rate 98 100 96 Respiratory Rate 13 14 12 Respiratory Effort Blood Pressure 140/88 H Blood Pressure Mean 103 Pulse Ox 98 98 97 Oxygen Delivery Method Nasal Cannula Oxygen Flow Rate (L/min) 2 06/24/24 22:45 06/24/24 23:00 06/24/24 23:53 Temperature 97.9 F Temperature Source Pulse Rate 95 97 94 Respiratory Rate 11 L 10 L 15 Respiratory Effort Blood Pressure 154/66 H 154/66 H Blood Pressure Mean 93 95 Pulse Ox 97 97 96 Oxygen Delivery Method Oxygen Flow Rate (L/min) <Dr. Ignacio Hooks, DO - Last Filed: 06/24/24 14:56> Physical Exam Const Vital Signs: 06/24/24 11:45 06/24/24 12:12 06/24/24 12:15 Temperature 97.5 F L 97.5 F L Temperature Source Temporal Temporal Pulse Rate 105 H 106 H Respiratory Rate 18 20 H Respiratory Effort Normal Non-Labored Blood Pressure 126/67 H 142/64 H Blood Pressure Mean 86 90 Pulse Ox 94 98 Oxygen Delivery Method Room Air Room Air Oxygen Flow Rate (L/min) 06/24/24 13:19 06/24/24 13:24 06/24/24 13:30 Temperature 98.5 F Temperature Source Oral Pulse Rate 103 H 107 H 102 H Respiratory Rate 18 14 17 Respiratory Effort Blood Pressure 158/71 H 154/70 H Blood Pressure Mean 100 92 Pulse Ox 94 Oxygen Delivery Method Room Air Oxygen Flow Rate (L/min) 06/24/24 13:45 06/24/24 13:45 06/24/24 14:00 Temperature Temperature Source Pulse Rate 102 H 112 H Respiratory Rate 22 H 22 H Respiratory Effort Blood Pressure 140/78 H 140/78 H 133/97 H Blood Pressure Mean 95 95 105 Pulse Ox Oxygen Delivery Method Oxygen Flow Rate (L/min) 06/24/24 14:22 06/24/24 14:30 06/24/24 14:32 Temperature 98.5 F Temperature Source Oral Pulse Rate 117 H 109 H 104 H Respiratory Rate 24 H 23 H 18 Respiratory Effort Blood Pressure 150/66 H 150/66 H Blood Pressure Mean 89 94 Pulse Ox 94 Oxygen Delivery Method Room Air Oxygen Flow Rate (L/min) 06/24/24 14:45 06/24/24 15:00 06/24/24 15:15 Temperature Temperature Source Pulse Rate 116 H 108 H 108 H Respiratory Rate 21 H 16 19 H Respiratory Effort Blood Pressure 142/64 H 147/71 H 137/77 H Blood Pressure Mean 85 94 94 Pulse Ox 91 Oxygen Delivery Method Oxygen Flow Rate (L/min) 06/24/24 15:30 06/24/24 15:45 06/24/24 16:00 Temperature 97.9 F Temperature Source Oral Pulse Rate 110 H 104 H 106 H Respiratory Rate 18 14 16 Respiratory Effort Blood Pressure 133/68 H 110/74 164/77 H Blood Pressure Mean 86 82 106 Pulse Ox 97 Oxygen Delivery Method Room Air Oxygen Flow Rate (L/min) 06/24/24 16:13 06/24/24 16:15 06/24/24 16:30 Temperature Temperature Source Pulse Rate 104 H 103 H Respiratory Rate 17 20 H Respiratory Effort Blood Pressure 164/77 H 150/87 H Blood Pressure Mean 101 104 Pulse Ox 95 94 Oxygen Delivery Method Oxygen Flow Rate (L/min) 06/24/24 16:45 06/24/24 17:00 06/24/24 17:00 Temperature 97.8 F Temperature Source Oral Pulse Rate 100 104 H Respiratory Rate 20 H 17 Respiratory Effort Blood Pressure 165/87 H 134/69 H 175/106 H Blood Pressure Mean 108 90 125 Pulse Ox 94 Oxygen Delivery Method Room Air Oxygen Flow Rate (L/min) 06/24/24 17:15 06/24/24 17:30 06/24/24 17:45 Temperature Temperature Source Pulse Rate 101 H 100 Respiratory Rate 15 12 Respiratory Effort Blood Pressure 134/69 H 123/71 H 117/69 Blood Pressure Mean 89 87 84 Pulse Ox 93 Oxygen Delivery Method Oxygen Flow Rate (L/min) 06/24/24 18:00 06/24/24 18:15 06/24/24 18:30 Temperature Temperature Source Pulse Rate 95 95 Respiratory Rate 12 12 Respiratory Effort Blood Pressure 119/58 L 132/57 H 122/76 H Blood Pressure Mean 76 79 91 Pulse Ox Oxygen Delivery Method Oxygen Flow Rate (L/min) 06/24/24 18:45 06/24/24 19:02 06/24/24 19:03 Temperature Temperature Source Pulse Rate 106 H Respiratory Rate 22 H 18 Respiratory Effort Blood Pressure 143/83 H 116/82 H Blood Pressure Mean 98 95 Pulse Ox Oxygen Delivery Method Oxygen Flow Rate (L/min) 06/24/24 19:15 06/24/24 19:30 06/24/24 19:49 Temperature Temperature Source Pulse Rate 98 100 104 H Respiratory Rate 12 15 Respiratory Effort Blood Pressure Blood Pressure Mean Pulse Ox 91 93 Oxygen Delivery Method Oxygen Flow Rate (L/min) 06/24/24 20:00 06/24/24 20:15 06/24/24 20:30 Temperature Temperature Source Pulse Rate 104 H 106 H 104 H Respiratory Rate 16 19 H 16 Respiratory Effort Blood Pressure 110/72 Blood Pressure Mean 82 Pulse Ox 93 90 88 Oxygen Delivery Method Oxygen Flow Rate (L/min) 06/24/24 20:45 06/24/24 20:53 06/24/24 21:00 Temperature Temperature Source Pulse Rate 96 105 H 102 H Respiratory Rate 14 18 13 Respiratory Effort Blood Pressure 131/97 H Blood Pressure Mean 109 Pulse Ox 97 97 Oxygen Delivery Method Nasal Cannula Oxygen Flow Rate (L/min) 2 06/24/24 21:15 06/24/24 21:30 06/24/24 21:45 Temperature Temperature Source Pulse Rate 97 100 101 H Respiratory Rate 12 18 13 Respiratory Effort Blood Pressure Blood Pressure Mean Pulse Ox 96 97 97 Oxygen Delivery Method Nasal Cannula Oxygen Flow Rate (L/min) 2 06/24/24 22:00 06/24/24 22:15 06/24/24 22:30 Temperature Temperature Source Pulse Rate 98 100 96 Respiratory Rate 13 14 12 Respiratory Effort Blood Pressure 140/88 H Blood Pressure Mean 103 Pulse Ox 98 98 97 Oxygen Delivery Method Nasal Cannula Oxygen Flow Rate (L/min) 2 06/24/24 22:45 06/24/24 23:00 06/24/24 23:53 Temperature 97.9 F Temperature Source Pulse Rate 95 97 94 Respiratory Rate 11 L 10 L 15 Respiratory Effort Blood Pressure 154/66 H 154/66 H Blood Pressure Mean 93 95 Pulse Ox 97 97 96 Oxygen Delivery Method Oxygen Flow Rate (L/min) <Dr. Julián Serrano-Lb, DO - Last Filed: 06/25/24 00:48> Physical Exam Const Vital Signs: 06/24/24 11:45 06/24/24 12:12 06/24/24 12:15 Temperature 97.5 F L 97.5 F L Temperature Source Temporal Temporal Pulse Rate 105 H 106 H Respiratory Rate 18 20 H Respiratory Effort Normal Non-Labored Blood Pressure 126/67 H 142/64 H Blood Pressure Mean 86 90 Pulse Ox 94 98 Oxygen Delivery Method Room Air Room Air Oxygen Flow Rate (L/min) 06/24/24 13:19 06/24/24 13:24 06/24/24 13:30 Temperature 98.5 F Temperature Source Oral Pulse Rate 103 H 107 H 102 H Respiratory Rate 18 14 17 Respiratory Effort Blood Pressure 158/71 H 154/70 H Blood Pressure Mean 100 92 Pulse Ox 94 Oxygen Delivery Method Room Air Oxygen Flow Rate (L/min) 06/24/24 13:45 06/24/24 13:45 06/24/24 14:00 Temperature Temperature Source Pulse Rate 102 H 112 H Respiratory Rate 22 H 22 H Respiratory Effort Blood Pressure 140/78 H 140/78 H 133/97 H Blood Pressure Mean 95 95 105 Pulse Ox Oxygen Delivery Method Oxygen Flow Rate (L/min) 06/24/24 14:22 06/24/24 14:30 06/24/24 14:32 Temperature 98.5 F Temperature Source Oral Pulse Rate 117 H 109 H 104 H Respiratory Rate 24 H 23 H 18 Respiratory Effort Blood Pressure 150/66 H 150/66 H Blood Pressure Mean 89 94 Pulse Ox 94 Oxygen Delivery Method Room Air Oxygen Flow Rate (L/min) 06/24/24 14:45 06/24/24 15:00 06/24/24 15:15 Temperature Temperature Source Pulse Rate 116 H 108 H 108 H Respiratory Rate 21 H 16 19 H Respiratory Effort Blood Pressure 142/64 H 147/71 H 137/77 H Blood Pressure Mean 85 94 94 Pulse Ox 91 Oxygen Delivery Method Oxygen Flow Rate (L/min) 06/24/24 15:30 06/24/24 15:45 06/24/24 16:00 Temperature 97.9 F Temperature Source Oral Pulse Rate 110 H 104 H 106 H Respiratory Rate 18 14 16 Respiratory Effort Blood Pressure 133/68 H 110/74 164/77 H Blood Pressure Mean 86 82 106 Pulse Ox 97 Oxygen Delivery Method Room Air Oxygen Flow Rate (L/min) 06/24/24 16:13 06/24/24 16:15 06/24/24 16:30 Temperature Temperature Source Pulse Rate 104 H 103 H Respiratory Rate 17 20 H Respiratory Effort Blood Pressure 164/77 H 150/87 H Blood Pressure Mean 101 104 Pulse Ox 95 94 Oxygen Delivery Method Oxygen Flow Rate (L/min) 06/24/24 16:45 06/24/24 17:00 06/24/24 17:00 Temperature 97.8 F Temperature Source Oral Pulse Rate 100 104 H Respiratory Rate 20 H 17 Respiratory Effort Blood Pressure 165/87 H 134/69 H 175/106 H Blood Pressure Mean 108 90 125 Pulse Ox 94 Oxygen Delivery Method Room Air Oxygen Flow Rate (L/min) 06/24/24 17:15 06/24/24 17:30 06/24/24 17:45 Temperature Temperature Source Pulse Rate 101 H 100 Respiratory Rate 15 12 Respiratory Effort Blood Pressure 134/69 H 123/71 H 117/69 Blood Pressure Mean 89 87 84 Pulse Ox 93 Oxygen Delivery Method Oxygen Flow Rate (L/min) 06/24/24 18:00 06/24/24 18:15 06/24/24 18:30 Temperature Temperature Source Pulse Rate 95 95 Respiratory Rate 12 12 Respiratory Effort Blood Pressure 119/58 L 132/57 H 122/76 H Blood Pressure Mean 76 79 91 Pulse Ox Oxygen Delivery Method Oxygen Flow Rate (L/min) 06/24/24 18:45 06/24/24 19:02 06/24/24 19:03 Temperature Temperature Source Pulse Rate 106 H Respiratory Rate 22 H 18 Respiratory Effort Blood Pressure 143/83 H 116/82 H Blood Pressure Mean 98 95 Pulse Ox Oxygen Delivery Method Oxygen Flow Rate (L/min) 06/24/24 19:15 06/24/24 19:30 06/24/24 19:49 Temperature Temperature Source Pulse Rate 98 100 104 H Respiratory Rate 12 15 Respiratory Effort Blood Pressure Blood Pressure Mean Pulse Ox 91 93 Oxygen Delivery Method Oxygen Flow Rate (L/min) 06/24/24 20:00 06/24/24 20:15 06/24/24 20:30 Temperature Temperature Source Pulse Rate 104 H 106 H 104 H Respiratory Rate 16 19 H 16 Respiratory Effort Blood Pressure 110/72 Blood Pressure Mean 82 Pulse Ox 93 90 88 Oxygen Delivery Method Oxygen Flow Rate (L/min) 06/24/24 20:45 06/24/24 20:53 06/24/24 21:00 Temperature Temperature Source Pulse Rate 96 105 H 102 H Respiratory Rate 14 18 13 Respiratory Effort Blood Pressure 131/97 H Blood Pressure Mean 109 Pulse Ox 97 97 Oxygen Delivery Method Nasal Cannula Oxygen Flow Rate (L/min) 2 06/24/24 21:15 06/24/24 21:30 06/24/24 21:45 Temperature Temperature Source Pulse Rate 97 100 101 H Respiratory Rate 12 18 13 Respiratory Effort Blood Pressure Blood Pressure Mean Pulse Ox 96 97 97 Oxygen Delivery Method Nasal Cannula Oxygen Flow Rate (L/min) 2 06/24/24 22:00 06/24/24 22:15 06/24/24 22:30 Temperature Temperature Source Pulse Rate 98 100 96 Respiratory Rate 13 14 12 Respiratory Effort Blood Pressure 140/88 H Blood Pressure Mean 103 Pulse Ox 98 98 97 Oxygen Delivery Method Nasal Cannula Oxygen Flow Rate (L/min) 2 06/24/24 22:45 06/24/24 23:00 06/24/24 23:53 Temperature 97.9 F Temperature Source Pulse Rate 95 97 94 Respiratory Rate 11 L 10 L 15 Respiratory Effort Blood Pressure 154/66 H 154/66 H Blood Pressure Mean 93 95 Pulse Ox 97 97 96 Oxygen Delivery Method Oxygen Flow Rate (L/min) NAINA <SHENA Jmaes - Last Filed: 06/24/24 22:06> MDM Lab Data Labs: Laboratory Results - last 24 hr 06/24/24 12:20 WBC 11.4 H RBC 3.23 L Hgb 8.7 L Hct 27.7 L MCV 85.8 MCH 26.9 L MCHC 31.4 L RDW Std Deviation 46.6 H RDW Coeff of Nikki 15.0 H Plt Count 365 MPV 9.5 Immature Gran % (Auto) 2.000 H Neut % (Auto) 77.7 H Lymph % (Auto) 10.9 L [place] % (Auto) 7.3 Eos % (Auto) 1.7 Baso % (Auto) 0.4 Absolute Neuts (auto) 8.9 H Absolute Lymphs (auto) 1.24 Nucleated RBC % 0 Sodium 130 L Potassium 4.1 Chloride 93 L Carbon Dioxide 30.0 Anion Gap 7 BUN 16 Creatinine 0.89 Est GFR (MDRD) Af Amer 80 Est GFR (MDRD) Non-Af 66 BUN/Creatinine Ratio 18.0 Glucose 132 H Calcium 9.2 Total Bilirubin 0.30 Direct Bilirubin 0.16 AST 25 ALT 37 Alkaline Phosphatase 104 Total Protein 7.4 Albumin 2.8 L Globulin 4.6 H Lipase 13 Radiography Diagnostic Testing: Clinical Impression(s) from Imaging Studies Chest CTA 06/24/24 12:06 IMPRESSION: 1. No evidence of pulmonary embolism. 2. Large right mediastinal and right hilar mass could be due to adenopathy associated with atelectatic changes in right upper lobe. 3. Small right apical pneumothorax. Right pleural effusion appears to be somewhat loculated. 4. Compression fracture of T10 vertebra with lytic lesion new since previous exam concerning for metastases. Electronically Signed: Cirilo Jarrell MD at 15:43 EST Reading Location ID and State: [facility] / [place] Tel , Service support , Abdomen/Pelvis CT 06/24/24 12:07 IMPRESSION: 1. Small right pleural effusion and mild atelectatic changes in the right lower lung. 2. Small pockets of air in the right lateral abdominal wall with adjacent mild fluid of undetermined etiology and could be due to recent intervention. Otherwise infectious process cannot be excluded. 3. Fecal retention concerning for constipation. 4. Diverticulosis without evidence of acute diverticulitis. Electronically Signed: Cirilo Jarrell MD at 15:23 EST , Treatment and Re-Evaluation :: Differential diagnosis includes however is not limited to: PE, community- acquired pneumonia, viral-like syndrome, bowel obstruction, constipation postsurgery, mass, electrolyte abnormality Patient appears generally well, vital signs are stable, patient is nontoxic-ap pearing. Presenting to the emergency department for multiple complaints. Post lobectomy to the right upper lobe 6 days ago, complaining of worsening shortness of breath, abdominal cramping, constipation. Patient will receive basic laboratory values, IV Zofran, CTA of the chest will be completed as well as a p.o. and IV contrast abdominal CT. All radiologic examinations were read, reviewed by the emergency department attending. From these reads, a plan of care will be put in place. Patient will be reevaluated. Patient's laboratory values show slight leukocytosis with a white blood count of 11.4, hemoglobin 8.7 have this been baseline over the last month to month and a half. Chemistries show sodium of 130, creatinine within normal limits. Lipase was negative. Patient CT scan of the abdomen pelvis shows small right pleural effusion with some mild atelectatic changes in the right lower lung. Small pockets of air in the right lateral abdominal wall with adjacent mild fluid in undetermined etiology could be due to recent invention. Fecal retention concerning with constipation. No evidence of any diverticulitis. CT scan of the chest shows no evidence of pulmonary embolism. There is a large right mediastinal and right hilar mass which could be due to adenopathy associated with atelectatic changes in the right upper lobe. Small right apical pneumothorax. Right pleural effusion appears to be somewhat loculated. Compression fracture of T10 vertebra with lytic lesion new since previous exam concerning for metastasis. At this time, I will reach out to the thoracic shaka geon who performed the surgery 5 days ago at [place]. I also spoke with the patient. Patient remains in the emergency department, patient is in no distress. I have been currently waiting for the CT scans to be transferred to the [facility]. This has been ongoing for 4 hours. They are still not having success. At this time, I do need to speak with the thoracic surgeon. Patient was given breathing treatment as well as IV pain medicine. I spoke with the surgeon, in [place]. It seems there are concern for infection. There was an option to follow-up outpatient with Augmentin. However the patient states she is feeling more short of breath, she is feeling more weak and she is concerned. She like to be transferred to [facility]. At this time, we will arrange transport. Patient restarted IV Unasyn. Patient made aware as well as the patient's family. They are happy with the plan of care, all questions answered, stable for transfer I have personally performed a face to face assessment of the patient and have reviewed the ELEANOR Note. I performed a substantive portion of the visit including all aspects of the following. My sidhu findings include: History is 73-year-old female status post right upper lung resection at [facility] was discharged home a few days ago. She notes continued constipation. Minimal flatus. She has tried a few [id number] remedies with no relief. She also states that she feels short of breath. No fevers. No significant change in her chest discomfort from the surgery. Exam is patient slightly tachycardic does not appear dyspneic on examination. Lung sounds do not sound coarse. The abdomen is not particularly distended. There are bowel sounds. Medical Decison Making basic blood work was obtained. CTA of the chest pelvis with oral and IV contrast was obtained. We are currently awaiting these results. If there is no pulmonary embolism or significant chest pathology we will consider that to be postoperative discomfort and she is not hypoxic. For the constipation would recommend some magnesium citrate if there are no contraindications noted on the CT. I will speak with the incoming attending regarding final disposition. <Dr. Ignacio Hooks, DO - Last Filed: 06/24/24 14:56> [facility] History & Record Review Discussion w/independent historian: Patient and Family Lab Data Attestation: I reviewed the patient's lab results. Labs: Laboratory Results - last 24 hr 06/24/24 12:20 WBC 11.4 H RBC 3.23 L Hgb 8.7 L Hct 27.7 L MCV 85.8 MCH 26.9 L MCHC 31.4 L RDW Std Deviation 46.6 H RDW Coeff of Nikki 15.0 H Plt Count 365 MPV 9.5 Immature Gran % (Auto) 2.000 H Neut % (Auto) 77.7 H Lymph % (Auto) 10.9 L [place] % (Auto) 7.3 Eos % (Auto) 1.7 Baso % (Auto) 0.4 Absolute Neuts (auto) 8.9 H Absolute Lymphs (auto) 1.24 Nucleated RBC % 0 Sodium 130 L Potassium 4.1 Chloride 93 L Carbon Dioxide 30.0 Anion Gap 7 BUN 16 Creatinine 0.89 Est GFR (MDRD) Af Amer 80 Est GFR (MDRD) Non-Af 66 BUN/Creatinine Ratio 18.0 Glucose 132 H Calcium 9.2 Total Bilirubin 0.30 Direct Bilirubin 0.16 AST 25 ALT 37 Alkaline Phosphatase 104 Total Protein 7.4 Albumin 2.8 L Globulin 4.6 H Lipase 13 Radiography Diagnostic Testing: Clinical Impression(s) from Imaging Studies Chest CTA 06/24/24 12:06 IMPRESSION: 1. No evidence of pulmonary embolism. 2. Large right mediastinal and right hilar mass could be due to adenopathy associated with atelectatic changes in right upper lobe. 3. Small right apical pneumothorax. Right pleural effusion appears to be somewhat loculated. 4. Compression fracture of T10 vertebra with lytic lesion new since previous exam concerning for metastases. Electronically Signed: Cirilo Jarrell MD at 15:43 EST , Abdomen/Pelvis CT 06/24/24 12:07 IMPRESSION: 1. Small right pleural effusion and mild atelectatic changes in the right lower lung. 2. Small pockets of air in the right lateral abdominal wall with adjacent mild fluid of undetermined etiology and could be due to recent intervention. Otherwise infectious process cannot be excluded. 3. Fecal retention concerning for constipation. 4. Diverticulosis without evidence of acute diverticulitis. Electronically Signed: Cirilo Jarrell MD at 15:23 EST , Treatment and Re-Evaluation :: Differential diagnosis includes however is not limited to: PE, community- acquired pneumonia, viral-like syndrome, bowel obstruction, constipation postsurgery, mass, electrolyte abnormality Patient appears generally well, vital signs are stable, patient is nontoxic- appearing. Presenting to the emergency department for multiple complaints. Post lobectomy to the right upper lobe 6 days ago, complaining of worsening shortness of breath, abdominal cramping, constipation. Patient will receive basic laboratory values, IV Zofran, CTA of the chest will be completed as well as a p.o. and IV contrast abdominal CT. All radiologic examinations were read, reviewed by the emergency department attending. From these reads, a plan of care will be put in place. Patient will be reevaluated. I have personally performed a face to face assessment of the patient and have reviewed the ELEANOR Note. I performed a substantive portion of the visit including all aspects of the following. My sidhu findings include: History is 73-year-old female status post right upper lung resection at [facility] was discharged home a few days ago. She notes continued constipation. Minimal flatus. She has tried a few nrho-[id number] remedies with no relief. She also states that she feels short of breath. No fevers. No significant change in her chest discomfort from the surgery. Exam is patient slightly tachycardic does not appear dyspneic on examination. Lung sounds do not sound coarse. The abdomen is not particularly distended. There are bowel sounds. Medical Decison Making basic blood work was obtained. CTA of the chest pelvis with oral and IV contrast was obtained. We are currently awaiting these results. If there is no pulmonary embolism or significant chest pathology we will consider that to be postoperative discomfort and she is not hypoxic. For the constipation would recommend some magnesium citrate if there are no contraindications noted on the CT. I will speak with the incoming attending regarding final disposition. <Dr. Julián Ovalles, DO - Last Filed: 06/25/24 00:48> [facility] Lab Data Labs: Laboratory Results - last 24 hr 06/24/24 12:20 WBC 11.4 H RBC 3.23 L Hgb 8.7 L Hct 27.7 L MCV 85.8 MCH 26.9 L MCHC 31.4 L RDW Std Deviation 46.6 H RDW Coeff of Nikki 15.0 H Plt Count 365 MPV 9.5 Immature Gran % (Auto) 2.000 H Neut % (Auto) 77.7 H Lymph % (Auto) 10.9 L [place] % (Auto) 7.3 Eos % (Auto) 1.7 Baso % (Auto) 0.4 Absolute Neuts (auto) 8.9 H Absolute Lymphs (auto) 1.24 Nucleated RBC % 0 Sodium 130 L Potassium 4.1 Chloride 93 L Carbon Dioxide 30.0 Anion Gap 7 BUN 16 Creatinine 0.89 Est GFR (MDRD) Af Amer 80 Est GFR (MDRD) Non-Af 66 BUN/Creatinine Ratio 18.0 Glucose 132 H Calcium 9.2 Total Bilirubin 0.30 Direct Bilirubin 0.16 AST 25 ALT 37 Alkaline Phosphatase 104 Total Protein 7.4 Albumin 2.8 L Globulin 4.6 H Lipase 13 Radiography Diagnostic Testing: Clinical Impression(s) from Imaging Studies Chest CTA 06/24/24 12:06 IMPRESSION: 1. No evidence of pulmonary embolism. 2. Large right mediastinal and right hilar mass could be due to adenopathy associated with atelectatic changes in right upper lobe. 3. Small right apical pneumothorax. Right pleural effusion appears to be somewhat loculated. 4. Compression fracture of T10 vertebra with lytic lesion new since previous exam concerning for metastases. Electronically Signed: Cirilo Jarrell MD at 15:43 EST , Abdomen/Pelvis CT 06/24/24 12:07 IMPRESSION: 1. Small right pleural effusion and mild atelectatic changes in the right lower lung. 2. Small pockets of air in the right lateral abdominal wall with adjacent mild fluid of undetermined etiology and could be due to recent intervention. Otherwise infectious process cannot be excluded. 3. Fecal retention concerning for constipation. 4. Diverticulosis without evidence of acute diverticulitis. Electronically Signed: Cirilo Jarrell MD at 15:23 EST , Treatment and Re-Evaluation :: Differential diagnosis includes however is not limited to: PE, community- acquired pneumonia, viral-like syndrome, bowel obstruction, constipation postsurgery, mass, electrolyte abnormality Patient appears generally well, vital signs are stable, patient is nontoxic- appearing. Presenting to the emergency department for multiple complaints. Post lobectomy to the right upper lobe 6 days ago, complaining of worsening shortness of breath, abdominal cramping, constipation. Patient will receive basic laboratory values, IV Zofran, CTA of the chest will be completed as well as a p.o. and IV contrast abdominal CT. All radiologic examinations were read, reviewed by the emergency department attending. From these reads, a plan of care will be put in place. Patient will be reevaluated. Patient's laboratory values show slight leukocytosis with a white blood count of 11.4, hemoglobin 8.7 have this been baseline over the last month to month and a half. Chemistries show sodium of 130, creatinine within normal limits. Lipase was negative. Patient CT scan of the abdomen pelvis shows small right pleural effusion with some mild atelectatic changes in the right lower lung. Small pockets of air in the right lateral abdominal wall with adjacent mild fluid in undetermined etiology could be due to recent invention. Fecal retention concerning with constipation. No evidence of any diverticulitis. CT scan of the chest shows no evidence of pulmonary embolism. There is a large right mediastinal and right hilar mass which could be due to adenopathy associated with atelectatic changes in the right upper lobe. Small right apical pneumothorax. Right pleural effusion appears to be somewhat loculated. Compression fracture of T10 vertebra with lytic lesion new since previous exam concerning for metastasis. At this time, I will reach out to the thoracic surgeon who performed the surgery 5 days ago at [place]. I also spoke with the patient. Patient remains in the emergency department, patient is in no distress. I have been currently waiting for the CT scans to be transferred to the [facility]. This has been ongoing for 4 hours. They are still not having success. At this time, I do need to speak with the thoracic surgeon. Patient was given breathing treatment as well as IV pain medicine. I spoke with the surgeon, in [place]. It seems there are concern for infection. There was an option to follow-up outpatient with Augmentin. However the patient states she is feeling more short of breath, she is feeling more weak and she is concerned. She like to be transferred to [facility]. At this time, we will arrange transport. Patient restarted IV Unasyn. Patient made aware as well as the patient's family. They are happy with the plan of care, all questions answered, stable for transfer I have personally performed a face to face assessment of the patient and have reviewed the ELEANOR Note. I performed a substantive portion of the visit including all aspects of the following. My sidhu findings include: History is 73-year-old female status post right upper lung resection at [facility] was discharged home a few days ago. She notes continued constipation. Minimal flatus. She has tried a few wifq-gus-[id number] remedies with no relief. She also states that she feels short of breath. No fevers. No significant change in her chest discomfort from the surgery. Exam is patient slightly tachycardic does not appear dyspneic on examination. Lung sounds do not sound coarse. The abdomen is not particularly distended. There are bowel sounds. Medical Decison Making basic blood work was obtained. CTA of the chest pelvis with oral and IV contrast was obtained. We are currently awaiting these results. If there is no pulmonary embolism or significant chest pathology we will consider that to be postoperative discomfort and she is not hypoxic. For the constipation would recommend some magnesium citrate if there are no contraindications noted on the CT. I will speak with the incoming attending regarding final disposition. Dr. Ovalles: Patient was signed out to me by day provider. At that time we were awaiting CT abdomen pelvis results as well as CTA chest results. CT of the abdomen pelvis shows small right pleural effusion with some mild atelectatic changes in the right lower lung. Small pockets of air in the right lateral abdominal wall with adjacent mild fluid in undetermined etiology could be due to recent invention. Fecal retention concerning with constipation. CT chest shows no evidence of pulmonary embolism. There is a large right mediastinal and right hilar mass which could be due to adenopathy associated with atelectatic changes in the right upper lobe. Small right apical pneumothorax. Right pleural effusion appears to be somewhat loculated. Compression fracture of T10 vertebra with lytic lesion new since previous exam concerning for metastasis. Patient small right apical pneumothorax may be secondary to her recent surgery. She is in no acute distress or need for emergent chest tube. However given these findings patient's thoracic surgeon was contacted at [place]. There were issues with imaging being transferred. Thoracic surgeon was contacted and patient was discussed. Concern for possible infection. There was an option to follow-up outpatient with Augmentin and then in their office on Wednesday or if you are patient was uncomfortable with this plan given her shortness of breath. Patient will be transferred to [facility]. Thoracic surgeon agrees. Patient started on IV Unasyn. Patient will be transferred. Discharge Plan Triage Chief Complaint: Constipation Other Complaint: Shortness of Breath ED Midlevel Provider: Jalen Garcia ED Provider: Ignacio Hooks Dx/Rx/DC Orders Clinical Impression: Pleural effusion, History of lung cancer, Cancer, metastatic to bone, SOB (shortness of breath) Prescriptions: No Action oxybutynin chloride 15 mg tablet extended release 24hr 15 mg PO DAILY albuterol sulfate 90 mcg/actuation HFA aerosol inhaler 2 puff inhalation Q8H PRN (Reason: sob and wheezing) hydrocodone-acetaminophen 5-325 mg tablet PO prednisone 5 mg tablet 10 mg PO DAILY nicotine 21 mg/24 hr patch 24 hour 1 patch transdermal DAILY sennosides-docusate sodium [Stimulant Laxative Plus] 8.6-50 mg Tablet 2 tab PO BID Qty: 0 0RF acetaminophen 500 mg Tablet 1,000 mg PO Q8 Qty: 0 0RF Xarelto 10 mg Tablet 10 mg PO DINNER Qty: 1 0RF Rx Instructions: take for 27 more days albuterol sulfate 2.5 mg /3 mL (0.083 %) solution for nebulization 2.5 mg inhalation Q4H PRN Qty: 25 0RF Rx Instructions: Use q4 hours and PRN for wheezing Primary Care Provider: Cathy Garnica Referrals: Cathy Garnica MD [Primary Care Provider] - Print Language: Korean Disposition Disposition: Acute Care Hospital
[2024-06-24] MEDS: Ondansetron 4 MG/2 ML Vial IV ×2 (12:19→23:34)
[2024-06-24 12:33] LABS: Absolute Lymphocyte Count 1.24 X10^3/uL (0.83-4.51); Absolute Neutrophil Count 8.9 X10^3/uL (2.0-7.7); Basophil# 0.04 X10^3/uL; Basophil% 0.4 % (0-1); Eosinophil# 0.19 X10^3/uL; Eosinophils% 1.7 % (0-5); Hematocrit 27.7 % (37-47); Hemoglobin 8.7 g/dL (12.0-15.0); Lymphocyte # 1.24 X10^3/ul (0.83-4.51); Lymphocyte % 10.9 % (19-41); Mean Corp Hgb Conc 31.4 g/dL (32-36); Mean Corpuscular Hgb 26.9 pg (27.0-32.0); Mean Corpuscular Volume 85.8 fL (81-99); Mean Platelet Vol. 9.5 fl (6.2-12.0); Monocyte# 0.83 X10^3/uL; Monocyte% 7.3 % (0-10); NRBC Flagged by Analyzer 0 % (0-5); Neutrophil # 8.85 X10^3/uL (2.7-7.7); Neutrophil % 77.7 % (47-70); Platelet Count 365 K/mm3 (150-450); RBC Distribution Width SD 46.6 fl (35.1-43.9); Red Blood Count 3.23 M/mm3 (4.2-5.4); White Blood Count 11.4 K/mm3 (4.4-11.0)
[2024-06-24 12:47] LABS: AST(SGOT) 25 U/L (15-37); Alanine Aminotransfer ALT/SGPT 37 U/L (13-56); Albumin, Serum 2.8 g/dL (3.2-5.0); Alkaline Phosphatase 104 U/L (45-117); Anion Gap 7 (5-15); BUN 16 mg/dL (7-18); Bilirubin, Direct 0.16 mg/dL (0.00-0.30); Calcium,Total 9.2 mg/dL (8.5-10.1); Chloride 93 mmol/L (98-107); Creatinine, Serum 0.89 mg/dL (0.55-1.02); EST Glomerular Filtration Rate 66 mL/min (>60); Est Glom Filt Rate - Afr Amer 80 mL/min (>60); Globulin 4.6 g/dL (2.2-4.2); Glucose 132 mg/dL (74-106); Lipase 13 U/L (13-75); Potassium 4.1 mmol/L (3.5-5.1); Protein, Total 7.4 g/dL (6.4-8.2); Sodium Level 130 mmol/L (136-145)
[2024-06-24] MEDS: Acetaminophen 500 MG Tablet 1000 MG PO ×2 (14:58→19:53)
[2024-06-24] MEDS: oxyCODONE 5 MG Tablet PO (17:02)
[2024-06-24] MEDS: Albuterol 2.5 MG/3 ML VIAL.NEB. INHALATION (20:49)
[2024-06-24] MEDS: Morphine 4 MG/ML Syringe IV (21:06)
[2024-06-24] MEDS: Ampicillin/Sulbactam 3 GM in 0.9% Normal Saline (100mL MB+) 100 ML IV (22:17)
--- NOTE | 2024-06-24 23:04 | ED.RN ---
PT ACCEPTED AT [facility] 12TH FLOOR BED [address] [id number] [phone]
[2024-06-24] MEDS: HYDROmorphone 1 MG/ML Syringe IV (23:34)
== END 2024-06-25 00:46 | disposition short-term general hospital (02) ==
PROVIDERS: Nurse Practitioner; Emergency Provider Emergency Medicine; PCP Family Medicine; Visit Provider Emergency Medicine
DX: J90 Pleural effusion, not elsewhere classified (principal); C79.51 Secondary malignant neoplasm of bone; M06.9 Rheumatoid arthritis, unspecified; J44.9 Chronic obstructive pulmonary disease, unspecified; M84.58XA Pathological fracture in neoplastic disease, other specified site, initial encounter for fracture; K59.00 Constipation, unspecified; Z79.01 Long term (current) use of anticoagulants; Z79.899 Other long term (current) drug therapy; Z87.891 Personal history of nicotine dependence; Z85.118 Personal history of other malignant neoplasm of bronchus and lung; Z90.2 Acquired absence of lung [part of]
CPT/HCPCS: 71275; 74177; 80048; 80076; 83690; 85025; 94640; 96365; 96375; 96376; 99285; Q9967; A4216; J0295; J2405

== ENCOUNTER → 2024-07-31 | Outpatient (CLI) | payer MEDICARE, MEDICAID, SELFPAY ==
--- NOTE | 2024-07-31 14:18 | RAD_ITS ---
INDICATION: productive cough EXAMINATION/TECHNIQUE: X-RAY - XR Chest 2 Views COMPARISON: 06/23/2024 FINDINGS: LIFE-SUPPORT AND LINES: 1. None HEART AND VESSELS: The cardiac silhouette, pulmonary vasculature have normal appearance. No evidence of congestive failure. LUNGS AND PLEURAL SPACES: There is persistent volume loss asymmetric increased markings at the RIGHT lung base and blunting RIGHT CP angle. Chronic pleural thickening versus small pleural effusion or suspected without significant interval change. Remaining lung zones are clear. There are chain sutures in the medial aspect of the RIGHT upper lobe without change. There is elevation of the minor fissure. MEDIASTINUM AND HILAR REGIONS: No masses adenopathy noted. No areas of calcification. Visualized upper airway is normal in position. BONY ELEMENTS: No acute bony changes noted. RAD/Chest PA and Lateral IMPRESSION: 1. Redemonstration of elevation RIGHT hemidiaphragm, increased RIGHT infrahilar markings and blunting of the costophrenic angles on the RIGHT without significant change. 2. No pneumothorax noted. 3. Postoperative changes with chain suture material aspect of the RIGHT upper lobe. Electronically Signed: Robert Del Valle MD at 18:52 EST ,
== END | disposition home or self-care (01) ==
LOC: MTRAD 14:18
PROVIDERS: PCP Family Medicine; Referring Provider Family Medicine; Visit Provider Family Medicine
DX: R05.8 Other specified cough (principal)
CPT/HCPCS: 71046

== ENCOUNTER → 2024-08-07 | Outpatient (CLI) | payer MEDICARE, MEDICAID, SELFPAY ==
--- NOTE | 2024-08-07 14:03 | PR.HP_ITS ---
History of Present Illness General Arrival date:: 08/07/24 Arrival time:: 14:04 Date of Referral:: 06/26/24 Date of Evaluation: 08/07/24 Referring Physician: Dr. Jaspal Gibson Primary Diagnosis: adenocarcinoma of upper lobe of right lung History of Present Pulmonary Event mMRC Breathless Scale: When is the patient short of breath? Y/N Grade: Description of Breathlessness: 0 I only get breathless with strenuous exercise. 1 I get short of breath when hurrying on level ground or walking up a slight hill. 2 On level ground, I walk slower than people of the same age because of breathless, or have to stop for breath when walking at my own pace. 3 I stop for breath after walking 100 yards or after a few minutes on level ground. 4 I am too breathless to leave the house or I am breathless when dressing. Respiratory Problems: Yes Retain Secretions, Fatigue, Hoarseness, Dyspnea with Activity and Cough with Secretions; No Limited Range of Motion, Chest Pain, Wheezing, Able to Speak in Full Sentences, Dizziness, Ankle Swelling, Anxiety, Panic, Dyspnea at Rest or Dyspnea Lying Down Flat Medications Home Medications oxybutynin chloride 15 mg tablet,extended release 24 hr 15 mg PO DAILY urine 08/13/23 albuterol sulfate 90 mcg/actuation aerosol inhaler 2 puff inhalation Q8H PRN sob and wheezing 02/01/24 prednisone 5 mg tablet 10 mg PO DAILY inflammation 02/01/24 nicotine 21 mg/24 hr daily transdermal patch 1 patch transdermal DAILY Nicotine 04/21/24 acetaminophen 500 mg tablet 1,000 mg (2 x 500 mg) PO Q8 #0 tabs 04/25/24 rivaroxaban 10 mg tablet (Xarelto) 10 mg PO DINNER #1 TAB 04/25/24 sennosides 8.6 mg-docusate sodium 50 mg tablet (Stimulant Laxative Plus) 2 tab PO BID #0 tabs 04/25/24 hydrocodone-acetaminophen 5-325mg 5mg-325mg tab PO 05/11/24 albuterol sulfate 2.5 mg/3 mL (0.083 %) solution for nebulization 2.5 mg (3 mL) inhalation Q4H PRN #25 vials 06/23/24 Allergies Allergies No Known Allergies Allergy (Verified 06/24/24 11:44) Secretions Normal Color:: green Thick:: Yes Amount/Day:: 1 TBSP Cough:: Yes AM: Yes Sleep Disorder Evaluation Hx of Sleep Apnea: No Do you snore loudly (louder than talking or can be heard through closed doors)?: No Do you often feel tired/ fatigued/ sleepy during daytime?: No Has anyone observed you stop breathing during sleep?: No History of Hypertension (for STOP score): No STOP Results: Negative Medical Utilization Medical Devices Do you use a peak flow meter at home?: Yes Do you use a spacer device with your inhalers?: No Medical Utilization Do you see your physician on a regular schedule?: No Advanced Directives Advanced Directives Power of Lay Out Inspector: Yes Living Will: Yes Advance Directives Information Provided: No Advance Directives on File: No DNR Order?:: No Past Medical History Covid-19 Screening Physicial Symptoms Other Clinical Concerns Exposure Risk Pertinent Comorbidities Has a chronic lung disease or moderate to severe asthma:: Yes Medical History Medical History Fall Subcapital fracture of right hip Adenocarcinoma of right lung History of COPD Nicotine dependence, cigarettes, uncomplicated Rheumatoid arthritis Pneumothorax after biopsy Kidney disease Smoker Synovial cyst of popliteal space [Patel], right knee Effusion, right knee Osteoarthritis COPD (chronic obstructive pulmonary disease) Surgical History Surgical History History of breast lift History of cholecystectomy Significant Family History Family History Father Heart disease Hypertension Brother Cancer Mother Arthritis Social History Smoking History Smoking Status: Former smoker Years Smokin Packs Smoked per Day: 1 (stopped April of 2024) Alcohol Use Alcohol Usage: No Substance Abuse Hx Substance Use: No Occupation Occupation (List type of work in comments):: Retired Functioning ADL/IADL Current Ability Current Ability: Independent: Self-Care (e.g.,grooming, dressing, & bathing), Independent: Ambulation, Independent: Transfer and Independent: Household tasks (e.g., light meal prep, laundry, shopping) Pt Functioning Prior to Problem Prior Functioning: Self-Care (e.g.,grooming, dressing, & bathing): Independent, Ambulation: Independent, Transfer: Independent and Household tasks (e.g., light meal prep, laundry, shopping): Independent Social Environment Status Marital Status: Current Living Arrangements Living Environment:: Family Children How many children do you have?: 2 Do any of your children live nearby?: Yes Safety Do you feel safe in your surroundings?: Yes Assistance Do you need any assistance at home?: no Review of Systems Review of Systems Review of Systems Respiratory: Reports Cough, Hemoptysis, SOB upon Exertion, Sputum production, Wheezing, Appetite, Normal, Fatigue and Sleep, Normal; Denies Pleuritic Pain, SOB at Rest, Dizziness/Lightheadedness, PVD or Sexual changes Pain Is Patient Pain Free?: No Pain Location: other (fractured hip) Pain Level: 12/26 Risk Factor Assessment Chief Complaint Chief Complaint: adenocarcinoma of upper lobe of right lung Vital Signs Pulse Rate: 95 Pulse Rhythm: Regular Pulse Ox: 95 Blood Pressure: 104/54 Obesity Height: 5 ft 4 in Weight:: 123 lb Weight in Pounds: 123.0 lbs Body Mass Index (BMI): 21.1 Nutritional Referral for Obesity: No Physical Activity Physical Inactivity: None Risk Stratification Risk Guidelines: Moderate Risk: Risk Factor for Dyslipidemia, Risk Factor for Diabetes, Risk Factor for Obesity, Risk Factor for Hypertension, Risk Factor for Sedentary Lifestyle and Risk Factor for Depression and Highest Risk: Risk Factor for Smoking For Smoking Smoking Risk Guidelines For Dyslipidemia Dyslipidemia Risk Guidelines For Diabetes Mellitus Diabetes Risk Guidelines For Obesity/Overweight Obesity/Overweight Risk Guidelines For Hypertension Hypertension Risk Guidelines For Sedentary Lifestyle Sedentary Lifestyle Risk Guidelines For Depression Depression Risk Guidelines Motivation Motivation to Participate On a scale of 1 to 10, how prepared are you to commit to attending program?: 6 What do you see as barriers to successfully being able to complete the program?: nothing What do you see as the benefits of succesfully completing the program? In other words, what do you hope to get out of participating in the program?: breath better, move better Are there issues you are dealing with that will interfere with completing the program?: no Do you have a spouse or signficant other, family or friends who will help support you to complete the program?: yes
--- NOTE | 2024-08-07 14:14 | PCM.PR.TP ---
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 Personal Learning Style/Barriers Personal Learning Style:: Audio/Visual Barriers to Learning: None Stage of change r/t lifestyle modifications: Contemplation Education/Goals [place] Patient Goals: Increase muscle strength: Initial Assessment, Experience less dyspnea: Initial Assessment and Improve energy level: Initial Assessment Exercise - Initial Assessment Visit Date of Eval: 08/07/24 (initial eval ) Problem/Goals Problems: Deconditioning, No regular exercise, Knowledge deficit exercise guidelines and Knowledge deficit exercise safety Goals:: WI: 2-3/wk for 18 weeks [36 sessions] Physician Prescribed Exercise Modalities: Treadmill, Touch [employer]ion[employer] AD-7, [employer] Stepper, [employer] Pro-II Ergometer and [employer] Lateral [place] Frequency (days/week): 3 Intensity: 60-80% of age predicted maximum heart rate reserve Current METSs:: 2 Target HR:: 111 (89-111) Resting Blood Pressure: 104/54 EKG Type: ST Plan Plan and Plan to Review:: Benefits of exercise, Core components of exercise, How to measure dyspnea level, How to monitor dyspnea level, Exercise intensity, Exercise safety guideline, Home exercise guidelines and Ilya: 3-4/11-13 Nutrition/Wt Mgmt - Initial Visit Date of Eval: 08/07/24 (initial eval ) Problems/Goals Problems: Underweight (Pt has been instructed by her physician to not lose any weight.) Weight Management Admit Height:: 5 ft 4 in Admit Weight:: 123 lb Admit BMI:: 21.1 Intervention Referral to dietitian:: No Will attend diet classes:: Yes Intervention/Plan: Instruct on ideal BMI & set weight loss goal w/patient, Assist pt to ID & incorporate diet changes for weight loss by S9, Refer to Structured Weight Loss program as appropriate, Encourage goal of using 250-300dcal per session for weight loss and Other additional plan/interventions Plan Nutrition Plan: Yes: Review BMI or WC & identify target wt & strategies for wt control, Yes: Nutrition education class:, Yes: Medication education class [Prednisone]:, Yes: Weight control education class:, Yes: Education re: Need for ongoing weight monitoring, Yes: Food diary: and Yes: Physical activity log: Nutrition/Wt Mgmt - 30-Day Weight Management Height: 5 ft 4 in Weight:: 123 lb BMI: 21.1 Nutrition/Wt Mgmt - 60-Day Weight Management Height: 5 ft 4 in Weight:: 123 lb BMI: 21.1 Nutrition/Wt Mgmt - 90-Day Weight Management Height: 5 ft 4 in Weight:: 123 lb BMI: 21.1 Nutrition/Wt Mgmt - Final Weight Management Height: 5 ft 4 in Weight:: 123 lb BMI: 21.1 Psychosocial - Initial Assess Visit Date of Eval: 08/07/24 (initial eval ) Problems/Goals History of Emotional Disorders: None Psychosocial Goals: 1. Patient is free from overwhelming symtoms of depression (or anxiety, 2. Identifies personal stressors & states the strategies for managing, 3. Identifies activities to decrease isolation and/or symptoms of, 4. Improved psychosocial coping skills., 5. Verbalizes coping strategies., 6. Adequate treatment of depression. and 7. Improved Q.O.L. Psychosocial Test Tool Used:: Pulmonary QOL and PHQ-9 Questionnaire Referred to MD for counseling:: No Referral to Behavioral Health PS - Interventions: Yes: Attend Stress Management Classes Intervention/Plan: See List Interventions/Plan:: Assess stressors,coping strategies & signs of derpression on admission, Instruct/assist pt to develop coping & personal stress Mgt strategies, Refer to Behavioral Health if appropriate, Refer to Physician if appropriate, Instruct patient to recognize signs & symptoms of depression and Instruct patient to recog Psychosocial - 30-Day Problems/Goals History of Emotional Disorders: None Psychosocial Goals: 1. Patient is free from overwhelming symtoms of depression (or anxiety, 2. Identifies personal stressors & states the strategies for managing, 3. Identifies activities to decrease isolation and/or symptoms of, 4. Improved psychosocial coping skills., 5. Verbalizes coping strategies., 6. Adequate treatment of depression. and 7. Improved Q.O.L. Psychosocial Test Tool Used:: Pulmonary QOL and PHQ-9 Questionnaire Referred to MD for counseling:: No Referral to Behavioral Health PS - Interventions: Yes: Attend Stress Management Classes Plan Interventions/Plan:: Assess stressors,coping strategies & signs of derpression on admission, Instruct/assist pt to develop coping & personal stress Mgt strategies, Refer to Behavioral Health if appropriate, Refer to Physician if appropriate, Instruct patient to recognize signs & symptoms of depression and Instruct patient to recog Psychosocial - 60-Day Problems/Goals History of Emotional Disorders: None Psychosocial Goals: 1. Patient is free from overwhelming symtoms of depression (or anxiety, 2. Identifies personal stressors & states the strategies for managing, 3. Identifies activities to decrease isolation and/or symptoms of, 4. Improved psychosocial coping skills., 5. Verbalizes coping strategies., 6. Adequate treatment of depression. and 7. Improved Q.O.L. Psychosocial Test Tool Used:: Pulmonary QOL and PHQ-9 Questionnaire Referred to MD for counseling:: No Referral to Behavioral Health PS - Interventions: Yes: Attend Stress Management Classes Plan Interventions/Plan:: Assess stressors,coping strategies & signs of derpression on admission, Instruct/assist pt to develop coping & personal stress Mgt strategies, Refer to Behavioral Health if appropriate, Refer to Physician if appropriate, Instruct patient to recognize signs & symptoms of depression and Instruct patient to recog Psychosocial - 90-Day Problems/Goals History of Emotional Disorders: None Psychosocial Goals: 1. Patient is free from overwhelming symtoms of depression (or anxiety, 2. Identifies personal stressors & states the strategies for managing, 3. Identifies activities to decrease isolation and/or symptoms of, 4. Improved psychosocial coping skills., 5. Verbalizes coping strategies., 6. Adequate treatment of depression. and 7. Improved Q.O.L. Psychosocial Test Tool Used:: Pulmonary QOL and PHQ-9 Questionnaire Referred to MD for counseling:: No Referral to Behavioral Health PS - Interventions: Yes: Attend Stress Management Classes Plan Interventions/Plan:: Assess stressors,coping strategies & signs of derpression on admission, Instruct/assist pt to develop coping & personal stress Mgt strategies, Refer to Behavioral Health if appropriate, Refer to Physician if appropriate, Instruct patient to recognize signs & symptoms of depression and Instruct patient to recog Psychosocial - Final Assess Problems/Goals History of Emotional Disorders: None Psychosocial Goals: 1. Patient is free from overwhelming symtoms of depression (or anxiety, 2. Identifies personal stressors & states the strategies for managing, 3. Identifies activities to decrease isolation and/or symptoms of, 4. Improved psychosocial coping skills., 5. Verbalizes coping strategies., 6. Adequate treatment of depression. and 7. Improved Q.O.L. Psychosocial Test Tool Used:: Pulmonary QOL and PHQ-9 Questionnaire Referred to MD for counseling:: No Referral to Behavioral Health PS - Interventions: Yes: Attend Stress Management Classes Plan Interventions/Plan:: Assess stressors,coping strategies & signs of derpression on admission, Instruct/assist pt to develop coping & personal stress Mgt strategies, Refer to Behavioral Health if appropriate, Refer to Physician if appropriate, Instruct patient to recognize signs & symptoms of depression and Instruct patient to recog Oxygen & Oxygen Titration Init Visit Date of Eval: 08/07/24 (initial eval ) Initial Assessment Oxygen on Admission: None Patient Reports:: Prod cough with infection and Prod cough daily <1 Tbsp Goal Oxygen & Oxygen Tritration Goals: Effective hypoxemia control Plans Plan: Monitor SpO2 rest & with exercise Reviewed prescribed medications:: Purpose, Schedule, Side effects and Importance of compliance Instruct correct technique/timing & care:: MDI, DPI, Nebulizer and Return demo use of inhaler Bronchial Hygiene Plan: Controlled cough, CPT, Vibratory PEP device, VEST, Role of exercise in secretion clearance, NS Nasal spray, Hydration, Hand hygiene, Evaluate sputum, When to call MD, Signs/symptoms to report:, Influenza/Pneumovax vaccines and Cleaning of respiratory equipment Core Components - Initial Visit Date of Eval: 08/07/24 (initial eval ) Hypertension BP: 104/54 [employer] [employer] Hypertension Guidelines Outcomes/Goals: Able to verbalize/achieve optimal blood pressure <130/80 and Incorporates diet changes & exercise for blood pressure control by [place] Tobacco - Initial Assessment Tobacco Program Goals Stages of Change:: Maintenance Tobacco Use: Non-smoker How long ago did you quit using tobacco products?: Less than 6 months ago Years Smokin (Pt stopped in April) Do you use smokeless tobacco?: No Smoking Cessation Referral:: No Individual Education/Counseling:: No Education Schedule Given:: No Gave Education Materials For:: Tobacco Triggers, Pulmonary Disease, Risk Factors, Breathing Techniques, Medical Compliance, Pulmonary A&P, Exacerbation Signs & Symptoms and Stress & Relaxation Exacerbation Mgmt & Airway Clearance Goals: Pt demonstrates effective cough, effective secretion clearance. and Pt describes signs and symptoms of infection. Patient Reports:: Prod cough with infection and Prod cough daily <1 Tbsp Plan: Monitor SpO2 rest & with pelt grader correct technique/timing & care:: MDI, DPI, Nebulizer and Return demo use of inhaler Bronchial Hygiene Plan: Controlled cough, CPT, Vibratory PEP device, VEST, Role of exercise in secretion clearance, NS Nasal spray, Hydration, Hand hygiene, Evaluate sputum, When to call MD, Signs/symptoms to report:, Influenza/Pneumovax vaccines and Cleaning of respiratory equipment Medication Interventions/plans: Instruct on medication effects & side effects, Review medication list w/patient every two weeks and Instruct importance of taking meds as ordered & assist problem solving Medication Goals: Adherence to prescribed medications and Correct technique/timing & care of MDI, DPI, nebulizer, and spacer. Does pt report taking home meds as prescribed?: Yes Medications: Yes: MDI, Yes: DPI, Yes: NEB and Yes: Spacer Reviewed prescribed medications:: Purpose, Schedule, Side effects and Importance of compliance Diabetes Diabetes:: No Referral to dietitian:: No Will attend diet classes:: Yes Core Components - 30 DAYS Hypertension Resting Blood Pressure:: 104/54 [employer] [employer] Hypertension Guidelines Outcomes/Goals: Able to verbalize/achieve optimal blood pressure <130/80 and Incorporates diet changes & exercise for blood pressure control by [place] Tobacco - 30-Day Tobacco Program Goals Stages of Change:: Maintenance Tobacco Use: Non-smoker Do you use smokeless tobacco?: No Smoking Cessation Referral:: No Education Schedule Given:: No Gave Education Materials For:: Tobacco Triggers, Pulmonary Disease, Risk Factors, Breathing Techniques, Medical Compliance, Pulmonary A&P, Exacerbation Signs & Symptoms and Stress & Relaxation Diabetes Diabetes:: No Core Components - 60 DAYS Hypertension Resting Blood Pressure:: 104/54 [employer] [employer] Hypertension Guidelines Outcomes/Goals: Able to verbalize/achieve optimal blood pressure <130/80 and Incorporates diet changes & exercise for blood pressure control by [place] Tobacco - 60-Day Tobacco Program Goals Stages of Change:: Maintenance Tobacco Use: Non-smoker Do you use smokeless tobacco?: No Smoking Cessation Referral:: No Individual Education/Counseling:: No Education Schedule Given:: No Gave Education Materials For:: Tobacco Triggers, Pulmonary Disease, Risk Factors, Breathing Techniques, Medical Compliance, Pulmonary A&P, Exacerbation Signs & Symptoms and Stress & Relaxation Diabetes Diabetes:: No Core Components - 90 DAYS Hypertension Resting Blood Pressure:: 104/54 [employer] [employer] Hypertension Guidelines Outcomes/Goals: Able to verbalize/achieve optimal blood pressure <130/80 and Incorporates diet changes & exercise for blood pressure control by [place] Tobacco - 90-Day Tobacco Program Goals Stages of Change:: Maintenance Tobacco Use: Non-smoker Do you use smokeless tobacco?: No Smoking Cessation Referral:: No Individual Education/Counseling:: No Education Schedule Given:: No Gave Education Materials For:: Tobacco Triggers, Pulmonary Disease, Risk Factors, Breathing Techniques, Medical Compliance, Pulmonary A&P, Exacerbation Signs & Symptoms and Stress & Relaxation Diabetes Diabetes:: No Core Components - Final Hypertension Resting Blood Pressure:: 104/54 [employer] [employer] Hypertension Guidelines Outcomes/Goals: Able to verbalize/achieve optimal blood pressure <130/80 and Incorporates diet changes & exercise for blood pressure control by [place] Tobacco - Final Tobacco Program Goals Stages of Change:: Maintenance Tobacco Use: Non-smoker Do you use smokeless tobacco?: No Smoking Cessation Referral:: No Individual Education/Counseling:: No Education Schedule Given:: No Diabetes Diabetes:: No Patient Health Questionnaire PHQ-9 Screening Initial Assessment: 1. Little interest or pleasure in doing things: Not at all 2. Feeling down, depressed, or hopeless: Not at all 3. Trouble falling or staying asleep, or sleeping too much: Several days 4. Feeling tired or having little energy: Several days 5. Poor appetite or overeating: Not at all 6. Feeling bad about yourself -- or that you are a failure or have let yourself or your family down: Not at all 7. Trouble concentrating on things, such as reading the newspaper or watching television: Not at all 8. Moving or speaking so slowly that other people could have noticed. Or the opposite - being so fidgety or restless that you have been moving around a lot more than usual: Not at all 9. Thoughts that you would be better off , or of hurting yourself in some way: Not at all How difficult have these problems made it for you to do your work, take care of things at home, or get along with other people?: Not difficult at all Total Score: 2 Knowledge Questionaire (BCKQ) Information Information: [facility] COPD Knowledge Questionnaire (BCKQ) This questionnaire is designed to find out what you know about your lung problem. It should be completed without help form anyone else. This usually takes between 10 and 20 minutes. Your answers will help us to find out what information you need to help you to understand and manage your lung condition. [place] which you think is the correct answer. Self-Efficacy 6-Item Scale Initial Assessment: We would like to know how confident you are in doing certain activities. Please select your confidence level for: Fatigue Select Number: 8 Physical Discomfort or Pain Select Number: 7 Emotional Distress Select Number: 10 Other Symptoms or Health Problems Select Number: 8 Different Tasks and Activities Select Number: 8 Medication Select Number: 10 Total Score:: 8 Nutrition Survey Nutrition Survey Instructions Scoring Instructions Nutrition Survey Initial: Have you lost >10 lbs over the past 2 months without trying?: No Are you following a special diet at home for diabetes, low fat, or low salt?: No Are you interested in meeting with a dietitian for help understanding your diet?: No Do you eat less than 3 meals a day?: No Do you eat fatty meats (barbosa, sausage, ribs, etc), fried foods, desserts, large amounts of salad dressings, margarine, butter, or cheese most days?: Yes Do you have food allergies? [Enter types in comment field]: No Do you eat in restaurants more than 3 times a week?: No Do you season food with salt, seasoning salt, or garlic salt?: Yes Do you used canned, boxed, frozen meals, or soups, seasoning packets?: No Total Score:: 2
[2024-08-07 14:34] VITALS: BP 104/54; PULSE 95; O2SAT 95; BMI 21.1
[2024-08-07 15:12] VITALS: BP 104/54; BMI 21.1
== END | disposition home or self-care (01) ==
PROVIDERS: PCP Family Medicine
DX: C34.11 Malignant neoplasm of upper lobe, right bronchus or lung (principal); J44.9 Chronic obstructive pulmonary disease, unspecified

== ENCOUNTER → 2024-08-07 | Outpatient (CLI) | payer MEDICARE, MEDICAID, SELFPAY ==
[2024-08-07 15:21] LABS: Absolute Lymphocyte Count 1.21 X10^3/uL (0.83-4.51); Absolute Neutrophil Count 15.3 X10^3/uL (2.0-7.7); Basophil# 0.06 X10^3/uL; Basophil% 0.3 % (0-1); Eosinophil# 0.13 X10^3/uL; Eosinophils% 0.7 % (0-5); Hematocrit 30.6 % (37-47); Hemoglobin 9.3 g/dL (12.0-15.0); Lymphocyte # 1.21 X10^3/ul (0.83-4.51); Lymphocyte % 6.8 % (19-41); Mean Corp Hgb Conc 30.4 g/dL (32-36); Mean Corpuscular Volume 85.5 fL (81-99); Mean Platelet Vol. 9.7 fl (6.2-12.0); Monocyte# 0.96 X10^3/uL; Monocyte% 5.4 % (0-10); NRBC Flagged by Analyzer 0 % (0-5); Neutrophil # 15.28 X10^3/uL (2.7-7.7); Neutrophil % 86.1 % (47-70); Platelet Count 418 K/mm3 (150-450); RBC Distribution Width SD 46.9 fl (35.1-43.9); Red Blood Count 3.58 M/mm3 (4.2-5.4); White Blood Count 17.8 K/mm3 (4.4-11.0)
[2024-08-07 15:40] LABS: ALB/GLOB Ratio 0.7 RATIO (0.9-2.4); AST(SGOT) 12 U/L (15-37); Alanine Aminotransfer ALT/SGPT 20 U/L (13-56); Albumin, Serum 3.2 g/dL (3.2-5.0); Alkaline Phosphatase 59 U/L (45-117); Anion Gap 9 (5-15); BUN 24 mg/dL (7-18); BUN/Creat Ratio 23.1 RATIO (10-20); Calcium,Total 9.6 mg/dL (8.5-10.1); Chloride 100 mmol/L (98-107); Creatinine, Serum 1.04 mg/dL (0.55-1.02); EST Glomerular Filtration Rate 55 mL/min (>60); Est Glom Filt Rate - Afr Amer 67 mL/min (>60); Globulin 4.8 g/dL (2.2-4.2); Glucose 111 mg/dL (74-106); Potassium 3.7 mmol/L (3.5-5.1); Sodium Level 135 mmol/L (136-145)
== END | disposition home or self-care (01) ==
LOC: MTLAB 12:52
PROVIDERS: PCP Family Medicine; Referring Provider Family Medicine; Visit Provider Family Medicine
DX: D64.9 Anemia, unspecified (principal); N18.30 Chronic kidney disease, stage 3 unspecified
CPT/HCPCS: 80053; 85025

== ENCOUNTER 2024-08-14 14:08 | Outpatient (RCR) | payer MEDICARE, MEDICAID, SELFPAY ==
[2024-08-07 15:12] VITALS: BMI 21.1
== END 2024-08-18 23:59 ==
LOC: PR 14:08
PROVIDERS: PCP Family Medicine
DX: C34.11 Malignant neoplasm of upper lobe, right bronchus or lung (principal); J44.9 Chronic obstructive pulmonary disease, unspecified
CPT/HCPCS: 97150; G0239

== ENCOUNTER 2024-08-25 12:45 | Outpatient (RCR) | payer MEDICARE, MEDICAID, SELFPAY ==
[2024-08-07 15:12] VITALS: BMI 21.1
--- NOTE | 2024-09-06 08:29 | PR.ITP_ITS ---
Exercise - Initial Assessment Visit Session Number:: 3 (Pt has only been able to attend 3 sessions due to illness and rib pain. Pt is scheduled to see her physician 09/07/24 for her pain.) Physician Prescribed Exercise Modalities: Treadmill, SciFit Stepper and SciFit Pro-II Ergometer Current METSs:: 2 Target HR:: 111 (89-111) Current RPD:: 2-3 Maximum Exercise HR:: 113 Resting Blood Pressure: 142/70 Maximum Exercise Blood Pressure: 164/76 Minimum SpO2 with exercise: 93 EKG Type: NSR to ST Nutrition/Wt Mgmt - Initial Visit Session Number:: 3 (Pt has only been able to attend 3 sessions due to illness and rib pain. Pt is scheduled to see her physician 09/07/24 for her pain.) Weight Management Admit Height:: 5 ft 4 in Admit Weight:: 123 lb Admit BMI:: 21.1 Nutrition/Wt Mgmt - 30-Day Visit Date of Eval: 09/06/24 Session Number:: 3 (Pt has only been able to attend 3 sessions due to illness and rib pain. Pt is scheduled to see her physician 09/07/24 for her pain.) Weight Management Height: 5 ft 4 in Weight:: 123 lb BMI: 21.1 Weight Goals Progress:: Not progressing (Pt has only been able to attend 3 sessions due to illness and rib pain. Pt is scheduled to see her physician 09/07/24 for her pain. Pt was instructed by her physician to not lose any weight.) Nutrition/Wt Mgmt - 60-Day Visit Session Number:: 3 (Pt has only been able to attend 3 sessions due to illness and rib pain. Pt is scheduled to see her physician 09/07/24 for her pain.) Weight Management Height: 5 ft 4 in Weight:: 123 lb BMI: 21.1 Nutrition/Wt Mgmt - 90-Day Visit Session Number:: 3 (Pt has only been able to attend 3 sessions due to illness and rib pain. Pt is scheduled to see her physician 09/07/24 for her pain.) Weight Management Height: 5 ft 4 in Weight:: 123 lb BMI: 21.1 Nutrition/Wt Mgmt - Final Visit Session Number:: 3 (Pt has only been able to attend 3 sessions due to illness and rib pain. Pt is scheduled to see her physician 09/07/24 for her pain.) Weight Management Height: 5 ft 4 in Weight:: 123 lb BMI: 21.1 Psychosocial - Initial Assess Visit Session Number:: 3 (Pt has only been able to attend 3 sessions due to illness and rib pain. Pt is scheduled to see her physician 09/07/24 for her pain.) Problems/Goals Psychosocial Goals: 1. Patient is free from overwhelming symtoms of depression (or anxiety, 2. Identifies personal stressors & states the strategies for managing, 3. Identifies activities to decrease isolation and/or symptoms of, 4. Improved psychosocial coping skills., 5. Verbalizes coping strategies., 6. Adequate treatment of depression. and 7. Improved Q.O.L. Psychosocial Test Tool Used:: Pulmonary QOL and PHQ-9 Questionnaire PHQ-9 Score: 2 Referred to MD for counseling:: No Referral to Behavioral Health PS - Interventions: Yes: Attend Stress Management Classes Intervention/Plan: See List Interventions/Plan:: Assess stressors,coping strategies & signs of derpression on admission, Instruct/assist pt to develop coping & personal stress Mgt strategies, Refer to Behavioral Health if appropriate, Refer to Physician if appropriate, Instruct patient to recognize signs & symptoms of depression and Instruct patient to recog Psychosocial - 30-Day Visit Date of Eval: 09/06/24 Session Number:: 3 (Pt has only been able to attend 3 sessions due to illness and rib pain. Pt is scheduled to see her physician 09/07/24 for her pain.) Problems/Goals Psychosocial Goals: 1. Patient is free from overwhelming symtoms of depression (or anxiety, 2. Identifies personal stressors & states the strategies for managing, 3. Identifies activities to decrease isolation and/or symptoms of, 4. Improved psychosocial coping skills., 5. Verbalizes coping strategies., 6. Adequate treatment of depression. and 7. Improved Q.O.L. Psychosocial Test Tool Used:: Pulmonary QOL and PHQ-9 Questionnaire PHQ-9 Score: 2 Referred to MD for counseling:: No Referral to Behavioral Health PS - Interventions: Yes: Attend Stress Management Classes Plan Interventions/Plan:: Assess stressors,coping strategies & signs of derpression on admission, Instruct/assist pt to develop coping & personal stress Mgt strategies, Refer to Behavioral Health if appropriate, Refer to Physician if appropriate, Instruct patient to recognize signs & symptoms of depression and Instruct patient to recog Psychosocial - 60-Day Visit Session Number:: 3 (Pt has only been able to attend 3 sessions due to illness and rib pain. Pt is scheduled to see her physician 09/07/24 for her pain.) Problems/Goals Psychosocial Goals: 1. Patient is free from overwhelming symtoms of depression (or anxiety, 2. Identifies personal stressors & states the strategies for managing, 3. Identifies activities to decrease isolation and/or symptoms of, 4. Improved psychosocial coping skills., 5. Verbalizes coping strategies., 6. Adequate treatment of depression. and 7. Improved Q.O.L. Psychosocial Test Tool Used:: Pulmonary QOL and PHQ-9 Questionnaire PHQ-9 Score: 2 Referred to MD for counseling:: No Referral to Behavioral Health PS - Interventions: Yes: Attend Stress Management Classes Plan Interventions/Plan:: Assess stressors,coping strategies & signs of derpression on admission, Instruct/assist pt to develop coping & personal stress Mgt strategies, Refer to Behavioral Health if appropriate, Refer to Physician if appropriate, Instruct patient to recognize signs & symptoms of depression and Instruct patient to recog Psychosocial - 90-Day Visit Session Number:: 3 (Pt has only been able to attend 3 sessions due to illness and rib pain. Pt is scheduled to see her physician 09/07/24 for her pain.) Problems/Goals Psychosocial Goals: 1. Patient is free from overwhelming symtoms of depression (or anxiety, 2. Identifies personal stressors & states the strategies for managing, 3. Identifies activities to decrease isolation and/or symptoms of, 4. Improved psychosocial coping skills., 5. Verbalizes coping strategies., 6. Adequate treatment of depression. and 7. Improved Q.O.L. Psychosocial Test Tool Used:: Pulmonary QOL and PHQ-9 Questionnaire PHQ-9 Score: 2 Referred to MD for counseling:: No Referral to Behavioral Health PS - Interventions: Yes: Attend Stress Management Classes Plan Interventions/Plan:: Assess stressors,coping strategies & signs of derpression on admission, Instruct/assist pt to develop coping & personal stress Mgt strategies, Refer to Behavioral Health if appropriate, Refer to Physician if appropriate, Instruct patient to recognize signs & symptoms of depression and Instruct patient to recog Psychosocial - Final Assess Visit Session Number:: 3 (Pt has only been able to attend 3 sessions due to illness and rib pain. Pt is scheduled to see her physician 09/07/24 for her pain.) Problems/Goals Psychosocial Goals: 1. Patient is free from overwhelming symtoms of depression (or anxiety, 2. Identifies personal stressors & states the strategies for managing, 3. Identifies activities to decrease isolation and/or symptoms of, 4. Improved psychosocial coping skills., 5. Verbalizes coping strategies., 6. Adequate treatment of depression. and 7. Improved Q.O.L. Psychosocial Test Tool Used:: Pulmonary QOL and PHQ-9 Questionnaire PHQ-9 Score: 2 Referred to MD for counseling:: No Referral to Behavioral Health PS - Interventions: Yes: Attend Stress Management Classes Plan Interventions/Plan:: Assess stressors,coping strategies & signs of derpression on admission, Instruct/assist pt to develop coping & personal stress Mgt strategies, Refer to Behavioral Health if appropriate, Refer to Physician if appropriate, Instruct patient to recognize signs & symptoms of depression and Instruct patient to recog Oxygen & Oxygen Titration Init Visit Session Number:: 3 (Pt has only been able to attend 3 sessions due to illness and rib pain. Pt is scheduled to see her physician 09/07/24 for her pain.) Initial Assessment SpO2:: 93 Oxygen & Oxygen Titration 30D Visit Date of Eval: 09/06/24 Session Number:: 3 (Pt has only been able to attend 3 sessions due to illness and rib pain. Pt is scheduled to see her physician 09/07/24 for her pain.) Reassessment Reassessment- 30 Days: Demonstrate knowledge of O2 Rx at rest & w/exercise (Pt does not use O2) SpO2:: 93 Oxygen & Oxygen Titration 60D Visit Date of Eval: 09/06/24 Session Number:: 3 (Pt has only been able to attend 3 sessions due to illness and rib pain. Pt is scheduled to see her physician 09/07/24 for her pain.) Reassessment SpO2:: 93 Oxygen & Oxygen Titration 90D Visit Date of Eval: 09/06/24 Session Number:: 3 (Pt has only been able to attend 3 sessions due to illness and rib pain. Pt is scheduled to see her physician 09/07/24 for her pain.) Reassessment SpO2:: 93 Oxygen & Oxygen Titration JESUS Visit Date of Eval: 09/06/24 Session Number:: 3 (Pt has only been able to attend 3 sessions due to illness and rib pain. Pt is scheduled to see her physician 09/07/24 for her pain.) Reassessment SpO2:: 93 Core Components - Initial Visit Session Number:: 3 (Pt has only been able to attend 3 sessions due to illness and rib pain. Pt is scheduled to see her physician 09/07/24 for her pain.) Hypertension BP: 142/70 [employer] Hypertension Guidelines Blood Pressure: 164/76 Outcomes/Goals: Able to verbalize/achieve optimal blood pressure <130/80, Incorporates diet changes & exercise for blood pressure control by DC and Other additional outcomes/goals Core Components - 30 DAYS Visit Date of Eval: 09/06/24 Session Number:: 3 (Pt has only been able to attend 3 sessions due to illness and rib pain. Pt is scheduled to see her physician 09/07/24 for her pain.) Hypertension Resting Blood Pressure:: 142/70 [employer] Hypertension Guidelines Peak Exercise Blood Pressure:: 164/76 Outcomes/Goals: Able to verbalize/achieve optimal blood pressure <130/80, Incorporates diet changes & exercise for blood pressure control by DC and Other additional outcomes/goals Interventions/plan: Instruct on optimal blood pressure, hypertension & medications, Instruct on effects of sodium, alcohol, stress, exercise &hypertension and Other additional plan/interventions 30 day Reassessments:: Not Met Reassessment Notes & Comments:: Pt does not have a diagnosis of HTN. Will continue to monitor and report to physician if necessary. Core Components - 60 DAYS Visit Session Number:: 3 (Pt has only been able to attend 3 sessions due to illness and rib pain. Pt is scheduled to see her physician 09/07/24 for her pain.) Hypertension Resting Blood Pressure:: 142/70 [employer] Hypertension Guidelines Peak Exercise Blood Pressure:: 164/76 Outcomes/Goals: Able to verbalize/achieve optimal blood pressure <130/80, Incorporates diet changes & exercise for blood pressure control by DC and Other additional outcomes/goals Interventions/plan: Instruct on optimal blood pressure, hypertension & medications, Instruct on effects of sodium, alcohol, stress, exercise &hypertension and Other additional plan/interventions 60 day Reassessments:: Not Met Reassessment Notes & Comments:: Pt does not have a diagnosis of HTN. Will continue to monitor and report to physician if necessary. Core Components - DAYS Visit Session Number:: 3 (Pt has only been able to attend 3 sessions due to illness and rib pain. Pt is scheduled to see her physician 09/07/24 for her pain.) Hypertension Resting Blood Pressure:: 142/70 [employer] Hypertension Guidelines Peak Exercise Blood Pressure:: 164/76 Outcomes/Goals: Able to verbalize/achieve optimal blood pressure <130/80, Incorporates diet changes & exercise for blood pressure control by DC and Other additional outcomes/goals Interventions/plan: Instruct on optimal blood pressure, hypertension & medications, Instruct on effects of sodium, alcohol, stress, exercise &hypertension and Other additional plan/interventions 90 day Reassessments:: Not Met Reassessment Notes & Comments:: Pt does not have a diagnosis of HTN. Will continue to monitor and report to physician if necessary. Core Components - Final Visit Session Number:: 3 (Pt has only been able to attend 3 sessions due to illness and rib pain. Pt is scheduled to see her physician 09/07/24 for her pain.) Hypertension Resting Blood Pressure:: 142/70 [employer] Hypertension Guidelines Peak Exercise Blood Pressure:: 164/76 Outcomes/Goals: Able to verbalize/achieve optimal blood pressure <130/80, Incorporates diet changes & exercise for blood pressure control by DC and Other additional outcomes/goals Patient Health Questionnaire PHQ-9 Screening 30-Day Re-eval Assessment: 1. Little interest or pleasure in doing things: Not at all 2. Feeling down, depressed, or hopeless: Not at all 3. Trouble falling or staying asleep, or sleeping too much: Several days 4. Feeling tired or having little energy: Several days 5. Poor appetite or overeating: Not at all 6. Feeling bad about yourself -- or that you are a failure or have let yourself or your family down: Not at all 7. Trouble concentrating on things, such as reading the newspaper or watching television: Not at all 8. Moving or speaking so slowly that other people could have noticed. Or the opposite - being so fidgety or restless that you have been moving around a lot more than usual: Not at all 9. Thoughts that you would be better off , or of hurting yourself in some way: Not at all Total Score: 2 Knowledge Questionaire (BCKQ) Information Information: [place] COPD Knowledge Questionnaire (BCKQ) This questionnaire is designed to find out what you know about your lung problem. It should be completed without help form anyone else. This usually takes between 10 and 20 minutes. Your answers will help us to find out what information you need to help you to understand and manage your lung condition. [place] the [place] which you think is the correct answer. Self-Efficacy 6-Item Scale 30-Day Re-eval Assessment: We would like to know how confident you are in doing certain activities. Please select your confidence level for: Fatigue Select Number: 8 Physical Discomfort or Pain Select Number: 7 Emotional Distress Select Number: 10 Other Symptoms or Health Problems Select Number: 8 Different Tasks and Activities Select Number: 8 Medication Select Number: 10 Total Score:: 8 Nutrition Survey Nutrition Survey Instructions Scoring Instructions
[2024-09-06 08:43] VITALS: BP 142/70; BP 164/76; O2SAT 93; BMI 21.1
== END 2024-09-15 23:59 ==
LOC: PR 12:45
PROVIDERS: PCP Family Medicine
DX: C34.11 Malignant neoplasm of upper lobe, right bronchus or lung (principal); J44.9 Chronic obstructive pulmonary disease, unspecified
CPT/HCPCS: 97150; G0239

== ENCOUNTER → 2024-08-28 | Outpatient (CLI) | payer MEDICARE, MEDICAID, SELFPAY ==
[2024-08-07 15:12] VITALS: BMI 21.1
[2024-08-28 15:34] LABS: Absolute Lymphocyte Count 1.33 X10^3/uL (0.83-4.51); Basophil# 0.05 X10^3/uL; Basophil% 0.3 % (0-1); Eosinophil# 0.09 X10^3/uL; Eosinophils% 0.6 % (0-5); Hematocrit 31.5 % (37-47); Hemoglobin 9.2 g/dL (12.0-15.0); Lymphocyte # 1.33 X10^3/ul (0.83-4.51); Lymphocyte % 9.3 % (19-41); Mean Corp Hgb Conc 29.2 g/dL (32-36); Mean Corpuscular Hgb 25.2 pg (27.0-32.0); Mean Corpuscular Volume 86.3 fL (81-99); Mean Platelet Vol. 10.3 fl (6.2-12.0); Monocyte# 0.78 X10^3/uL; Monocyte% 5.4 % (0-10); NRBC Flagged by Analyzer 0 % (0-5); Neutrophil # 11.95 X10^3/uL (2.7-7.7); Neutrophil % 83.6 % (47-70); Platelet Count 375 K/mm3 (150-450); RBC Distribution Width CV 15.9 % (11.6-14.6); Red Blood Count 3.65 M/mm3 (4.2-5.4); White Blood Count 14.3 K/mm3 (4.4-11.0)
[2024-08-28 15:56] LABS: Ferritin 166 ng/mL (8-252); Iron 46 ug/dL (50-170); Iron Binding Capacity,Total 281 ug/dL (250-450); PERCENT IRON SATURATION 16.4 % (15.0-55.0)
[2024-08-28 16:30] LABS: Vitamin B12 532 pg/mL (211-911); Vitamin D,25 Hydroxy 35.5 ng/mL
== END | disposition home or self-care (01) ==
LOC: MTLAB 12:37
PROVIDERS: PCP Family Medicine; Referring Provider Family Medicine; Visit Provider Family Medicine
DX: D64.9 Anemia, unspecified (principal); E55.9 Vitamin D deficiency, unspecified
CPT/HCPCS: 36415; 82306; 82607; 82728; 83540; 83550; 85025

== ENCOUNTER → 2024-09-05 | Outpatient (CLI) | payer MEDICARE, MEDICAID, SELFPAY ==
[2024-08-07 15:12] VITALS: BMI 21.1
[2024-09-05 18:16] LABS: Absolute Lymphocyte Count 0.55 X10^3/uL (0.83-4.51); Absolute Neutrophil Count 12.1 X10^3/uL (2.0-7.7); Basophil# 0.04 X10^3/uL; Basophil% 0.3 % (0-1); Eosinophil# 0.02 X10^3/uL; Eosinophils% 0.2 % (0-5); Hemoglobin 9.5 g/dL (12.0-15.0); Lymphocyte # 0.55 X10^3/ul (0.83-4.51); Lymphocyte % 4.2 % (19-41); Mean Corp Hgb Conc 29.7 g/dL (32-36); Mean Corpuscular Hgb 25.9 pg (27.0-32.0); Mean Corpuscular Volume 87.2 fL (81-99); Mean Platelet Vol. 9.9 fl (6.2-12.0); Monocyte# 0.45 X10^3/uL; Monocyte% 3.4 % (0-10); NRBC Flagged by Analyzer 0 % (0-5); Neutrophil % 91.3 % (47-70); POSITIVE DIFFERENTIAL YES; Platelet Count 324 K/mm3 (150-450); RBC Distribution Width CV 16.4 % (11.6-14.6); RBC Distribution Width SD 52.3 fl (35.1-43.9); Red Blood Count 3.67 M/mm3 (4.2-5.4); White Blood Count 13.2 K/mm3 (4.4-11.0)
== END | disposition home or self-care (01) ==
LOC: MFPLAB 14:31
PROVIDERS: PCP Family Medicine; Referring Provider Family Medicine; Visit Provider Family Medicine
DX: D64.9 Anemia, unspecified (principal)
CPT/HCPCS: 36415; 85025

== ENCOUNTER → 2024-09-07 | Outpatient (CLI) | payer MEDICARE, MEDICAID, SELFPAY ==
[2024-09-06 08:43] VITALS: BMI 21.1
--- NOTE | 2024-09-07 14:01 | RAD_ITS ---
PROCEDURE: BILATERAL RIBS AND PA CHEST REASON FOR EXAM: RIB INJURY. Right posterior rib pain. TECHNIQUE: Frontal and bilateral oblique views of the bilateral ribs. COMPARISON: 07/31/2024. FINDINGS: No displaced rib fractures are identified. No suspicious lytic or blastic rib lesions. Chest shows no active cardiopulmonary disease. Dextroscoliosis of the lumbar spine. RAD/Ribs Bilat 3V No CXR IMPRESSION: NO EVIDENCE OF ACUTE RIB FRACTURE OR PNEUMOTHORAX. Reading Location: [facility]
== END | disposition home or self-care (01) ==
LOC: MTRAD 14:00
PROVIDERS: PCP Family Medicine; Referring Provider Family Medicine; Visit Provider Family Medicine
DX: S29.9XXA Unspecified injury of thorax, initial encounter (principal); X58.XXXA Exposure to other specified factors, initial encounter
CPT/HCPCS: 71110

== ENCOUNTER 2024-09-18 10:10 | Outpatient (RCR) | payer MEDICARE, MEDICAID, SELFPAY ==
[2024-09-06 08:43] VITALS: BMI 21.1
[2024-09-16 02:37] VITALS: BP 142/70; BP 164/76; BMI 21.1
--- NOTE | 2024-10-04 11:06 | PCM.PR.TP ---
Exercise - Initial Assessment Visit Session Number:: 3 (Pt has not attended rehab since 08/25/24. Pt currently has pneumonia. ) Physician Prescribed Exercise Modalities: Treadmill and SciFit Stepper Target HR:: 111 (89-111) Current RPD:: 2-3 Maximum Exercise HR:: 113 Resting Blood Pressure: 142/70 Maximum Exercise Blood Pressure: 164/76 Minimum SpO2 with exercise: 93 (pt does not use O2) EKG Type: NSR to ST Nutrition/Wt Mgmt - Initial Visit Session Number:: 3 (Pt has not attended rehab since 08/25/24. Pt currently has pneumonia. ) Weight Management Admit Height:: 5 ft 4 in Admit Weight:: 123 lb Admit BMI:: 21.1 Nutrition/Wt Mgmt - 30-Day Visit Date of Eval: 10/04/24 Session Number:: 3 (Pt has not attended rehab since 08/25/24. Pt currently has pneumonia. ) Weight Management Height: 5 ft 4 in Weight:: 123 lb BMI: 21.1 Nutrition/Wt Mgmt - 60-Day Visit Date of Eval: 10/04/24 Session Number:: 3 (Pt has not attended rehab since 08/25/24. Pt currently has pneumonia. ) Weight Management Height: 5 ft 4 in Weight:: 123 lb BMI: 21.1 Weight Goals Progress:: Not progressing Nutrition/Wt Mgmt - 90-Day Visit Session Number:: 3 (Pt has not attended rehab since 08/25/24. Pt currently has pneumonia. ) Weight Management Height: 5 ft 4 in Weight:: 123 lb BMI: 21.1 Weight Goals Progress:: Not progressing Nutrition/Wt Mgmt - Final Visit Session Number:: 3 (Pt has not attended rehab since 08/25/24. Pt currently has pneumonia. ) Weight Management Height: 5 ft 4 in Weight:: 123 lb BMI: 21.1 Psychosocial - Initial Assess Visit Session Number:: 3 (Pt has not attended rehab since 08/25/24. Pt currently has pneumonia. ) Problems/Goals Psychosocial Goals: 1. Patient is free from overwhelming symtoms of depression (or anxiety, 2. Identifies personal stressors & states the strategies for managing, 3. Identifies activities to decrease isolation and/or symptoms of, 4. Improved psychosocial coping skills., 5. Verbalizes coping strategies., 6. Adequate treatment of depression. and 7. Improved Q.O.L. Psychosocial Test Tool Used:: Pulmonary QOL PHQ-9 Score: 2 Referred to MD for counseling:: No Referral to Behavioral Health PS - Interventions: Yes: Attend Stress Management Classes Intervention/Plan: See List Interventions/Plan:: Assess stressors,coping strategies & signs of derpression on admission, Instruct/assist pt to develop coping & personal stress Mgt strategies, Refer to Behavioral Health if appropriate, Refer to Physician if appropriate, Instruct patient to recognize signs & symptoms of depression and Instruct patient to recog Psychosocial - 30-Day Visit Date of Eval: 10/04/24 Session Number:: 3 (Pt has not attended rehab since 08/25/24. Pt currently has pneumonia. ) Problems/Goals Psychosocial Goals: 1. Patient is free from overwhelming symtoms of depression (or anxiety, 2. Identifies personal stressors & states the strategies for managing, 3. Identifies activities to decrease isolation and/or symptoms of, 4. Improved psychosocial coping skills., 5. Verbalizes coping strategies., 6. Adequate treatment of depression. and 7. Improved Q.O.L. Psychosocial Test Tool Used:: Pulmonary QOL PHQ-9 Score: 2 Referred to MD for counseling:: No Referral to Behavioral Health PS - Interventions: Yes: Attend Stress Management Classes Plan Interventions/Plan:: Assess stressors,coping strategies & signs of derpression on admission, Instruct/assist pt to develop coping & personal stress Mgt strategies, Refer to Behavioral Health if appropriate, Refer to Physician if appropriate, Instruct patient to recognize signs & symptoms of depression and Instruct patient to recog Psychosocial - 60-Day Visit Date of Eval: 10/04/24 Session Number:: 3 (Pt has not attended rehab since 08/25/24. Pt currently has pneumonia. ) Problems/Goals Psychosocial Goals: 1. Patient is free from overwhelming symtoms of depression (or anxiety, 2. Identifies personal stressors & states the strategies for managing, 3. Identifies activities to decrease isolation and/or symptoms of, 4. Improved psychosocial coping skills., 5. Verbalizes coping strategies., 6. Adequate treatment of depression. and 7. Improved Q.O.L. Psychosocial Test Tool Used:: Pulmonary QOL PHQ-9 Score: 2 Referred to MD for counseling:: No Referral to Behavioral Health PS - Interventions: Yes: Attend Stress Management Classes Plan Interventions/Plan:: Assess stressors,coping strategies & signs of derpression on admission, Instruct/assist pt to develop coping & personal stress Mgt strategies, Refer to Behavioral Health if appropriate, Refer to Physician if appropriate, Instruct patient to recognize signs & symptoms of depression and Instruct patient to recog Psychosocial - 90-Day Visit Session Number:: 3 (Pt has not attended rehab since 08/25/24. Pt currently has pneumonia. ) Problems/Goals Psychosocial Goals: 1. Patient is free from overwhelming symtoms of depression (or anxiety, 2. Identifies personal stressors & states the strategies for managing, 3. Identifies activities to decrease isolation and/or symptoms of, 4. Improved psychosocial coping skills., 5. Verbalizes coping strategies., 6. Adequate treatment of depression. and 7. Improved Q.O.L. Psychosocial Test Tool Used:: Pulmonary QOL PHQ-9 Score: 2 Referred to MD for counseling:: No Referral to Behavioral Health PS - Interventions: Yes: Attend Stress Management Classes Plan Interventions/Plan:: Assess stressors,coping strategies & signs of derpression on admission, Instruct/assist pt to develop coping & personal stress Mgt strategies, Refer to Behavioral Health if appropriate, Refer to Physician if appropriate, Instruct patient to recognize signs & symptoms of depression and Instruct patient to recog Psychosocial - Final Assess Visit Session Number:: 3 (Pt has not attended rehab since 08/25/24. Pt currently has pneumonia. ) Problems/Goals Psychosocial Goals: 1. Patient is free from overwhelming symtoms of depression (or anxiety, 2. Identifies personal stressors & states the strategies for managing, 3. Identifies activities to decrease isolation and/or symptoms of, 4. Improved psychosocial coping skills., 5. Verbalizes coping strategies., 6. Adequate treatment of depression. and 7. Improved Q.O.L. Psychosocial Test Tool Used:: Pulmonary QOL PHQ-9 Score: 2 Referred to MD for counseling:: No Referral to Behavioral Health PS - Interventions: Yes: Attend Stress Management Classes Plan Interventions/Plan:: Assess stressors,coping strategies & signs of derpression on admission, Instruct/assist pt to develop coping & personal stress Mgt strategies, Refer to Behavioral Health if appropriate, Refer to Physician if appropriate, Instruct patient to recognize signs & symptoms of depression and Instruct patient to recog Oxygen & Oxygen Titration Init Visit Session Number:: 3 (Pt has not attended rehab since 08/25/24. Pt currently has pneumonia. ) Initial Assessment SpO2:: 93 (pt does not use O2) Oxygen & Oxygen Titration 30D Visit Date of Eval: 10/04/24 Session Number:: 3 (Pt has not attended rehab since 08/25/24. Pt currently has pneumonia. ) Reassessment SpO2:: 93 (pt does not use O2) Oxygen & Oxygen Titration 60D Visit Date of Eval: 10/04/24 Session Number:: 3 (Pt has not attended rehab since 08/25/24. Pt currently has pneumonia. ) Reassessment SpO2:: 93 (pt does not use O2) Oxygen & Oxygen Titration 90D Visit Date of Eval: 10/04/24 Session Number:: 3 (Pt has not attended rehab since 08/25/24. Pt currently has pneumonia. ) Reassessment SpO2:: 93 (pt does not use O2) Oxygen & Oxygen Titration JESUS Visit Date of Eval: 10/04/24 Session Number:: 3 (Pt has not attended rehab since 08/25/24. Pt currently has pneumonia. ) Reassessment SpO2:: 93 (pt does not use O2) Core Components - Initial Visit Session Number:: 3 (Pt has not attended rehab since 08/25/24. Pt currently has pneumonia. ) Core Components - 30 DAYS Visit Date of Eval: 10/04/24 Session Number:: 3 (Pt has not attended rehab since 08/25/24. Pt currently has pneumonia. ) Core Components - 60 DAYS Visit Date of Eval: 10/04/24 Session Number:: 3 (Pt has not attended rehab since 08/25/24. Pt currently has pneumonia. ) Core Components - 90 DAYS Visit Session Number:: 3 (Pt has not attended rehab since 08/25/24. Pt currently has pneumonia. ) Core Components - Final Visit Session Number:: 3 (Pt has not attended rehab since 08/25/24. Pt currently has pneumonia. ) Patient Health Questionnaire PHQ-9 Screening 60-Day Re-eval Assessment: 1. Little interest or pleasure in doing things: Not at all 2. Feeling down, depressed, or hopeless: Not at all 3. Trouble falling or staying asleep, or sleeping too much: Several days 4. Feeling tired or having little energy: Several days 5. Poor appetite or overeating: Not at all 6. Feeling bad about yourself -- or that you are a failure or have let yourself or your family down: Not at all 7. Trouble concentrating on things, such as reading the newspaper or watching television: Not at all 8. Moving or speaking so slowly that other people could have noticed. Or the opposite - being so fidgety or restless that you have been moving around a lot more than usual: Not at all 9. Thoughts that you would be better off , or of hurting yourself in some way: Not at all How difficult have these problems made it for you to do your work, take care of things at home, or get along with other people?: Not difficult at all Total Score: 2 Knowledge Questionaire (BCKQ) Information Information: [place] COPD Knowledge Questionnaire (BCKQ) This questionnaire is designed to find out what you know about your lung problem. It should be completed without help form anyone else. This usually takes between 10 and 20 minutes. Your answers will help us to find out what information you need to help you to understand and manage your lung condition. Naif the yakutat which you think is the correct answer. Self-Efficacy 6-Item Scale 60-Day Re-eval Assessment: We would like to know how confident you are in doing certain activities. Please select your confidence level for: Fatigue Select Number: 8 Physical Discomfort or Pain Select Number: 7 Emotional Distress Select Number: 10 Other Symptoms or Health Problems Select Number: 8 Different Tasks and Activities Select Number: 8 Medication Select Number: 10 Total Score:: 8 Nutrition Survey Nutrition Survey Instructions Scoring Instructions
[2024-10-04 11:15] VITALS: BP 142/70; O2SAT 93; BMI 21.1
== END 2024-10-16 23:59 ==
LOC: PR 10:10
PROVIDERS: PCP Family Medicine
DX: C34.11 Malignant neoplasm of upper lobe, right bronchus or lung (principal); J44.9 Chronic obstructive pulmonary disease, unspecified
CPT/HCPCS: 97150; G0239

== ENCOUNTER 2024-09-20 08:34 | Emergency (ER) | payer MEDICARE, MEDICAID, SELFPAY ==
[2024-09-06 08:43] VITALS: BMI 21.1
[2024-09-20 08:35] VITALS: BP 124/71; PULSE 111; RESP 17; TEMP 36.3; O2SAT 95; BMI 21.6
--- NOTE | 2024-09-20 09:04 | RAD_ITS ---
PROCEDURE: CHEST PA AND LATERAL REASON FOR EXAM: 3 day history of cough. Generalized weakness. TECHNIQUE: Frontal and lateral views of the chest. COMPARISON: Comparison is made with prior study dated September 07, 2024. FINDINGS: EKG electrodes are seen. Patchy left lower lobe infiltrate. Stable elevation of the right hemidiaphragm. Demineralization of the thoracic vertebra with loss of height of a lower dorsal vertebrae. Levoscoliosis. Calcification of the aortic arch. RAD/Chest PA and Lateral IMPRESSION: Patchy left lower lobe infiltrate. Reading Location: [id number]
--- NOTE | 2024-09-20 09:12 | EDS_ITS ---
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 Patient states that for the past few days she has been coughing and states that she is constantly coughing up more sputum and noting that is changing colors. Patient states that she has some shortness of breath with exertion as well. Patient denies any history of blood clots denies any travel history. Patient states that she has not any blood thinning medications. Patient denies any sick contacts. [facility] Medical History Fall Subcapital fracture of right hip Adenocarcinoma of right lung History of COPD Nicotine dependence, cigarettes, uncomplicated Rheumatoid arthritis Pneumothorax after biopsy Kidney disease Smoker Synovial cyst of popliteal space [Patel], right knee Effusion, right knee Osteoarthritis COPD (chronic obstructive pulmonary disease) Home Medications ?Medication ?Instructions ?Recorded ?Last Taken ?Type oxybutynin chloride 15 mg 15 mg PO DAILY urine 4 Unknown History tablet,extended release 24 hr albuterol sulfate 90 mcg/actuation 2 puff inhalation Q 8H PRN sob and 02/01/24 Unknown History aerosol inhaler wheezing prednisone 5 mg tablet 10 mg PO DAILY inflammation 02/01/24 Unknown History nicotine 21 mg/24 hr daily 1 patch transdermal DAILY N icotine 04/21/24 Unknown History transdermal patch acetaminophen 500 mg tablet 1,000 mg (2 x 500 mg) PO Q 8 #0 tabs 04/25/24 Unknown Rx rivaroxaban 10 mg tablet (Xarelto) 10 mg PO DINNER #1 TAB 04/25/24 Unknown Rx sennosides 8.6 mg-docusate sodium 2 tab PO BID #0 tabs 04/25/24 Unknown Rx 50 mg tablet (Stimulant Laxative Plus) hydrocodone-acetaminophen 5-325mg tab PO 05/11/24 Unkn own History 5mg-325mg albuterol sulfate 2.5 mg/3 mL 2.5 mg (3 mL) inhalation Q4H PRN 06/23/24 Unknown Rx (0.083 %) solution for nebulization #25 vials doxycycline hyclate 100 mg capsule 100 mg PO BID 7 day s #14 caps 09/20/24 Unknown Rx Allergy/AdvReac Type Severity Reaction Status Date / Time No Known Allergies Allergy Verified 09/20/24 08:36 Family History Father Heart disease Hypertension Brother Cancer Mother Arthritis Surgical History History of breast lift History of cholecystectomy Social History Smoking Status: Light Smoker (<10/day) Tobacco: How many years used: 50 alcohol intake: never ROS ROS ED ROS Narrative Constitutional: Denies fevers, chills, headaches, lightness, Eyes: Denies change in vision double vision blurry vision Cardiovascular: Denies chest pain or palpitations Respiratory: Complains cough and shortness of breath as noted above Abdomen: Denies nausea vomit diarrhea : Denies any urinary symptoms Neurological: Denies numbness, weakness, tingling Musculoskeletal: Denies back pain Skin: Denies rashes or lesions EXAM Physical Exam Narrative Exam Narrative: General: Patient lying in bed rest comfortably did not appear to be acute distress Head: Atraumatic, normocephalic Eyes: PERRL bilaterally, EOMI bilaterally, no conjunctival injection noted Neck: Soft, supple, trachea midline Cardiovascular: Patient tachycardic with a regular rate no murmurs gallops rubs noted Respiratory: Clear to auscultation bilaterally no rales rhonchi or wheezes noted Abdomen: Soft, nondistended, nontender to palpation Extremities: +5/5 strength noted in the bilateral upper and lower extremities, radial pulses +2/4 in the bilateral extremities, no pedal edema on exam Neurological: Patient follow commands knew that she was at [facility] year is 2024 Skin: Warm, dry, intact no rashes or lesions noted Const Vital Signs: 09/20/24 08:35 09/20/24 10:38 09/20/24 10:40 Temperature 97.4 F L Temperature Source Temporal Pulse Rate 111 H 99 Respiratory Rate 17 18 Respiratory Effort Normal Non-Labored Respiratory Depth Normal Respiratory Pattern Normal Blood Pressure 124/71 H 146/72 H Blood Pressure Mean 88 96 Pulse Ox 95 93 Oxygen Delivery Method Room Air Room Air 09/20/24 11:19 Temperature 98.4 F Temperature Source Oral Pulse Rate 97 Respiratory Rate 16 Respiratory Effort Respiratory Depth Respiratory Pattern Blood Pressure 137/76 H Blood Pressure Mean 96 Pulse Ox 93 Oxygen Delivery Method Room Air MDM MDM MDM Narrative Medical decision making narrative: Patient is a 73-year-old female who presented to the emerged part with a chief concern for pneumonia. On the differential diagnose includes but not limited to upper respiratory infect secondary viral etiology, COPD exacerbation, pneumonia, ACS, pneumothorax. Once workup is obtained reviewed she will be reevaluated. Patient will be given 30 cc/kg bolus of IV fluids at 9:05 AM. Patient's CBC was significant leukocytosis 15,000, hemoglobin 10, plate count was noted to be 326. Patient's INR of 1.2, PT of 15.1. Patient sodium was 136, potassium 4.2, creatinine was noted to be normal at 0.88. Patient lactic acid normal at 1.3, AST and ALT were 23 and 23 respectively. Patient troponin was noted be 31 with a delta troponin noted be 26, EKG was reviewed and showed sinus rhythm with a rate of 99 bpm with evidence of left ventricular hypertrophy. Patient proBNP normal at 178. Patient urinalysis showed no evidence of infection. Patient's chest x-ray reviewed by myself and by radiology was concern for a left lower lobe pneumonia. Patient was given Rocephin and azithromycin. Did discuss results with the patient she is feeling better. States that she chronically is on steroids from a inflammatory standpoint. Patient ambulated here in the emergency department no hypoxia no tachycardia and felt well. At this point time will discharge patient home with oral doxycycline and advised her to return with worsening symptoms or concerns. She is agreeable this plan all question concerns answered she was discharged home in stable condition. Lab Data Labs: Laboratory Results - last 24 hr 09/20/24 09/20/24 09/20/24 09:30 10:25 11:00 WBC 15.1 H RBC 3.91 L Hgb 10.1 L Hct 32.8 L MCV 83.9 MCH 25.8 L MCHC 30.8 L RDW Std Deviation 49.9 H RDW Coeff of Nikki 16.2 H Plt Count 326 MPV 10.4 Immature Gran % (Auto) 0.500 Neut % (Auto) 86.4 H Lymph % (Auto) 5.5 L Lamar % (Auto) 6.5 Eos % (Auto) 0.8 Baso % (Auto) 0.3 Absolute Neuts (auto) 13.1 H Absolute Lymphs (auto) 0.83 Nucleated RBC % 0 PT 15.1 H INR 1.2 APTT 31.6 Sodium 136 Potassium 4.2 Chloride 100 Carbon Dioxide 22.1 Anion Gap 14 BUN 18 Creatinine 0.88 Estim Creat Clear Calc 49.90 L Est GFR (MDRD) Non-Af 70 BUN/Creatinine Ratio 20.7 H Glucose 100 H Lactic Acid 1.3 Calcium 9.5 Total Bilirubin 0.29 AST 23 ALT 23 Alkaline Phosphatase 78 Troponin T High Sens 31 H Troponin T Hi Sens 2 Hr 26 H Troponin T Hi Sens 2Hr Delta 5 NT pro BNP II 178 Total Protein 7.4 Albumin 3.8 Globulin 3.6 Albumin/Globulin Ratio 1.1 Urine Color Yellow Urine Clarity Clear Urine pH 7.0 Ur Specific [place] 1.010 Urine Protein 15 H Urine Glucose (UA) Normal Urine Ketones Negative Urine Occult Blood 50 H Urine Nitrite Negative Urine Bilirubin Negative Urine Urobilinogen Normal Ur Leukocyte Esterase 25 H Urine RBC 0 SEEN Urine WBC 0-5 SEEN Ur Squamous Epith Cells 0-5 SEEN Urine Bacteria 0 SEEN Urine Mucus 0 SEEN Radiography Diagnostic Testing: Clinical Impression(s) from Imaging Studies Chest X-Ray 09/20/24 09:04 IMPRESSION: Patchy left lower lobe infiltrate. Reading Location: [facility] Discharge Plan Triage Chief Complaint: Cough ED Provider: Alan Purcell Dx/Rx/DC Orders Clinical Impression: Pneumonia Prescriptions: New doxycycline hyclate 100 mg capsule 100 mg PO BID 7 Days Qty: 14 0RF No Action oxybutynin chloride 15 mg tablet extended release 24hr 15 mg PO DAILY albuterol sulfate 90 mcg/actuation HFA aerosol inhaler 2 puff inhalation Q8H PRN (Reason: sob and wheezing) hydrocodone-acetaminophen 5-325 mg tablet PO prednisone 5 mg tablet 10 mg PO DAILY nicotine 21 mg/24 hr patch 24 hour 1 patch transdermal DAILY sennosides-docusate sodium [Stimulant Laxative Plus] 8.6-50 mg Tablet 2 tab PO BID Qty: 0 0RF acetaminophen 500 mg Tablet 1,000 mg PO Q8 Qty: 0 0RF Xarelto 10 mg Tablet 10 mg PO DINNER Qty: 1 0RF Rx Instructions: take for 27 more days albuterol sulfate 2.5 mg /3 mL (0.083 %) solution for nebulization 2.5 mg inhalation Q4H PRN Qty: 25 0RF Rx Instructions: Use q4 hours and PRN for wheezing Primary Care Provider: Cathy Garnica Referrals: Cathy Garnica MD [Primary Care Provider] - Activity Restrictions/Additional Instructions: Your chest x-ray was consistent for a left-sided pneumonia. You were given IV antibiotics here and started on doxycycline take these as prescribed. Return with worsening symptoms or any concerns. Follow-up your primary care physician outpatient setting. Print Language: Turkmen Disposition Disposition: Home, Self Care
[2024-09-20 10:08] LABS: Absolute Lymphocyte Count 0.83 X10^3/uL (0.83-4.51); Absolute Neutrophil Count 13.1 X10^3/uL (2.0-7.7); Basophil# 0.04 X10^3/uL; Basophil% 0.3 % (0-1); Eosinophil# 0.12 X10^3/uL; Eosinophils% 0.8 % (0-5); Hematocrit 32.8 % (37-47); Hemoglobin 10.1 g/dL (12.0-15.0); Lymphocyte # 0.83 X10^3/ul (0.83-4.51); Lymphocyte % 5.5 % (19-41); Mean Corp Hgb Conc 30.8 g/dL (32-36); Mean Corpuscular Hgb 25.8 pg (27.0-32.0); Mean Corpuscular Volume 83.9 fL (81-99); Mean Platelet Vol. 10.4 fl (6.2-12.0); Monocyte# 0.98 X10^3/uL; Monocyte% 6.5 % (0-10); NRBC Flagged by Analyzer 0 % (0-5); Neutrophil # 13.09 X10^3/uL (2.7-7.7); Neutrophil % 86.4 % (47-70); Platelet Count 326 K/mm3 (150-450); RBC Distribution Width CV 16.2 % (11.6-14.6); RBC Distribution Width SD 49.9 fl (35.1-43.9); Red Blood Count 3.91 M/mm3 (4.2-5.4); White Blood Count 15.1 K/mm3 (4.4-11.0)
[2024-09-20 10:15] LABS: International Normalized Ratio 1.2; Prothrombin Time (Protime)PT. 15.1 SECONDS (11.7-14.9)
[2024-09-20 10:16] LABS: Partial Thromboplast Time 31.6 Seconds (24.1-36.2)
[2024-09-20 10:33] LABS: Lactic Acid 1.3 mmol/L (0.0-2.0)
[2024-09-20] MEDS: 0.9% Normal Saline (1000mL) 1,000 ML 999 ML IV ×2 (10:37)
[2024-09-20 10:38] VITALS: BP 146/72; PULSE 99; RESP 18; O2SAT 93
[2024-09-20 10:40] LABS: ALB/GLOB Ratio 1.1 RATIO (0.9-2.4); AST(SGOT) 23 U/L (<=31); Alanine Aminotransfer ALT/SGPT 23 U/L (<=34); Albumin, Serum 3.8 g/dL (3.4-4.8); Alkaline Phosphatase 78 U/L (35-104); Anion Gap 14 (5-15); BUN 18 mg/dL (4-19); BUN/Creat Ratio 20.7 RATIO (10-20); Calcium,Total 9.5 mg/dL (7.6-11.0); Carbon Dioxide 22.1 mmol/L (21.0-32.0); Chloride 100 mmol/L (98-108); Creatinine, Serum 0.88 mg/dL (0.70-1.20); EST Glomerular Filtration Rate 70 (>60); Globulin 3.6 g/dL (2.2-4.2); Glucose 100 mg/dL (70-99); Potassium 4.2 mmol/L (3.3-5.1); Protein, Total 7.4 g/dL (5.9-8.4); Sodium Level 136 mmol/L (133-145); Total Bilirubin 0.29 mg/dL (0.00-1.30)
[2024-09-20 10:49] LABS: Bacteria 0 SEEN /hpf (None Seen); Mucous, Urine 0 SEEN /hpf (<or=2+)
[2024-09-20 10:52] LABS: Troponin T High Sensitivity 31 ng/L (<=19)
[2024-09-20 10:55] LABS: Color, Urine Yellow (Yellow); Glucose, Dipstick Normal (Normal); Ketone-Dipstick Negative (Negative); Leukocyte Esterase-Dipstick 25 /ul (Negative); Nitrite-Dipstick Negative (Negative); Occult Blood-Urine 50 /ul (Negative); Protein-Dipstick 15 mg/dl (Negative); Urine Bilirubin Dipstick Negative (Negative); Urine Clarity Clear (Clear); Urine Urobilinogen Normal (Normal)
[2024-09-20 11:01] LABS: Squamous Epithelial Cells - UA 0-5 SEEN /hpf (5-10); White Blood Cells 0-5 SEEN /hpf (0-5)
[2024-09-20 11:02] LABS: Red Blood Cells-Urine 0 SEEN /hpf (0-5)
[2024-09-20 11:05] LABS: Pro- Brain NATRIURETIC PEPTIDE 178 pg/mL (<=900)
[2024-09-20] MEDS: Azithromycin 500 MG in 0.9% Normal Saline (250mL Bag) 250 ML 255 MG IV (11:17)
[2024-09-20] MEDS: Ceftriaxone 1 GM/50 ML BAG IV (11:17)
[2024-09-20 11:19] VITALS: BP 137/76; PULSE 97; RESP 16; TEMP 36.9; O2SAT 93
[2024-09-20 11:49] LABS: TROPONIN VARIANCE 2 HR 5; Troponin T High Sens 2 HR 26 ng/L (<=19)
[2024-09-20 11:58] VITALS: O2SAT 94
[2024-09-20 12:57] VITALS: BP 141/82; PULSE 82; RESP 16; TEMP 36.9; O2SAT 97
== END 2024-09-20 13:07 | disposition home or self-care (01) ==
PROVIDERS: Emergency Provider Emergency Medicine; PCP Family Medicine; Visit Provider Emergency Medicine
DX: J18.9 Pneumonia, unspecified organism (principal); M06.9 Rheumatoid arthritis, unspecified; J44.0 Chronic obstructive pulmonary disease with (acute) lower respiratory infection; N18.9 Chronic kidney disease, unspecified; R06.02 Shortness of breath; F17.210 Nicotine dependence, cigarettes, uncomplicated; Z79.01 Long term (current) use of anticoagulants; Z79.899 Other long term (current) drug therapy; Z85.118 Personal history of other malignant neoplasm of bronchus and lung; Z90.2 Acquired absence of lung [part of]
CPT/HCPCS: 71046; 80053; 81001; 83605; 83880; 84484; 85025; 85610; 85730; 87040; 87086; 87088; 87631; 93005; 96361; 96365; 96375; 99283; A4216

== ENCOUNTER → 2024-10-03 | Outpatient (CLI) | payer MEDICARE, MEDICAID, SELFPAY ==
[2024-09-06 08:43] VITALS: BMI 21.1
--- NOTE | 2024-10-03 10:40 | RAD_ITS ---
PROCEDURE: CHEST PA AND LATERAL 10/03/2024 REASON FOR EXAM: PNEUMONIA TECHNIQUE: Frontal and lateral views of the chest. COMPARISON: Comparison is made with prior study September 20, 2024. FINDINGS: Stable mild elevation of the right hemidiaphragm. Persistent increased markings at the left lung base although there has been improvement since prior study. Further follow-up recommended. Calcification of the aortic arch. Degenerative changes of the visualized thoracic spine. RAD/Chest PA and Lateral IMPRESSION: Mild residual increased markings at the left lung base. There has been improve ment. Further follow-up recommended. Reading Location: [facility]
== END | disposition home or self-care (01) ==
LOC: MTRAD 10:38
PROVIDERS: PCP Family Medicine; Referring Provider Family Medicine; Visit Provider Family Medicine
DX: J18.9 Pneumonia, unspecified organism (principal)
CPT/HCPCS: 71046

== ENCOUNTER 2024-10-18 07:48 | Outpatient (RCR) | payer MEDICARE, MEDICAID, SELFPAY ==
[2024-10-04 11:15] VITALS: BMI 21.1
[2024-10-17 00:56] VITALS: BP 142/70; BP 164/76; BMI 21.1
== END 2024-11-15 23:59 ==
LOC: PR 07:48
PROVIDERS: PCP Family Medicine
DX: C34.11 Malignant neoplasm of upper lobe, right bronchus or lung (principal); J44.9 Chronic obstructive pulmonary disease, unspecified
CPT/HCPCS: 97150; G0239

== ENCOUNTER → 2024-11-16 | Outpatient (CLI) | payer MEDICARE, MEDICAID, SELFPAY ==
[2024-10-04 11:15] VITALS: BMI 21.1
--- NOTE | 2024-11-16 12:39 | BD_ITS ---
PROCEDURE: DEXA BONE DENSITY STUDY 11/16/2024 REASON FOR EXAM: F, age 73 y/o . Postmenopausal. TECHNIQUE: DEXA scan of sites with data reported below. Scanner utilized: [employer]. REFERENCE LINKS: ISCD Adult Positions COMPARISON: None FINDINGS: BMD and T-SCORES Lumbar spine: 0.962 g/cm2, T-score -0.8 Levels: L1 through L4 Left femoral neck: 0.551 g/cm2, T-score -2.7 Left total hip: 0.555 g/cm2, T-score -3.2 The World Health Organization has defined the following categories based on bone density: Normal bone density: T-score equal to or greater than -1.0 Osteopenia: T-score between -1.0 and -2.5 Osteoporosis: T-score equal to or less than -2.5 FRAX (or Comparable) Fracture Risk Assessment: 10 Year Probability of Fracture: Major Osteoporotic Fracture: 43% Hip Fracture: 17% (Note: FRAX is not to be reported in setting of normal range bone density, osteoporosis on DEXA, known history of osteoporosis, prior osteoporotic hip or vertebral fracture, or for any patient undergoing pharmacological treatment for bone loss.) The National Osteoporosis Foundation (NOF) recommends pharmacological treatment for patients with a FRAX 10-year risk of 3% or higher for a hip fracture, or 20% or higher for a major osteoporotic fracture, to prevent osteoporosis and reduce fracture risk. The patient does meet the pharmacological treatment recommendations for prevention of osteoporosis. BD/Dexa Bone Density Study IMPRESSION: OSTEOPOROSIS. Recommend follow-up as clinically warranted. Reading Location: [id number]
== END | disposition home or self-care (01) ==
LOC: OPBD 12:38
PROVIDERS: PCP Family Medicine; Referring Provider Family Medicine; Visit Provider Family Medicine
DX: M81.0 Age-related osteoporosis without current pathological fracture (principal); Z78.0 Asymptomatic menopausal state
CPT/HCPCS: 77080

== ENCOUNTER 2024-11-19 18:17 | Emergency (ER) | payer MEDICARE, MEDICAID, SELFPAY ==
[2024-10-04 11:15] VITALS: BMI 21.1
[2024-11-19 18:18] VITALS: BP 138/85; PULSE 94; RESP 18; TEMP 36.3; O2SAT 99
[2024-11-19 18:40] VITALS: BMI 21.9
--- NOTE | 2024-11-19 19:18 | ED.VIS.BACK ---
HPI History of Present Illness Chief Complaint: Back Informant: patient and family Onset/Context/Timing Onset: Today and Yesterday Context: Gradual Onset Timing: Continuous Quality: Sharp Location: Thoracic Current Severity: Moderate Maximum Severity: Moderate Worsened by: improves with Nothing Relieved by: Nothing Associated Symptoms Associated Symptoms: Negative for Numbness, Tingling, Radiation to Right Leg, Radiation to Left Leg, Fever, Abdominal Pain, Dysuria, Unable to Ambulate, Unable to Transfer, Urinary Retention, Urinary Incontinence, Constipation or Fecal Incontinence Narrative Narrative: 73-year-old female known history of prior right lung CA hide as stated partial resection and according the patient they got all of it. She also has a history of compression fractures of her thoracic spine. And known COPD. States that she has had increased midthoracic back pain in the last couple days. No chest pain. No fall or trauma. No fever. No prior back surgeries. Prior similar symptoms: Yes Recent Illness/Hospitalization: Yes [facility] Medical History Aftercare following right hip joint replacement surgery Fall Subcapital fracture of right hip Adenocarcinoma of right lung History of COPD Nicotine dependence, cigarettes, uncomplicated Rheumatoid arthritis Pneumothorax after biopsy Kidney disease Smoker Synovial cyst of popliteal space [Patel], right knee Effusion, right knee Osteoarthritis COPD (chronic obstructive pulmonary disease) Home Medications ?Medication ?Instructions ?Recorded ?Last Taken ?Type oxybutynin chloride 15 mg 15 mg PO DAILY urine 08/13/23 Unknown History tablet,extended release 24 hr albuterol sulfate 90 mcg/actuation 2 puff inhalation Q8H PRN sob and 02/01/24 Unknown History aerosol inhaler wheezing prednisone 5 mg tablet 10 mg PO DAILY inflammation 02/01/24 Unknown History nicotine 21 mg/24 hr daily 1 patch transdermal DAILY Nicotine 04/21/24 Unknown History transdermal patch acetaminophen 500 mg tablet 1,000 mg (2 x 500 mg) PO Q8 #0 tabs 04/25/24 Unknown Rx rivaroxaban 10 mg tablet (Xarelto) 10 mg PO DINNER #1 TAB 04/25/24 Unknown Rx sennosides 8.6 mg-docusate sodium 2 tab PO BID #0 tabs 04/25/24 Unknown Rx 50 mg tablet (Stimulant Laxative Plus) hydrocodone-acetaminophen 5-325mg tab PO 05/11/24 Unknown History 5mg-325mg albuterol sulfate 2.5 mg/3 mL 2.5 mg (3 mL) inhalation Q4H PRN 06/23/24 Unknown Rx (0.083 %) solution for nebulization #25 vials doxycycline hyclate 100 mg capsule 100 mg PO BID 7 days #14 caps 09/20/24 Unknown Rx oxycodone 5 mg capsule 5 mg PO Q8H PRN pain 6 days #20 11/19/24 Unknown Rx caps Allergy/AdvReac Type Severity Reaction Status Date / Time No Known Allergies Allergy Verified 11/19/24 18:17 Family History Father Heart disease Hypertension Brother Cancer Mother Arthritis Surgical History History of breast lift History of cholecystectomy Social History Smoking Status: Light Smoker (<10/day) Tobacco: How many years used: 50 alcohol intake: never ROS ROS ED ROS Narrative Denies recent illness. Atraumatic thoracic back pain. Constitutional Constitutional ED: Denies chills or fever(s) Eyes Eyes: Denies blurry vision ENT ENT ED: Denies ear pain Cardiovascular Cardiovascular: Denies chest pain Gastrointestinal Gastrointestinal: Denies abdominal pain Genitourinary Genitourinary ED: Denies dysuria or hematuria Musculoskeletal Musculoskeletal: Reports back pain; Denies arthralgias, myalgias or neck pain Integumentary Denies abscess or Abrasions Neurologic Neurologic: Denies headache(s) Psychiatric Psychiatric: Denies anxiety or depression Endocrine Endocrinology: Denies cold intolerance Hematologic/Lymphatic Hematologic/Lymphatic: Denies easy bleeding, easy bruising or lymphadenopathy Allergic/Immunologic Allergic/Immunologic ED: Denies mouth swelling, tongue swelling or urticaria EXAM Physical Exam Narrative Exam Narrative: 71-year-old female sitting upright in bed. Vital signs stable afebrile. Pulse ox 99% room air no signs hypoxia. No distress. Daughter at bedside. H EENT exam pupils round reactive light. Moist mucous membranes. Neck nontender no lymphadenopathy. Lungs clear to auscultation bilaterally. Heart regular rhythm rate about 90 no murmur. Chest wall ribs nontender. Back no reproducible pain. pain is in her mid thoracic spine. No ecchymosis or bruising. To her back. No redness or warmth. Moving all 4 extremities. Nontender no edema. Normal strength. Normal sensation. No cauda equina. Abdomen soft nontender. No peritoneal signs. No pulsatile mass. Neurologically she is awake alert. Answering questions following commands. Const Vital Signs: 11/19/24 18:18 Temperature 97.3 F L Temperature Source Temporal Pulse Rate 94 Respiratory Rate 18 Blood Pressure 138/85 H Blood Pressure Mean 102 Pulse Ox 99 Oxygen Delivery Method Room Air Positive well nourished and well developed; Negative for obese, cachectic, contractures or unkempt General Appearance ED: well developed and NAD; Negative for unkempt, cachectic, contractures or pallor Nutritional Appearance: Negative for cachectic or obese HEENT Reports moist mucous membranes Negative for trauma or tenderness Eyes PERRL and EOMs intact bilaterally Neck no lymphadenopathy, supple and no JVD General: Negative for tenderness Thyroid: Negative for other Resp normal respiratory effort and clear to auscultation bilaterally Cardio regular rate, regular rhythm, S1 normal heart sound, S2 normal heart sound and no murmurs Rate: Negative for bradycardia or tachycardic Rhythm: Negative for abnormal rhythm Bruits: Negative for other GI normal to inspection, nondistended, normoactive bowel sounds, soft to palpation, non-tender, non-distended and no masses Inspection: Negative for abdominal distention Palpation: Negative for tender, guarding, hepatomegaly, splenomegaly, mass, pulsatile mass or rebound tenderness present Back/Spine normal to inspection and no thoracic nor lumbar tenderness Cervical Spine: Negative for cervical spine tenderness Thoracic Spine / Upper Back: Negative for paraspinal muscle tenderness Lumbar Spine / Lower Back: straight leg raise negative bilaterally; Negative for ROM limited Extremity normal to inspection and no clubbing, cyanosis or edema General Extremety ED: Negative for edema or tenderness General Extremity: Negative for edema Neuro oriented x3 and no sensory deficits noted Sensorium / Orientation: alert; Negative for confused, lethargic or stuporous Motor Exam: strength 5/5 throughout Psych mental status grossly normal Appearance: Negative for unkempt Attitude: No agitated Mood & Affect: Negative for depressed, sad or tearful Skin no rashes or lesions noted and no wounds General Skin Exam: Negative for jaundice or pallor Lesions: No lesion noted Rashes: No rashes noted Trauma: Negative for abrasion or puncture Wounds: Negative for wounds noted MDM MDM MDM Narrative Medical decision making narrative: 73-year-old female thoracic back pain with known history of compression fractures. X-ray being obtained. She be given IV morphine for pain and Zofran. Exam otherwise is benign. She has normal strength. There is no signs of cord compression. Repeat exam patient is doing much better 9:15 PM. Morphine significant helped her pain. We went over her x-rays. She has multilevel degenerative arthritis and compression fractures and osteoporosis for thoracic spine. I compared that to her recent thoracic x-ray right and there was no significant change. We discussed her prior x-rays and outpatient follow-up with her primary care physician. Patient be discharged home. Written for oxycodone which has been on before. Outpatient follow-up with primary care physician. History & Record Review Discussion w/independent historian: Patient and Family Additional record(s) reviewed:: Prior inpatient record, Prior outpatient record, Prior ED visit and Prior labs Radiography Chest X-Ray - ED: 2 View, Read by ED Physician, Read by Radiologist, Heart, Lungs, Mediastinum, No Acute Disease and Chronic Changes Diagnostic Testing: Clinical Impression(s) from Imaging Studies Chest X-Ray 11/19/24 19:40 IMPRESSION: NO ACUTE FINDINGS. Reading Location[facility] Chest x-ray, 2 views, AP and lateral, interpreted both by myself and the radiologist. Normal cardiac silhouette. Normal lung noel. Prior right upper lobe lung surgery with a staple line. On the lateral there is multiple compression fractures and degenerative arthritis and osteoporosis of her thoracic spine. When compared to a prior thoracic spine x-ray is very similar. No significant change. I discussed all this with the patient and family at bedside. Discharge Plan Triage Chief Complaint: Back ED Provider: Jason Rudd Dx/Rx/DC Orders Clinical Impression: Back pain, Thoracic compression fracture, Osteoporosis Instructions: ED Fracture, Vertebral Compression Prescriptions: New oxycodone 5 mg capsule 5 mg PO Q8H PRN (Reason: pain) 6 Days Qty: 20 0RF No Action oxybutynin chloride 15 mg tablet extended release 24hr 15 mg PO DAILY albuterol sulfate 90 mcg/actuation HFA aerosol inhaler 2 puff inhalation Q8H PRN (Reason: sob and wheezing) hydrocodone-acetaminophen 5-325 mg tablet PO prednisone 5 mg tablet 10 mg PO DAILY nicotine 21 mg/24 hr patch 24 hour 1 patch transdermal DAILY sennosides-docusate sodium [Stimulant Laxative Plus] 8.6-50 mg Tablet 2 tab PO BID Qty: 0 0RF acetaminophen 500 mg Tablet 1,000 mg PO Q8 Qty: 0 0RF Xarelto 10 mg Tablet 10 mg PO DINNER Qty: 1 0RF Rx Instructions: take for 27 more days albuterol sulfate 2.5 mg /3 mL (0.083 %) solution for nebulization 2.5 mg inhalation Q4H PRN Qty: 25 0RF Rx Instructions: Use q4 hours and PRN for wheezing doxycycline hyclate 100 mg capsule 100 mg PO BID 7 Days Qty: 14 0RF Primary Care Provider: Cathy Garnica Referrals: Cathy Garnica MD [Primary Care Provider] - As soon as possible Activity Restrictions/Additional Instructions: Back pain due to old compression fractures in your back. Seen on prior x-rays. Oxycodone for pain. Call and follow-up with your primary care physician for further evaluation and treatment. Discussed with him treatment for osteoporosis. Print Language: Serbian Disposition Disposition: Home, Self Care
[2024-11-19] MEDS: Morphine 4 MG/ML Syringe IV (19:26)
[2024-11-19] MEDS: Ondansetron 4 MG/2 ML Vial IV (19:26)
--- NOTE | 2024-11-19 19:40 | RAD_ITS ---
PROCEDURE: CHEST PA AND LATERAL 11/19/2024 REASON FOR EXAM: THORACIC SPINE PAIN W/ LUNG CA HX TECHNIQUE: Frontal and lateral views of the chest. COMPARISON: 10/03/2024 FINDINGS: Hardware: None Heart: The heart size is normal. Mediastinum: The mediastinal contour is unremarkable. Lungs: Right upper lobe wedge resection. No focal consolidation. No pneumothorax. No pleural effusion. Bones: Degenerative changes are identified within the thoracic spine. RAD/Chest PA and Lateral IMPRESSION: NO ACUTE FINDINGS. [facility]
--- NOTE | 2024-11-19 19:41 | ED.RN ---
pt requested IM injection of medications
[2024-11-19] MEDS: HYDROcodone Bitartrate/Apap 5/325 Tablet PO (21:38)
[2024-11-19 21:39] VITALS: BP 112/62; PULSE 78; RESP 18; TEMP 36; O2SAT 99
== END 2024-11-19 21:40 | disposition home or self-care (01) ==
PROVIDERS: Emergency Provider Emergency Medicine; PCP Family Medicine; Visit Provider Emergency Medicine
DX: M80.08XA Age-related osteoporosis with current pathological fracture, vertebra(e), initial encounter for fracture (principal); M06.9 Rheumatoid arthritis, unspecified; J44.9 Chronic obstructive pulmonary disease, unspecified; F17.210 Nicotine dependence, cigarettes, uncomplicated; Z79.01 Long term (current) use of anticoagulants; Z79.899 Other long term (current) drug therapy; Z85.118 Personal history of other malignant neoplasm of bronchus and lung
CPT/HCPCS: 71046; 96374; 96375; 99282; J2405

== ENCOUNTER → 2025-01-02 | Outpatient (CLI) | payer MEDICARE, MEDICAID, SELFPAY ==
[2024-10-04 11:15] VITALS: BMI 21.1
--- NOTE | 2025-01-02 17:13 | RAD_ITS ---
PROCEDURE: L/S SPINE W BEND MIN 6 VW 01/02/2025 REASON FOR EXAM: NEW ONSET RADICULOPATHY TECHNIQUE: L/S SPINE W BEND MIN 6 VW COMPARISON: None. FINDINGS: Mild dextroscoliosis apex at L3. Mild osteopenia. Grade 1 anterolisthesis of L2 on L3. No evidence of instability on flexion/extension images. There are diffuse spondylotic changes. Findings are demonstrated to by diffuse disc space narrowing, osteophyte formation and degenerative endplate sclerosis. There is diffuse facet joint arthropathy with secondary bilateral neural foramina narrowing. No fracture or dislocation is seen. No aggressive lytic or blastic bony lesion is noted. Unremarkable metallic prosthesis of the right hip. RAD/L/S Spine w Bend Min 6 Vw IMPRESSION: Diffuse spondylosis. Grade 1 anterolisthesis of L2 on L3. No evidence of instability on flexion/extension images. Reading [facility]
== END | disposition home or self-care (01) ==
LOC: MTRAD 17:13
PROVIDERS: PCP Family Medicine; Referring Provider Family Medicine; Visit Provider Family Medicine
DX: M54.10 Radiculopathy, site unspecified (principal)
CPT/HCPCS: 72114

== ENCOUNTER 2025-01-25 15:26 | Emergency (ER) | payer MEDICARE, MEDICAID, SELFPAY ==
[2024-10-04 11:15] VITALS: BMI 21.1
--- NOTE | 2025-01-25 14:50 | RAD_ITS ---
PROCEDURE: LUMBAR SPINE 2 OR 3 VIEWS 01/25/2025 REASON FOR EXAM: INJURY/PAIN TECHNIQUE: LUMBAR SPINE 2 OR 3 VIEWS COMPARISON: T-spine radiographs 11/10/2024. L-spine 01/02/2025. Chest radiographs 11/19/2024. FINDINGS: No evidence of acute fracture or subluxation. Mild chronic compressive height loss of multiple lower thoracic vertebral bodies and L1, present on prior exams. Qualitative osteopenia. Mild dextroscoliotic curvature of the lumbar spine. Multilevel spondylotic changes with varying degrees of disc space narrowing, endplate sclerosis and anterior osteophytosis, and hypertrophic facet arthropathy. SI joints are symmetric and within normal limits. Moderate left hip arthrosis partially imaged. Partially seen right hip hemiarthroplasty hardware. Atherosclerotic vascular calcifications. Otherwise unremarkable soft tissues. RAD/Lumbar Spine 2 or 3 Views IMPRESSION: 1. No evidence of acute fracture or subluxation. 2. Chronic mild compression fracture deformities of L1 and several lower thorac ic vertebra. 3. Moderate multilevel spondylotic changes. Diffuse qualitative osteopenia. Reading Location: [id number]
[2025-01-25 15:27] VITALS: BP 102/43; PULSE 112; RESP 20; TEMP 36.8; O2SAT 98
[2025-01-25] MEDS: 0.9% Normal Saline (500mL Bag) 500 ML 1000 ML IV (16:22)
[2025-01-25 16:39] LABS: Hematocrit 38.5 % (37-47); Hemoglobin 12.5 g/dL (12.0-15.0); Immature Granulocytes Count 0.070 X10^3/uL (0.0-0.0); Mean Corp Hgb Conc 32.5 g/dL (32-36); Mean Corpuscular Volume 84.4 fL (81-99); Mean Platelet Vol. 9.5 fl (6.2-12.0); NRBC Flagged by Analyzer 0 % (0-5); POSITIVE DIFFERENTIAL YES; Platelet Count 250 K/mm3 (150-450); RBC Distribution Width CV 16.1 % (11.6-14.6); RBC Distribution Width SD 49.9 fl (35.1-43.9); Red Blood Count 4.56 M/mm3 (4.2-5.4); White Blood Count 10.0 K/mm3 (4.4-11.0)
[2025-01-25 17:18] LABS: AST(SGOT) 17 U/L (<=31); Alanine Aminotransfer ALT/SGPT 13 U/L (<=34); Albumin, Serum 3.9 g/dL (3.4-4.8); Alkaline Phosphatase 63 U/L (35-104); Anion Gap 13 (5-15); BUN 14 mg/dL (4-19); BUN/Creat Ratio 15.4 RATIO (10-20); Calcium,Total 9.2 mg/dL (7.6-11.0); Carbon Dioxide 21.4 mmol/L (21.0-32.0); Chloride 95 mmol/L (98-108); Globulin 3.4 g/dL (2.2-4.2); Glucose 111 mg/dL (70-99); Potassium 4.2 mmol/L (3.3-5.1)
[2025-01-25 17:26] VITALS: PULSE 102; RESP 16; O2SAT 95
--- NOTE | 2025-01-25 17:49 | EDS_ITS ---
HPI History of Present Illness Chief Complaint: General Illness Detail of Chief Complaint: Generalized weakness, poor appetite, leg pain bilaterally Informant: patient and family Onset/Context/Timing Onset: Days Context: Sudden Onset Timing: Continuous Quality: Bilateral leg pain, lower lumbar back pain, and weight loss Location: Back and legs Current Severity: Mild Maximum Severity: Moderate Worsened by: Movement Relieved by: Nothing Associated Symptoms Associated Symptoms: Burning pain Narrative Narrative: Patient is a 74-year-old woman. 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 She has known thoracic compression fractures. She also has history of osteoporosis. There is no history of trauma. She now complai thomas of low back pain. She was seen by Dr. Son's nurse practitioner. MRI was ordered. MRI is scheduled for January 28. She denies bowel or bladder dysfunction. She denies radicular pain. She apparently dragging her right foot. She denies direct or indirect trauma. She denies paresthesia, anesthesia or motor weakness. She does endorse weight loss. She denies dysuria, frequency, urgency or hematuria. She denies change in color, caliber or consistency of her stool. Prior similar symptoms: Yes Recent Illness/[facility]: [facility] Medical History Aftercare following right hip joint replacement surgery Fall Subcapital fracture of right hip Adenocarcinoma of right lung History of COPD Nicotine dependence, cigarettes, uncomplicated Rheumatoid arthritis Pneumothorax after biopsy Kidney disease Smoker Synovial cyst of popliteal space [Patel], right knee Effusion, right knee Osteoarthritis COPD (chronic obstructive pulmonary disease) Home Medications ?Medication ?Instructions ?Recorded ?Last Taken ?Type oxybutynin chloride 15 mg 15 mg PO DAILY urine 4 Unknown History tablet,extended release 24 hr alendronate 70 mg tablet 70 mg PO QWEEK 01/23/25 Unkn own History prednisone 20 mg tablet 20 mg PO QDAY 01/23/25 Unkno wn History sulfasalazine 500 mg tablet 500 mg PO BID 01/23/25 Unk nown History hydrocodone-acetaminophen 5-325mg 1 tab PO Q6H PRN PRN Pain 3 days 01/25/25 Unknown Rx 5mg-325mg #10 TABLETS Allergy/AdvReac Type Severity Reaction Status Date / Time No Known Allergies Allergy Verified 01/25/25 15:29 Family History Father Heart disease Hypertension Brother Cancer Mother Arthritis Surgical History History of breast lift History of cholecystectomy Social History Smoking Status: Heavy Smoker (>10/day) Tobacco: How many years used: 50 alcohol intake: never ROS ROS ED Constitutional Constitutional ED: Reports weight loss; Denies chills, fever(s), subjective or sweats Eyes Eyes: Denies blurry vision or change in vision Cardiovascular Cardiovascular: Denies chest pain or palpitations Respiratory/Chest Respiratory/Chest: Denies cough, dyspnea or dyspnea on exertion Gastrointestinal Gastrointestinal: Reports other Details: Further detailed HPI narrative ; Denies abdominal pain, constipation, diarrhea, nausea or vomiting Genitourinary Genitourinary ED: Reports other Details: Further detailed HPI narrative ; Denies dysuria, hematuria or urinary frequency Musculoskeletal Musculoskeletal: Reports back pain; Denies arthralgias or myalgias Integumentary Denies abscess, Abrasions or rash Neurologic Neurologic: Reports weakness; Denies headache(s) or paresthesias Psychiatric Psychiatric: Denies anxiety or depression Endocrine Endocrinology: Denies cold intolerance or heat intolerance Hematologic/Lymphatic Hematologic/Lymphatic: Reports systems reviewed and no addt'l complaints, except as documented EXAM Physical Exam Const Vital Signs: 01/25/25 15:27 01/25/25 16:08 01/25/25 17:26 Temperature 98.2 F Temperature Source Oral Pulse Rate 112 H 102 H Respiratory Rate 20 H 16 Respiratory Effort Normal Respiratory Pattern Normal Blood Pressure 102/43 L Blood Pressure Mean 62 Pulse Ox 98 95 Oxygen Delivery Method Room Air Room Air 01/25/25 19:00 01/25/25 19:12 Temperature Temperature Source Pulse Rate 103 H Respiratory Rate 19 H Respiratory Effort Respiratory Pattern Blood Pressure 114/69 Blood Pressure Mean 84 Pulse Ox 97 Oxygen Delivery Method Room Air Positive well nourished and well developed General Appearance ED: well developed; Negative for cyanotic, diaphoretic, NAD or pallor HEENT Reports moist mucous membranes HEENT Narrative: Head is atraumatic normocephalic. Ears normal. Nares patent. Mucosa is dry. Eyes PERRL and EOMs intact bilaterally General Eye ED: Negative for pale conjunctiva or scleral icterus Neck no lymphadenopathy, supple and no JVD Resp normal respiratory effort and clear to auscultation bilaterally Cardio regular rate, regular rhythm, S1 normal heart sound, S2 normal heart sound and no murmurs GI normal to inspection, nondistended, normoactive bowel sounds, non-tender, non- distended and no masses; Negative for hepatosplenomegaly Back/Spine no CVA tenderness Back/Spine Narrative: Straight leg test is negative bilaterally. Patellar ankle reflex are absent. She has reflexes in the upper extremity. She has altered sensation S1 dermatome on the right. There is weakness of her EXTR all EXTR pollicis longus on the right. Negative clonus or Babinski sign. Normal perianal sensation. Inspection of the back is unremarkable. She does have pain to palpation of lumbar region. Lumbar Spine / Lower Back: lumbar spinal tenderness Extremity normal to inspection General Extremety ED: Negative for edema or tenderness General Extremity: Negative for edema Neuro oriented x3 Sensorium / Orientation: alert Psych Mood & Affect: depressed Skin no rashes or lesions noted, no wounds and No skin turgor normal General Skin Exam: Negative for elasticity normal, jaundice or pallor MDM MDM MDM Narrative Medical decision making narrative: With history of osteoporosis, lung cancer atraumatic back pain will obtain x- rays to determine if she has evidence of new compression fractures. Competence of metabolic panel was obtained to assess calcium and alkaline phosphatase. She is scheduled for an MRI. She does not need an emergent MRI at this time since there is no concern for cauda equina. She also has generalized weakness which may be due to her cancer and poor p.o. intake. Will obtain electrolytes to assess renal function, glucose etc. History & Record Review Additional record(s) reviewed:: Prior outpatient record (Reviewed Nia Herrera's note for orthopedic evaluation of her pain.) Lab Data Attestation: I reviewed the patient's lab results. Lab results narrative: CBC is unremarkable. Comprehensive metabolic panel is unremarkable. Glucose is slightly elevated 111. Labs: Laboratory Results - last 24 hr 01/25/25 16:23 WBC 10.0 RBC 4.56 Hgb 12.5 Hct 38.5 MCV 84.4 MCH 27.4 MCHC 32.5 RDW Std Deviation 49.9 H RDW Coeff of Nikki 16.1 H Plt Count 250 MPV 9.5 Immature Gran % (Auto) 0.700 Neut % (Auto) 86.9 H Lymph % (Auto) 5.9 L [place] % (Auto) 5.3 Eos % (Auto) 0.8 Baso % (Auto) 0.4 Absolute Neuts (auto) 8.7 H Absolute Lymphs (auto) 0.59 L Nucleated RBC % 0 Sodium 130 L Potassium 4.2 Chloride 95 L Carbon Dioxide 21.4 Anion Gap 13 BUN 14 Creatinine 0.92 Est GFR (MDRD) Non-Af 66 BUN/Creatinine Ratio 15.4 Glucose 111 H Calcium 9.2 Total Bilirubin 0.34 AST 17 ALT 13 Alkaline Phosphatase 63 Total Protein 7.4 Albumin 3.9 Globulin 3.4 Albumin/Globulin Ratio 1.1 Radiography Chest X-Ray - ED: 2 View (LS-spine independent reviewed interpreted by me at [id number] as degenerative changes. There is no evidence of compression fracture. There is no lytic or blastic lesions noted. There is minimal atherosclerotic disease of the abdominal aorta and iliacs. There is no evidence of spondylolisthesis or spon) Treatment and Re-Evaluation :: Patient was informed of her results. She be discharged with pain medicine. She had no questions. Discharge Plan Triage Chief Complaint: General Illness ED Provider: Vidal Torre Dx/Rx/DC Orders Clinical Impression: Back pain, Adenocarcinoma of upper lobe of right lung, Generalized weakness, Tachycardia, Abnormal weight loss Instructions: ED Back and Neck Pain, General Prescriptions: New hydrocodone-acetaminophen 5-325 mg tablet 1 tab PO Q6H PRN PRN (Reason: Pain) 3 Days Qty: 10 0RF No Action oxybutynin chloride 15 mg tablet extended release 24hr 15 mg PO DAILY sulfasalazine 500 mg tablet 500 mg PO BID prednisone 20 mg tablet 20 mg PO QDAY alendronate 70 mg tablet 70 mg PO QWEEK Primary Care Provider: Cathy Garnica Referrals: Cathy Garnica MD [Primary Care Provider] - Print Language: Irish Disposition Disposition: Home, Self Care
[2025-01-25 19:00] VITALS: PULSE 103; RESP 19; O2SAT 97
[2025-01-25 19:12] VITALS: BP 114/69
[2025-01-25 19:54] VITALS: BP 114/64; PULSE 102; RESP 16; TEMP 36.8; O2SAT 94
== END 2025-01-25 19:55 | disposition home or self-care (01) ==
PROVIDERS: Emergency Provider Emergency Medicine; PCP Family Medicine; Visit Provider Emergency Medicine
DX: M54.50 Low back pain, unspecified (principal); C34.11 Malignant neoplasm of upper lobe, right bronchus or lung; J44.9 Chronic obstructive pulmonary disease, unspecified; R53.1 Weakness; R29.898 Other symptoms and signs involving the musculoskeletal system; R00.0 Tachycardia, unspecified; R63.4 Abnormal weight loss; M79.604 Pain in right leg; M79.605 Pain in left leg; F17.210 Nicotine dependence, cigarettes, uncomplicated; Z79.899 Other long term (current) drug therapy
CPT/HCPCS: 72100; 80053; 85025; 96361; 96374; 96375; 99284; A4216; J2405

== ENCOUNTER 2025-01-30 09:19 | Emergency (ER) | payer MEDICARE, MEDICAID, SELFPAY ==
[2024-10-04 11:15] VITALS: BMI 21.1
[2025-01-30 09:20] VITALS: BP 134/80; PULSE 110; RESP 16; TEMP 36.1; O2SAT 100
--- NOTE | 2025-01-30 09:36 | CT_ITS ---
PROCEDURE: CTA HEAD AND NECK W/ CONTRAST 01/30/2025 REASON FOR EXAM: [place], ASSESS FOR HEAD BLEED AND ANEURYSM 2 day history of headaches. TECHNIQUE: CTA HEAD AND NECK W/ CONTRAST Multiplanar Sagittal and Coronal images were obtained. CONTRAST: Isovue 370 VOLUME: 100 mL One or more dose reduction techniques were used (e.g., Automated exposure control, adjustment of the mA and/or kV according to patient size, use of iterative reconstruction technique). RADIATION DOSE SUMMARY: CTDlvol: 25 mGy DLP: 1549.12 mGycm COMPARISON: None FINDINGS: Aortic Arch: Normal size and branching pattern. Mild atherosclerotic plaque. Brachiocephalic and Subclavians: Mild atherosclerotic plaque without significant stenosis. RIGHT Carotid: Right CCA: Unremarkable. Right ICA: Mild calcified and soft plaque. Maximum stenosis (NASCET): <50 % Right ECA: Unremarkable. LEFT Carotid: Left CCA: Unremarkable. Left ICA: Moderate calcified and soft plaque. Maximum stenosis (NASCET): 70 % Left ECA: Unremarkable. Vertebrals: Codominant. Arise from the subclavians. Both vertebrals form the basilar. RIGHT Vertebral: Unremarkable. LEFT Vertebral: Unremarkable. Anatomy: [place] of Barboza anatomy is normal. Aneurysm or avm: No intracranial aneurysms or large vascular malformations are identified. Anterior cerebral arteries: Unremarkable: Middle cerebral arteries: Unremarkable. Basilar artery: Unremarkable. Posterior cerebral arteries: Unremarkable. Other major branches of the posterior circulation: Unremarkable. Major venous structures: Unremarkable. Other findings: Unenhanced brain shows evidence of mild cerebral atrophy. No evidence of intracranial bleed. Decreased attenuation in the periventricular white matter. Focal hypodensity in the left basal ganglion. This is unchanged since prior study dated March 29, 2023. CT/CTA Head AND Neck W/ Contrast IMPRESSION: No acute abnormality is seen. Reading Location: [facility]
--- NOTE | 2025-01-30 09:39 | CT_ITS ---
PROCEDURE: SPINE CERVICAL WITHOUT CONTRAS 01/30/2025 REASON FOR EXAM: PAIN TECHNIQUE: SPINE CERVICAL WITHOUT CONTRAS Coronal and Sagittal reconstruction series were provided. One or more dose reduction techniques were used (e.g., Automated exposure control, adjustment of the mA and/or kV according to patient size, use of iterative reconstruction technique. RADIATION DOSE SUMMARY: DLP: 1549 mGycm COMPARISON: None FINDINGS: There is grade 1 spondylolisthesis at C4-5, 0.2 cm. There is loss of disc height from C5-7. There is moderate bilateral foraminal narrowing at C5-6 secondary to bony hypertrophy. There is no central canal stenosis. The facets are aligned. There is no fracture. Prevertebral soft tissues are within normal limits. Scar and radiopaque clips are noted at the right lung apex. Vascular calcifications are visible. CT/Spine Cervical without Contras IMPRESSION: There is grade 1 spondylolisthesis at C4-5, 0.2 cm. There is loss of disc height from C5-7. There is moderate bilateral foraminal narrowing at C5-6 secondary to bony hyper trophy. Reading Location: [facility]
--- NOTE | 2025-01-30 09:39 | CT_ITS ---
PROCEDURE: SPINE CERVICAL WITHOUT CONTRAS 01/30/2025 REASON FOR EXAM: PAIN TECHNIQUE: SPINE CERVICAL WITHOUT CONTRAS Coronal and Sagittal reconstruction series were provided. One or more dose reduction techniques were used (e.g., Automated exposure control, adjustment of the mA and/or kV according to patient size, use of iterative reconstruction technique. RADIATION DOSE SUMMARY: DLP: 1549 mGycm COMPARISON: None FINDINGS: There is grade 1 spondylolisthesis at C4-5, 0.2 cm. There is loss of disc height from C5-7. There is moderate bilateral foraminal narrowing at C5-6 secondary to bony hypertrophy. There is no central canal stenosis. The facets are aligned. There is no fracture. Prevertebral soft tissues are within normal limits. Scar and radiopaque clips are noted at the right lung apex. Vascular calcifications are visible. CT/Spine Cervical without Contras IMPRESSION: There is grade 1 spondylolisthesis at C4-5, 0.2 cm. There is loss of disc height from C5-7. There is moderate bilateral foraminal narrowing at C5-6 secondary to bony hyper trophy. Reading Location: [facility]
--- NOTE | 2025-01-30 09:51 | EX.ED.DYSGE1 ---
HPI History of Present Illness Chief Complaint: Headache Narrative Narrative: Chief complaint and HPI: Headache. 74-year-old female with past medical history of right lung adenocarcinoma in remission, DDD, osteoarthritis, compression fractures presents for evaluation of headache. Patient states that she has had a headache for the past 2 days. Associated symptoms are photosensitivity, sound sensitivity, nausea. Endorses being under a lot of stress lately. Little sleep. She denies any fever, URI symptoms, vision changes, hearing changes, shortness of breath, chest pain, abdominal pain, vomiting, numbness/tingling, new weakness, trauma. Patient states that she did have a headache multiple years ago in which she was told she had a small aneurysm. Review of systems: See HPI Medications: As listed on the chart Allergies: As listed on the chart PFSH: Per chart Vital signs: As listed on the chart. Reviewed. Physical exam: Gen: A&O x3, NAD Head: Normocephalic, atraumatic Eyes: No sclera icterus, conjunctiva clear, PERRL, EOMI ENT: TMs clear BL, moist mucous membranes, posterior oropharynx unremarkable, no facial tenderness Neck: Trachea midline, No JVD, Full ROM, No meningismus, no lymphadenopathy, no midline spinal tenderness, tender to palpation of the paraspinal musculature of the bilateral cervical spine CV: RRR, no murmurs, no peripheral edema Resp: Lungs CTA BL, no w/r/c GI: Abd soft, non-distended, non-tender, no r/r/g Musc: Full ROM, no deformity Skin: Warm, dry, no rash Neuro: Alert, oriented, grossly intact, sensation intact Psych: Cooperative, appropriate mood and affect [facility] Medical History Aftercare following right hip joint replacement surgery Fall Subcapital fracture of right hip Adenocarcinoma of right lung History of COPD Nicotine dependence, cigarettes, uncomplicated Rheumatoid arthritis Pneumothorax after biopsy Kidney disease Smoker Synovial cyst of popliteal space [Patel], right knee Effusion, right knee Osteoarthritis COPD (chronic obstructive pulmonary disease) Home Medications ?Medication ?Instructions ?Recorded ?Last Taken ?Type oxybutynin chloride 15 mg 15 mg PO DAILY urine 08/13/23 Unknown History tablet,extended release 24 hr alendronate 70 mg tablet 70 mg PO QWEEK 01/23/25 Unknown History prednisone 20 mg tablet 20 mg PO QDAY 01/23/25 Unknown History sulfasalazine 500 mg tablet 500 mg PO BID 01/23/25 Unknown History hydrocodone-acetaminophen 5-325mg 1 tab PO Q6H PRN PRN Pain 3 days 01/25/25 Unknown Rx 5mg-325mg #10 TABLETS Allergy/AdvReac Type Severity Reaction Status Date / Time No Known Allergies Allergy Verified 01/30/25 09:21 Family History Father Heart disease Hypertension Brother Cancer Mother Arthritis Surgical History History of breast lift History of cholecystectomy Social History Smoking Status: Heavy Smoker (>10/day) Tobacco: How many years used: 50 alcohol intake: never EXAM Physical Exam Const Vital Signs: 01/30/25 09:20 01/30/25 11:19 01/30/25 13:00 Temperature 97.0 F L Temperature Source Temporal Pulse Rate 110 H 80 64 Respiratory Rate 16 Blood Pressure 134/80 H 123/78 H 117/89 H Blood Pressure Mean 98 93 98 Pulse Ox 100 99 96 Oxygen Delivery Method Room Air MDM MDM MDM Narrative Medical decision making narrative: 74-year-old female with past medical history of right lung adenocarcinoma in remission, DDD, osteoarthritis, compression fractures presents for evaluation of headache. Patient states that she has had a headache for the past 2 days. Associated symptoms are photosensitivity, sound sensitivity, nausea. Endorses being under a lot of stress lately. Little sleep. Patient states that she did have a headache multiple years ago in which she was told she had a small aneurysm. Denies acute onset of headache reaching maximal intensity in under one hour. This is neither the worst headache that they have ever experienced, nor was the onset timed with exertional activity or trauma. Patient has not experienced any fever, unusual neck pain or stiffness, syncope, or near syncope. They deny numbness, tingling, or new weakness of the extremities. Differential diagnosis includes but is not limited to migraine headache, tension headache, myofascial spasm, cervical fracture, intracranial hemorrhage, aneurysm. Although I suspect more of a migraine headache versus tension headache given patient has a history of a brain aneurysm will obtain CTA head and neck as well as CT head without contrast. I suspect patient's neck pain is secondary to a myofascial spasm however given her history of spontaneous fractures will obtain CT cervical spine. Morphine, NS bolus, Reglan, Benadryl ordered for symptoms. Will obtain CMP for contrast load. CT of the cervical spine shows chronic degenerative changes. No acute fracture. CTA head and neck without any intracranial abnormality, bleed, aneurysm. Patient does have decreased attenuation in the periventricular white matter and Vicoprin density in the left basal ganglia, unchanged from prior in March 2023. 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 Patient currently not endorsing any neurological deficits. I did reach out to our vascular surgery team. I spoke with the nurse practitioner. Okay to follow-up outpatient. CMP shows hyponatremia at 124. Patient has a history of hyponatremia, her baseline is 130. No LOY. No transaminitis. On reevaluation, patient is sleeping. She states her headache is improving. She does admit to decreased p.o. intake. This may be secondary to the drop in her sodium, may be secondary to mild dehydration. Will repeat BMP after NS bolus. Daughter states that the patient has been more fatigued today. I suspected secondary to her not sleeping yesterday secondary to her headache however will add on a UA to assess for UTI. Repeat BMP shows an improvement in her sodium at 128. UA negative for UTI. On reevaluation, patient's headache has improved. She is much more awake after getting some rest. Patient stable to discharge home. Follow-up with primary care physician. Her and her family were updated of all the results and confirmed understanding the plan. Return precautions explained. Follow-up with vascular surgery. Impression: 1. Headache 2. Chronic hyponatremia 3. 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 Lab Data Labs: Laboratory Results - last 24 hr 01/30/25 01/30/25 01/30/25 10:09 11:32 12:31 Sodium 124 L 128 L Potassium 4.7 4.0 Chloride 91 L 95 L Carbon Dioxide 21.2 22.6 Anion Gap 12 11 BUN 12 12 Creatinine 0.77 0.70 Est GFR (MDRD) Non-Af 81 91 BUN/Creatinine Ratio 15.3 16.6 Glucose 140 H 94 Calcium 9.0 8.4 Total Bilirubin 0.35 AST 29 ALT 16 Alkaline Phosphatase 66 Total Protein 6.8 Albumin 3.6 Globulin 3.3 Albumin/Globulin Ratio 1.1 Urine Color Yellow Urine Clarity Clear Urine pH 7.0 Ur Specific [place] 1.005 Urine Protein Negative Urine Glucose (UA) Normal Urine Ketones Negative Urine Occult Blood 25 H Urine Nitrite Negative Urine Bilirubin Negative Urine Urobilinogen Normal Ur Leukocyte Esterase Negative Urine RBC 0 SEEN Urine WBC 0 SEEN Ur Squamous Epith Cells 0 SEEN Urine Bacteria 0 SEEN Urine Mucus 0 SEEN Radiography Diagnostic Testing: Clinical Impression(s) from Imaging Studies Head/Neck CTA 01/30/25 09:36 IMPRESSION: No acute abnormality is seen. Reading Location: [id number] Cervical Spine CT 01/30/25 09:39 IMPRESSION: There is grade 1 spondylolisthesis at C4-5, 0.2 cm. There is loss of disc height from C5-7. There is moderate bilateral foraminal narrowing at C5-6 secondary to bony hypertrophy. Reading Location: [facility] Discharge Plan Triage Chief Complaint: Headache ED Provider: Julián Ovalles Dx/Rx/DC Orders Prescriptions: No Action oxybutynin chloride 15 mg tablet extended release 24hr 15 mg PO DAILY sulfasalazine 500 mg tablet 500 mg PO BID prednisone 20 mg tablet 20 mg PO QDAY alendronate 70 mg tablet 70 mg PO QWEEK hydrocodone-acetaminophen 5-325 mg tablet 1 tab PO Q6H PRN PRN (Reason: Pain) 3 Days Qty: 10 0RF Primary Care Provider: Cathy Garnica Referrals: Cathy Garnica MD [Primary Care Provider] - Print Language: Kyrgyz
[2025-01-30] MEDS: DiphenhydrAMINE 50 MG/ML Syringe 25 MG IV (10:01)
[2025-01-30] MEDS: 0.9% Normal Saline (1000mL) 1,000 ML 1000 ML IV (10:03)
[2025-01-30 10:48] LABS: AST(SGOT) 29 U/L (<=31); Alanine Aminotransfer ALT/SGPT 16 U/L (<=34); Albumin, Serum 3.6 g/dL (3.4-4.8); Alkaline Phosphatase 66 U/L (35-104); Anion Gap 12 (5-15); BUN 12 mg/dL (4-19); BUN/Creat Ratio 15.3 RATIO (10-20); Calcium,Total 9.0 mg/dL (7.6-11.0); Carbon Dioxide 21.2 mmol/L (21.0-32.0); Chloride 91 mmol/L (98-108); Globulin 3.3 g/dL (2.2-4.2); Glucose 140 mg/dL (70-99); Potassium 4.7 mmol/L (3.3-5.1)
[2025-01-30 11:19] VITALS: BP 123/78; PULSE 80; O2SAT 99
[2025-01-30 12:12] LABS: Anion Gap 11 (5-15); BUN 12 mg/dL (4-19); BUN/Creat Ratio 16.6 RATIO (10-20); Calcium,Total 8.4 mg/dL (7.6-11.0); Carbon Dioxide 22.6 mmol/L (21.0-32.0); Chloride 95 mmol/L (98-108); Glucose 94 mg/dL (70-99); Potassium 4.0 mmol/L (3.3-5.1)
[2025-01-30 12:41] LABS: Mucous, Urine 0 SEEN /hpf (<or=2+); Red Blood Cells-Urine 0 SEEN /hpf (0-5); Squamous Epithelial Cells - UA 0 SEEN /hpf (5-10)
[2025-01-30 12:43] LABS: Color, Urine Yellow (Yellow); Glucose, Dipstick Normal (Normal); Ketone-Dipstick Negative (Negative); Leukocyte Esterase-Dipstick Negative /ul (Negative); Nitrite-Dipstick Negative (Negative); Occult Blood-Urine 25 /ul (Negative); Protein-Dipstick Negative (Negative); Specific Gravity, Urine 1.005 (1.002-1.030); Urine Bilirubin Dipstick Negative (Negative)
[2025-01-30 13:00] VITALS: BP 117/89; PULSE 64; O2SAT 96
[2025-01-30 13:23] VITALS: BP 117/89; PULSE 64; RESP 18; TEMP 36.8; O2SAT 96
== END 2025-01-30 13:36 | disposition home or self-care (01) ==
PROVIDERS: Emergency Provider Surgery; PCP Family Medicine; Visit Provider Surgery
DX: R51.9 Headache, unspecified (principal); M06.9 Rheumatoid arthritis, unspecified; J44.9 Chronic obstructive pulmonary disease, unspecified; E87.1 Hypo-osmolality and hyponatremia; I65.22 Occlusion and stenosis of left carotid artery; M54.2 Cervicalgia; R11.0 Nausea; F17.200 Nicotine dependence, unspecified, uncomplicated; Z79.899 Other long term (current) drug therapy; Z85.118 Personal history of other malignant neoplasm of bronchus and lung
CPT/HCPCS: 70496; 70498; 72125; 80048; 80053; 81001; 96361; 96374; 96375; 99284; Q9967; A4216

== ENCOUNTER → 2025-02-01 | Outpatient (CLI) | payer MEDICARE, MEDICAID, SELFPAY ==
[2024-10-04 11:15] VITALS: BMI 21.1
--- NOTE | 2025-02-01 12:30 | MRI_ITS ---
PROCEDURE: SPINE LUMBAR (ROUTINE) 02/01/2025 REASON FOR EXAM: FOOT DROP TECHNIQUE: SPINE LUMBAR (ROUTINE) COMPARISON: Lumbar spine MRI on 10/19/2024 (images only) FINDINGS: Vertebral body heights are maintained. There is rightward curvature of the lumbar spine. Marrow density is unremarkable, without discrete lesion. A prominent Schmorl's node at the inferior endplate of L1 is unchanged. Multilevel disc height and signal loss. Conus medullaris terminates at mid L1. Distal cord signal intensity is unremarkable. Simple cyst in the right kidney, unchanged. Aortic atherosclerosis. The visualized contents in the abdomen and pelvis are otherwise unremarkable. L1-2: Mild disc bulge. [id number] facet arthropathy. No significant neural foraminal or spinal canal narrowing. L2-3: Mild disc bulge. Moderate left and mild right facet arthrosis. Moderate left and mild right neural foraminal narrowing. No significant spinal canal narrowing. L3-4: Mild disc bulge. Moderate bilateral facet arthrosis. Moderate left and mild to moderate right neural foraminal narrowing. Minimal significant spinal canal narrowing. L4-5: Moderate disc bulge with near-complete disc height loss. Moderate facet arthrosis. Severe right and moderate left neural foraminal narrowing. Mild to moderate spinal canal narrowing, which measures 10 mm in AP diameter. There is mass effect on the lateral recess bilaterally. L5-S1: Minimal disc bulge. Moderate facet arthrosis. Mild bilateral neural foraminal narrowing. No significant spinal canal narrowing. MRI/Spine Lumbar (Routine) IMPRESSION: Multilevel degenerative changes of the lumbar spine, worst at L4-5 as detailed above, and not significantly changed from MRI on 10/19/2024. Reading Location: [id number]
== END | disposition home or self-care (01) ==
LOC: MRI 12:12
PROVIDERS: PCP Family Medicine; Referring Provider Student in an Organized Health Care Education/Training Program; Visit Provider Student in an Organized Health Care Education/Training Program
DX: M21.371 Foot drop, right foot (principal)
CPT/HCPCS: 72148

== ENCOUNTER → 2025-02-21 | Outpatient (CLI) | payer MEDICARE, MEDICAID, SELFPAY ==
[2024-10-04 11:15] VITALS: BMI 21.1
[2025-02-21 15:37] LABS: Hematocrit 36.0 % (37-47); Hemoglobin 11.9 g/dL (12.0-15.0); Immature Granulocytes Count 0.060 X10^3/uL (0.0-0.0); Mean Corp Hgb Conc 33.1 g/dL (32-36); Mean Corpuscular Volume 83.3 fL (81-99); Mean Platelet Vol. 9.9 fl (6.2-12.0); NRBC Flagged by Analyzer 0 % (0-5); Platelet Count 414 K/mm3 (150-450); RBC Distribution Width CV 15.6 % (11.6-14.6); RBC Distribution Width SD 47.4 fl (35.1-43.9); Red Blood Count 4.32 M/mm3 (4.2-5.4); White Blood Count 8.7 K/mm3 (4.4-11.0)
[2025-02-21 16:14] LABS: AST(SGOT) 16 U/L (<=31); Alanine Aminotransfer ALT/SGPT 11 U/L (<=34); Albumin, Serum 4.1 g/dL (3.4-4.8); Alkaline Phosphatase 55 U/L (35-104); Bilirubin, Direct 0.13 mg/dL (0.00-0.30); CRP 19.00 mg/L (0.0-3.0); Globulin 3.4 g/dL (2.2-4.2)
== END | disposition home or self-care (01) ==
PROVIDERS: PCP Family Medicine; Referring Provider Student in an Organized Health Care Education/Training Program; Visit Provider Student in an Organized Health Care Education/Training Program
DX: M05.9 Rheumatoid arthritis with rheumatoid factor, unspecified (principal); Z79.899 Other long term (current) drug therapy
CPT/HCPCS: 36415; 80076; 82565; 85025; 85652; 86140

== ENCOUNTER → 2025-04-11 | Outpatient (CLI) | payer MEDICARE, MEDICAID, SELFPAY ==
[2024-10-04 11:15] VITALS: BMI 21.1
[2025-04-11 12:31] LABS: Hematocrit 34.8 % (37-47); Hemoglobin 11.4 g/dL (12.0-15.0); Immature Granulocytes Count 0.020 X10^3/uL (0.0-0.0); Mean Corp Hgb Conc 32.8 g/dL (32-36); Mean Corpuscular Volume 85.7 fL (81-99); Mean Platelet Vol. 9.9 fl (6.2-12.0); NRBC Flagged by Analyzer 0 % (0-5); Platelet Count 336 K/mm3 (150-450); RBC Distribution Width CV 14.5 % (11.6-14.6); RBC Distribution Width SD 45.8 fl (35.1-43.9); Red Blood Count 4.06 M/mm3 (4.2-5.4); White Blood Count 6.7 K/mm3 (4.4-11.0)
[2025-04-11 12:38] LABS: AST(SGOT) 16 U/L (<=31); Alanine Aminotransfer ALT/SGPT 7 U/L (<=34); Albumin, Serum 4.2 g/dL (3.4-4.8); Alkaline Phosphatase 50 U/L (35-104); Bilirubin, Direct 0.11 mg/dL (0.00-0.30); CRP 30.40 mg/L (0.0-3.0); Globulin 3.0 g/dL (2.2-4.2)
== END | disposition home or self-care (01) ==
LOC: MTLAB 10:14
PROVIDERS: PCP Family Medicine; Referring Provider Student in an Organized Health Care Education/Training Program; Visit Provider Student in an Organized Health Care Education/Training Program
DX: M05.9 Rheumatoid arthritis with rheumatoid factor, unspecified (principal); Z79.899 Other long term (current) drug therapy
CPT/HCPCS: 36415; 80076; 82565; 85025; 85652; 86140

== ENCOUNTER 2025-04-24 12:19 | Emergency (ER) | payer MEDICARE, MEDICAID, SELFPAY ==
[2024-10-04 11:15] VITALS: BMI 21.1
[2025-04-24 12:20] VITALS: BP 140/79; PULSE 92; RESP 18; TEMP 36.6; O2SAT 100; BMI 19.6
--- NOTE | 2025-04-24 12:41 | CT_ITS ---
PROCEDURE: CTA CHEST W/WO CONTRAST 04/24/2025 REASON FOR EXAM: BACK PAIN, COUGH,, HX OF LUNG CX/LOBECTOMY RUL TECHNIQUE: Procedure Code: [id number] Modality: CT Procedure: CTA CHEST W/WO CONTRAST Multiplanar Sagittal and Coronal images were obtained. 3D post processing was performed CONTRAST: Isovue-300 VOLUME: 100 mL One or more dose reduction techniques were used (e.g., Automated exposure control, adjustment of the mA and/or kV according to patient size, use of iterative reconstruction technique). RADIATION DOSE SUMMARY: CTDlvol: 5.06 mGy DLP: 120.17 mGycm COMPARISON: Prior chest radiograph dated November 19, 2024. FINDINGS: Hardware: None Lymph nodes: No suspicious lymph nodes are seen. Heart: Coronary artery calcification. Thoracic Aorta: Mild degree of atherosclerotic calcification of the aortic arch. Pulmonary Vessels: No evidence of pulmonary embolism. Lungs and Airways: The patient is status post right upper lobectomy. Postoperative changes are seen. Pleura: No pleural effusion. Upper Abdomen: Unremarkable Bones: Increased kyphosis. Demineralization of the thoracic vertebrae with evidence of lytic lesions in the mid and lower dorsal spine. CT/CTA Chest W/WO Contrast IMPRESSION: Status post right upper lobectomy. No evidence of pulmonary embolism. Increased kyphosis with loss of height of mid dorsal vertebrae suggestive of po ssible lytic metastasis. Reading Location: [id number]
--- NOTE | 2025-04-24 12:41 | EKG12_ITS ---
Test Reason : Blood Pressure : */* mmHG Vent. Rate : 89 BPM Atrial Rate : 89 BPM P-R Int : 160 ms QRS Dur : 78 ms QT Int : 364 ms P-R-T Axes : 70 53 75 degrees QTcB Int : 442 ms Normal sinus rhythm Minimal voltage criteria for LVH, may be normal variant ( Sokolow-Hurd ) Nonspecific ST abnormality Abnormal ECG Confirmed by YEHUDA ARREDONDO, BK ([id number]), editorial specialist ALLAN COCHRAN ([id number]) on 04/25/2025 1:26:17 PM Referred By: RACHAEL Confirmed By: BK BLACKMAN MD
[2025-04-24] MEDS: 0.9% Normal Saline (500mL Bag) 500 ML 999 ML IV (13:15)
[2025-04-24 13:17] LABS: Hematocrit 30.5 % (37-47); Hemoglobin 10.2 g/dL (12.0-15.0); Immature Granulocytes Count 0.020 X10^3/uL (0.0-0.0); Mean Corp Hgb Conc 33.4 g/dL (32-36); Mean Corpuscular Volume 83.6 fL (81-99); Mean Platelet Vol. 9.2 fl (6.2-12.0); NRBC Flagged by Analyzer 0 % (0-5); Platelet Count 305 K/mm3 (150-450); RBC Distribution Width CV 13.4 % (11.6-14.6); RBC Distribution Width SD 41.3 fl (35.1-43.9); Red Blood Count 3.65 M/mm3 (4.2-5.4); White Blood Count 6.9 K/mm3 (4.4-11.0)
[2025-04-24 13:22] VITALS: BP 148/65; PULSE 92; RESP 19; TEMP 36.7; O2SAT 94
[2025-04-24 14:00] LABS: Pro- Brain NATRIURETIC PEPTIDE 202 pg/mL (<=900); Troponin T High Sensitivity 26 ng/L (<=14)
[2025-04-24 14:04] VITALS: BP 144/72; PULSE 93; RESP 12; O2SAT 100
[2025-04-24 14:51] LABS: Anion Gap 15 (5-15); BUN 11 mg/dL (4-19); BUN/Creat Ratio 17.8 RATIO (10-20); Calcium,Total 8.8 mg/dL (7.6-11.0); Carbon Dioxide 18.2 mmol/L (21.0-32.0); Chloride 95 mmol/L (98-108); Estimated Creatinine Clearance 49.73 ml/min (50-250); Glucose 96 mg/dL (70-99); Potassium 4.3 mmol/L (3.3-5.1)
[2025-04-24 15:29] LABS: Troponin T High Sens 2 HR 23 ng/L (<=14)
--- NOTE | 2025-04-24 15:30 | EDS_ITS ---
HPI History of Present Illness Chief Complaint: Back Informant: patient Narrative Narrative: Patient is a 74-year-old female with history of prior lung cancer status post lobectomy of the right upper lobe (receives her care through [facility]) is not currently on any chemotherapy. She is presenting with 1 week of worsening cough and associated thoracic back pain. She has been taking Tylenol with some relief of the pain however works for couple hours and then wears off. She notes her cough is been productive at night and she has had green sputum production for a month now. States it hurts to take a deep breath or cough. She does note that 2 days ago she had an O2 sat of 77% in the morning but has not had a low O2 sat since. Does not wear home O2. She does have chronic bronchitis. She denies any other URI symptoms such as nasal congestion or sore throat. She does have a history of compression fractures in her back denies any trauma. She does intermittently have a mild headache. She has been taking her albuterol inhaler with no significant relief and used her nebulizer twice yesterday with some help. Denies any associated nausea or vomiting currently. Does note over the past 3 weeks she has had poor oral intake and states nothing tastes good. No other complaints or concerns reported at this time [facility] Medical History Aftercare following right hip joint replacement surgery Fall Subcapital fracture of right hip Adenocarcinoma of right lung History of COPD Nicotine dependence, cigarettes, uncomplicated Rheumatoid arthritis Pneumothorax after biopsy Kidney disease Smoker Synovial cyst of popliteal space [Patel], right knee Effusion, right knee Osteoarthritis COPD (chronic obstructive pulmonary disease) Home Medications ?Medication ?Instructions ?Recorded ?Last Taken ?Type oxybutynin chloride 15 mg 15 mg PO DAILY urine 4 04/23/25 History tablet,extended release 24 hr alendronate 70 mg tablet 70 mg PO QWEEK bone health 0 01/23/25 04/22/25 History sulfasalazine 500 mg tablet 500 mg PO BID 01/23/2501/10 History acetaminophen 500 mg capsule 1,000 mg PO Q6H PRN pain 04/24/25 04/24/25 History albuterol sulfate 90 mcg/actuation 2 puff inhalation Q 6H PRN wheezing 04/24/25 04/24/25 History aerosol inhaler oxycodone-acetaminophen 5 mg-325 1 tab PO Q6H PRN PRN Pain 3 days 04/24/25 Unknown Rx mg tablet #12 TABLETS Allergy/AdvReac Type Severity Reaction Status Date / Time No Known Allergies Allergy Verified 04/24/25 12:20 Family History Father Heart disease Hypertension Brother Cancer Mother Arthritis Surgical History History of breast lift History of cholecystectomy Social History Smoking Status: Heavy Smoker (>10/day) Tobacco: How many years used: 50 alcohol intake: never ROS ROS ED Constitutional Constitutional ED: Denies chills or fever(s) Cardiovascular Cardiovascular: Denies chest pain Respiratory/Chest Respiratory/Chest: Reports dyspnea and sputum Gastrointestinal Gastrointestinal: Denies nausea or vomiting Musculoskeletal Musculoskeletal: Reports back pain; Denies arthralgias, myalgias or neck pain Integumentary Denies rash Neurologic Neurologic: Reports headache(s) and weakness; Denies paresthesias Hematologic/Lymphatic Hematologic/Lymphatic: Denies easy bleeding or easy bruising EXAM Physical Exam Const Vital Signs: 04/24/25 12:20 04/24/25 12:26 04/24/25 13:16 Temperature 97.8 F Temperature Source Oral Pulse Rate 92 Respiratory Rate 18 Respiratory Effort Normal Non-Labored Respiratory Pattern Normal Blood Pressure 140/79 H Blood Pressure Mean 99 Pulse Ox 100 Oxygen Delivery Method Room Air Room Air 04/24/25 13:22 04/24/25 14:04 04/24/25 15:45 Temperature 98.0 F 98.0 F Temperature Source Oral Pulse Rate 92 93 95 Respiratory Rate 19 H 12 12 Respiratory Effort Respiratory Pattern Blood Pressure 148/65 H 144/72 H 140/76 H Blood Pressure Mean 92 96 97 Pulse Ox 94 100 100 Oxygen Delivery Method Room Air Room Air Positive well nourished and well developed General Appearance ED: well developed and NAD HEENT Reports moist mucous membranes Eyes PERRL Neck supple and no JVD Chest Wall Chest Narrative: No chest wall tenderness or crepitus Resp normal respiratory effort and clear to auscultation bilaterally Auscultation: Negative for rales, rhonchi or wheezes Cardio regular rate and regular rhythm GI normal to inspection, nondistended, normoactive bowel sounds and soft to palpation Back/Spine Back/Spine Narrative: Thoracic spinal tenderness at approximately T 8 through 11 with some associated pain across her thoracic back at approximate level of T8 and traveling in a bandlike distribution. Cervical Spine: Negative for cervical spine tenderness Thoracic Spine / Upper Back: Negative for paraspinal muscle tenderness Lumbar Spine / Lower Back: Negative for ROM limited Neuro oriented x3 Sensorium / Orientation: alert Psych mental status grossly normal Skin no rashes or lesions noted and no wounds MDM MDM MDM Narrative Medical decision making narrative: Patient evaluated for worsening cough as well as thoracic back pain. Differential includes is not limited to pneumonia, pulmonary emboli, metastatic/recurrent lung cancer, ACS, pleural effusion, pneumothorax and acute heart failure. Patient given oxycodone for pain control the emergency room as well as 500 cc bolus. Work including CBC, BMP, delta high-sensitivity troponin and BNP obtained as well as EKG and CTA of the chest. EKG does not show any acute ischemic changes. CBC shows a stable anemia with a hemoglobin of 10.2. She has a stable hyponatremia with a sodium of 127 and likely some mild dehydration with a bicarb of 18.2. Kidney function is normal. Glucose is normal as well as her calcium. Delta high-sensitivity troponin mildly elevated but stable at 26 and then 23. Given that the symptoms been going on for over a week low suspicion for ACS at this time. BNP is normal. 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 Patient is informed of this finding. On repeat evaluation her pain is improved. Her daughter is now at the bedside. Encouraged to follow-up outpatient with her oncology team through [facility]. Given this is a new finding I did also reach out to oncology here and talk to Cristina Valdez. They will work on outpatient follow-up. Patient is given a prescription for Percocet for out patient's pain control. Given return precautions. Patient and daughter agreeable with this plan of care. Patient does have any hypoxia and at this time I do not think requires inpatient or further workup or monitoring at this time. She is comfortable with this plan of care Lab Data Attestation: I reviewed the patient's lab results. Labs: Laboratory Results - last 24 hr 04/24/25 04/24/25 13:05 14:55 WBC 6.9 RBC 3.65 L Hgb 10.2 L Hct 30.5 L MCV 83.6 MCH 27.9 MCHC 33.4 RDW Std Deviation 41.3 RDW Coeff of Nikki 13.4 Plt Count 305 MPV 9.2 Immature Gran % (Auto) 0.300 Neut % (Auto) 77.5 H Lymph % (Auto) 9.9 L [place] % (Auto) 10.3 H Eos % (Auto) 1.4 Baso % (Auto) 0.6 Absolute Neuts (auto) 5.4 Absolute Lymphs (auto) 0.68 L Nucleated RBC % 0 Sodium 127 L Potassium 4.3 Chloride 95 L Carbon Dioxide 18.2 L Anion Gap 15 BUN 11 Creatinine 0.61 L Estim Creat Clear Calc 49.73 L Est GFR (MDRD) Non-Af 94 BUN/Creatinine Ratio 17.8 Glucose 96 Calcium 8.8 Troponin T High Sens 26 H Troponin T Hi Sens 2 Hr 23 H NT pro BNP II 202 Radiography Diagnostic Testing: Clinical Impression(s) from Imaging Studies Chest CTA 04/24/25 12:41 IMPRESSION: Status post right upper lobectomy. No evidence of pulmonary embolism. Increased kyphosis with loss of height of mid dorsal vertebrae suggestive of possible lytic metastasis. Reading Location: [facility] Rhythm Strip Rhythm Strip: Sinus Rhythm Rate: 89 Ectopy: None EKG Initial EKG: Attestation: I personally reviewed and interpreted this EKG as follows: Interpretation: Sinus Rhythm Comments: Normal sinus rhythm at a rate of 89 bpm Normal axis Normal intervals Normal ST segments Minimal voltage criteria for LVH No significant change greater prior EKG on 09/20/2024 Management Discussion w/another healthcare provider: Rehabilitation Caseworker Discharge Plan Triage Chief Complaint: Back ED Provider: Melissa Osullivan Dx/Rx/DC Orders Clinical Impression: Back pain, thoracic, Adenocarcinoma of upper lobe of right lung, Abnormal CT of thoracic spine Instructions: ED Back Pain (Acute or Chronic) Prescriptions: New oxycodone-acetaminophen 5-325 mg tablet 1 tab PO Q6H PRN PRN (Reason: Pain) 3 Days Qty: 12 0RF No Action oxybutynin chloride 15 mg tablet extended release 24hr 15 mg PO DAILY sulfasalazine 500 mg tablet 500 mg PO BID alendronate 70 mg tablet 70 mg PO QWEEK albuterol sulfate 90 mcg/actuation HFA aerosol inhaler 2 puff inhalation Q6H PRN (Reason: wheezing) acetaminophen 500 mg capsule 1,000 mg PO Q6H PRN (Reason: pain) Other Ambulatory Orders: Fast Pass: Oncology Referral [facility] (Routine) Facility: [facility] - Location: [facility] Ordered By: Dr. Melissa Osullivan Primary Care Provider: Cathy Garnica Referrals: Cathy Garnica MD [Primary Care Provider, Family Practice] Jailene Mott MD [Med Staff - Active Staff, Oncology] Activity Restrictions/Additional Instructions: Your workup did not show any pneumonia, blood clot or other cause of your cough. Did have some mild findings of dehydration but were given IV fluids in the emergency room. Your CT shows demineralization of your thoracic vertebrae with evidence of lytic lesions which can be associated with bony metastasis. Follow- up with oncology soon as possible further evaluation of this. In the meantime you been given a prescription for Percocet for further pain control. Print Language: Romanian Disposition Disposition: Home, Self Care Discharge Date/Time: 04/24/25 15:49
[2025-04-24 15:45] VITALS: BP 140/76; PULSE 95; RESP 12; TEMP 36.7; O2SAT 100
== END 2025-04-24 15:49 | disposition home or self-care (01) ==
PROVIDERS: Emergency Provider Emergency Medicine; PCP Family Medicine; Visit Provider Emergency Medicine
DX: M54.6 Pain in thoracic spine (principal); C34.11 Malignant neoplasm of upper lobe, right bronchus or lung; J44.9 Chronic obstructive pulmonary disease, unspecified; R06.00 Dyspnea, unspecified; R93.7 Abnormal findings on diagnostic imaging of other parts of musculoskeletal system; R51.9 Headache, unspecified; E87.1 Hypo-osmolality and hyponatremia; D64.9 Anemia, unspecified; Z90.2 Acquired absence of lung [part of]
CPT/HCPCS: 71275; 80048; 83880; 84484; 85025; 93005; 96360; 99285; Q9967; A4216

== ENCOUNTER 2025-05-07 11:12 | Emergency (ER) | payer MEDICARE, MEDICAID, SELFPAY ==
[2024-10-04 11:15] VITALS: BMI 21.1
[2025-05-07 11:15] VITALS: BP 127/78; PULSE 94; RESP 18; TEMP 37; O2SAT 98; BMI 20.2
[2025-05-07 12:01] LABS: Hematocrit 31.9 % (37-47); Hemoglobin 10.3 g/dL (12.0-15.0); Immature Granulocytes Count 0.030 X10^3/uL (0.0-0.0); Mean Corp Hgb Conc 32.3 g/dL (32-36); Mean Corpuscular Volume 84.2 fL (81-99); Mean Platelet Vol. 9.4 fl (6.2-12.0); NRBC Flagged by Analyzer 0 % (0-5); Platelet Count 585 K/mm3 (150-450); RBC Distribution Width CV 13.5 % (11.6-14.6); RBC Distribution Width SD 41.7 fl (35.1-43.9); Red Blood Count 3.79 M/mm3 (4.2-5.4); White Blood Count 8.3 K/mm3 (4.4-11.0)
[2025-05-07 12:13] VITALS: BP 132/57; PULSE 89; RESP 16; O2SAT 98
[2025-05-07 12:31] LABS: Anion Gap 14 (5-15); BUN 18 mg/dL (4-19); BUN/Creat Ratio 24.9 RATIO (10-20); Calcium,Total 9.6 mg/dL (7.6-11.0); Carbon Dioxide 21.9 mmol/L (21.0-32.0); Chloride 95 mmol/L (98-108); Estimated Creatinine Clearance 51.22 ml/min (50-250); Glucose 134 mg/dL (70-99); Potassium 4.1 mmol/L (3.3-5.1); Troponin T High Sensitivity 36 ng/L (<=14)
[2025-05-07 13:00] VITALS: BP 139/63
[2025-05-07 13:59] LABS: Troponin T High Sens 2 HR 29 ng/L (<=14)
[2025-05-07 14:00] VITALS: BP 118/68
[2025-05-07 14:17] VITALS: BP 118/68; PULSE 89; RESP 16; TEMP 37; O2SAT 98
== END 2025-05-07 14:30 | disposition home or self-care (01) ==
PROVIDERS: Emergency Provider Emergency Medicine; PCP Family Medicine; Visit Provider Emergency Medicine
DX: R06.00 Dyspnea, unspecified (principal); J44.9 Chronic obstructive pulmonary disease, unspecified; R40.4 Transient alteration of awareness; M54.2 Cervicalgia; F17.200 Nicotine dependence, unspecified, uncomplicated
CPT/HCPCS: 70450; 71046; 80048; 84484; 85025; 93005; 99285; A4216

== ENCOUNTER → 2025-05-10 | Outpatient (CLI) | payer MEDICARE, MEDICAID, SELFPAY ==
[2024-10-04 11:15] VITALS: BMI 21.1
--- NOTE | 2025-05-10 10:03 | RAD_ITS ---
EXAM: XR Thoracic Spine, 2 Views CLINICAL INDICATION: COMPARE TO STUDY ON 11/10/24, NSCLC TECHNIQUE: Frontal and lateral views of the thoracic spine. COMPARISON: XR Thoracic Spine dated 11/10/2024 FINDINGS: VERTEBRAE: Multilevel mild vertebral height loss of T6 to T11. 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 No acute fracture. Normal alignment. DISC SPACES: See above. SOFT TISSUES: Unremarkable. RAD/Thoracic Spine 2 Views IMPRESSION: 1. Degenerative changes thoracic spine as described. 2. Multiple vertebral height loss of the vertebral bodies as above. 3. No significant change from the prior exam. Reading Location: [id number]
--- NOTE | 2025-05-10 10:03 | RAD_ITS ---
EXAM: XR Thoracic Spine, 2 Views CLINICAL INDICATION: COMPARE TO STUDY ON 11/10/24, NSCLC TECHNIQUE: Frontal and lateral views of the thoracic spine. COMPARISON: XR Thoracic Spine dated 11/10/2024 FINDINGS: VERTEBRAE: Multilevel mild vertebral height loss of T6 to T11. 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 No acute fracture. Normal alignment. DISC SPACES: See above. SOFT TISSUES: Unremarkable. RAD/Thoracic Spine 2 Views IMPRESSION: 1. Degenerative changes thoracic spine as described. 2. Multiple vertebral height loss of the vertebral bodies as above. 3. No significant change from the prior exam. Reading Location: [id number]
--- NOTE | 2025-05-10 10:08 | NM_ITS ---
PROCEDURE: BONE SCAN WHOLE BODY 05/10/2025 REASON FOR EXAM: H/O NSCLC, with previous right upper lobectomy. TECHNIQUE: Procedure Code: NMBO Modality: NM Procedure: BONE SCAN WHOLE BODY Delayed whole-body bone scan with anterior and posterior views. RADIOPHARMACEUTICAL: 27 mCi Technetium-99m MDP IV COMPARISON: PET/CT of 02/29/2024 is unavailable for comparison, not showing up on our PACS system. Severe. FINDINGS: Mild degenerative changes of the spine are seen, also with thoracolumbar S shaped scoliosis. Degenerative changes are seen of the knees and spine. A focus of increased uptake is seen in the proximal right femur, in or about the greater trochanter. Recommend correlation with plain film and other imaging already performed. NM/Bone Scan Whole Body IMPRESSION: 1. A focus of increased uptake is seen in the proximal right femur, in or about the greater trochanter. Recommend correlation with plain film and other imaging already performed. 2. Degenerative changes and scoliosis is noted. Reading Location: [id number]
--- NOTE | 2025-05-10 10:08 | NM_ITS ---
PROCEDURE: BONE SCAN WHOLE BODY 05/10/2025 REASON FOR EXAM: H/O NSCLC, with previous right upper lobectomy. TECHNIQUE: Procedure Code: NMBO Modality: NM Procedure: BONE SCAN WHOLE BODY Delayed whole-body bone scan with anterior and posterior views. RADIOPHARMACEUTICAL: 27 mCi Technetium-99m MDP IV COMPARISON: PET/CT of 02/29/2024 is unavailable for comparison, not showing up on our PACS system. Severe. FINDINGS: Mild degenerative changes of the spine are seen, also with thoracolumbar S shaped scoliosis. Degenerative changes are seen of the knees and spine. A focus of increased uptake is seen in the proximal right femur, in or about the greater trochanter. Recommend correlation with plain film and other imaging already performed. NM/Bone Scan Whole Body IMPRESSION: 1. A focus of increased uptake is seen in the proximal right femur, in or about the greater trochanter. Recommend correlation with plain film and other imaging already performed. 2. Degenerative changes and scoliosis is noted. Reading Location: [id number]
== END | disposition home or self-care (01) ==
LOC: NM 09:58
PROVIDERS: PCP Family Medicine; Referring Provider Internal Medicine Hematology & Oncology; Visit Provider Internal Medicine Hematology & Oncology
DX: R93.7 Abnormal findings on diagnostic imaging of other parts of musculoskeletal system (principal); C34.11 Malignant neoplasm of upper lobe, right bronchus or lung
CPT/HCPCS: 72070; 78306; A9503

== ENCOUNTER → 2025-05-15 | Outpatient (CLI) | payer MEDICARE, MEDICAID, SELFPAY ==
[2024-10-04 11:15] VITALS: BMI 21.1
--- NOTE | 2025-05-15 10:35 | RAD_ITS ---
PROCEDURE: RAD/Femur Min 2 Views
--- NOTE | 2025-05-15 10:35 | RAD_ITS ---
PROCEDURE: RAD/Pelvis 1 or 2 Views
== END | disposition home or self-care (01) ==
LOC: RAD 10:38
PROVIDERS: PCP Family Medicine; Referring Provider Internal Medicine Hematology & Oncology; Visit Provider Internal Medicine Hematology & Oncology
DX: R93.89 Abnormal findings on diagnostic imaging of other specified body structures (principal)
CPT/HCPCS: 72170; 73552